=== PATIENT | male | born 1945 | race Caucasian/White ===

== ENCOUNTER 2016-07-25 19:01 | Inpatient (IN) | payer MEDICARE ==
[~2016-07-25] VITALS: Ht 182.9 cm; Wt 52.8 kg
[2016-07-25] MEDS ORDERED: IV NORMAL SALINE 1000ML BAG 1,000 ML IV ONE (20:00)
[2016-07-25 20:05] LABS: BASO # 0.1 x10^3/uL (0.0-0.2); BASO % 0 % (0-3); EOS % 0 % (0-3); HEMATOCRIT 51.8 % (39.0-53.0); HEMOGLOBIN 16.8 g/dL (13.0-17.5); LYMPH # 1.6 x10^3/uL (1.0-4.8); LYMPH % 5 % (24-48); MEAN CORPUSCULAR HEMOGLOBIN 30 pg (25-35); MEAN CORPUSCULAR HGB CONC 33 g/dL (31-37); MEAN CORPUSCULAR VOLUME 93 fL (79-100); MONO % 7 % (0-9); NEUT % 87 % (31-73); PLATELET COUNT 240 x10^3/uL (140-400); RED BLOOD COUNT 5.55 x10^6/uL (4.30-5.70); RED CELL DISTRIBUTION WIDTH 13.4 % (11.5-14.5); WHITE BLOOD COUNT 30.3 x10^3/uL (4.0-11.0)
[2016-07-25 20:14] LABS: INR 1.3 (0.8-1.1); PROTHROMBIN TIME PATIENT 15.4 SEC (11.7-14.0)
[2016-07-25 20:22] LABS: BILIRUBIN,URINE NEGATIVE (NEG); GLUCOSE,URINE NEGATIVE (NEG); NITRITE,URINE NEGATIVE (NEG); PROTEIN,URINE 100 mg/dL (NEG-TRACE); UROBILINOGEN,URINE 0.2 mg/dL (0.2 mg/dL)
[2016-07-25 20:23] LABS: ALBUMIN 3.8 g/dL (3.4-5.0); CALCIUM 9.7 mg/dL (8.5-10.1); CREATININE 1.8 mg/dL (0.7-1.3); GFR 37.4; POTASSIUM 3.5 mmol/L (3.5-5.1); TOTAL BILIRUBIN 0.4 mg/dL (0.2-1.0); TOTAL PROTEIN 7.6 g/dL (6.4-8.2)
[2016-07-25 20:27] LABS: BARBITURATES NEG (NEG); BENZODIAZEPINES POS (NEG); CANNABINOIDS NEG (NEG); COCAINE NEG (NEG); METHADONE NEG (NEG); OPIATES NEG (NEG); PHENCYCLIDINE NEG (NEG)
[2016-07-25 20:28] LABS: ETHANOL, URINE NEG (NEG)
[2016-07-25 20:30] LABS: BACTERIA,URINE 0 /HPF (0-FEW); SQUAMOUS EPITHELIAL CELL,UR OCC /LPF; WBC,URINE 0 /HPF (0-4)
[2016-07-25 20:35] LABS: PLT ESTIMATE ADEQUATE (ADEQUATE)
--- NOTE | 2016-07-25 20:39 | RAD ---
PROCEDURE CT head without intravenous contrast. HISTORY Seizures. TECHNIQUE Axial images are obtained of the head from the skull base through the vertex without IV contrast Exposure: One or more of the following individualized dose reduction techniques were utilized for this examination: 1. Automated exposure control. 2. Adjustment of the mA and/or kV according to patient size. 3. Use of iterative reconstruction technique. COMPARISON CT head March 03, 2010. FINDINGS There is evidence of of parenchymal volume loss involving bilateral anterior frontal lobes, which has developed in the interval. There is also evidence of mild-moderate cerebellar volume loss, although this is similar to previous study. No obvious intracranial mass, mass-effect, midline shift, hemorrhage or obvious acute infarction is identified.Basilar cisterns are patent. Bone windows demonstrate no acute calvarial abnormality.There is opacification the right frontal sinus as well as multiple right ethmoid air cells.. IMPRESSION 1. No acute intracranial process is identified. Please note that CT can be relatively insensitive to acute ischemic infarction for up to 24 hours after symptom onset. 2. There is evidence of bilateral anterior frontal volume loss, which is new from previous study. This is nonspecific, but could relate to degenerative disorder or, less likely, posttraumatic injury or old infarction. Recommend clinical correlation. 3. Cerebellar volume loss. 4. Paranasal sinus disease. Electronically signed by: Dru Rosenberg MD (Jul 25, 2016 20:37:32)
[2016-07-25] MEDS ORDERED: ACETAMINOPHEN 325 MG TABLET. PO PRN ×2 (21:00→23:00)
[2016-07-25] MEDS ORDERED: ONDANSETRON PF 4 MG/2 ML VIAL. IV PRN ×2 (21:00→23:00)
[2016-07-25] MEDS ORDERED: LORAZEPAM 2 MG/ML VIAL ONE (21:45)
[2016-07-25 21:55] VITALS: BP 138/80
[2016-07-25] MEDS ORDERED: LORAZEPAM 2 MG/ML VIAL IV ONE (22:00)
[2016-07-25] MEDS ORDERED: FOSPHENYTOIN 1,000 MG in IV NORMAL SALINE 50ML 50 ML IV ONE (22:00)
--- NOTE | 2016-07-25 22:21 | ACF ---
Admission Forms Criteria SEIZURE Clinical Indications for Admission to Inpatient Care (Place 'X' for any and all applicable criteria): Admission is indicated for seizure and ANY ONE of the following(1)(2)(3)(4)(5): [X]I. Inpatient admission required rather than observation care (Also use Seizure: Observation Care Criteria as appropriate) because of ANY ONE of the following: [ ]a) Altered mental status that is severe or persistent [ ]b) New focal neurologic deficit that is severe or persistent [ ]c) Metabolic disorder (eg, hypoglycemia, hyponatremia) that is severe or persistent [X]d) Recurrent seizure [ ]e) Outpatient antiseizure regimen cannot be established (eg , patient cannot tolerate medication, initiation requires inpatient care) [ ]f) Need for ongoing intravenous infusion of antiseizure medication [ ]g) Cardiac arrhythmias of immediate concern [ ]h) Cerebral bleeding, hydrocephalus, or vasospasm monitoring (14) [ ]i) Increased intracranial pressure or cerebral edema monitoring (15) [ ]j) Other treatment or monitoring requiring inpatient admission [ ]II. Status epilepticus [A] or repetitive seizures not controlled with emergent treatment (6)(8) [ ]III. Brain disorder (eg, tumor, edema, and hydrocephalus) that requiring monitoring or intervention available only at inpatient level of care. [ ]IV. Brain insult (eg, severe trauma, stroke, drug toxicity, or withdrawal) that requires monitoring or intervention available only at inpatient level of care (10)(11) Extended stay beyond goal length of stay may be needed for (22) [ ]a) Complications of status epilepticus [ ]b) Refractory status epilepticus [ ]c) Etiology-specific therapy for conditions such as CRITICAL POWER INSTALL TECHNICIAN infection, head injury,eclampsia, severe metabolic abnormalities, and brain tumor [ ]d) Residual neurologic damage, [ ]e) Initiation of significant change to anticonvulsant treatment [ ]f) Older patients (65 years or older) [ ]g) Patient requiring intubation (eg, to protect airway) The original [employer] content created by [employer] has been revised. The portions of the content which have been revised are identified through the use of italic text or in bold, and [facility] [employer] has neither reviewed nor approved the modified material. All other unmodified content is copyright [facility] [employer]. Please see references footnoted in the original [facility] edition 2016 Admission Criteria Met?: Yes BALDO ALFARO Jul 25, 2016 22:21
--- NOTE | 2016-07-25 22:34 | PHYS DOC ---
Past Medical History Past Medical History: Seizure, Schizophrenia, Unknown Past Surgical History: Other Additional Past Surgical Histo: unknown Alcohol Use: None Drug Use: None Adult General Chief Complaint Chief Complaint: SEIZURE HPI HPI 71-year-old male with a history of seizure disorder who apparently takes Dilantin for his seizures presents after he had a seizure at home. EMS was called and in route the patient had another seizure and was given 5 mg of Versed. On arrival here the patient was highly sedated and unable provide any history. In reviewing his previous visits he is presented in a very similar fashion in the past. [] Review of Systems Review of Systems Review of systems are unobtainable secondary to altered mental status secondary to Versed sedation. Current Medications Current Medications Current Medications Medications (Trade) Dose Ordered Sig/Linh Start Time Stop Time Status Last Admin Dose Admin Sodium Chloride (Iv Sodium Chloride 0.9% 1000ml Bag) 1,000 ml @ 1,000 mls/hr 1X ONCE 07/25/16 20:00 07/25/16 20:59 DC 07/25/16 20:00 1,000 MLS/HR Allergies Allergies Allergies Coded Allergies Type Severity Reaction Last Updated Verified No Known Drug Allergies 07/16/15 No Physical Exam Physical Exam Constitutional: Well developed, well nourished, no acute distress, patient is sedated. [] HENT: Normocephalic, atraumatic, bilateral external ears normal, oropharynx moist, no oral exudates, nose normal. [] Eyes: PERRLA, EOMI, conjunctiva normal, no discharge. [] Neck: Normal range of motion, no tenderness, supple, no stridor. [] Cardiovascular:Heart rate regular rhythm, no murmur [] Lungs & Thorax: Bilateral breath sounds clear to auscultation [] Abdomen: Bowel sounds normal, soft, no tenderness, no masses, no pulsatile masses. [] Skin: Warm, dry, no erythema, no rash. [] Back: No tenderness, no CVA tenderness. [] Extremities: No tenderness, no cyanosis, no clubbing, ROM intact, no edema. [] Neurologic: Patient is postictal but does move all 4 extremities noted. [] Psychologic: Unable to assess patient's sedated Current Patient Data Vital Signs Vital Signs Date Time Temp Pulse Resp B/P Pulse Ox O2 Delivery O2 Flow Rate FiO2 07/25/16 20:52 106 20 127/63 97 Nasal Cannula 3 07/25/16 19:01 98.9 98.9 Lab Values Laboratory Tests Test 07/25/16 19:05 07/25/16 20:10 White Blood Count 30.3x10^3/uL (4.0-11.0) H Red Blood Count 5.55x10^6/uL (4.30-5.70) Hemoglobin 16.8g/dL (13.0-17.5) Hematocrit 51.8% (39.0-53.0) Mean Corpuscular Volume 93fL (79-100) Mean Corpuscular Hemoglobin 30pg (25-35) Mean Corpuscular Hemoglobin Concent 33g/dL (31-37) Red Cell Distribution Width 13.4% (11.5-14.5) Platelet Count 240x10^3/uL (140-400) Neutrophils (%) (Auto) 87% (31-73) H Lymphocytes (%) (Auto) 5% (24-48) L Monocytes (%) (Auto) 7% (0-9) Eosinophils (%) (Auto) 0% (0-3) Basophils (%) (Auto) 0% (0-3) Neutrophils # (Auto) 26.3x10^3uL (1.8-7.7) H Lymphocytes # (Auto) 1.6x10^3/uL (1.0-4.8) Monocytes # (Auto) 2.2x10^3/uL (0.0-1.1) H Eosinophils # (Auto) 0.0x10^3/uL (0.0-0.7) Basophils # (Auto) 0.1x10^3/uL (0.0-0.2) Segmented Neutrophils % 80% (35-66) H Band Neutrophils % 9% (0-9) Lymphocytes % 4% (24-48) L Monocytes % 7% (0-10) Platelet Estimate Adequate (ADEQUATE) Prothrombin Time 15.4SEC (11.7-14.0) H Prothrombin Time INR 1.3 (0.8-1.1) H Sodium Level 142mmol/L (136-145) Potassium Level 3.5mmol/L (3.5-5.1) Chloride Level 100mmol/L (98-107) Carbon Dioxide Level 10mmol/L (21-32) *L Anion Gap 32 (6-14) H Blood Urea Nitrogen 13mg/dL (8-26) Creatinine 1.8mg/dL (0.7-1.3) H Estimated GFR (Cockcroft-Gault) 37.4 BUN/Creatinine Ratio 7 (6-20) Glucose Level 176mg/dL (70-99) H Calcium Level 9.7mg/dL (8.5-10.1) Total Bilirubin 0.4mg/dL (0.2-1.0) Aspartate Amino Transferase (AST) 23U/L (15-37) Alanine Aminotransferase (ALT) 23U/L (16-63) Alkaline Phosphatase 131U/L (46-116) H Creatine Kinase 137U/L (39-308) Total Protein 7.6g/dL (6.4-8.2) Albumin 3.8g/dL (3.4-5.0) Albumin/Globulin Ratio 1.0 (1.0-1.7) Phenytoin (Dilantin) Level 7.9mcg/mL (10.0-20.0) L Phenytoin Last Dose Date 07/25/2016 Phenytoin Last Dose Time 0700 Ethyl Alcohol Level < 10mg/dL (0-10) Urine Collection Type U cath Urine Color Yellow Urine Clarity Clear Urine pH 5.0 Urine Specific [place] 1.015 Urine Protein 100mg/dL (NEG-TRACE) Urine Glucose (UA) Negativemg/dL (NEG) Urine Ketones (Stick) Negativemg/dL (NEG) Urine Blood Small (NEG) Urine Nitrite Negative (NEG) Urine Bilirubin Negative (NEG) Urine Urobilinogen Dipstick 0.2mg/dL (0.2 mg/dL) Urine Leukocyte Esterase Negative (NEG) Urine RBC 1-2/HPF (0-2) Urine WBC 0/HPF (0-4) Urine Squamous Epithelial Cells Occ/LPF Urine Transitional Epithelial Cells Occ/LPF Urine Bacteria 0/HPF (0-FEW) Urine Hyaline Casts Few/HPF Urine Mucus Slight/LPF Urine Opiates Screen Neg (NEG) Urine Methadone Screen Neg (NEG) Urine Barbiturates Neg (NEG) Urine Phencyclidine Screen Neg (NEG) Urine Amphetamine/Methamphetamine Neg (NEG) Urine Benzodiazepines Screen Pos (NEG) Urine Cocaine Screen Neg (NEG) Urine Cannabinoids Screen Neg (NEG) Urine Ethyl Alcohol Neg (NEG) Laboratory Tests 07/25/16 19:05 Laboratory Tests 07/25/16 19:05 EKG EKG [] Interpretation Time: EKG: Sinus tachycardia rate of [address]-T changes Radiology/Procedures Radiology/Procedures [] Impressions: PROCEDURE: HEAD WO CONTRAST PROCEDURE CT head without intravenous contrast. HISTORY Seizures. TECHNIQUE Axial images are obtained of the head from the skull base through the vertex without IV contrast Exposure: One or more of the following individualized dose reduction techniques were utilized for this examination: 1. Automated exposure control. 2. Adjustment of the mA and/or kV according to patient size. 3. Use of iterative reconstruction technique. COMPARISON CT head March 03, 2010. FINDINGS There is evidence of of parenchymal volume loss involving bilateral anterior frontal lobes, which has developed in the interval. There is also evidence of mild-moderate cerebellar volume loss, although this is similar to previous study. No obvious intracranial mass, mass-effect, midline shift, hemorrhage or obvious acute infarction is identified.Basilar cisterns are patent. Bone windows demonstrate no acute calvarial abnormality.There is opacification the right frontal sinus as well as multiple right ethmoid air cells.. IMPRESSION 1. No acute intracranial process is identified. Please note that CT can be relatively insensitive to acute ischemic infarction for up to 24 hours after symptom onset. 2. There is evidence of bilateral anterior frontal volume loss, which is new from previous study. This is nonspecific, but could relate to degenerative disorder or, less likely, posttraumatic injury or old infarction. Recommend clinical correlation. 3. Cerebellar volume loss. 4. Paranasal sinus disease. Course & Med Decision Making Course & Med Decision Making Pertinent Labs and Imaging studies reviewed. (See chart for details) [ED course: Evaluation reveals a postictal 71-year-old male. During the patient' s stay he did arouse and tried to get out of bed. Patient actually slid to the floor but did not hit his head. Patient also had another seizure that appeared to be tonic-clonic in nature and lasted approximately 1 minute. Patient was given 2 mg of Ativan which did control his seizure. He also was loaded with 15 mg/kg of fosphenytoin. I spoke with Dr. Major Patel who agreed to accept patient for admission. Patient was sent to the floor sedated and seizure free. Vitals remained stable throughout her stay. CRITICAL CARE time was 30 minutes - time exclusive of any procedures performed. Care included medical management, x-ray/lab interpretation, discussions with the patient and their family as well as appropriate medical consultants.] Dragon Disclaimer Dragon Disclaimer This electronic medical record was generated, in whole or in part, using a voice recognition dictation system. Departure Departure Impression: Primary Impression: Seizure Disposition: 09 ADMITTED INPATIENT Admitting Physician: Mike Land Condition: IMPROVED Referrals: CARMEN VIVAS MD (PCP) JESUS PRO DO Jul 25, 2016 22:34
[2016-07-25] MEDS ORDERED: ALBUTEROL SULFATE 2.5 MG/3 ML NEBU. NEB PRN (23:00)
[2016-07-25] MEDS ORDERED: hydrALAZINE 20 MG/ML VIAL. IVP PRN (23:00)
[2016-07-25] MEDS ORDERED: HYDROCODONE/APAP 5/325MG TABLET. PO PRN (23:00)
[2016-07-25] MEDS: IV NORMAL SALINE 1000ML BAG 1,000 ML IV SCH (23:05)
[2016-07-25] MEDS ORDERED: LORAZEPAM 2 MG/ML VIAL IV PRN (23:15)
--- NOTE | 2016-07-26 01:18 | HP ---
ADMIT DATE: 07/25/2016 CHIEF COMPLAINT: A 71-year-old male patient with prior history of seizures and schizophrenia brought to the ER by EMS for reported seizure-like activity. As per the report, the patient takes Dilantin for seizures; however, he noted to have one episode of seizure this morning and called the EMS. At the time of arrival of EMS, the patient was in postictal state. En route to ER, the patient had another episode of seizure-like activity and they gave him 5 mg of Versed. As per the ER report, at the time of arrival, the patient is drowsy and postictal. He was not able provide any good history. At the time of my examination in the ER, the patient is still drowsy; however, he is little bit alert and able to answer his questions. He is aware of his surroundings. He knows that it is a hospital. He denies any noncompliance; however, his Dilantin levels are less than therapeutic levels. He denies any fever, chills, or any trauma to head or recent changes in his lifestyle. PAST MEDICAL HISTORY: Seizures, schizophrenia. PAST SURGICAL HISTORY: Unknown. PERSONAL HISTORY: Denies any substance abuse or alcohol or drugs. FAMILY HISTORY: Unknown. ALLERGIES: NKDA. REVIEW OF SYSTEMS: Very limited due to his postictal state. Denies any fever, chills, nausea, vomiting, or headache. Negative other than HPI. PHYSICAL EXAM: VITALS: At the time of arrival, temperature 98.9, pulse 106, respirations 20, blood pressure 127/63, pulse ox 97. GENERAL: The patient appears to be dehydrated and mildly sedated. HEENT: Head normocephalic, atraumatic. Eyes, PERRLA, EOMI. NECK: No JVD, no thyromegaly. LUNGS: Anterior chest clear. Normal air entry. HEART: S1, S2 present; regular rate and rhythm. ABDOMEN: Soft, nontender. No organomegaly. EXTREMITIES: No cyanosis or edema. NEUROLOGIC: Postictal, confused. Able to follow commands. Slow to respond. PSYCHIATRIC: No anxiety. SKIN: Warm and dry. LABORATORY FINDINGS: WBC 30.3, hemoglobin 16.8, MCV is 93, MCH is 33, platelets are 240. Chemistry: Sodium is 142, potassium is 3.5, chloride is , carbon dioxide 10, anion gap is 32, BUN is 13, creatinine is 1.8, GFR 37. Glucose is 174. Coagulase, INR is 1.5, PT is 15.4. Toxicology: Phenytoin is 7.9, which is low. Positive for benzodiazepines. Urine: pH is 5.1, specific gravity 1.015, protein is 100, nitrite negative, leukocyte esterase negative. IMAGING STUDIES: CT of head negative. Chest x-ray pending. ASSESSMENT AND PLAN 1. Epilepsy, recurrent. 2. Metabolic acidosis. 3. Dehydration. 4. Leukocytosis. PLAN: 1. Received 5 mg of Versed in the EMS and he was loaded with fosphenytoin in the ER. I will continue p.r.n. Ativan along with that and we will continue the home medications, which needs to be verified. 2. Leukocytosis most likely due to his seizure-like activity and we will continue mild hydration and recheck CBC and BMP in a.m. 3. Gap metabolic acidosis likely due to seizure-like activity and dehydration and increase anaerobic metabolism. Recheck BMP in September again. 4. Seizure precautions. 5. Neurology consultation. 6. Follow chest x-ray. 7. Monitor creatinine, unknown baseline. 8. Nursing staff notified to verify home medications. WOODY MINOR MD DR: SHANT/matilda JOB#: [id number] / [id number] MARISSA
[2016-07-26] MEDS ORDERED: ACET325T9 PO (02:38)
[2016-07-26] MEDS ORDERED: LEVE100020 PO (02:38)
[2016-07-26] MEDS ORDERED: MEMA10TA PO (02:38)
[2016-07-26] MEDS ORDERED: PHEN100C PO ×3 (02:38)
[2016-07-26 03:00] VITALS: BP 98/58
[2016-07-26 04:31] LABS: BASO % 0 % (0-3); EOS % 0 % (0-3); HEMATOCRIT 43.7 % (39.0-53.0); HEMOGLOBIN 14.8 g/dL (13.0-17.5); LYMPH # 1.2 x10^3/uL (1.0-4.8); LYMPH % 5 % (24-48); MEAN CORPUSCULAR HEMOGLOBIN 30 pg (25-35); MEAN CORPUSCULAR HGB CONC 34 g/dL (31-37); MEAN CORPUSCULAR VOLUME 89 fL (79-100); MONO % 7 % (0-9); NEUT % 88 % (31-73); PLATELET COUNT 159 x10^3/uL (140-400); RED CELL DISTRIBUTION WIDTH 13.1 % (11.5-14.5); WHITE BLOOD COUNT 24.4 x10^3/uL (4.0-11.0)
[2016-07-26] MEDS: IV NORMAL SALINE 1000ML BAG 1,000 ML IV SCH ×3 (04:35→16:16)
[2016-07-26 04:48] LABS: ALBUMIN 2.8 g/dL (3.4-5.0); ALBUMIN/GLOBULIN RATIO 0.8 (1.0-1.7); CALCIUM 8.5 mg/dL (8.5-10.1); CREATININE 1.4 mg/dL (0.7-1.3); POTASSIUM 4.4 mmol/L (3.5-5.1); TOTAL BILIRUBIN 0.4 mg/dL (0.2-1.0); TOTAL PROTEIN 6.3 g/dL (6.4-8.2)
--- NOTE | 2016-07-26 06:48 | EKG ---
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
[2016-07-26 07:00] VITALS: BP 105/61
--- NOTE | 2016-07-26 07:41 | RAD ---
Portable chest, 07/25/2016: History: Seizure, altered mental status The heart size and pulmonary vascularity are normal. There is calcific plaquing and tortuosity of the thoracic aorta. No pulmonary infiltrates are seen. There is no evidence of pleural fluid. IMPRESSION: No acute cardiopulmonary abnormality is detected.
[2016-07-26] MEDS ORDERED: ACETAMINOPHEN 325 MG TABLET. PO PRN (09:00)
[2016-07-26] MEDS ORDERED: MEMANTINE 5 MG TABLET. PO SCH (09:30)
[2016-07-26] MEDS: MEMANTINE 5 MG TABLET. PO SCH (09:40)
[2016-07-26] MEDS: PHENYTOIN SODIUM EXTENDED 100 MG CAPSULE PO SCH ×2 (09:40→20:51)
[2016-07-26] MEDS: LEVETIRACETAM 500 MG TABLET PO SCH ×2 (09:41→20:51)
--- NOTE | 2016-07-26 10:50 | PDOC ---
PROGRESS NOTES Chief Complaint Chief Complaint 1. Epilepsy, breakthrough seizures 2. Metabolic acidosis resolved. 3. Dehydration. 4. Leukocytosis. 5. LUIS E improved. Plan keppra iv hydration resume Dilantin per neurology monitor renal function. History of Present Illness History of Present Illness no seizure like activity . Vitals Vitals Vital Signs Date Time Temp Pulse Resp B/P Pulse Ox O2 Delivery O2 Flow Rate FiO2 07/26/16 07:00 98.9 93 18 105/61 97 Nasal Cannula 2.0 98.9 Physical Exam General: Alert Heart: Normal S1, Normal S2 Lungs: Clear, Wheezing Extremities: No clubbing, No cyanosis Labs LABS Laboratory Tests Test 07/25/16 19:05 07/25/16 20:10 07/25/16 21:36 07/26/16 04:14 White Blood Count 30.3x10^3/uL (4.0-11.0) 24.4x10^3/uL (4.0-11.0) Red Blood Count 5.55x10^6/uL (4.30-5.70) 4.90x10^6/uL (4.30-5.70) Hemoglobin 16.8g/dL (13.0-17.5) 14.8g/dL (13.0-17.5) Hematocrit 51.8% (39.0-53.0) 43.7% (39.0-53.0) Mean Corpuscular Volume 93fL (79-100) 89fL (79-100) Mean Corpuscular Hemoglobin 30pg (25-35) 30pg (25-35) Mean Corpuscular Hemoglobin Concent 33g/dL (31-37) 34g/dL (31-37) Red Cell Distribution Width 13.4% (11.5-14.5) 13.1% (11.5-14.5) Platelet Count 240x10^3/uL (140-400) 159x10^3/uL (140-400) Neutrophils (%) (Auto) 87% (31-73) 88% (31-73) Lymphocytes (%) (Auto) 5% (24-48) 5% (24-48) Monocytes (%) (Auto) 7% (0-9) 7% (0-9) Eosinophils (%) (Auto) 0% (0-3) 0% (0-3) Basophils (%) (Auto) 0% (0-3) 0% (0-3) Neutrophils # (Auto) 26.3x10^3uL (1.8-7.7) 21.5x10^3uL (1.8-7.7) Lymphocytes # (Auto) 1.6x10^3/uL (1.0-4.8) 1.2x10^3/uL (1.0-4.8) Monocytes # (Auto) 2.2x10^3/uL (0.0-1.1) 1.7x10^3/uL (0.0-1.1) Eosinophils # (Auto) 0.0x10^3/uL (0.0-0.7) 0.0x10^3/uL (0.0-0.7) Basophils # (Auto) 0.1x10^3/uL (0.0-0.2) 0.0x10^3/uL (0.0-0.2) Segmented Neutrophils % 80% (35-66) Band Neutrophils % 9% (0-9) Lymphocytes % 4% (24-48) Monocytes % 7% (0-10) Platelet Estimate Adequate (ADEQUATE) Prothrombin Time 15.4SEC (11.7-14.0) Prothromb Time International Ratio 1.3 (0.8-1.1) Sodium Level 142mmol/L (136-145) 139mmol/L (136-145) Potassium Level 3.5mmol/L (3.5-5.1) 4.4mmol/L (3.5-5.1) Chloride Level 100mmol/L (98-107) 105mmol/L (98-107) Carbon Dioxide Level 10mmol/L (21-32) 23mmol/L (21-32) Anion Gap 32 (6-14) 11 (6-14) Blood Urea Nitrogen 13mg/dL (8-26) 14mg/dL (8-26) Creatinine 1.8mg/dL (0.7-1.3) 1.4mg/dL (0.7-1.3) Estimated GFR (Cockcroft-Gault) 37.4 50.0 BUN/Creatinine Ratio 7 (6-20) 10 (6-20) Glucose Level 176mg/dL (70-99) 141mg/dL (70-99) Calcium Level 9.7mg/dL (8.5-10.1) 8.5mg/dL (8.5-10.1) Total Bilirubin 0.4mg/dL (0.2-1.0) 0.4mg/dL (0.2-1.0) Aspartate Amino Transf (AST/SGOT) 23U/L (15-37) 18U/L (15-37) Alanine Aminotransferase (ALT/SGPT) 23U/L (16-63) 18U/L (16-63) Alkaline Phosphatase 131U/L (46-116) 91U/L (46-116) Creatine Kinase 137U/L (39-308) Total Protein 7.6g/dL (6.4-8.2) 6.3g/dL (6.4-8.2) Albumin 3.8g/dL (3.4-5.0) 2.8g/dL (3.4-5.0) Albumin/Globulin Ratio 1.0 (1.0-1.7) 0.8 (1.0-1.7) Phenytoin (Dilantin) Level 7.9mcg/mL (10.0-20.0) Phenytoin Last Dose Date 07/25/2016 Phenytoin Last Dose Time 0700 Ethyl Alcohol Level < 10mg/dL (0-10) Urine Collection Type U cath Urine Color Yellow Urine Clarity Clear Urine pH 5.0 Urine Specific [place] 1.015 Urine Protein 100mg/dL (NEG-TRACE) Urine Glucose (UA) Negativemg/dL (NEG) Urine Ketones (Stick) Negativemg/dL (NEG) Urine Blood Small (NEG) Urine Nitrite Negative (NEG) Urine Bilirubin Negative (NEG) Urine Urobilinogen Dipstick 0.2mg/dL (0.2 mg/dL) Urine Leukocyte Esterase Negative (NEG) Urine RBC 1-2/HPF (0-2) Urine WBC 0/HPF (0-4) Urine Squamous Epithelial Cells Occ/LPF Urine Transitional Epithelial Cells Occ/LPF Urine Bacteria 0/HPF (0-FEW) Urine Hyaline Casts Few/HPF Urine Mucus Slight/LPF Urine Opiates Screen Neg (NEG) Urine Methadone Screen Neg (NEG) Urine Barbiturates Neg (NEG) Urine Phencyclidine Screen Neg (NEG) Urine Amphetamine/Methamphetamine Neg (NEG) Urine Benzodiazepines Screen Pos (NEG) Urine Cocaine Screen Neg (NEG) Urine Cannabinoids Screen Neg (NEG) Urine Ethyl Alcohol Neg (NEG) Lactic Acid Level 1.9mmol/L (0.4-2.0) Assessment and Plan Assessmemt and Plan Problems Medical Problems: (1) Seizure Status: Acute (2) Seizures Status: Acute Problems: Comment Review of Relevant I have reviewed the following items jossue (where applicable) has been applied. Labs Laboratory Tests Test 07/25/16 19:05 07/25/16 20:10 07/25/16 21:36 07/26/16 04:14 White Blood Count 30.3x10^3/uL (4.0-11.0) 24.4x10^3/uL (4.0-11.0) Red Blood Count 5.55x10^6/uL (4.30-5.70) 4.90x10^6/uL (4.30-5.70) Hemoglobin 16.8g/dL (13.0-17.5) 14.8g/dL (13.0-17.5) Hematocrit 51.8% (39.0-53.0) 43.7% (39.0-53.0) Mean Corpuscular Volume 93fL (79-100) 89fL (79-100) Mean Corpuscular Hemoglobin 30pg (25-35) 30pg (25-35) Mean Corpuscular Hemoglobin Concent 33g/dL (31-37) 34g/dL (31-37) Red Cell Distribution Width 13.4% (11.5-14.5) 13.1% (11.5-14.5) Platelet Count 240x10^3/uL (140-400) 159x10^3/uL (140-400) Neutrophils (%) (Auto) 87% (31-73) 88% (31-73) Lymphocytes (%) (Auto) 5% (24-48) 5% (24-48) Monocytes (%) (Auto) 7% (0-9) 7% (0-9) Eosinophils (%) (Auto) 0% (0-3) 0% (0-3) Basophils (%) (Auto) 0% (0-3) 0% (0-3) Neutrophils # (Auto) 26.3x10^3uL (1.8-7.7) 21.5x10^3uL (1.8-7.7) Lymphocytes # (Auto) 1.6x10^3/uL (1.0-4.8) 1.2x10^3/uL (1.0-4.8) Monocytes # (Auto) 2.2x10^3/uL (0.0-1.1) 1.7x10^3/uL (0.0-1.1) Eosinophils # (Auto) 0.0x10^3/uL (0.0-0.7) 0.0x10^3/uL (0.0-0.7) Basophils # (Auto) 0.1x10^3/uL (0.0-0.2) 0.0x10^3/uL (0.0-0.2) Segmented Neutrophils % 80% (35-66) Band Neutrophils % 9% (0-9) Lymphocytes % 4% (24-48) Monocytes % 7% (0-10) Platelet Estimate Adequate (ADEQUATE) Prothrombin Time 15.4SEC (11.7-14.0) Prothromb Time International Ratio 1.3 (0.8-1.1) Sodium Level 142mmol/L (136-145) 139mmol/L (136-145) Potassium Level 3.5mmol/L (3.5-5.1) 4.4mmol/L (3.5-5.1) Chloride Level 100mmol/L (98-107) 105mmol/L (98-107) Carbon Dioxide Level 10mmol/L (21-32) 23mmol/L (21-32) Anion Gap 32 (6-14) 11 (6-14) Blood Urea Nitrogen 13mg/dL (8-26) 14mg/dL (8-26) Creatinine 1.8mg/dL (0.7-1.3) 1.4mg/dL (0.7-1.3) Estimated GFR (Cockcroft-Gault) 37.4 50.0 BUN/Creatinine Ratio 7 (6-20) 10 (6-20) Glucose Level 176mg/dL (70-99) 141mg/dL (70-99) Calcium Level 9.7mg/dL (8.5-10.1) 8.5mg/dL (8.5-10.1) Total Bilirubin 0.4mg/dL (0.2-1.0) 0.4mg/dL (0.2-1.0) Aspartate Amino Transf (AST/SGOT) 23U/L (15-37) 18U/L (15-37) Alanine Aminotransferase (ALT/SGPT) 23U/L (16-63) 18U/L (16-63) Alkaline Phosphatase 131U/L (46-116) 91U/L (46-116) Creatine Kinase 137U/L (39-308) Total Protein 7.6g/dL (6.4-8.2) 6.3g/dL (6.4-8.2) Albumin 3.8g/dL (3.4-5.0) 2.8g/dL (3.4-5.0) Albumin/Globulin Ratio 1.0 (1.0-1.7) 0.8 (1.0-1.7) Phenytoin (Dilantin) Level 7.9mcg/mL (10.0-20.0) Phenytoin Last Dose Date 07/25/2016 Phenytoin Last Dose Time 0700 Ethyl Alcohol Level < 10mg/dL (0-10) Urine Collection Type U cath Urine Color Yellow Urine Clarity Clear Urine pH 5.0 Urine Specific [place] 1.015 Urine Protein 100mg/dL (NEG-TRACE) Urine Glucose (UA) Negativemg/dL (NEG) Urine Ketones (Stick) Negativemg/dL (NEG) Urine Blood Small (NEG) Urine Nitrite Negative (NEG) Urine Bilirubin Negative (NEG) Urine Urobilinogen Dipstick 0.2mg/dL (0.2 mg/dL) Urine Leukocyte Esterase Negative (NEG) Urine RBC 1-2/HPF (0-2) Urine WBC 0/HPF (0-4) Urine Squamous Epithelial Cells Occ/LPF Urine Transitional Epithelial Cells Occ/LPF Urine Bacteria 0/HPF (0-FEW) Urine Hyaline Casts Few/HPF Urine Mucus Slight/LPF Urine Opiates Screen Neg (NEG) Urine Methadone Screen Neg (NEG) Urine Barbiturates Neg (NEG) Urine Phencyclidine Screen Neg (NEG) Urine Amphetamine/Methamphetamine Neg (NEG) Urine Benzodiazepines Screen Pos (NEG) Urine Cocaine Screen Neg (NEG) Urine Cannabinoids Screen Neg (NEG) Urine Ethyl Alcohol Neg (NEG) Lactic Acid Level 1.9mmol/L (0.4-2.0) Laboratory Tests Test 07/25/16 19:05 07/25/16 20:10 07/25/16 21:36 07/26/16 04:14 White Blood Count 30.3x10^3/uL (4.0-11.0) 24.4x10^3/uL (4.0-11.0) Red Blood Count 5.55x10^6/uL (4.30-5.70) 4.90x10^6/uL (4.30-5.70) Hemoglobin 16.8g/dL (13.0-17.5) 14.8g/dL (13.0-17.5) Hematocrit 51.8% (39.0-53.0) 43.7% (39.0-53.0) Mean Corpuscular Volume 93fL (79-100) 89fL (79-100) Mean Corpuscular Hemoglobin 30pg (25-35) 30pg (25-35) Mean Corpuscular Hemoglobin Concent 33g/dL (31-37) 34g/dL (31-37) Red Cell Distribution Width 13.4% (11.5-14.5) 13.1% (11.5-14.5) Platelet Count 240x10^3/uL (140-400) 159x10^3/uL (140-400) Neutrophils (%) (Auto) 87% (31-73) 88% (31-73) Lymphocytes (%) (Auto) 5% (24-48) 5% (24-48) Monocytes (%) (Auto) 7% (0-9) 7% (0-9) Eosinophils (%) (Auto) 0% (0-3) 0% (0-3) Basophils (%) (Auto) 0% (0-3) 0% (0-3) Neutrophils # (Auto) 26.3x10^3uL (1.8-7.7) 21.5x10^3uL (1.8-7.7) Lymphocytes # (Auto) 1.6x10^3/uL (1.0-4.8) 1.2x10^3/uL (1.0-4.8) Monocytes # (Auto) 2.2x10^3/uL (0.0-1.1) 1.7x10^3/uL (0.0-1.1) Eosinophils # (Auto) 0.0x10^3/uL (0.0-0.7) 0.0x10^3/uL (0.0-0.7) Basophils # (Auto) 0.1x10^3/uL (0.0-0.2) 0.0x10^3/uL (0.0-0.2) Segmented Neutrophils % 80% (35-66) Band Neutrophils % 9% (0-9) Lymphocytes % 4% (24-48) Monocytes % 7% (0-10) Platelet Estimate Adequate (ADEQUATE) Prothrombin Time 15.4SEC (11.7-14.0) Prothromb Time International Ratio 1.3 (0.8-1.1) Sodium Level 142mmol/L (136-145) 139mmol/L (136-145) Potassium Level 3.5mmol/L (3.5-5.1) 4.4mmol/L (3.5-5.1) Chloride Level 100mmol/L (98-107) 105mmol/L (98-107) Carbon Dioxide Level 10mmol/L (21-32) 23mmol/L (21-32) Anion Gap 32 (6-14) 11 (6-14) Blood Urea Nitrogen 13mg/dL (8-26) 14mg/dL (8-26) Creatinine 1.8mg/dL (0.7-1.3) 1.4mg/dL (0.7-1.3) Estimated GFR (Cockcroft-Gault) 37.4 50.0 BUN/Creatinine Ratio 7 (6-20) 10 (6-20) Glucose Level 176mg/dL (70-99) 141mg/dL (70-99) Calcium Level 9.7mg/dL (8.5-10.1) 8.5mg/dL (8.5-10.1) Total Bilirubin 0.4mg/dL (0.2-1.0) 0.4mg/dL (0.2-1.0) Aspartate Amino Transf (AST/SGOT) 23U/L (15-37) 18U/L (15-37) Alanine Aminotransferase (ALT/SGPT) 23U/L (16-63) 18U/L (16-63) Alkaline Phosphatase 131U/L (46-116) 91U/L (46-116) Creatine Kinase 137U/L (39-308) Total Protein 7.6g/dL (6.4-8.2) 6.3g/dL (6.4-8.2) Albumin 3.8g/dL (3.4-5.0) 2.8g/dL (3.4-5.0) Albumin/Globulin Ratio 1.0 (1.0-1.7) 0.8 (1.0-1.7) Phenytoin (Dilantin) Level 7.9mcg/mL (10.0-20.0) Phenytoin Last Dose Date 07/25/2016 Phenytoin Last Dose Time 0700 Ethyl Alcohol Level < 10mg/dL (0-10) Urine Collection Type U cath Urine Color Yellow Urine Clarity Clear Urine pH 5.0 Urine Specific [place] 1.015 Urine Protein 100mg/dL (NEG-TRACE) Urine Glucose (UA) Negativemg/dL (NEG) Urine Ketones (Stick) Negativemg/dL (NEG) Urine Blood Small (NEG) Urine Nitrite Negative (NEG) Urine Bilirubin Negative (NEG) Urine Urobilinogen Dipstick 0.2mg/dL (0.2 mg/dL) Urine Leukocyte Esterase Negative (NEG) Urine RBC 1-2/HPF (0-2) Urine WBC 0/HPF (0-4) Urine Squamous Epithelial Cells Occ/LPF Urine Transitional Epithelial Cells Occ/LPF Urine Bacteria 0/HPF (0-FEW) Urine Hyaline Casts Few/HPF Urine Mucus Slight/LPF Urine Opiates Screen Neg (NEG) Urine Methadone Screen Neg (NEG) Urine Barbiturates Neg (NEG) Urine Phencyclidine Screen Neg (NEG) Urine Amphetamine/Methamphetamine Neg (NEG) Urine Benzodiazepines Screen Pos (NEG) Urine Cocaine Screen Neg (NEG) Urine Cannabinoids Screen Neg (NEG) Urine Ethyl Alcohol Neg (NEG) Lactic Acid Level 1.9mmol/L (0.4-2.0) Medications Current Medications Sodium Chloride (Iv Sodium Chloride 0.9% 1000ml Bag) 1,000 ml @ 1,000 mls/hr 1X ONCE IV Last administered on 07/25/16 20:00; Start 07/25/16 at 20:00; Stop 07/25/16 at 20:59; Status DC Ondansetron HCl 4 mg 4 mg PRN Q8HRS PRN IV NAUSEA/VOMITING; Start 07/25/16 at 21:00; Stop 07/25/16 at 22:58; Status DC Sodium Chloride (Iv Sodium Chloride 0.9% 1000ml Bag) 1,000 ml @ 150 mls/hr Q6H40M IV Last administered on 07/26/16 04:35; Start 07/25/16 at 21:00; Stop 07/26/16 at 20:59 Acetaminophen (Tylenol) 650 mg PRN Q4HRS PRN PO FEVER; Start 07/25/16 at 21:00 ; Stop 07/25/16 at 22:58; Status DC Lorazepam 2 mg 2 mg STK-MED ONCE .ROUTE ; Start 07/25/16 at 21:45; Stop at 21:46; Status DC Fosphenytoin Sodium/Sodium Chloride (Cerebyx/Iv Sodium Chloride 0.9% 50ml) 70 ml @ 280 mls/hr 1X ONCE IV Last administered on 07/25/16 23:05; Start at 22:00; Stop 07/25/16 at 22:14; Status DC Lorazepam (Ativan) 2 mg 1X ONCE IV Last administered on 07/25/16 21:47; Start 07/25/16 at 22:00; Stop 07/25/16 at 22:01; Status DC Acetaminophen (Tylenol) 325 mg PRN Q6HRS PRN PO MILD PAIN / TEMP; Start at 23:00; Stop 07/26/16 at 09:15; Status DC Acetaminophen/ Hydrocodone Bitart (Lortab 5/325) 1 tab PRN Q6HRS PRN PO MODERATE TO SEVERE PAIN; Start 07/25/16 at 23:00 Hydralazine HCl (Apresoline) 10 mg PRN Q4HRS PRN IVP ELEVATED BP, SEE COMMENTS ; Start 07/25/16 at 23:00 Ondansetron HCl (Zofran) 4 mg PRN Q8HRS PRN IV NAUSEA/VOMITING; Start 07/25/16 at 23:00 Albuterol Sulfate 2.5 mg 2.5 mg PRN Q4HRS PRN NEB SHORTNESS OF BREATH; Start at 23:00 Sodium Chloride (Iv Sodium Chloride 0.9% 1000ml Bag) 1,000 ml @ 75 mls/hr DAILY IV Last administered on 07/26/16 09:08; Start 07/26/16 at 09:00 Lorazepam (Ativan) 2 mg PRN Q4HRS PRN IV TREMORS Last administered on 04:35; Start 07/25/16 at 23:15 Acetaminophen (Tylenol) 650 mg PRN Q6HRS PRN PO PAIN; Start 07/26/16 at 09:00 Memantine (Namenda) 5 mg BID PO ; Start 07/26/16 at 09:30; Status Cancel Phenytoin Sodium (Dilantin) 400 mg BID PO Last administered on 07/26/16 09:40 ; Start 07/26/16 at 09:30 Levetiracetam (Keppra) 1,000 mg BID PO Last administered on 07/26/16 09:41; Start 07/26/16 at 09:30 Memantine (Namenda) 5 mg DAILY PO Last administered on 07/26/16 09:40; Start 07/26/16 at 09:30 Active Scripts Active Reported Tylenol (Acetaminophen) 325 Mg Tablet 650 Mg PO PRN Q6HRS PRN Namenda (Memantine Hcl) 10 Mg Tablet 7 Mg PO DAILY Dilantin (Phenytoin Sodium Extended) 100 Mg Capsule 100 Mg PO NOON Dilantin (Phenytoin Sodium Extended) 100 Mg Capsule 200 Mg PO HS Dilantin (Phenytoin Sodium Extended) 100 Mg Capsule 400 Mg PO DAILY08 Keppra (Levetiracetam) 1,000 Mg Tablet 1 Tab PO BID Vitals/I & O Vital Sign - Last 24 Hours 07/25/16 07/25/16 07/25/16 07/25/16 19:01 19:30 19:48 20:03 Temp 98.9 98.9 Pulse 114 114 108 106 Resp 24 22 20 18 B/P 135/66 125/67 116/63 130/71 Pulse Ox 98 97 98 98 O2 Delivery NonRebreather Mask NonRebreather Mask Nasal Cannula Nasal Cannula O2 Flow Rate 10 10 3 3 07/25/16 07/25/16 07/25/16 07/25/16 20:18 20:37 20:52 21:07 Pulse 20 108 106 114 Resp 20 22 20 22 B/P 130/70 131/65 127/63 154/77 Pulse Ox 94 96 97 97 O2 Delivery Room Air Nasal Cannula Nasal Cannula Nasal Cannula O2 Flow Rate 3 3 3 07/25/16 07/25/16 07/25/16 07/25/16 21:22 21:50 21:55 22:00 Temp 99.6 99.6 Pulse 102 116 110 Resp 20 30 20 B/P 136/71 138/80 Pulse Ox 94 95 93 O2 Delivery Nasal Cannula NonRebreather Mask Nasal Cannula Nasal Cannula O2 Flow Rate 3 10 2.0 2.0 07/26/16 07/26/16 03:00 07:00 Temp 99.8 98.9 99.8 98.9 Pulse 85 93 Resp 18 18 B/P 98/58 105/61 Pulse Ox 98 97 O2 Delivery Nasal Cannula Nasal Cannula O2 Flow Rate 2.0 2.0 Intake and Output 07/25/16 07/25/16 07/26/16 15:00 23:00 07:00 Intake Total 1000 ml 0 ml Balance 1000 ml 0 ml WOODY MINOR MD Jul 26, 2016 10:50
[2016-07-26 10:57] VITALS: BP 107/64
--- NOTE | 2016-07-26 12:29 | PDOC2 ---
NEUROLOGY CONSULT Date of Admission Date of Admission DATE: 07/26/16 TIME: 12:22 Reason for Consult Reason for Consult: Epilepsy Referring Physician Referring Physician: Dr. Land Source Source: Chart review, Patient History of Present Illness History of Present Illness The patient is a 71-year-old right-handed male whom I have followed for over 20 years in my clinic for epilepsy and history of paranoid schizophrenia. I last saw him 10 months ago. His general courses to have a flurry of breakthrough seizures requiring admission to the local hospital. As he likes to ride public transportation around the [facility] area, he has been admitted to several different hospitals, most recently [facility]. In the last several months at some point he was admitted to a [place] [facility] facility. In the last few days he has refused his anticonvulsants. He cannot tell me why. He did have at least one seizure last night. He is feeling better now. I note that he is on an atypical 3 times a day Dilantin dosing schedule which could interfere with compliance. He is also on levetiracetam which I have tried to add several times over the last several years and the patient has refused that in the past. EEG studies have typically shown a left temporal lobe focus. Past Medical History CENTRAL NERVOUS SYSTEM: Dementia, Seizure Psych: Schizophrenia Past Surgical History Past Surgical History: No pertinent history Family History Family History: No pertinent hx Social History Social History penitentiary resident, nonsmoker, nondrinker Current Medications Current Medications Current Medications Sodium Chloride (Iv Sodium Chloride 0.9% 1000ml Bag) 1,000 ml @ 1,000 mls/hr 1X ONCE IV Last administered on 07/25/16 20:00; Start 07/25/16 at 20:00; Stop 07/25/16 at 20:59; Status DC Ondansetron HCl 4 mg 4 mg PRN Q8HRS PRN IV NAUSEA/VOMITING; Start 07/25/16 at 21:00; Stop 07/25/16 at 22:58; Status DC Sodium Chloride (Iv Sodium Chloride 0.9% 1000ml Bag) 1,000 ml @ 150 mls/hr Q6H40M IV Last administered on 07/26/16 04:35; Start 07/25/16 at 21:00; Stop 07/26/16 at 12:09; Status DC Acetaminophen (Tylenol) 650 mg PRN Q4HRS PRN PO FEVER; Start 07/25/16 at 21:00 ; Stop 07/25/16 at 22:58; Status DC Lorazepam 2 mg 2 mg STK-MED ONCE .ROUTE ; Start 07/25/16 at 21:45; Stop at 21:46; Status DC Fosphenytoin Sodium/Sodium Chloride (Cerebyx/Iv Sodium Chloride 0.9% 50ml) 70 ml @ 280 mls/hr 1X ONCE IV Last administered on 07/25/16 23:05; Start at 22:00; Stop 07/25/16 at 22:14; Status DC Lorazepam (Ativan) 2 mg 1X ONCE IV Last administered on 07/25/16 21:47; Start 07/25/16 at 22:00; Stop 07/25/16 at 22:01; Status DC Acetaminophen (Tylenol) 325 mg PRN Q6HRS PRN PO MILD PAIN / TEMP; Start at 23:00; Stop 07/26/16 at 09:15; Status DC Acetaminophen/ Hydrocodone Bitart (Lortab 5/325) 1 tab PRN Q6HRS PRN PO MODERATE TO SEVERE PAIN; Start 07/25/16 at 23:00 Hydralazine HCl (Apresoline) 10 mg PRN Q4HRS PRN IVP ELEVATED BP, SEE COMMENTS ; Start 07/25/16 at 23:00 Ondansetron HCl (Zofran) 4 mg PRN Q8HRS PRN IV NAUSEA/VOMITING; Start 07/25/16 at 23:00 Albuterol Sulfate 2.5 mg 2.5 mg PRN Q4HRS PRN NEB SHORTNESS OF BREATH; Start at 23:00 Sodium Chloride (Iv Sodium Chloride 0.9% 1000ml Bag) 1,000 ml @ 75 mls/hr DAILY IV Last administered on 07/26/16 09:08; Start 07/26/16 at 09:00 Lorazepam (Ativan) 2 mg PRN Q4HRS PRN IV TREMORS Last administered on 04:35; Start 07/25/16 at 23:15 Acetaminophen (Tylenol) 650 mg PRN Q6HRS PRN PO PAIN; Start 07/26/16 at 09:00 Memantine (Namenda) 5 mg BID PO ; Start 07/26/16 at 09:30; Status Cancel Phenytoin Sodium (Dilantin) 400 mg BID PO Last administered on 07/26/16 09:40 ; Start 07/26/16 at 09:30 Levetiracetam (Keppra) 1,000 mg BID PO Last administered on 07/26/16 09:41; Start 07/26/16 at 09:30 Memantine (Namenda) 5 mg DAILY PO Last administered on 07/26/16 09:40; Start 07/26/16 at 09:30 Active Scripts Active Reported Tylenol (Acetaminophen) 325 Mg Tablet 650 Mg PO PRN Q6HRS PRN Namenda (Memantine Hcl) 10 Mg Tablet 7 Mg PO DAILY Dilantin (Phenytoin Sodium Extended) 100 Mg Capsule 100 Mg PO NOON Dilantin (Phenytoin Sodium Extended) 100 Mg Capsule 200 Mg PO HS Dilantin (Phenytoin Sodium Extended) 100 Mg Capsule 400 Mg PO DAILY08 Keppra (Levetiracetam) 1,000 Mg Tablet 1 Tab PO BID Allergies Allergies: Coded Allergies: phenobarbital (Verified Allergy, Intermediate, 07/26/16) ROS Review of System Patient denies fevers, chills, weight loss, dyspnea, angina, abdominal pain, change in bowels, or dysuria. 14 point review of systems is negative. Physical Exam Physical Examination PHYSICAL EXAMINATION: Vital signs: see above. General appearance is normal and in no acute distress. HEENT: Normocephalic and nontraumatic. Eyes, nose, ears, and throat are unremarkable. Neck is supple. No lymphadenopathy. No bruits are heard over the carotid artery. No crepitus. NEUROLOGICAL EXAMINATION: Mental Status Examination: Drowsy, wakes up. Oriented to place and person, not time. Answers questions and follows commends. Pupils are equal round and reactive to light and accommodation. Extraocular movements are intact. Visual field exam shows no defect on the direct confrontation. No motor or sensory deficits on the facial exam. Uvula in the midline and the soft palate elevated symmetrically. No deviation of the tongue to any direction. Gross hearing is normal. Shoulder shrug normal. Muscle tone is normal. Muscle strength is 5. Deep tendon reflexes are 2+ all around. Plantar reflex is with flexion response bilaterally. [id number] test performance is accurate. Alternative movements are accurate. Gait not tested. Sensory exam shows no deficits. No cerebellar signs are elicited. Vitals VITALS Vital Signs Date Time Temp Pulse Resp B/P Pulse Ox O2 Delivery O2 Flow Rate FiO2 07/26/16 10:57 98.7 89 18 107/64 97 Nasal Cannula 2.0 98.7 Labs Labs Laboratory Tests Test 07/25/16 19:05 07/25/16 20:10 07/25/16 21:36 07/26/16 04:14 White Blood Count 30.3x10^3/uL (4.0-11.0) 24.4x10^3/uL (4.0-11.0) Red Blood Count 5.55x10^6/uL (4.30-5.70) 4.90x10^6/uL (4.30-5.70) Hemoglobin 16.8g/dL (13.0-17.5) 14.8g/dL (13.0-17.5) Hematocrit 51.8% (39.0-53.0) 43.7% (39.0-53.0) Mean Corpuscular Volume 93fL (79-100) 89fL (79-100) Mean Corpuscular Hemoglobin 30pg (25-35) 30pg (25-35) Mean Corpuscular Hemoglobin Concent 33g/dL (31-37) 34g/dL (31-37) Red Cell Distribution Width 13.4% (11.5-14.5) 13.1% (11.5-14.5) Platelet Count 240x10^3/uL (140-400) 159x10^3/uL (140-400) Neutrophils (%) (Auto) 87% (31-73) 88% (31-73) Lymphocytes (%) (Auto) 5% (24-48) 5% (24-48) Monocytes (%) (Auto) 7% (0-9) 7% (0-9) Eosinophils (%) (Auto) 0% (0-3) 0% (0-3) Basophils (%) (Auto) 0% (0-3) 0% (0-3) Neutrophils # (Auto) 26.3x10^3uL (1.8-7.7) 21.5x10^3uL (1.8-7.7) Lymphocytes # (Auto) 1.6x10^3/uL (1.0-4.8) 1.2x10^3/uL (1.0-4.8) Monocytes # (Auto) 2.2x10^3/uL (0.0-1.1) 1.7x10^3/uL (0.0-1.1) Eosinophils # (Auto) 0.0x10^3/uL (0.0-0.7) 0.0x10^3/uL (0.0-0.7) Basophils # (Auto) 0.1x10^3/uL (0.0-0.2) 0.0x10^3/uL (0.0-0.2) Segmented Neutrophils % 80% (35-66) Band Neutrophils % 9% (0-9) Lymphocytes % 4% (24-48) Monocytes % 7% (0-10) Platelet Estimate Adequate (ADEQUATE) Prothrombin Time 15.4SEC (11.7-14.0) Prothromb Time International Ratio 1.3 (0.8-1.1) Sodium Level 142mmol/L (136-145) 139mmol/L (136-145) Potassium Level 3.5mmol/L (3.5-5.1) 4.4mmol/L (3.5-5.1) Chloride Level 100mmol/L (98-107) 105mmol/L (98-107) Carbon Dioxide Level 10mmol/L (21-32) 23mmol/L (21-32) Anion Gap 32 (6-14) 11 (6-14) Blood Urea Nitrogen 13mg/dL (8-26) 14mg/dL (8-26) Creatinine 1.8mg/dL (0.7-1.3) 1.4mg/dL (0.7-1.3) Estimated GFR (Cockcroft-Gault) 37.4 50.0 BUN/Creatinine Ratio 7 (6-20) 10 (6-20) Glucose Level 176mg/dL (70-99) 141mg/dL (70-99) Calcium Level 9.7mg/dL (8.5-10.1) 8.5mg/dL (8.5-10.1) Total Bilirubin 0.4mg/dL (0.2-1.0) 0.4mg/dL (0.2-1.0) Aspartate Amino Transf (AST/SGOT) 23U/L (15-37) 18U/L (15-37) Alanine Aminotransferase (ALT/SGPT) 23U/L (16-63) 18U/L (16-63) Alkaline Phosphatase 131U/L (46-116) 91U/L (46-116) Creatine Kinase 137U/L (39-308) Total Protein 7.6g/dL (6.4-8.2) 6.3g/dL (6.4-8.2) Albumin 3.8g/dL (3.4-5.0) 2.8g/dL (3.4-5.0) Albumin/Globulin Ratio 1.0 (1.0-1.7) 0.8 (1.0-1.7) Phenytoin (Dilantin) Level 7.9mcg/mL (10.0-20.0) Phenytoin Last Dose Date 07/25/2016 Phenytoin Last Dose Time 0700 Ethyl Alcohol Level < 10mg/dL (0-10) Urine Collection Type U cath Urine Color Yellow Urine Clarity Clear Urine pH 5.0 Urine Specific [place] 1.015 Urine Protein 100mg/dL (NEG-TRACE) Urine Glucose (UA) Negativemg/dL (NEG) Urine Ketones (Stick) Negativemg/dL (NEG) Urine Blood Small (NEG) Urine Nitrite Negative (NEG) Urine Bilirubin Negative (NEG) Urine Urobilinogen Dipstick 0.2mg/dL (0.2 mg/dL) Urine Leukocyte Esterase Negative (NEG) Urine RBC 1-2/HPF (0-2) Urine WBC 0/HPF (0-4) Urine Squamous Epithelial Cells Occ/LPF Urine Transitional Epithelial Cells Occ/LPF Urine Bacteria 0/HPF (0-FEW) Urine Hyaline Casts Few/HPF Urine Mucus Slight/LPF Urine Opiates Screen Neg (NEG) Urine Methadone Screen Neg (NEG) Urine Barbiturates Neg (NEG) Urine Phencyclidine Screen Neg (NEG) Urine Amphetamine/Methamphetamine Neg (NEG) Urine Benzodiazepines Screen Pos (NEG) Urine Cocaine Screen Neg (NEG) Urine Cannabinoids Screen Neg (NEG) Urine Ethyl Alcohol Neg (NEG) Lactic Acid Level 1.9mmol/L (0.4-2.0) Laboratory Tests Test 07/25/16 19:05 07/25/16 20:10 07/25/16 21:36 07/26/16 04:14 White Blood Count 30.3x10^3/uL (4.0-11.0) 24.4x10^3/uL (4.0-11.0) Red Blood Count 5.55x10^6/uL (4.30-5.70) 4.90x10^6/uL (4.30-5.70) Hemoglobin 16.8g/dL (13.0-17.5) 14.8g/dL (13.0-17.5) Hematocrit 51.8% (39.0-53.0) 43.7% (39.0-53.0) Mean Corpuscular Volume 93fL (79-100) 89fL (79-100) Mean Corpuscular Hemoglobin 30pg (25-35) 30pg (25-35) Mean Corpuscular Hemoglobin Concent 33g/dL (31-37) 34g/dL (31-37) Red Cell Distribution Width 13.4% (11.5-14.5) 13.1% (11.5-14.5) Platelet Count 240x10^3/uL (140-400) 159x10^3/uL (140-400) Neutrophils (%) (Auto) 87% (31-73) 88% (31-73) Lymphocytes (%) (Auto) 5% (24-48) 5% (24-48) Monocytes (%) (Auto) 7% (0-9) 7% (0-9) Eosinophils (%) (Auto) 0% (0-3) 0% (0-3) Basophils (%) (Auto) 0% (0-3) 0% (0-3) Neutrophils # (Auto) 26.3x10^3uL (1.8-7.7) 21.5x10^3uL (1.8-7.7) Lymphocytes # (Auto) 1.6x10^3/uL (1.0-4.8) 1.2x10^3/uL (1.0-4.8) Monocytes # (Auto) 2.2x10^3/uL (0.0-1.1) 1.7x10^3/uL (0.0-1.1) Eosinophils # (Auto) 0.0x10^3/uL (0.0-0.7) 0.0x10^3/uL (0.0-0.7) Basophils # (Auto) 0.1x10^3/uL (0.0-0.2) 0.0x10^3/uL (0.0-0.2) Segmented Neutrophils % 80% (35-66) Band Neutrophils % 9% (0-9) Lymphocytes % 4% (24-48) Monocytes % 7% (0-10) Platelet Estimate Adequate (ADEQUATE) Prothrombin Time 15.4SEC (11.7-14.0) Prothromb Time International Ratio 1.3 (0.8-1.1) Sodium Level 142mmol/L (136-145) 139mmol/L (136-145) Potassium Level 3.5mmol/L (3.5-5.1) 4.4mmol/L (3.5-5.1) Chloride Level 100mmol/L (98-107) 105mmol/L (98-107) Carbon Dioxide Level 10mmol/L (21-32) 23mmol/L (21-32) Anion Gap 32 (6-14) 11 (6-14) Blood Urea Nitrogen 13mg/dL (8-26) 14mg/dL (8-26) Creatinine 1.8mg/dL (0.7-1.3) 1.4mg/dL (0.7-1.3) Estimated GFR (Cockcroft-Gault) 37.4 50.0 BUN/Creatinine Ratio 7 (6-20) 10 (6-20) Glucose Level 176mg/dL (70-99) 141mg/dL (70-99) Calcium Level 9.7mg/dL (8.5-10.1) 8.5mg/dL (8.5-10.1) Total Bilirubin 0.4mg/dL (0.2-1.0) 0.4mg/dL (0.2-1.0) Aspartate Amino Transf (AST/SGOT) 23U/L (15-37) 18U/L (15-37) Alanine Aminotransferase (ALT/SGPT) 23U/L (16-63) 18U/L (16-63) Alkaline Phosphatase 131U/L (46-116) 91U/L (46-116) Creatine Kinase 137U/L (39-308) Total Protein 7.6g/dL (6.4-8.2) 6.3g/dL (6.4-8.2) Albumin 3.8g/dL (3.4-5.0) 2.8g/dL (3.4-5.0) Albumin/Globulin Ratio 1.0 (1.0-1.7) 0.8 (1.0-1.7) Phenytoin (Dilantin) Level 7.9mcg/mL (10.0-20.0) Phenytoin Last Dose Date 07/25/2016 Phenytoin Last Dose Time 0700 Ethyl Alcohol Level < 10mg/dL (0-10) Urine Collection Type U cath Urine Color Yellow Urine Clarity Clear Urine pH 5.0 Urine Specific [place] 1.015 Urine Protein 100mg/dL (NEG-TRACE) Urine Glucose (UA) Negativemg/dL (NEG) Urine Ketones (Stick) Negativemg/dL (NEG) Urine Blood Small (NEG) Urine Nitrite Negative (NEG) Urine Bilirubin Negative (NEG) Urine Urobilinogen Dipstick 0.2mg/dL (0.2 mg/dL) Urine Leukocyte Esterase Negative (NEG) Urine RBC 1-2/HPF (0-2) Urine WBC 0/HPF (0-4) Urine Squamous Epithelial Cells Occ/LPF Urine Transitional Epithelial Cells Occ/LPF Urine Bacteria 0/HPF (0-FEW) Urine Hyaline Casts Few/HPF Urine Mucus Slight/LPF Urine Opiates Screen Neg (NEG) Urine Methadone Screen Neg (NEG) Urine Barbiturates Neg (NEG) Urine Phencyclidine Screen Neg (NEG) Urine Amphetamine/Methamphetamine Neg (NEG) Urine Benzodiazepines Screen Pos (NEG) Urine Cocaine Screen Neg (NEG) Urine Cannabinoids Screen Neg (NEG) Urine Ethyl Alcohol Neg (NEG) Lactic Acid Level 1.9mmol/L (0.4-2.0) Images Images There is evidence of of parenchymal volume loss involving bilateral anterior frontal lobes, which has developed in the interval. There is also evidence of mild-moderate cerebellar volume loss, although this is similar to previous study. No obvious intracranial mass, mass-effect, midline shift, hemorrhage or obvious acute infarction is identified.Basilar cisterns are patent. Bone windows demonstrate no acute calvarial abnormality.There is opacification the right frontal sinus as well as multiple right ethmoid air cells.. IMPRESSION 1. No acute intracranial process is identified. Please note that CT can be relatively insensitive to acute ischemic infarction for up to 24 hours after symptom onset. 2. There is evidence of bilateral anterior frontal volume loss, which is new from previous study. This is nonspecific, but could relate to degenerative disorder or, less likely, posttraumatic injury or old infarction. Recommend clinical correlation. 3. Cerebellar volume loss. 4. Paranasal sinus disease. Assessment/Plan Assessment/Plan Impression: Epilepsy, breakthrough seizures, subtherapeutic Dilantin level Schizophrenia Recommendations: I simplified the Dilantin regimen and slightly increased the dose, but he has had problems with Dilantin toxicity in the past and we will need to check a level within the first week of discharge Continue levetiracetam Aim for discharge tomorrow. Thank you for letting me help with the patient's care. MARISABEL MADERA MD Jul 26, 2016 12:29
[2016-07-26 15:00] VITALS: BP 103/61
[2016-07-26 19:26] VITALS: BP 113/68
[2016-07-26 22:51] VITALS: BP 110/63
[2016-07-27 02:18] VITALS: BP 112/61
[2016-07-27] MEDS ORDERED: IV NORMAL SALINE 1000ML BAG 1,000 ML IV SCH (05:13)
[2016-07-27 07:00] VITALS: BP 114/64
[2016-07-27 07:21] LABS: CALCIUM 8.5 mg/dL (8.5-10.1); CREATININE 1.5 mg/dL (0.7-1.3); GFR 46.1; POTASSIUM 4.1 mmol/L (3.5-5.1)
[2016-07-27] MEDS: PHENYTOIN SODIUM EXTENDED 100 MG CAPSULE PO SCH (09:28)
[2016-07-27] MEDS: LEVETIRACETAM 500 MG TABLET PO SCH (09:28)
[2016-07-27] MEDS: MEMANTINE 5 MG TABLET. PO SCH (09:29)
--- NOTE | 2016-07-27 09:56 | PDOC ---
PROGRESS NOTES Chief Complaint Chief Complaint 1. Epilepsy, breakthrough seizures 2. Metabolic acidosis resolved. 3. Dehydration. 4. Leukocytosis. 5. LUIS E improved. Plan keppra iv hydration resume Dilantin per neurology monitor renal function. monitor wbc, likely due to seizures, History of Present Illness History of Present Illness no seizure like activity . Vitals Vitals Vital Signs Date Time Temp Pulse Resp B/P Pulse Ox O2 Delivery O2 Flow Rate FiO2 07/27/16 07:00 98.0 88 18 114/64 95 Room Air 98.0 07/26/16 22:51 2.0 Physical Exam General: Alert, Oriented X3 Heart: Normal S1, Normal S2 Lungs: Clear, Wheezing Extremities: No clubbing, No cyanosis Labs LABS Laboratory Tests Test 07/27/16 06:25 Sodium Level 143mmol/L (136-145) Potassium Level 4.1mmol/L (3.5-5.1) Chloride Level 108mmol/L (98-107) Carbon Dioxide Level 22mmol/L (21-32) Anion Gap 13 (6-14) Blood Urea Nitrogen 13mg/dL (8-26) Creatinine 1.5mg/dL (0.7-1.3) Estimated GFR (Cockcroft-Gault) 46.1 Glucose Level 85mg/dL (70-99) Calcium Level 8.5mg/dL (8.5-10.1) Assessment and Plan Assessmemt and Plan Problems Medical Problems: (1) Seizure Status: Acute (2) Seizures Status: Acute Problems: Comment Review of Relevant I have reviewed the following items jossue (where applicable) has been applied. Labs Laboratory Tests Test 07/25/16 19:05 07/25/16 20:10 07/25/16 21:36 07/26/16 01:00 White Blood Count 30.3x10^3/uL (4.0-11.0) Red Blood Count 5.55x10^6/uL (4.30-5.70) Hemoglobin 16.8g/dL (13.0-17.5) Hematocrit 51.8% (39.0-53.0) Mean Corpuscular Volume 93fL (79-100) Mean Corpuscular Hemoglobin 30pg (25-35) Mean Corpuscular Hemoglobin Concent 33g/dL (31-37) Red Cell Distribution Width 13.4% (11.5-14.5) Platelet Count 240x10^3/uL (140-400) Neutrophils (%) (Auto) 87% (31-73) Lymphocytes (%) (Auto) 5% (24-48) Monocytes (%) (Auto) 7% (0-9) Eosinophils (%) (Auto) 0% (0-3) Basophils (%) (Auto) 0% (0-3) Neutrophils # (Auto) 26.3x10^3uL (1.8-7.7) Lymphocytes # (Auto) 1.6x10^3/uL (1.0-4.8) Monocytes # (Auto) 2.2x10^3/uL (0.0-1.1) Eosinophils # (Auto) 0.0x10^3/uL (0.0-0.7) Basophils # (Auto) 0.1x10^3/uL (0.0-0.2) Segmented Neutrophils % 80% (35-66) Band Neutrophils % 9% (0-9) Lymphocytes % 4% (24-48) Monocytes % 7% (0-10) Platelet Estimate Adequate (ADEQUATE) Prothrombin Time 15.4SEC (11.7-14.0) Prothromb Time International Ratio 1.3 (0.8-1.1) Sodium Level 142mmol/L (136-145) Potassium Level 3.5mmol/L (3.5-5.1) Chloride Level 100mmol/L (98-107) Carbon Dioxide Level 10mmol/L (21-32) Anion Gap 32 (6-14) Blood Urea Nitrogen 13mg/dL (8-26) Creatinine 1.8mg/dL (0.7-1.3) Estimated GFR (Cockcroft-Gault) 37.4 BUN/Creatinine Ratio 7 (6-20) Glucose Level 176mg/dL (70-99) Calcium Level 9.7mg/dL (8.5-10.1) Total Bilirubin 0.4mg/dL (0.2-1.0) Aspartate Amino Transf (AST/SGOT) 23U/L (15-37) Alanine Aminotransferase (ALT/SGPT) 23U/L (16-63) Alkaline Phosphatase 131U/L (46-116) Creatine Kinase 137U/L (39-308) Total Protein 7.6g/dL (6.4-8.2) Albumin 3.8g/dL (3.4-5.0) Albumin/Globulin Ratio 1.0 (1.0-1.7) Phenytoin (Dilantin) Level 7.9mcg/mL (10.0-20.0) Phenytoin Last Dose Date 07/25/2016 Phenytoin Last Dose Time 0700 Ethyl Alcohol Level < 10mg/dL (0-10) Urine Collection Type U cath Urine Color Yellow Urine Clarity Clear Urine pH 5.0 Urine Specific [place] 1.015 Urine Protein 100mg/dL (NEG-TRACE) Urine Glucose (UA) Negativemg/dL (NEG) Urine Ketones (Stick) Negativemg/dL (NEG) Urine Blood Small (NEG) Urine Nitrite Negative (NEG) Urine Bilirubin Negative (NEG) Urine Urobilinogen Dipstick 0.2mg/dL (0.2 mg/dL) Urine Leukocyte Esterase Negative (NEG) Urine RBC 1-2/HPF (0-2) Urine WBC 0/HPF (0-4) Urine Squamous Epithelial Cells Occ/LPF Urine Transitional Epithelial Cells Occ/LPF Urine Bacteria 0/HPF (0-FEW) Urine Hyaline Casts Few/HPF Urine Mucus Slight/LPF Urine Opiates Screen Neg (NEG) Urine Methadone Screen Neg (NEG) Urine Barbiturates Neg (NEG) Urine Phencyclidine Screen Neg (NEG) Urine Amphetamine/Methamphetamine Neg (NEG) Urine Benzodiazepines Screen Pos (NEG) Urine Cocaine Screen Neg (NEG) Urine Cannabinoids Screen Neg (NEG) Urine Ethyl Alcohol Neg (NEG) Lactic Acid Level 1.9mmol/L (0.4-2.0) Nasal Screen MRSA (PCR) Negative (Negative) Test 07/26/16 04:14 07/27/16 06:25 White Blood Count 24.4x10^3/uL (4.0-11.0) Red Blood Count 4.90x10^6/uL (4.30-5.70) Hemoglobin 14.8g/dL (13.0-17.5) Hematocrit 43.7% (39.0-53.0) Mean Corpuscular Volume 89fL (79-100) Mean Corpuscular Hemoglobin 30pg (25-35) Mean Corpuscular Hemoglobin Concent 34g/dL (31-37) Red Cell Distribution Width 13.1% (11.5-14.5) Platelet Count 159x10^3/uL (140-400) Neutrophils (%) (Auto) 88% (31-73) Lymphocytes (%) (Auto) 5% (24-48) Monocytes (%) (Auto) 7% (0-9) Eosinophils (%) (Auto) 0% (0-3) Basophils (%) (Auto) 0% (0-3) Neutrophils # (Auto) 21.5x10^3uL (1.8-7.7) Lymphocytes # (Auto) 1.2x10^3/uL (1.0-4.8) Monocytes # (Auto) 1.7x10^3/uL (0.0-1.1) Eosinophils # (Auto) 0.0x10^3/uL (0.0-0.7) Basophils # (Auto) 0.0x10^3/uL (0.0-0.2) Sodium Level 139mmol/L (136-145) 143mmol/L (136-145) Potassium Level 4.4mmol/L (3.5-5.1) 4.1mmol/L (3.5-5.1) Chloride Level 105mmol/L (98-107) 108mmol/L (98-107) Carbon Dioxide Level 23mmol/L (21-32) 22mmol/L (21-32) Anion Gap 11 (6-14) 13 (6-14) Blood Urea Nitrogen 14mg/dL (8-26) 13mg/dL (8-26) Creatinine 1.4mg/dL (0.7-1.3) 1.5mg/dL (0.7-1.3) Estimated GFR (Cockcroft-Gault) 50.0 46.1 BUN/Creatinine Ratio 10 (6-20) Glucose Level 141mg/dL (70-99) 85mg/dL (70-99) Calcium Level 8.5mg/dL (8.5-10.1) 8.5mg/dL (8.5-10.1) Total Bilirubin 0.4mg/dL (0.2-1.0) Aspartate Amino Transf (AST/SGOT) 18U/L (15-37) Alanine Aminotransferase (ALT/SGPT) 18U/L (16-63) Alkaline Phosphatase 91U/L (46-116) Total Protein 6.3g/dL (6.4-8.2) Albumin 2.8g/dL (3.4-5.0) Albumin/Globulin Ratio 0.8 (1.0-1.7) Laboratory Tests Test 07/27/16 06:25 Sodium Level 143mmol/L (136-145) Potassium Level 4.1mmol/L (3.5-5.1) Chloride Level 108mmol/L (98-107) Carbon Dioxide Level 22mmol/L (21-32) Anion Gap 13 (6-14) Blood Urea Nitrogen 13mg/dL (8-26) Creatinine 1.5mg/dL (0.7-1.3) Estimated GFR (Cockcroft-Gault) 46.1 Glucose Level 85mg/dL (70-99) Calcium Level 8.5mg/dL (8.5-10.1) Microbiology 07/25/16 Blood Culture - Preliminary, Resulted NO GROWTH AFTER 1 DAY Medications Current Medications Sodium Chloride (Iv Sodium Chloride 0.9% 1000ml Bag) 1,000 ml @ 1,000 mls/hr 1X ONCE IV Last administered on 07/25/16 20:00; Start 07/25/16 at 20:00; Stop 07/25/16 at 20:59; Status DC Ondansetron HCl 4 mg 4 mg PRN Q8HRS PRN IV NAUSEA/VOMITING; Start 07/25/16 at 21:00; Stop 07/25/16 at 22:58; Status DC Sodium Chloride (Iv Sodium Chloride 0.9% 1000ml Bag) 1,000 ml @ 150 mls/hr Q6H40M IV Last administered on 07/26/16 04:35; Start 07/25/16 at 21:00; Stop 07/26/16 at 12:09; Status DC Acetaminophen (Tylenol) 650 mg PRN Q4HRS PRN PO FEVER; Start 07/25/16 at 21:00 ; Stop 07/25/16 at 22:58; Status DC Lorazepam 2 mg 2 mg STK-MED ONCE .ROUTE ; Start 07/25/16 at 21:45; Stop at 21:46; Status DC Fosphenytoin Sodium/Sodium Chloride (Cerebyx/Iv Sodium Chloride 0.9% 50ml) 70 ml @ 280 mls/hr 1X ONCE IV Last administered on 07/25/16 23:05; Start at 22:00; Stop 07/25/16 at 22:14; Status DC Lorazepam (Ativan) 2 mg 1X ONCE IV Last administered on 07/25/16 21:47; Start 07/25/16 at 22:00; Stop 07/25/16 at 22:01; Status DC Acetaminophen (Tylenol) 325 mg PRN Q6HRS PRN PO MILD PAIN / TEMP; Start at 23:00; Stop 07/26/16 at 09:15; Status DC Acetaminophen/ Hydrocodone Bitart (Lortab 5/325) 1 tab PRN Q6HRS PRN PO MODERATE TO SEVERE PAIN; Start 07/25/16 at 23:00 Hydralazine HCl (Apresoline) 10 mg PRN Q4HRS PRN IVP ELEVATED BP, SEE COMMENTS ; Start 07/25/16 at 23:00 Ondansetron HCl (Zofran) 4 mg PRN Q8HRS PRN IV NAUSEA/VOMITING; Start 07/25/16 at 23:00 Albuterol Sulfate 2.5 mg 2.5 mg PRN Q4HRS PRN NEB SHORTNESS OF BREATH; Start at 23:00 Sodium Chloride (Iv Sodium Chloride 0.9% 1000ml Bag) 1,000 ml @ 75 mls/hr DAILY IV Last administered on 07/26/16 16:16; Start 07/26/16 at 09:00; Stop at 05:13; Status DC Lorazepam (Ativan) 2 mg PRN Q4HRS PRN IV TREMORS Last administered on 04:35; Start 07/25/16 at 23:15 Acetaminophen (Tylenol) 650 mg PRN Q6HRS PRN PO PAIN; Start 07/26/16 at 09:00 Memantine (Namenda) 5 mg BID PO ; Start 07/26/16 at 09:30; Status Cancel Phenytoin Sodium (Dilantin) 400 mg BID PO Last administered on 07/27/16 09:28 ; Start 07/26/16 at 09:30 Levetiracetam (Keppra) 1,000 mg BID PO Last administered on 07/27/16 09:28; Start 07/26/16 at 09:30 Memantine 5 mg 5 mg DAILY PO Last administered on 07/27/16 09:29; Start at 09:30 Sodium Chloride (Iv Sodium Chloride 0.9% 1000ml Bag) 1,000 ml @ 75 mls/hr [id number] IV Last administered on 07/27/16 05:13; Start 07/27/16 at 05:13 Active Scripts Active Reported Tylenol (Acetaminophen) 325 Mg Tablet 650 Mg PO PRN Q6HRS PRN Namenda (Memantine Hcl) 10 Mg Tablet 7 Mg PO DAILY Dilantin (Phenytoin Sodium Extended) 100 Mg Capsule 100 Mg PO NOON Dilantin (Phenytoin Sodium Extended) 100 Mg Capsule 200 Mg PO HS Dilantin (Phenytoin Sodium Extended) 100 Mg Capsule 400 Mg PO DAILY08 Keppra (Levetiracetam) 1,000 Mg Tablet 1 Tab PO BID Vitals/I & O Vital Sign - Last 24 Hours 07/26/16 07/26/16 07/26/16 07/26/16 10:57 15:00 19:26 20:00 Temp 98.7 98.7 98.4 98.7 98.7 98.4 Pulse 89 89 91 Resp B/P 107/64 103/61 113/68 Pulse Ox 97 96 97 O2 Delivery Nasal Cannula Nasal Cannula Nasal Cannula Nasal Cannula O2 Flow Rate 2.0 2.0 2.0 2.0 07/26/16 07/27/16 07/27/16 22:51 02:18 07:00 Temp 98.4 98.4 98.0 98.4 98.4 98.0 Pulse 88 86 88 Resp B/P 110/63 112/61 114/64 Pulse Ox 95 95 95 O2 Delivery Nasal Cannula Room Air Room Air O2 Flow Rate 2.0 Intake and Output 07/26/16 07/26/16 07/27/16 15:00 23:00 07:00 Intake Total 800 ml 1100 ml Output Total 450 ml 650 ml Balance 350 ml 450 ml WOODY MINOR MD Jul 27, 2016 09:56
--- NOTE | 2016-07-27 10:17 | PDOC ---
PROGRESS NOTES Assessment Problems Medical Problems: (1) Seizure Status: Acute (2) Seizures Status: Acute Epilepsy Schizophrenia Prior problems with Dilantin toxicity when we tried to adjust dose Persistent leukocytosis Plan Okay for discharge Check Roberto gurinderlovely next week Follow up with me in 6-8 weeks. Subjective No complaints, wants to go home Objective Vital Signs Date Time Temp Pulse Resp B/P Pulse Ox O2 Delivery O2 Flow Rate FiO2 07/27/16 07:00 98.0 88 18 114/64 95 Room Air 98.0 07/26/16 22:51 2.0 Intake and Output 07/27/16 07:00 Intake Total 1900 ml Output Total 1100 ml Balance 800 ml Intake Oral 1900 ml Output Urine Total 1100 ml # Voids 5 PHYSICAL EXAM Alert. Oriented to time, place and person. PERRL. EOMI. CN: no focal findings. Muscle tone: normal. Muscle strength: 5/5 DTR: 1+ Plantar reflex: flexor Gait: not examined in bed. Sensory exam: no abnormal findings. No cerebellar signs elicited. Review of Relevant I have reviewed the following items jossue (where applicable) has been applied. Labs Laboratory Tests Test 07/25/16 19:05 07/25/16 20:10 07/25/16 21:36 07/26/16 01:00 White Blood Count 30.3x10^3/uL (4.0-11.0) Red Blood Count 5.55x10^6/uL (4.30-5.70) Hemoglobin 16.8g/dL (13.0-17.5) Hematocrit 51.8% (39.0-53.0) Mean Corpuscular Volume 93fL (79-100) Mean Corpuscular Hemoglobin 30pg (25-35) Mean Corpuscular Hemoglobin Concent 33g/dL (31-37) Red Cell Distribution Width 13.4% (11.5-14.5) Platelet Count 240x10^3/uL (140-400) Neutrophils (%) (Auto) 87% (31-73) Lymphocytes (%) (Auto) 5% (24-48) Monocytes (%) (Auto) 7% (0-9) Eosinophils (%) (Auto) 0% (0-3) Basophils (%) (Auto) 0% (0-3) Neutrophils # (Auto) 26.3x10^3uL (1.8-7.7) Lymphocytes # (Auto) 1.6x10^3/uL (1.0-4.8) Monocytes # (Auto) 2.2x10^3/uL (0.0-1.1) Eosinophils # (Auto) 0.0x10^3/uL (0.0-0.7) Basophils # (Auto) 0.1x10^3/uL (0.0-0.2) Segmented Neutrophils % 80% (35-66) Band Neutrophils % 9% (0-9) Lymphocytes % 4% (24-48) Monocytes % 7% (0-10) Platelet Estimate Adequate (ADEQUATE) Prothrombin Time 15.4SEC (11.7-14.0) Prothromb Time International Ratio 1.3 (0.8-1.1) Sodium Level 142mmol/L (136-145) Potassium Level 3.5mmol/L (3.5-5.1) Chloride Level 100mmol/L (98-107) Carbon Dioxide Level 10mmol/L (21-32) Anion Gap 32 (6-14) Blood Urea Nitrogen 13mg/dL (8-26) Creatinine 1.8mg/dL (0.7-1.3) Estimated GFR (Cockcroft-Gault) 37.4 BUN/Creatinine Ratio 7 (6-20) Glucose Level 176mg/dL (70-99) Calcium Level 9.7mg/dL (8.5-10.1) Total Bilirubin 0.4mg/dL (0.2-1.0) Aspartate Amino Transf (AST/SGOT) 23U/L (15-37) Alanine Aminotransferase (ALT/SGPT) 23U/L (16-63) Alkaline Phosphatase 131U/L (46-116) Creatine Kinase 137U/L (39-308) Total Protein 7.6g/dL (6.4-8.2) Albumin 3.8g/dL (3.4-5.0) Albumin/Globulin Ratio 1.0 (1.0-1.7) Phenytoin (Dilantin) Level 7.9mcg/mL (10.0-20.0) Phenytoin Last Dose Date 07/25/2016 Phenytoin Last Dose Time 0700 Ethyl Alcohol Level < 10mg/dL (0-10) Urine Collection Type U cath Urine Color Yellow Urine Clarity Clear Urine pH 5.0 Urine Specific Joseph 1.015 Urine Protein 100mg/dL (NEG-TRACE) Urine Glucose (UA) Negativemg/dL (NEG) Urine Ketones (Stick) Negativemg/dL (NEG) Urine Blood Small (NEG) Urine Nitrite Negative (NEG) Urine Bilirubin Negative (NEG) Urine Urobilinogen Dipstick 0.2mg/dL (0.2 mg/dL) Urine Leukocyte Esterase Negative (NEG) Urine RBC 1-2/HPF (0-2) Urine WBC 0/HPF (0-4) Urine Squamous Epithelial Cells Occ/LPF Urine Transitional Epithelial Cells Occ/LPF Urine Bacteria 0/HPF (0-FEW) Urine Hyaline Casts Few/HPF Urine Mucus Slight/LPF Urine Opiates Screen Neg (NEG) Urine Methadone Screen Neg (NEG) Urine Barbiturates Neg (NEG) Urine Phencyclidine Screen Neg (NEG) Urine Amphetamine/Methamphetamine Neg (NEG) Urine Benzodiazepines Screen Pos (NEG) Urine Cocaine Screen Neg (NEG) Urine Cannabinoids Screen Neg (NEG) Urine Ethyl Alcohol Neg (NEG) Lactic Acid Level 1.9mmol/L (0.4-2.0) Nasal Screen MRSA (PCR) Negative (Negative) Test 07/26/16 04:14 07/27/16 06:25 White Blood Count 24.4x10^3/uL (4.0-11.0) Red Blood Count 4.90x10^6/uL (4.30-5.70) Hemoglobin 14.8g/dL (13.0-17.5) Hematocrit 43.7% (39.0-53.0) Mean Corpuscular Volume 89fL (79-100) Mean Corpuscular Hemoglobin 30pg (25-35) Mean Corpuscular Hemoglobin Concent 34g/dL (31-37) Red Cell Distribution Width 13.1% (11.5-14.5) Platelet Count 159x10^3/uL (140-400) Neutrophils (%) (Auto) 88% (31-73) Lymphocytes (%) (Auto) 5% (24-48) Monocytes (%) (Auto) 7% (0-9) Eosinophils (%) (Auto) 0% (0-3) Basophils (%) (Auto) 0% (0-3) Neutrophils # (Auto) 21.5x10^3uL (1.8-7.7) Lymphocytes # (Auto) 1.2x10^3/uL (1.0-4.8) Monocytes # (Auto) 1.7x10^3/uL (0.0-1.1) Eosinophils # (Auto) 0.0x10^3/uL (0.0-0.7) Basophils # (Auto) 0.0x10^3/uL (0.0-0.2) Sodium Level 139mmol/L (136-145) 143mmol/L (136-145) Potassium Level 4.4mmol/L (3.5-5.1) 4.1mmol/L (3.5-5.1) Chloride Level 105mmol/L (98-107) 108mmol/L (98-107) Carbon Dioxide Level 23mmol/L (21-32) 22mmol/L (21-32) Anion Gap 11 (6-14) 13 (6-14) Blood Urea Nitrogen 14mg/dL (8-26) 13mg/dL (8-26) Creatinine 1.4mg/dL (0.7-1.3) 1.5mg/dL (0.7-1.3) Estimated GFR (Cockcroft-Gault) 50.0 46.1 BUN/Creatinine Ratio 10 (6-20) Glucose Level 141mg/dL (70-99) 85mg/dL (70-99) Calcium Level 8.5mg/dL (8.5-10.1) 8.5mg/dL (8.5-10.1) Total Bilirubin 0.4mg/dL (0.2-1.0) Aspartate Amino Transf (AST/SGOT) 18U/L (15-37) Alanine Aminotransferase (ALT/SGPT) 18U/L (16-63) Alkaline Phosphatase 91U/L (46-116) Total Protein 6.3g/dL (6.4-8.2) Albumin 2.8g/dL (3.4-5.0) Albumin/Globulin Ratio 0.8 (1.0-1.7) Laboratory Tests Test 07/27/16 06:25 Sodium Level 143mmol/L (136-145) Potassium Level 4.1mmol/L (3.5-5.1) Chloride Level 108mmol/L (98-107) Carbon Dioxide Level 22mmol/L (21-32) Anion Gap 13 (6-14) Blood Urea Nitrogen 13mg/dL (8-26) Creatinine 1.5mg/dL (0.7-1.3) Estimated GFR (Cockcroft-Gault) 46.1 Glucose Level 85mg/dL (70-99) Calcium Level 8.5mg/dL (8.5-10.1) Microbiology 07/25/16 Blood Culture - Preliminary, Resulted NO GROWTH AFTER 1 DAY Medications Current Medications Sodium Chloride (Iv Sodium Chloride 0.9% 1000ml Bag) 1,000 ml @ 1,000 mls/hr 1X ONCE IV Last administered on 07/25/16 20:00; Start 07/25/16 at 20:00; Stop 07/25/16 at 20:59; Status DC Ondansetron HCl 4 mg 4 mg PRN Q8HRS PRN IV NAUSEA/VOMITING; Start 07/25/16 at 21:00; Stop 07/25/16 at 22:58; Status DC Sodium Chloride (Iv Sodium Chloride 0.9% 1000ml Bag) 1,000 ml @ 150 mls/hr Q6H40M IV Last administered on 07/26/16 04:35; Start 07/25/16 at 21:00; Stop 07/26/16 at 12:09; Status DC Acetaminophen (Tylenol) 650 mg PRN Q4HRS PRN PO FEVER; Start 07/25/16 at 21:00 ; Stop 07/25/16 at 22:58; Status DC Lorazepam 2 mg 2 mg STK-MED ONCE .ROUTE ; Start 07/25/16 at 21:45; Stop at 21:46; Status DC Fosphenytoin Sodium/Sodium Chloride (Cerebyx/Iv Sodium Chloride 0.9% 50ml) 70 ml @ 280 mls/hr 1X ONCE IV Last administered on 07/25/16 23:05; Start at 22:00; Stop 07/25/16 at 22:14; Status DC Lorazepam (Ativan) 2 mg 1X ONCE IV Last administered on 07/25/16 21:47; Start 07/25/16 at 22:00; Stop 07/25/16 at 22:01; Status DC Acetaminophen (Tylenol) 325 mg PRN Q6HRS PRN PO MILD PAIN / TEMP; Start at 23:00; Stop 07/26/16 at 09:15; Status DC Acetaminophen/ Hydrocodone Bitart (Lortab 5/325) 1 tab PRN Q6HRS PRN PO MODERATE TO SEVERE PAIN; Start 07/25/16 at 23:00 Hydralazine HCl (Apresoline) 10 mg PRN Q4HRS PRN IVP ELEVATED BP, SEE COMMENTS ; Start 07/25/16 at 23:00 Ondansetron HCl (Zofran) 4 mg PRN Q8HRS PRN IV NAUSEA/VOMITING; Start 07/25/16 at 23:00 Albuterol Sulfate 2.5 mg 2.5 mg PRN Q4HRS PRN NEB SHORTNESS OF BREATH; Start at 23:00 Sodium Chloride (Iv Sodium Chloride 0.9% 1000ml Bag) 1,000 ml @ 75 mls/hr DAILY IV Last administered on 07/26/16 16:16; Start 07/26/16 at 09:00; Stop at 05:13; Status DC Lorazepam (Ativan) 2 mg PRN Q4HRS PRN IV TREMORS Last administered on 04:35; Start 07/25/16 at 23:15 Acetaminophen (Tylenol) 650 mg PRN Q6HRS PRN PO PAIN; Start 07/26/16 at 09:00 Memantine (Namenda) 5 mg BID PO ; Start 07/26/16 at 09:30; Status Cancel Phenytoin Sodium (Dilantin) 400 mg BID PO Last administered on 07/27/16 09:28 ; Start 07/26/16 at 09:30 Levetiracetam (Keppra) 1,000 mg BID PO Last administered on 07/27/16 09:28; Start 07/26/16 at 09:30 Memantine 5 mg 5 mg DAILY PO Last administered on 07/27/16 09:29; Start at 09:30 Sodium Chloride (Iv Sodium Chloride 0.9% 1000ml Bag) 1,000 ml @ 75 mls/hr [id number] IV Last administered on 3/17/17at 05:13; Start 07/27/16 at 05:13 Active Scripts Active Reported Tylenol (Acetaminophen) 325 Mg Tablet 650 Mg PO PRN Q6HRS PRN Namenda (Memantine Hcl) 10 Mg Tablet 7 Mg PO DAILY Dilantin (Phenytoin Sodium Extended) 100 Mg Capsule 100 Mg PO NOON Dilantin (Phenytoin Sodium Extended) 100 Mg Capsule 200 Mg PO HS Dilantin (Phenytoin Sodium Extended) 100 Mg Capsule 400 Mg PO DAILY08 Keppra (Levetiracetam) 1,000 Mg Tablet 1 Tab PO BID Vitals/I & O Vital Sign - Last 24 Hours 07/26/16 07/26/16 07/26/16 07/26/16 10:57 15:00 19:26 20:00 Temp 98.7 98.7 98.4 98.7 98.7 98.4 Pulse 89 89 91 Resp 18 B/P 107/64 103/61 113/68 Pulse Ox 97 96 97 O2 Delivery Nasal Cannula Nasal Cannula Nasal Cannula Nasal Cannula O2 Flow Rate 2.0 2.0 2.0 2.0 07/26/16 07/27/16 07/27/16 22:51 02:18 07:00 Temp 98.4 98.4 98.0 98.4 98.4 98.0 Pulse 88 86 88 Resp 18 B/P 110/63 112/61 114/64 Pulse Ox 95 95 95 O2 Delivery Nasal Cannula Room Air Room Air O2 Flow Rate 2.0 Intake and Output 07/26/16 07/26/16 07/27/16 15:00 23:00 07:00 Intake Total 800 ml 1100 ml Output Total 450 ml 650 ml Balance 350 ml 450 ml MARISABEL MADERA MD Jul 27, 2016 10:16
[2016-07-27 10:55] LABS: BASO % 0 % (0-3); EOS % 2 % (0-3); HEMATOCRIT 41.4 % (39.0-53.0); HEMOGLOBIN 14.2 g/dL (13.0-17.5); LYMPH % 10 % (24-48); MEAN CORPUSCULAR HEMOGLOBIN 31 pg (25-35); MEAN CORPUSCULAR HGB CONC 34 g/dL (31-37); MEAN CORPUSCULAR VOLUME 89 fL (79-100); MONO % 9 % (0-9); NEUT % 80 % (31-73); PLATELET COUNT 150 x10^3/uL (140-400); RED BLOOD COUNT 4.63 x10^6/uL (4.30-5.70); RED CELL DISTRIBUTION WIDTH 13.7 % (11.5-14.5); WHITE BLOOD COUNT 10.7 x10^3/uL (4.0-11.0)
[2016-07-27 11:00] VITALS: BP 108/63
[2016-07-27 15:00] VITALS: BP 106/68
--- NOTE | 2016-07-28 00:18 | DS ---
DATE OF DISCHARGE: 07/27/2016 DISCHARGE DIAGNOSES: 1. Epilepsy, breakthrough seizures. 2. Metabolic acidosis due to ketones, resolved. 3. Dehydration, resolved. 4. Leukocytosis due to seizures. 5. dehydration, resolved. BRIEF HOSPITAL COURSE: A 71-year-old male patient admitted to the hospital for seizure-like activity. His Dilantin levels are subtherapeutic. The patient received a Keppra and Dilantin has been resumed. Also he was evaluated by Neurology, Dr. Munoz, recommended him to see him in the clinic in 2 months. The patient has been seizure free for last 2 days, currently is on Keppra and Dilantin. DISCHARGE EXAMINATION: Please see my progress note. DISCHARGE CONDITION: Stable. PROGNOSIS: Good. FOLLOWUP: With Dr. Munoz in 6-8 weeks. DISCHARGE MEDICATIONS: Reviewed and reconciled. Please see MRAD. DIET: Regular diet. DISPOSITION: Long-term retirement. Total time spent for discharge is 32 minutes for patient education, counseling, and coordination of care. WOODY MINOR MD DR: SHANT/matilda JOB#: [id number] / [id number] MARISSA
== END 2016-07-27 19:43 | DRG 100 ==
LOC: ER 19:01 → 6 SOUTH 20:55
PROVIDERS: ADMIT Internal Medicine; ATTEND Internal Medicine
DX: G40.909 Epilepsy, unspecified, not intractable, without status epilepticus (principal); N17.0 Acute kidney failure with tubular necrosis; E87.2 Acidosis; F20.9 Schizophrenia, unspecified; D72.829 Elevated white blood cell count, unspecified; Z79.899 Other long term (current) drug therapy
CPT/HCPCS: 36415; 70450; 71010; 80048; 80053; 80185; 81001; 82550; 83605; 85007; 85027; 85610; 87040; 87641; 93005; 96360; 96374; G0480; G0481; J2060; J7030; Q2009; 99291-25

== ENCOUNTER 2016-08-04 21:37 | Inpatient (IN) | payer MEDICARE ==
[~2016-08-04] VITALS: Ht 167.6 cm; Wt 68.0 kg
[~2016-08-04 21:37] MED LIST: ACET325T9 PO; LEVE100020 PO; MEMA10TA PO; PHEN100C PO
[2016-08-04 21:59] LABS: BASO % 0 % (0-3); EOS % 1 % (0-3); HEMOGLOBIN 16.4 g/dL (13.0-17.5); LYMPH # 1.1 x10^3/uL (1.0-4.8); LYMPH % 8 % (24-48); MEAN CORPUSCULAR HEMOGLOBIN 31 pg (25-35); MEAN CORPUSCULAR HGB CONC 34 g/dL (31-37); MEAN CORPUSCULAR VOLUME 89 fL (79-100); MONO % 4 % (0-9); NEUT % 86 % (31-73); PLATELET COUNT 198 x10^3/uL (140-400); RED BLOOD COUNT 5.38 x10^6/uL (4.30-5.70); RED CELL DISTRIBUTION WIDTH 12.8 % (11.5-14.5); WHITE BLOOD COUNT 13.3 x10^3/uL (4.0-11.0)
[2016-08-04 22:10] LABS: CALCIUM 9.3 mg/dL (8.5-10.1); CREATININE 1.2 mg/dL (0.7-1.3); GFR 59.7; POTASSIUM 3.7 mmol/L (3.5-5.1)
[2016-08-04] MEDS ORDERED: IV NORMAL SALINE 1000ML BAG 1,000 ML IV ONE (22:15)
--- NOTE | 2016-08-04 22:38 | PHYS DOC ---
Past Medical History Past Medical History: Anxiety, Seizure, Schizophrenia Additional Past Surgical Histo: unknown Alcohol Use: None Drug Use: None Adult General Chief Complaint Chief Complaint: MECHANICAL FALL HPI HPI Patient is a 71 year old male who presents by EMS from [facility] nursing facility for 2 unwitnessed falls today. Patient states he fell first around noon, and fell second time this evening. He states he chronically has an unsteady gait, but it is worse recently. He was trying to get out of bed, but was too weak and unsteady. He notes some pain to his left eyebrow, but denies other injury. Nursing facility reports by phone that he has not been eating well over the past 2-3 days, but has been drinking Ensure and taking his medications. Nursing report further discussed history of taking nighttime meds tonight at 2100 including Dilantin. He denies headache, dizziness, vision changes, numbness, tingling, focal weakness, neck pain, back pain, chest pain, dyspnea, abdominal pain, nausea or vomiting, diarrhea, dysuria. Review of Systems Review of Systems Constitutional: Denies fever or chills [] Eyes: Denies change in visual acuity, redness, or eye pain [] HENT: Denies nasal congestion or sore throat [] Respiratory: Denies cough or shortness of breath [] Cardiovascular: No additional information not addressed in HPI [] GI: Denies abdominal pain, nausea, vomiting, bloody stools or diarrhea [] : Denies dysuria or hematuria [] Musculoskeletal: Denies back pain or joint pain [] Integument: Denies rash or skin lesions [] Neurologic: Denies headache, focal weakness or sensory changes [] Endocrine: Denies polyuria or polydipsia [] Current Medications Current Medications Current Medications Medications (Trade) Dose Ordered Sig/Linh Start Time Stop Time Status Last Admin Dose Admin Lidocaine/ Epinephrine (Xylocaine 1%-Epi 1:100,000) 20 ml 1X ONCE 08/04/16 22:45 08/04/16 22:46 DC 08/04/16 22:45 20 ML Sodium Chloride (Iv Sodium Chloride 0.9% 1000ml Bag) 1,000 ml @ 1,000 mls/hr 1X ONCE 08/04/16 22:15 08/04/16 23:14 DC 08/04/16 22:28 1,000 MLS/HR Allergies Allergies Allergies Coded Allergies Type Severity Reaction Last Updated Verified phenobarbital Allergy Intermediate 07/26/16 Yes Physical Exam Physical Exam Constitutional: Well developed, well nourished, no acute distress, non-toxic appearance. [] HENT: Normocephalic, bilateral TMs normal, oropharynx moist, no oral exudates, nose normal. No moran sign, hemotympanum, or raccoon eyes. Has 2.5 cm gaping linear laceration inferior to eyebrow with no active bleeding. [] Eyes: PERRLA, EOMI, conjunctiva normal, no discharge. No subconjunctival hematoma or obvious hyphema. No pain with EOM [] Neck: Normal range of motion, no tenderness, supple, no stridor. [] Cardiovascular:Heart rate regular rhythm [] Lungs & Thorax: Bilateral breath sounds clear to auscultation [] Abdomen: Bowel sounds normal, soft, no tenderness. [] Skin: Warm, dry, no erythema, no rash. [] Back: No tenderness, no CVA tenderness. [] Extremities: No tenderness, ROM intact, no edema. [] Neurologic: Alert and oriented X 3, normal motor function, normal sensory function, no focal deficits noted. [] Psychologic: Affect normal, judgement normal, mood normal. [] Current Patient Data Vital Signs Vital Signs Date Time Temp Pulse Resp B/P Pulse Ox O2 Delivery O2 Flow Rate FiO2 08/04/16 23:00 67 33 136/70 94 Room Air 08/04/16 21:40 98.3 98.3 Lab Values Laboratory Tests Test 08/04/16 21:50 08/04/16 21:51 White Blood Count 13.3x10^3/uL (4.0-11.0) H Red Blood Count 5.38x10^6/uL (4.30-5.70) Hemoglobin 16.4g/dL (13.0-17.5) Hematocrit 48.0% (39.0-53.0) Mean Corpuscular Volume 89fL (79-100) Mean Corpuscular Hemoglobin 31pg (25-35) Mean Corpuscular Hemoglobin Concent 34g/dL (31-37) Red Cell Distribution Width 12.8% (11.5-14.5) Platelet Count 198x10^3/uL (140-400) Neutrophils (%) (Auto) 86% (31-73) H Lymphocytes (%) (Auto) 8% (24-48) L Monocytes (%) (Auto) 4% (0-9) Eosinophils (%) (Auto) 1% (0-3) Basophils (%) (Auto) 0% (0-3) Neutrophils # (Auto) 11.5x10^3uL (1.8-7.7) H Lymphocytes # (Auto) 1.1x10^3/uL (1.0-4.8) Monocytes # (Auto) 0.6x10^3/uL (0.0-1.1) Eosinophils # (Auto) 0.2x10^3/uL (0.0-0.7) Basophils # (Auto) 0.0x10^3/uL (0.0-0.2) Segmented Neutrophils % 81% (35-66) H Band Neutrophils % 1% (0-9) Lymphocytes % 13% (24-48) L Monocytes % 2% (0-10) Eosinophils % 3% (0-5) Platelet Estimate Adequate (ADEQUATE) Sodium Level 143mmol/L (136-145) Potassium Level 3.7mmol/L (3.5-5.1) Chloride Level 104mmol/L (98-107) Carbon Dioxide Level 27mmol/L (21-32) Anion Gap 12 (6-14) Blood Urea Nitrogen 20mg/dL (8-26) Creatinine 1.2mg/dL (0.7-1.3) Estimated GFR (Cockcroft-Gault) 59.7 Glucose Level 118mg/dL (70-99) H Calcium Level 9.3mg/dL (8.5-10.1) Total Bilirubin 0.3mg/dL (0.2-1.0) Direct Bilirubin 0.1mg/dL (0.0-0.2) Aspartate Amino Transferase (AST) 24U/L (15-37) Alanine Aminotransferase (ALT) 19U/L (16-63) Alkaline Phosphatase 102U/L (46-116) Total Protein 7.2g/dL (6.4-8.2) Albumin 3.5g/dL (3.4-5.0) Phenytoin (Dilantin) Level 43.2mcg/mL (10.0-20.0) *H Phenytoin Last Dose Date Phenytoin Last Dose Time Laboratory Tests 08/04/16 21:50 Laboratory Tests 08/04/16 21:50 Radiology/Procedures Radiology/Procedures CT head and C-spine without contrast IMPRESSION 1. NO ACUTE INTRACRANIAL ABNORMALITY IS SEEN. THERE IS CEREBRAL AND CEREBELLAR ATROPHY. SOME LUCENCY IS SEEN IN THE FRONTAL LOBES WHICH MAY REPRESENT THE SEQUELA OF PREVIOUS TRAUMA OR INFARCTION. THIS IS UNCHANGED SINCE EXAM FROM EARLIER THIS MONTH. 2. NO CERVICAL SPINE FRACTURE OR SUBLUXATION IS SEEN. THERE ARE DEGENERATIVE CHANGES. Electronically signed by: Criselda Ortega (Aug 04, 2016 22:50:08) Course & Med Decision Making Course & Med Decision Making Pertinent Labs and Imaging studies reviewed. (See chart for details) Imaging nonacute as above. Laboratory evaluation significant for elevated Dilantin level; suspect dilantin toxicity is contributing to recent weakness. Laceration repaired without complication. Discussed case with Dr. Parker, curriculum and instruction director for Dr. Vivas, who will admit. Dragon Disclaimer Dragon Disclaimer This electronic medical record was generated, in whole or in part, using a voice recognition dictation system. Laceration Repair Lac Repair Indication: left eyebrow laceration Procedure: The patient was placed in the appropriate position and anesthesia around the laceration was lidocaine with epinephrine 4ml. The area was then cleaned with pressured normal saline. The laceration was closed with 5-0 vicryl , #5 simple interrupted. Total repaired wound length: 2.5cm. The patient tolerated the procedure well. Complications: none. Departure Departure Impression: Primary Impression: Dilantin toxicity Additional Impressions: Closed head injury Laceration of left eyebrow Disposition: 09 ADMITTED INPATIENT Condition: STABLE Referrals: CARMEN VIVAS MD (PCP) Problem Qualifiers Primary Impression: Dilantin toxicity Encounter type: initial encounter Injury intent: accidental or unintentional Qualified Code: T42.0X1A - Poisoning by hydantoin derivatives, accidental (unintentional), initial encounter Additional Impressions: Closed head injury Encounter type: initial encounter Qualified Code: S09.90XA - Unspecified injury of head, initial encounter Laceration of left eyebrow Encounter type: initial encounter Qualified Code: S01.112A - Laceration without foreign body of left eyelid and periocular area, initial encounter Maine LONGORIA MD Aug 04, 2016 22:38
[2016-08-04] MEDS ORDERED: LIDOCAINE 1%/EPI 1:100,000 20 ML VIAL. INJ ONE (22:45)
--- NOTE | 2016-08-04 22:52 | RAD ---
PROCEDURE CT HEAD WITHOUT CONTRAST AND CT OF THE CERVICAL SPINE WITHOUT CONTRAST HISTORY PATIENT FELL TWICE TONIGHT INJURING HEAD WITH LACERATION LEFT EYEBROW. TECHNIQUE One or more of the following individualized dose reduction techniques were utilized for this examination: 1. Automated exposure control; 2. Adjustment of the mA and/or kV according to patient size; 3. Use of iterative reconstruction technique. COMPARISON CT HEAD FROM 07/25/2016 AND 03/03/[address] HEAD: THERE IS NO EVIDENCE OF INTRACRANIAL HEMORRHAGE. AGAIN SEEN IS SEVERE CEREBELLAR ATROPHY. THERE IS CEREBRAL ATROPHY WITH SOME LUCENCY IN THE INFERIOR ASPECTS OF BOTH FRONTAL LOBES WHICH MAY REPRESENT THE SEQUELA OF PREVIOUS TRAUMA OR INFARCTION. THIS IS SIMILAR TO THE EXAM FROM EARLIER THIS MONTH. THERE IS NO SHIFT OF THE MIDLINE STRUCTURES. THE BASAL CISTERNS ARE WELL MAINTAINED. BONE WINDOWS SHOW NO SKULL FRACTURE. THERE IS CHRONIC OPACIFICATION OF THE RIGHT FRONTAL SINUS. THERE IS SOFT TISSUE INJURY IN THE REGION OF THE LEFT EYEBROW. THE ORBITAL CONTENTS ARE UNREMARKABLE. CT CERVICAL SPINE: NO FRACTURE OR SUBLUXATION IS SEEN. THERE ARE DEGENERATIVE CHANGES WITH DISC SPACE NARROWING AT MULTIPLE LEVELS AND MILD POSTERIOR OSTEOPHYTE FORMATION. THERE IS NO NARROWING OF THE SPINAL CANAL. SPURS ARISING FROM THE UNCOVERTEBRAL JOINTS ARE CAUSING NARROWING OF THE C4-5 NEURAL FORAMEN, WORSE ON THE RIGHT AND NARROWING OF THE C 5-6 NEURAL FORAMEN, GREATER ON THE RIGHT. THE PARASPINOUS SOFT TISSUES ARE UNREMARKABLE. IMPRESSION 1. NO ACUTE INTRACRANIAL ABNORMALITY IS SEEN. THERE IS CEREBRAL AND CEREBELLAR ATROPHY. SOME LUCENCY IS SEEN IN THE FRONTAL LOBES WHICH MAY REPRESENT THE SEQUELA OF PREVIOUS TRAUMA OR INFARCTION. THIS IS UNCHANGED SINCE EXAM FROM EARLIER THIS MONTH. 2. NO CERVICAL SPINE FRACTURE OR SUBLUXATION IS SEEN. THERE ARE DEGENERATIVE CHANGES. Electronically signed by: Criselda Ortega (Aug 04, 2016 22:50:08)
[2016-08-04 23:31] LABS: ALBUMIN 3.5 g/dL (3.4-5.0); DIRECT BILIRUBIN 0.1 mg/dL (0.0-0.2); TOTAL BILIRUBIN 0.3 mg/dL (0.2-1.0); TOTAL PROTEIN 7.2 g/dL (6.4-8.2)
[2016-08-04] MEDS ORDERED: FENTANYL PF 100 MCG/2 ML VIAL. IV PRN (23:45)
[2016-08-04] MEDS ORDERED: ONDANSETRON PF 4 MG/2 ML VIAL. IV PRN (23:45)
[2016-08-04] MEDS ORDERED: ACETAMINOPHEN 325 MG TABLET. PO PRN (23:45)
[2016-08-04 23:55] LABS: % EOS 3 % (0-5); PLT ESTIMATE ADEQUATE (ADEQUATE)
[2016-08-05] VITALS (7 sets, daily range): BP systolic 120–131; BP diastolic 61–73
--- NOTE | 2016-08-05 00:17 | ACF ---
Admit Criteria Forms Admit Criteria Forms Admit Criteria Forms SUBSTANCE ABUSE Clinical Indications for Admission to Inpatient Care (Place 'X' for any and all applicable criteria): Admission is indicated due to ANY ONE of the following(1)(2)(3)(4)(5): [ ]I. Delirium due to alcohol or sedative A withdrawal B ( Also use Delirium Criteria as appropriate)1,6,7 [ ]II. Alcohol or sedative withdrawal with high-risk indicator as manifested by ALL of the following1,3,6,7 [ ]a) Signs of withdrawal as indicated by ANY ONE of the following: [ ]i) Heart rate greater than 100 beats per minute [ ]ii) Nausea or vomiting [ ]iii) Other physical signs of alcohol or sedative withdrawal [ ]iv) Tremor [ ](v) Increased perspiration [ ]b) Elevated risk due to a historical or comorbid factor as indicated by ANY ONE of the following: [ ]i) History of delirium due to alcohol or sedative withdrawal [ ]ii) History of repetitive seizures due to alcohol or sedative withdrawal C [ ]iii) Intrinsic seizure disorder (epilepsy) [ ]iv) [ ]v) Comorbid medical condition that can be dangerously destabilized by alcohol or sedative withdrawal (eg, severe cardiac disease) [ ]III. Severe alcohol or sedative withdrawal that is unmanageable at lower level of care, as manifested by ALL of the following1,3,6,7 [ ]a) Marked signs of withdrawal as indicated by ANY ONE of the following: [ ]i) Heart rate greater than 120 beats per minute [ ]ii) Vomiting [ ]iii) Grossly visible tremor [ ]iv) Profuse perspiration [ ]v) Temperature greater than 38.3 degrees C (101 degrees F) [ ]vi) Other marked physical signs of alcohol or sedative withdrawal [ ]b) Signs of withdrawal which require inpatient treatment as indicated by ANY ONE of the following: [ ]i) Inadequate response to pharmacotherapy in emergency department or other appropriate lower level of care [ ]ii) Lower level of care not feasible or appropriate (eg, unavailable or inappropriate to patient condition or treatment history) [ ]IV. Severely complicated opioid withdrawal that requires iysxfo-lcr-ctkre care as manifested by ALL of the following 1,4,7,11 [ ]a) Vomiting or diarrhea due to opioid withdrawal [ ]b) Marked dehydration or electrolyte abnormality that cannot be corrected (to near normal) in an emergency department or other ambulatory setting (eg, serum K<2.5 mEq/L , serum Na <130 mEq/L [X]V. Acute toxicity or instability from substance use requiring inpatient care (eg, altered mental status, respiratory depression) that has had inadequate response to, or is judged inappropriate for, treatment at lower level of care (eg, emergency department, observation care) [ ]. Other inpatient medical or psychiatric care is needed due to risk or comorbidity as indicated by ALL of the following(18): [ ]a) Treatment is needed because of patient risk due to ANY ONE of the following: [ ]i) Medical condition (eg, severe cardiac disease) that requires 24-hour monitoring and treatment due to danger of destabilization by alcohol or sedative withdrawal is present [ ]ii) Imminent danger to self is present due to ANY ONE of the following(19)(20)(21): [ ]1) Imminent risk for recurrence of Suicide attempt or act of serious Harm to self is present as indicated by ALL of the following: [ ]A. There has been very recent Suicide attempt or deliberate act of serious Harm to self. [ ]B. There has not been Sufficient relief of the factors that precipitated the attempt or act. [ ]2) Current plan for suicide or serious Harm to self is present. [ ]3) Command auditory hallucinations for suicide or serious Harm to self are present. [ ]4) Patient has persistent Thoughts of suicide or serious Harm to self that cannot be adequately monitored at lower level of care due to ANY ONE of the following[E]: [ ]A. Insufficient behavioral care is available to meet patient needs (such as required provider or lower level facility is not available). [ ]B. Patient characteristics such as high impulsivity or unreliability are present. [ ]C. Environment does not support recovery. [ ]D. Ready access to lethal means [ ]iii) Imminent danger to others is present due to ANY ONE of the following(19)(23)(24): [ ]1) Imminent risk for recurrence of attempt to seriously Harm another is present as indicated by ALL of the following: [ ]A. There has been very recent attempt to seriously Harm another. [ ]B. There has not been Sufficient relief of factors that precipitated the attempt or act. [ ]2) Current plan for homicide or serious Harm to another is present. [ ]3) Command auditory hallucinations or paranoid delusions contributing to risk for homicide or serious Harm to another are present. [ ]4) Patient has persistent thoughts of homicide or serious Harm to another that cannot be adequately monitored at lower level of care because of ANY ONE of the following[E]: [ ]A. Insufficient behavioral care is available to meet patient needs (such as required provider or lower level facility is not available). [ ]B. High impulsivity or unreliability is present. [ ]C. Environment does not support recovery. [ ]D. Ready access to lethal means [ ]iv) Severe dysfunction in daily living related to substance use disorder as indicated by ANY ONE of the following(33): [ ]a) Extreme deterioration in social interactions (eg , threatening behaviors with little or no provocation) [ ]b) Complete withdrawal from all social interactions [ ]c) Complete neglect of self-care with associated impairment in physical status [ ]d) Extreme disruption in vegetative function (eg, life-sustaining functions such as eating) [ ]e) Complete inability to maintain any appropriate aspect of personal responsibility in any adult roles (eg, occupational, parental ) [ ]v) Other emotional, behavioral, or cognitive symptoms of sufficient severity to preclude ability to engage in recovery without 24-hour monitoring and treatment are present. [ ]vi) Patient requires monitoring due to substance use in combination with medical, psychiatric, or environmental factors that prevent adequate management at lower level of care as indicated by ALL of the following: [ ]1) Significant substance use effects, medical conditions, or psychiatric comorbidities are present as indicated by ANY ONE of the following [ ]A. Substance toxicity or withdrawal requires medical monitoring. [ ]B. Medical comorbidity requires medical monitoring for destabilization due to alcohol or sedative withdrawal. [ ]C. Emotional, behavioral, or cognitive symptoms of sufficient severity to limit or preclude ability to engage in treatment are present. [ ]2) Conditions, barriers, or environmental factors preventing treatment at lower level of care are present as indicated by ANY ONE of the following: [ ]A. Psychiatric comorbidity or opposition to treatment requires 24-hour setting to ensure adherence with medical treatment or adequate motivating interventions. [ ]B. Severe behavioral problems (eg, escalating relapse behaviors, acute psychiatric or substance use crisis, inability to recognize signs and symptoms of relapse ) require 24-hour setting for relapse prevention.[F] [ ]C. Living environment outside of 24-hour setting prevents recovery (eg, abuse, victimization, patient inability to cope). [ ]b Treatment situation and needs are appropriate for inpatient level ( instead of using lower level of care) as indicated by ANY ONE of the following( 25)(26)(27): [ ]i) Patient is unwilling to participate voluntarily and requires treatment (eg, legal commitment) in involuntary unit.(23) [ ]ii) Voluntary treatment at lower level is not feasible (eg, lower level care unavailable or inappropriate for patient condition). [ ]iii) Physical restraint, seclusion, or other involuntary control is needed (eg, actively violent patient for whom treatment in an involuntary unit is deemed necessary in accord with applicable medical and legal criteria).(23) [ ]iv) Uscwhx-sop-macdx medical or nursing care to address symptoms and initiate interventions is required; specific need is identified. Extended stay beyond goal length of stay may be needed for: [ ]a) Onset of delirium [ ]b) Recurrent seizures [ ]c) Persistent severe alcohol or sedative withdrawal [ ]d) Persistent dangerous behavior The original [employer] content created by [employer] has been revised. The portions of the content which have been revised are identified through the use of italic text or in bold, and [facility] has neither reviewed nor approved the modified material. All other unmodified content is copyright [employer]. Please see references footnoted in the original [employer] edition 2015 ANDREA BONDS Aug 05, 2016 00:17
[2016-08-05] MEDS ORDERED: MEMA10TA PO (01:49)
[2016-08-05] MEDS ORDERED: PHEN100C PO (01:49)
[2016-08-05] MEDS ORDERED: ALBU2.5V5 NEB (01:49)
[2016-08-05] MEDS ORDERED: ACETAMINOPHEN 325 MG TABLET. PO PRN (08:30)
[2016-08-05] MEDS ORDERED: ALBUTEROL SULFATE 2.5 MG/3 ML NEBU. NEB PRN (08:30)
[2016-08-05] MEDS: MEMANTINE 5 MG TABLET. PO SCH (09:00)
[2016-08-05] MEDS: LEVETIRACETAM 500 MG TABLET PO SCH ×2 (09:00→21:00)
--- NOTE | 2016-08-05 10:09 | PDOC ---
Provider Note Provider Note Patient seen. History and Physical dictated. See dictation#[id number] DIMITRI WEIR MD Aug 05, 2016 10:09
--- NOTE | 2016-08-05 10:21 | EKG ---
[facility] [address] [place] [address] Test Date: 2016-08-05 Test Time: 09:12:25 Pat Name: MARISABEL LARA Department: Room: [facility] Gender: M Heeler Machine: : 1945 Requested By: DIMITRI WEIR Order Number: [id number] Reading MD: Tera Valdez Measurements Intervals Armstrong Rate: 70 P: 28 ND: 178 QRS: 26 QRSD: 90 T: 40 QT: 470 QTc: 511 Interpretive Statements SINUS RHYTHM PROLONGED QT POSSIBLY ABNORMAL ECG Electronically Signed On 08-13-2016 16:57:02 CDT by Tera Valdez
--- NOTE | 2016-08-05 10:44 | HP ---
ADMIT DATE: 08/04/2016 ADMITTING PHYSICIAN: Dr. Spencer. REASON FOR ADMISSION: Dilantin toxicity and falls. HISTORY OF PRESENT ILLNESS: This 71 years old male who is a resident of [facility] fell twice yesterday. The patient fell around noon and then again in the evening. The patient has been more unstable lately and unsteady. The patient was noted to have a laceration of the left eyebrow and had stitches taken in the Emergency Room. However, his Dilantin level was high at 43.2, and because of the frequent falls and Dilantin toxicity, the patient was admitted for further evaluation and management. SYSTEMS REVIEW: In the Emergency Room, the patient's WBC count was 13.3, but the patient denies any symptoms of infection. He denies any cold, cough, congestion or dysuria. The patient is not a good historian and sometimes he gets side tracked and talks about other things. The patient initially stated that he had a seizure yesterday and then he again said that he had one a week ago, so I am not sure if he had a seizure or not. Yesterday he was on Dilantin and Keppra for his seizures. He denies any back pain. He denies any significant loss of consciousness or change in mental status, but again he is not a good historian and unable to assess whether he had a seizure yesterday or not. Other systems reviewed and are negative. The patient denies any abdominal pain, nausea, vomiting, diarrhea, constipation or leg pain. Denies any cold, cough or congestion. Other systems reviewed and are negative. PAST MEDICAL HISTORY: The patient has a history of seizure disorder, anxiety and schizophrenia. He is a resident of shelter. As noted earlier, he has a history of falls. SOCIAL HISTORY: The patient is a resident of [facility]. He denies any history of smoking, alcoholism or drug abuse. ALLERGIES: THE PATIENT IS ALLERGIC TO PHENOBARBITAL. FAMILY HISTORY: Reviewed and noncontributory. PAST SURGICAL HISTORY: None available. MEDICATIONS: Reviewed. The patient is on Dilantin 400 mg every other day alternating with Dilantin 300 mg every other day. He is also on Keppra. OBJECTIVE: VITAL SIGNS: Temperature 97.9, pulse 70 per minute, respirations 18 per minute, blood pressure 120/69 mmHg. GENERAL: The patient is alert, oriented, but as noted earlier is a poor historian. He gets side tracked easily and also does not give accurate information at times. He is alert and he knows he is in the hospital. He is not in any acute distress. HEENT: Unremarkable. Eyes: Pupils reacting to light. Conjunctivae pale. Sclerae are muddy. NECK: JVP normal. No thyromegaly. Trachea midline. LUNGS: Decreased breath sounds at bases. CARDIOVASCULAR: S1, S2 regular. ABDOMEN: Soft, nontender. EXTREMITIES: No edema. CENTRAL NERVOUS SYSTEM: Gait not tested. The patient is able to move all extremities, has generalized weakness. SKIN: Shows a laceration and some swelling on the left eyebrow with stitches in place. No active bleeding noted. BACK: Lumbar spine nontender. LABORATORY FINDINGS: As noted earlier, Dilantin level is 43.2, WBC count 13.3, hemoglobin 16.4. Sodium 143, potassium 3.7, BUN 20, creatinine 1.2. Liver enzymes are normal. CT scan of head and cervical spine does not show any acute changes. He does have some degenerative changes on the cervical spine along with some narrowing of the spinal canal. IMPRESSION: 1. Acute Dilantin toxicity. 2. Seizure disorder. 3. Recurrent falls. 4. Schizophrenia. PLAN: Consult Dr. Munoz for neurology evaluation and management because I am not sure if he had a seizure yesterday or not or whether his seizures are under control or not. We will consult Dr. Loja for rehab evaluation and management. Recheck labs in a.m. Hold Dilantin for now, continue Keppra. For details, please review the orders. DIMITRI WEIR MD DR: OMI/matilda JOB#: [id number] / [id number]
--- NOTE | 2016-08-05 10:45 | RAD ---
Indication leukocytosis. Suspect infection. Protocol study. A single view of the chest was obtained and is compared to a study 11 days earlier. The heart and pulmonary vessels appear unremarkable. A focal infiltrate is not seen. There has not been a significant change compared to the previous exam. IMPRESSION: No acute or focal process. No significant change
--- NOTE | 2016-08-05 17:04 | PDOC2 ---
CONSULT Date of Consult Date of Consult DATE: 08/05/16 TIME: 17:01 Reason for Consult Reason for Consult: Dilantin toxicity. History of Present Illness Reason for Visit: This patient is 71-year-old man who is a resident at [facility]. Patient had 2 falls yesterday patient has problems with gait, balance, dizziness. Patient has a laceration of left eyebrow and had stitches done in the emergency room. His Dilantin level was 43.2. Patient denies any complaint of weakness, his dizziness symptoms are improving complaint of fever headache nausea vomiting chest pain shortness of breath. He had a CT scan done on the brain which did not show any acute intracranial process there was cerebellar and cerebral atrophy noted. There was no cervical spine fracture noted minimal degenerative changes. Dilantin toxicity History of seizes History of schizophrenia Past Medical History CENTRAL NERVOUS SYSTEM: Dementia, Seizure Psych: Schizophrenia Past Surgical History Past Surgical History: No pertinent history Current Problem List Problem List Problems Medical Problems: (1) Closed head injury Status: Acute (2) Dilantin toxicity Status: Acute (3) Laceration of left eyebrow Status: Acute (4) Subtherapeutic serum dilantin level Status: Acute Current Medications Current Medications Current Medications Sodium Chloride (Iv Sodium Chloride 0.9% 1000ml Bag) 1,000 ml @ 1,000 mls/hr 1X ONCE IV Last administered on 08/04/16 22:28; Start 08/04/16 at 22:15; Stop 08/04/16 at 23:14; Status DC Lidocaine/ Epinephrine (Xylocaine 1%-Epi 1:100,000) 20 ml 1X ONCE INJ Last administered on 08/04/16 22:45; Start 08/04/16 at 22:45; Stop 08/04/16 at 22:46 ; Status DC Ondansetron HCl (Zofran) 4 mg PRN Q8HRS PRN IV NAUSEA/VOMITING; Start 08/04/16 at 23:45; Stop 08/05/16 at 23:44 Fentanyl Citrate (Fentanyl 2ml Vial) 50 mcg PRN Q2HR PRN IV PAIN; Start at 23:45; Stop 08/05/16 at 23:44 Acetaminophen (Tylenol) 650 mg PRN Q4HRS PRN PO FEVER; Start 08/04/16 at 23:45 ; Stop 08/05/16 at 23:44 Acetaminophen (Tylenol) 650 mg PRN Q6HRS PRN PO PAIN; Start 08/05/16 at 08:30 Albuterol Sulfate (Ventolin Neb Soln) 2.5 mg PRN Q4HRS PRN NEB SOA; Start 08/05 at 08:30 Memantine (Namenda) 5 mg DAILY PO Last administered on 08/05/16 09:00; Start 08/05/16 at 09:00 Levetiracetam (Keppra) 1,000 mg BID PO Last administered on 08/05/16 09:00; Start 08/05/16 at 09:00 Active Scripts Active Reported Albuterol Sulfate Neb Soln (Albuterol Sulfate) 2.5 Mg/3 Ml Vial.neb 1 Vial NEB PRN Q4HRS Dilantin (Phenytoin Sodium Extended) 100 Mg Capsule 3 Cap PO BID Namenda (Memantine Hcl) 10 Mg Tablet 5 Mg PO DAILY Tylenol (Acetaminophen) 325 Mg Tablet 650 Mg PO PRN Q6HRS PRN Keppra (Levetiracetam) 1,000 Mg Tablet 1 Tab PO BID Allergies Allergies: Coded Allergies: phenobarbital (Verified Allergy, Intermediate, 07/26/16) Physical Exam Physical Exam REVIEW OF SYSTEMS: not [id number] review of systems. PHYSICAL EXAMINATION: General appearance is in acute distress. HEENT: Normocephalic and nontraumatic. L eye brow sutures + Eyes, nose, ears, and throat are unremarkable. Neck is supple. No lymphadenopathy. No crepitus. Cardiovascular: S1, S2, regular rate and rhythm. Pulmonary: Clear to auscultation bilaterally. Abdomen: Bowel sounds are positive. Abdomen is soft, nontender, and nondistended. NEUROLOGICAL EXAMINATION: Alert able to tell name, knows in hospital, follows commands. PERRL. EOMI. CN: no focal findings. Muscle tone: within normal. Muscle strength: able to move all exts DTR: 1-2 Plantar reflex: Flexor response bilaterally Gait: not examined in bed. Sensory exam: no abnormal findings. No obvious cerebellar signs elicited. Vitals VITALS Vital Signs Date Time Temp Pulse Resp B/P Pulse Ox O2 Delivery O2 Flow Rate FiO2 08/05/16 15:00 97.9 71 18 130/69 94 Room Air 97.9 Labs Labs Laboratory Tests Test 08/04/16 21:50 08/04/16 21:51 08/05/16 10:04 White Blood Count 13.3x10^3/uL (4.0-11.0) Red Blood Count 5.38x10^6/uL (4.30-5.70) Hemoglobin 16.4g/dL (13.0-17.5) Hematocrit 48.0% (39.0-53.0) Mean Corpuscular Volume 89fL (79-100) Mean Corpuscular Hemoglobin 31pg (25-35) Mean Corpuscular Hemoglobin Concent 34g/dL (31-37) Red Cell Distribution Width 12.8% (11.5-14.5) Platelet Count 198x10^3/uL (140-400) Neutrophils (%) (Auto) 86% (31-73) Lymphocytes (%) (Auto) 8% (24-48) Monocytes (%) (Auto) 4% (0-9) Eosinophils (%) (Auto) 1% (0-3) Basophils (%) (Auto) 0% (0-3) Neutrophils # (Auto) 11.5x10^3uL (1.8-7.7) Lymphocytes # (Auto) 1.1x10^3/uL (1.0-4.8) Monocytes # (Auto) 0.6x10^3/uL (0.0-1.1) Eosinophils # (Auto) 0.2x10^3/uL (0.0-0.7) Basophils # (Auto) 0.0x10^3/uL (0.0-0.2) Segmented Neutrophils % 81% (35-66) Band Neutrophils % 1% (0-9) Lymphocytes % 13% (24-48) Monocytes % 2% (0-10) Eosinophils % 3% (0-5) Platelet Estimate Adequate (ADEQUATE) Sodium Level 143mmol/L (136-145) Potassium Level 3.7mmol/L (3.5-5.1) Chloride Level 104mmol/L (98-107) Carbon Dioxide Level 27mmol/L (21-32) Anion Gap 12 (6-14) Blood Urea Nitrogen 20mg/dL (8-26) Creatinine 1.2mg/dL (0.7-1.3) Estimated GFR (Cockcroft-Gault) 59.7 Glucose Level 118mg/dL (70-99) Calcium Level 9.3mg/dL (8.5-10.1) Total Bilirubin 0.3mg/dL (0.2-1.0) Direct Bilirubin 0.1mg/dL (0.0-0.2) Aspartate Amino Transf (AST/SGOT) 24U/L (15-37) Alanine Aminotransferase (ALT/SGPT) 19U/L (16-63) Alkaline Phosphatase 102U/L (46-116) Total Protein 7.2g/dL (6.4-8.2) Albumin 3.5g/dL (3.4-5.0) Phenytoin (Dilantin) Level 43.2mcg/mL (10.0-20.0) Phenytoin Last Dose Date Phenytoin Last Dose Time Glucose (Fingerstick) 201mg/dL (70-99) Laboratory Tests Test 08/04/16 21:50 08/04/16 21:51 08/05/16 10:04 White Blood Count 13.3x10^3/uL (4.0-11.0) Red Blood Count 5.38x10^6/uL (4.30-5.70) Hemoglobin 16.4g/dL (13.0-17.5) Hematocrit 48.0% (39.0-53.0) Mean Corpuscular Volume 89fL (79-100) Mean Corpuscular Hemoglobin 31pg (25-35) Mean Corpuscular Hemoglobin Concent 34g/dL (31-37) Red Cell Distribution Width 12.8% (11.5-14.5) Platelet Count 198x10^3/uL (140-400) Neutrophils (%) (Auto) 86% (31-73) Lymphocytes (%) (Auto) 8% (24-48) Monocytes (%) (Auto) 4% (0-9) Eosinophils (%) (Auto) 1% (0-3) Basophils (%) (Auto) 0% (0-3) Neutrophils # (Auto) 11.5x10^3uL (1.8-7.7) Lymphocytes # (Auto) 1.1x10^3/uL (1.0-4.8) Monocytes # (Auto) 0.6x10^3/uL (0.0-1.1) Eosinophils # (Auto) 0.2x10^3/uL (0.0-0.7) Basophils # (Auto) 0.0x10^3/uL (0.0-0.2) Segmented Neutrophils % 81% (35-66) Band Neutrophils % 1% (0-9) Lymphocytes % 13% (24-48) Monocytes % 2% (0-10) Eosinophils % 3% (0-5) Platelet Estimate Adequate (ADEQUATE) Sodium Level 143mmol/L (136-145) Potassium Level 3.7mmol/L (3.5-5.1) Chloride Level 104mmol/L (98-107) Carbon Dioxide Level 27mmol/L (21-32) Anion Gap 12 (6-14) Blood Urea Nitrogen 20mg/dL (8-26) Creatinine 1.2mg/dL (0.7-1.3) Estimated GFR (Cockcroft-Gault) 59.7 Glucose Level 118mg/dL (70-99) Calcium Level 9.3mg/dL (8.5-10.1) Total Bilirubin 0.3mg/dL (0.2-1.0) Direct Bilirubin 0.1mg/dL (0.0-0.2) Aspartate Amino Transf (AST/SGOT) 24U/L (15-37) Alanine Aminotransferase (ALT/SGPT) 19U/L (16-63) Alkaline Phosphatase 102U/L (46-116) Total Protein 7.2g/dL (6.4-8.2) Albumin 3.5g/dL (3.4-5.0) Phenytoin (Dilantin) Level 43.2mcg/mL (10.0-20.0) Phenytoin Last Dose Date Phenytoin Last Dose Time Glucose (Fingerstick) 201mg/dL (70-99) Assessment/Plan Assessment/Plan This patient is 71-year-old man who is a resident at [facility]. Patient had 2 falls yesterday patient has problems with gait, balance, dizziness. Patient has a laceration of left eyebrow and had stitches done in the emergency room. His Dilantin level was 43.2. Patient denies any complaint of weakness, his dizziness symptoms are improving complaint of fever headache nausea vomiting chest pain shortness of breath. He had a CT scan done on the brain which did not show any acute intracranial process there was cerebellar and cerebral atrophy noted. There was no cervical spine fracture noted minimal degenerative changes. Dilantin toxicity History of seizes History of schizophrenia No new clinical seizure activity noted His Dilantin is hold for now Patient was started on Keppra We will check MRI brain to rule out any acute intracranial process We'll recheck Dilantin level in morning PT OT evaluation Continue medical management DARLING CARDENAS MD Aug 05, 2016 17:04
[2016-08-06 03:00] VITALS: BP 109/60
[2016-08-06 05:06] LABS: BASO % 0 % (0-3); EOS % 3 % (0-3); HEMOGLOBIN 14.2 g/dL (13.0-17.5); LYMPH # 1.4 x10^3/uL (1.0-4.8); LYMPH % 18 % (24-48); MEAN CORPUSCULAR HEMOGLOBIN 30 pg (25-35); MEAN CORPUSCULAR HGB CONC 34 g/dL (31-37); MEAN CORPUSCULAR VOLUME 89 fL (79-100); MONO % 7 % (0-9); NEUT % 71 % (31-73); PLATELET COUNT 175 x10^3/uL (140-400); RED BLOOD COUNT 4.72 x10^6/uL (4.30-5.70); RED CELL DISTRIBUTION WIDTH 12.6 % (11.5-14.5); WHITE BLOOD COUNT 7.7 x10^3/uL (4.0-11.0)
[2016-08-06 05:21] LABS: ALBUMIN 2.9 g/dL (3.4-5.0); ALBUMIN/GLOBULIN RATIO 0.8 (1.0-1.7); ALK PHOS 96 U/L (46-116); ALT (SGPT) 18 U/L (16-63); ANION GAP 10 (6-14); AST (SGOT) 22 U/L (15-37); BLOOD UREA NITROGEN 18 mg/dL (8-26); BUN/CREATININE RATIO 18 (6-20); CALCIUM 8.5 mg/dL (8.5-10.1); CARBON DIOXIDE 26 mmol/L (21-32); CHLORIDE 105 mmol/L (98-107); GFR 73.7; GLUCOSE 80 mg/dL (70-99); MAGNESIUM 1.5 mg/dL (1.8-2.4); POTASSIUM 3.5 mmol/L (3.5-5.1); SODIUM 141 mmol/L (136-145); TOTAL BILIRUBIN 0.2 mg/dL (0.2-1.0); TOTAL PROTEIN 6.6 g/dL (6.4-8.2)
[2016-08-06 07:00] VITALS: BP 127/74
[2016-08-06] MEDS: MEMANTINE 5 MG TABLET. PO SCH (09:07)
[2016-08-06] MEDS: LEVETIRACETAM 500 MG TABLET PO SCH ×2 (09:07→20:39)
--- NOTE | 2016-08-06 09:58 | PDOC ---
PROGRESS NOTES Subjective Subjective denies pain Objective Objective Vital Signs Date Time Temp Pulse Resp B/P Pulse Ox O2 Delivery O2 Flow Rate FiO2 08/06/16 07:00 97.7 73 18 127/74 94 Room Air 97.7 Intake and Output 08/06/16 07:00 Intake Total 1200 ml Output Total 1025 ml Balance 175 ml Intake Oral 1200 ml Output Urine Total 925 ml Stool Total 100 ml Physical Exam Abdomen: Normal bowel sounds, Soft Heart: Regular rate, Normal S1 Extremities: No clubbing General: No acute distress HEENT: Atraumatic Lungs: Clear to auscultation MUSCULOSKELETAL: No deformity Neck: No thyromegaly Neuro: Normal speech Psych/Mental Status: Mood NL COMMENT sutures left eye brow for laceration from fall Diagnosis Problem List Problems Medical Problems: (1) Closed head injury Status: Acute (2) Dilantin toxicity Status: Acute (3) Laceration of left eyebrow Status: Acute (4) Subtherapeutic serum dilantin level Status: Acute IMPRESSION: 1. Acute Dilantin toxicity. 2. Seizure disorder. 3. Recurrent falls. 4. Schizophrenia. PLAN: dilantin 39 today. holding dilantin. pt/ot rehab consult nani for seizures. check dilantin level daily. Consult Dr. Munoz for neurology evaluation and management because I am not sure if he had a seizure yesterday or not or whether his seizures are under control or not. We will consult Dr. Loja for rehab evaluation and management. Recheck labs in a.m. Hold Dilantin for now, continue Kera. For details, please review the orders. Assessment Assessment Problems Medical Problems: (1) Closed head injury Status: Acute (2) Dilantin toxicity Status: Acute (3) Laceration of left eyebrow Status: Acute (4) Subtherapeutic serum dilantin level Status: Acute Problems: Plan Plan of Care Problems Medical Problems: (1) Closed head injury Status: Acute (2) Dilantin toxicity Status: Acute (3) Laceration of left eyebrow Status: Acute (4) Subtherapeutic serum dilantin level Status: Acute Comment Review of Relevant I have reviewed the following items jossue (where applicable) has been applied. Labs Laboratory Tests Test 08/05/16 10:04 08/06/16 03:50 Glucose (Fingerstick) 201mg/dL (70-99) White Blood Count 7.7x10^3/uL (4.0-11.0) Red Blood Count 4.72x10^6/uL (4.30-5.70) Hemoglobin 14.2g/dL (13.0-17.5) Hematocrit 42.0% (39.0-53.0) Mean Corpuscular Volume 89fL (79-100) Mean Corpuscular Hemoglobin 30pg (25-35) Mean Corpuscular Hemoglobin Concent 34g/dL (31-37) Red Cell Distribution Width 12.6% (11.5-14.5) Platelet Count 175x10^3/uL (140-400) Neutrophils (%) (Auto) 71% (31-73) Lymphocytes (%) (Auto) 18% (24-48) Monocytes (%) (Auto) 7% (0-9) Eosinophils (%) (Auto) 3% (0-3) Basophils (%) (Auto) 0% (0-3) Neutrophils # (Auto) 5.5x10^3uL (1.8-7.7) Lymphocytes # (Auto) 1.4x10^3/uL (1.0-4.8) Monocytes # (Auto) 0.5x10^3/uL (0.0-1.1) Eosinophils # (Auto) 0.3x10^3/uL (0.0-0.7) Basophils # (Auto) 0.0x10^3/uL (0.0-0.2) Sodium Level 141mmol/L (136-145) Potassium Level 3.5mmol/L (3.5-5.1) Chloride Level 105mmol/L (98-107) Carbon Dioxide Level 26mmol/L (21-32) Anion Gap 10 (6-14) Blood Urea Nitrogen 18mg/dL (8-26) Creatinine 1.0mg/dL (0.7-1.3) Estimated GFR (Cockcroft-Gault) 73.7 BUN/Creatinine Ratio 18 (6-20) Glucose Level 80mg/dL (70-99) Calcium Level 8.5mg/dL (8.5-10.1) Magnesium Level 1.5mg/dL (1.8-2.4) Total Bilirubin 0.2mg/dL (0.2-1.0) Aspartate Amino Transf (AST/SGOT) 22U/L (15-37) Alanine Aminotransferase (ALT/SGPT) 18U/L (16-63) Alkaline Phosphatase 96U/L (46-116) Total Protein 6.6g/dL (6.4-8.2) Albumin 2.9g/dL (3.4-5.0) Albumin/Globulin Ratio 0.8 (1.0-1.7) Phenytoin (Dilantin) Level 39.4mcg/mL (10.0-20.0) Phenytoin Last Dose Date 08/04/16 Phenytoin Last Dose Time 1000 Vitals/I & O Vital Sign - Last 24 Hours 08/05/16 08/05/16 08/05/16 08/05/16 10:23 10:30 15:00 19:15 Temp 97.9 97.9 97.9 97.9 Pulse 71 71 Resp 18 18 B/P 131/70 130/69 Pulse Ox 95 93 94 O2 Delivery Room Air Room Air Room Air Room Air 08/05/16 08/05/16 08/06/16 08/06/16 19:15 23:05 03:00 07:00 Temp 97.9 100.4 97.9 97.7 97.9 100.4 97.9 97.7 Pulse 83 77 75 73 Resp 16 18 18 18 B/P 131/73 124/67 109/60 127/74 Pulse Ox 94 93 93 94 O2 Delivery Room Air Room Air Room Air Room Air Intake and Output 08/05/16 08/05/16 08/06/16 15:00 23:00 07:00 Intake Total 480 ml 720 ml Output Total 300 ml 100 ml 625 ml Balance 180 ml 620 ml -625 ml CARMEN VIVAS MD Aug 06, 2016 09:58
[2016-08-06 11:00] VITALS: BP 131/76
[2016-08-06 14:45] VITALS: BP 130/94
--- NOTE | 2016-08-06 15:00 | PDOC ---
PROGRESS NOTES Assessment Assessment IMPRESSION: Seizure. Dilantin toxicity. Ataxia. Falls. Laceration of left eye brow area. Schizophrenia. RECOMMENDATIONS/PLAN: Dilantin discontinued. Continue Keppra, increase from 1000 mg daily to 2000 mg daily. Depakote if has more seizures. EEG HCT performed, and SAH, SDH and ICH ruled out. SUBJECTIVE: He stated he has been having seizures grand mal and petit mal about 20 a day for 2 weeks, and about 100 seizures a month before that. OBJECTIVE: No acute focalized motor or sensory deficits. PAST MEDICAL AND SURGICAL HISTORY: Please see H&P ALLERGY: Reviewed. MEDICATIONS: Refer to [facility] REVIEW OF SYSTEMS: Constitutional: No malnutrition, weight loss, cachexia. Head: No traumatic brain or head injury. Skin: No edema, or rash. Ear: No infection, tinnitus. Eyes: No vision loss, or diplopia. Nose: No bleeding or purulent discharges. Hearing: No hearing decrease. Neck: No injury. Cardiac: No PA, arrhythmia Pulmonary: No CPOD. GI: No GI Ulcer, GI bleeding Urinary/genital: UTI. Endocrine: No cousin face, craniofacial dysmorphism, polydactyly. Skeletomuscular: Falls. Neurological: see HP. Psychiatric: Denies drug use/abuse. Otherwise, not [id number] review of systems. PHYSICAL EXAMINATION: General appearance in no acute distress. HEENT: Normocephalic and nontraumatic. Eyes, nose, ears, and throat are unremarkable.. Neck is supple. No lymphadenopathy. No bruits are heard over the carotid artery. No Crepitus. Cardiovascular: S1, S2, regular rate and rhythm. Pulmonary: Clear to auscultation bilaterally. Abdomen: Bowel sounds are positive. Abdomen is soft, nontender, and nondistended. Extremities: No rash, lesions, or edema. No restriction of range of motion NEUROLOGICAL EXAMINATION: Awake. Oriented to time, place and person. PERRL. EOMI. CN: no acute focal findings. Muscle tone: within normal. Muscle strength: 5 DTR: 2+ Plantar reflex: Flexor response bilaterally Gait: not examined in bed. Sensory exam: no abnormal findings. No obvious cerebellar signs elicited. F-T-N test fine, and no tremors noted. Objective Objective Vital Signs Date Time Temp Pulse Resp B/P Pulse Ox O2 Delivery O2 Flow Rate FiO2 08/06/16 14:45 97.9 72 18 130/94 93 Room Air 97.9 Intake and Output 08/06/16 07:00 Intake Total 1200 ml Output Total 1025 ml Balance 175 ml Intake Oral 1200 ml Output Urine Total 925 ml Stool Total 100 ml Vitals Signs Vitals VS - Last 72 Hours, by Label Date Time Temp Pulse Resp B/P Pulse Ox O2 Delivery O2 Flow Rate FiO2 08/06/16 14:45 97.9 72 18 130/94 93 Room Air 97.9 08/06/16 11:00 97.9 75 18 131/76 93 Room Air 97.9 08/06/16 08:30 Room Air 08/06/16 07:00 97.7 73 18 127/74 94 Room Air 97.7 08/06/16 03:00 97.9 75 18 109/60 93 Room Air 97.9 08/05/16 23:05 100.4 77 18 124/67 93 Room Air 100.4 08/05/16 19:15 97.9 83 16 131/73 94 Room Air 97.9 08/05/16 19:15 Room Air 08/05/16 15:00 97.9 71 18 130/69 94 Room Air 97.9 08/05/16 10:30 97.9 71 18 131/70 93 Room Air 97.9 08/05/16 10:23 95 Room Air 08/05/16 08:00 Room Air 08/05/16 07:00 97.9 70 18 120/69 97 Room Air 97.9 Laboratory Laboratory Laboratory Tests Test 08/06/16 03:50 White Blood Count 7.7x10^3/uL (4.0-11.0) Red Blood Count 4.72x10^6/uL (4.30-5.70) Hemoglobin 14.2g/dL (13.0-17.5) Hematocrit 42.0% (39.0-53.0) Mean Corpuscular Volume 89fL (79-100) Mean Corpuscular Hemoglobin 30pg (25-35) Mean Corpuscular Hemoglobin Concent 34g/dL (31-37) Red Cell Distribution Width 12.6% (11.5-14.5) Platelet Count 175x10^3/uL (140-400) Neutrophils (%) (Auto) 71% (31-73) Lymphocytes (%) (Auto) 18% (24-48) Monocytes (%) (Auto) 7% (0-9) Eosinophils (%) (Auto) 3% (0-3) Basophils (%) (Auto) 0% (0-3) Neutrophils # (Auto) 5.5x10^3uL (1.8-7.7) Lymphocytes # (Auto) 1.4x10^3/uL (1.0-4.8) Monocytes # (Auto) 0.5x10^3/uL (0.0-1.1) Eosinophils # (Auto) 0.3x10^3/uL (0.0-0.7) Basophils # (Auto) 0.0x10^3/uL (0.0-0.2) Sodium Level 141mmol/L (136-145) Potassium Level 3.5mmol/L (3.5-5.1) Chloride Level 105mmol/L (98-107) Carbon Dioxide Level 26mmol/L (21-32) Anion Gap 10 (6-14) Blood Urea Nitrogen 18mg/dL (8-26) Creatinine 1.0mg/dL (0.7-1.3) Estimated GFR (Cockcroft-Gault) 73.7 BUN/Creatinine Ratio 18 (6-20) Glucose Level 80mg/dL (70-99) Calcium Level 8.5mg/dL (8.5-10.1) Magnesium Level 1.5mg/dL (1.8-2.4) Total Bilirubin 0.2mg/dL (0.2-1.0) Aspartate Amino Transf (AST/SGOT) 22U/L (15-37) Alanine Aminotransferase (ALT/SGPT) 18U/L (16-63) Alkaline Phosphatase 96U/L (46-116) Total Protein 6.6g/dL (6.4-8.2) Albumin 2.9g/dL (3.4-5.0) Albumin/Globulin Ratio 0.8 (1.0-1.7) Phenytoin (Dilantin) Level 39.4mcg/mL (10.0-20.0) Phenytoin Last Dose Date 08/04/16 Phenytoin Last Dose Time 1000 Comment Review of Relevant I have reviewed the following items jossue (where applicable) has been applied. OSMIN VALLE MD Aug 06, 2016 14:59
--- NOTE | 2016-08-06 16:02 | RAD ---
PROCEDURE MRI brain without contrast. HISTORY Frequent falls. Contusion about left eye. Mental status change. TECHNIQUE Sagittal T1, axial T1, axial T2, axial FLAIR, axial T2 gradient, coronal T2, and diffusion imaging with ADC map were performed. COMPARISON CT head from August 04, 2016. FINDINGS The ventricles and sulci are within normal limits for age. FLAIR hyperintensities in the supratentorial white matter are nonspecific but most suggestive of mild small vessel ischemic disease. Areas of encephalomalacia in both frontal lobes may be secondary to old traumatic brain injury. There is no acute intracranial hemorrhage or extra-axial fluid collection. There is no mass effect or midline shift. There is no restricted diffusion to suggest an acute infarct. Cervicomedullary junction is unremarkable. Pituitary and suprasellar region are unremarkable. Right frontal sinus is opacified. Right anterior and mid ethmoid air cells are opacified. There is minimal maxillary mucosal thickening. There is mild right sphenoid sinus mucosal thickening. There is partial opacification of the right mastoid air cells. There is a left frontal scalp hematoma. IMPRESSION 1. 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 2. Brain parenchymal volume loss and mild probable small-vessel ischemic disease. 3. No acute intracranial findings. Electronically signed by: Alberto Doherty MD (Aug 06, 2016 16:00:47)
[2016-08-06] MEDS ORDERED: MAGNESIUM SULFATE 2GM 50 ML IV ONE (16:30)
[2016-08-06 19:00] VITALS: BP 93/63
[2016-08-06 23:00] VITALS: BP 118/72
[2016-08-07 03:00] VITALS: BP 123/72
[2016-08-07 05:43] LABS: ALBUMIN/GLOBULIN RATIO 0.8 (1.0-1.7); CALCIUM 8.9 mg/dL (8.5-10.1); GFR 73.7; POTASSIUM 3.6 mmol/L (3.5-5.1); TOTAL BILIRUBIN 0.3 mg/dL (0.2-1.0); TOTAL PROTEIN 6.8 g/dL (6.4-8.2)
--- NOTE | 2016-08-07 06:33 | CONS ---
DATE OF CONSULTATION: 08/06/2016 ATTENDING PHYSICIAN: Dr. Nahum Parker. The patient was seen at the request of Dr. Parker for rehab evaluation. HISTORY OF PRESENT ILLNESS: This is a 71-year-old right-handed male, a [facility], [facility] a [facility] the [facility]. The patient with known seizure disorder. The patient received sutures to his left eyebrow. He denies any pain at the present time. The patient denies any trouble with his bowel or bladder control. He denies any numbness or weakness in the extremities. He states that he usually walks without any assistance. PHYSICAL EXAMINATION: Today revealed an elderly male patient with decreased acuity of hearing, also had mild cognitive deficits. He had 5/5 grade muscle strength in his upper and lower extremities and deep tendon reflexes are 2+ and symmetrical with absent ankle jerks. He had minimal tenderness to palpation over the upper trapezius muscle area. The patient is independent with bed mobility and transfers and up walking. He walks with a somewhat wide-based gait and he had some difficulty to try to walk on a straight line one foot in front of the other. He had skin abrasion over the dorsal aspect of the left knee and of course, he had sutures over the left eyebrow lacerated wound. He had pain free range of motion of the cervical, thoracic and lumbar spine and straight leg raising test is negative bilaterally. ASSESSMENT: An elderly male with recent fall, clinical evidence of peripheral neuropathy. The patient with known seizure disorder with some cognitive problem and also decreased acuity of hearing. RECOMMENDATIONS: To [facility] when medically stable. Dr. Nahum Parker, I appreciate asking me to participate in the care of this interesting patient. He may do well walking using a roller walker or a cane. I will be glad to follow him with you as needed for his rehabilitation. NICOLAS HALL MD DR: FEMI/matilda JOB#: [id number] / [id number]
[2016-08-07 07:00] VITALS: BP 110/71
[2016-08-07] MEDS: LEVETIRACETAM 500 MG TABLET PO SCH ×2 (08:37→22:16)
[2016-08-07] MEDS: MEMANTINE 5 MG TABLET. PO SCH (08:37)
--- NOTE | 2016-08-07 09:50 | PDOC ---
PROGRESS NOTES Subjective Subjective No new complaints. Objective Objective Vital Signs Date Time Temp Pulse Resp B/P Pulse Ox O2 Delivery O2 Flow Rate FiO2 08/07/16 09:01 Room Air 08/07/16 07:00 98.2 71 18 110/71 93 98.2 Intake and Output 08/07/16 07:00 Intake Total 1400 ml Output Total 1000 ml Balance 400 ml Intake Oral 1350 ml IV Total 50 ml Output Urine Total 1000 ml Physical Exam Physical Exam He is awake and supine in bed and comfortable and he did walk for 250' with roller walker with PT. Assessment Assessment Problems Medical Problems: (1) Closed head injury Status: Acute (2) Dilantin toxicity Status: Acute (3) Laceration of left eyebrow Status: Acute (4) Subtherapeutic serum dilantin level Status: Acute Plan Plan of Care To SD when medically stable. Comment Review of Relevant I have reviewed the following items jossue (where applicable) has been applied. Labs Laboratory Tests Test 08/05/16 10:04 08/06/16 03:50 08/07/16 04:30 Glucose (Fingerstick) 201mg/dL (70-99) White Blood Count 7.7x10^3/uL (4.0-11.0) Red Blood Count 4.72x10^6/uL (4.30-5.70) Hemoglobin 14.2g/dL (13.0-17.5) Hematocrit 42.0% (39.0-53.0) Mean Corpuscular Volume 89fL (79-100) Mean Corpuscular Hemoglobin 30pg (25-35) Mean Corpuscular Hemoglobin Concent 34g/dL (31-37) Red Cell Distribution Width 12.6% (11.5-14.5) Platelet Count 175x10^3/uL (140-400) Neutrophils (%) (Auto) 71% (31-73) Lymphocytes (%) (Auto) 18% (24-48) Monocytes (%) (Auto) 7% (0-9) Eosinophils (%) (Auto) 3% (0-3) Basophils (%) (Auto) 0% (0-3) Neutrophils # (Auto) 5.5x10^3uL (1.8-7.7) Lymphocytes # (Auto) 1.4x10^3/uL (1.0-4.8) Monocytes # (Auto) 0.5x10^3/uL (0.0-1.1) Eosinophils # (Auto) 0.3x10^3/uL (0.0-0.7) Basophils # (Auto) 0.0x10^3/uL (0.0-0.2) Sodium Level 141mmol/L (136-145) 139mmol/L (136-145) Potassium Level 3.5mmol/L (3.5-5.1) 3.6mmol/L (3.5-5.1) Chloride Level 105mmol/L (98-107) 104mmol/L (98-107) Carbon Dioxide Level 26mmol/L (21-32) 26mmol/L (21-32) Anion Gap 10 (6-14) 9 (6-14) Blood Urea Nitrogen 18mg/dL (8-26) 15mg/dL (8-26) Creatinine 1.0mg/dL (0.7-1.3) 1.0mg/dL (0.7-1.3) Estimated GFR (Cockcroft-Gault) 73.7 73.7 BUN/Creatinine Ratio 18 (6-20) 15 (6-20) Glucose Level 80mg/dL (70-99) 88mg/dL (70-99) Calcium Level 8.5mg/dL (8.5-10.1) 8.9mg/dL (8.5-10.1) Magnesium Level 1.5mg/dL (1.8-2.4) Total Bilirubin 0.2mg/dL (0.2-1.0) 0.3mg/dL (0.2-1.0) Aspartate Amino Transf (AST/SGOT) 22U/L (15-37) 22U/L (15-37) Alanine Aminotransferase (ALT/SGPT) 18U/L (16-63) 19U/L (16-63) Alkaline Phosphatase 96U/L (46-116) 94U/L (46-116) Total Protein 6.6g/dL (6.4-8.2) 6.8g/dL (6.4-8.2) Albumin 2.9g/dL (3.4-5.0) 3.0g/dL (3.4-5.0) Albumin/Globulin Ratio 0.8 (1.0-1.7) 0.8 (1.0-1.7) Phenytoin (Dilantin) Level 39.4mcg/mL (10.0-20.0) 33.2mcg/mL (10.0-20.0) Phenytoin Last Dose Date 08/04/16 08/04/16 Phenytoin Last Dose Time 1000 0800 Laboratory Tests Test 08/07/16 04:30 Sodium Level 139mmol/L (136-145) Potassium Level 3.6mmol/L (3.5-5.1) Chloride Level 104mmol/L (98-107) Carbon Dioxide Level 26mmol/L (21-32) Anion Gap 9 (6-14) Blood Urea Nitrogen 15mg/dL (8-26) Creatinine 1.0mg/dL (0.7-1.3) Estimated GFR (Cockcroft-Gault) 73.7 BUN/Creatinine Ratio 15 (6-20) Glucose Level 88mg/dL (70-99) Calcium Level 8.9mg/dL (8.5-10.1) Total Bilirubin 0.3mg/dL (0.2-1.0) Aspartate Amino Transf (AST/SGOT) 22U/L (15-37) Alanine Aminotransferase (ALT/SGPT) 19U/L (16-63) Alkaline Phosphatase 94U/L (46-116) Total Protein 6.8g/dL (6.4-8.2) Albumin 3.0g/dL (3.4-5.0) Albumin/Globulin Ratio 0.8 (1.0-1.7) Phenytoin (Dilantin) Level 33.2mcg/mL (10.0-20.0) Phenytoin Last Dose Date 08/04/16 Phenytoin Last Dose Time 0800 Medications Current Medications Sodium Chloride (Iv Sodium Chloride 0.9% 1000ml Bag) 1,000 ml @ 1,000 mls/hr 1X ONCE IV Last administered on 08/04/16 22:28; Start 08/04/16 at 22:15; Stop 08/04/16 at 23:14; Status DC Lidocaine/ Epinephrine (Xylocaine 1%-Epi 1:100,000) 20 ml 1X ONCE INJ Last administered on 08/04/16 22:45; Start 08/04/16 at 22:45; Stop 08/04/16 at 22:46 ; Status DC Ondansetron HCl (Zofran) 4 mg PRN Q8HRS PRN IV NAUSEA/VOMITING; Start 08/04/16 at 23:45; Stop 08/05/16 at 23:44; Status DC Fentanyl Citrate (Fentanyl 2ml Vial) 50 mcg PRN Q2HR PRN IV PAIN; Start at 23:45; Stop 08/05/16 at 23:44; Status DC Acetaminophen (Tylenol) 650 mg PRN Q4HRS PRN PO FEVER; Start 08/04/16 at 23:45 ; Stop 08/05/16 at 23:44; Status DC Acetaminophen (Tylenol) 650 mg PRN Q6HRS PRN PO PAIN; Start 08/05/16 at 08:30 Albuterol Sulfate (Ventolin Neb Soln) 2.5 mg PRN Q4HRS PRN NEB SOA; Start 08/05 at 08:30 Memantine (Namenda) 5 mg DAILY PO Last administered on 08/07/16 08:37; Start 08/05/16 at 09:00 Levetiracetam 1000 mg 1,000 mg BID PO Last administered on 08/07/16 08:37; Start 08/05/16 at 09:00 Magnesium Sulfate/ Dextrose (Magnesium Sulfate PREMIX 2GM) 50 ml @ 25 mls/hr 1X ONCE IV Last administered on 08/06/16 17:07; Start 08/06/16 at 16:30; Stop 08/06/16 at 18:29; Status DC Active Scripts Active Reported Albuterol Sulfate Neb Soln (Albuterol Sulfate) 2.5 Mg/3 Ml Vial.neb 1 Vial NEB PRN Q4HRS Dilantin (Phenytoin Sodium Extended) 100 Mg Capsule 3 Cap PO BID Namenda (Memantine Hcl) 10 Mg Tablet 5 Mg PO DAILY Tylenol (Acetaminophen) 325 Mg Tablet 650 Mg PO PRN Q6HRS PRN Keppra (Levetiracetam) 1,000 Mg Tablet 1 Tab PO BID Vitals/I & O Vital Sign - Last 24 Hours 08/06/16 08/06/16 08/06/16 08/06/16 11:00 14:45 19:00 19:00 Temp 97.9 97.9 97.9 97.9 97.9 97.9 Pulse 75 72 77 Resp B/P 131/76 130/94 93/63 Pulse Ox 93 93 96 O2 Delivery Room Air Room Air Room Air Room Air 08/06/16 08/07/16 08/07/16 08/07/16 23:00 03:00 07:00 09:01 Temp 98.1 97.3 98.2 98.1 97.3 98.2 Pulse 76 71 71 Resp B/P 118/72 123/72 110/71 Pulse Ox 93 98 93 O2 Delivery Room Air Room Air Room Air Room Air Intake and Output 08/06/16 08/06/16 08/07/16 15:00 23:00 07:00 Intake Total 360 ml 890 ml 150 ml Output Total 400 ml 600 ml Balance 360 ml 490 ml -450 ml NICOLAS HALL MD Aug 07, 2016 09:50
--- NOTE | 2016-08-07 10:24 | PDOC ---
PROGRESS NOTES Subjective Subjective no new problems today Objective Objective Vital Signs Date Time Temp Pulse Resp B/P Pulse Ox O2 Delivery O2 Flow Rate FiO2 08/07/16 09:01 Room Air 08/07/16 07:00 98.2 71 18 110/71 93 98.2 Intake and Output 08/07/16 07:00 Intake Total 1400 ml Output Total 1000 ml Balance 400 ml Intake Oral 1350 ml IV Total 50 ml Output Urine Total 1000 ml Physical Exam Abdomen: Normal bowel sounds, Soft Heart: Regular rate, Normal S1 Extremities: No clubbing General: No acute distress HEENT: Atraumatic Lungs: Clear to auscultation MUSCULOSKELETAL: No deformity Neck: No thyromegaly Neuro: Normal speech Psych/Mental Status: Mood NL COMMENT sutures left eye brow for laceration from fall Diagnosis Problem List Problems Medical Problems: (1) Closed head injury Status: Acute (2) Dilantin toxicity Status: Acute (3) Laceration of left eyebrow Status: Acute (4) Subtherapeutic serum dilantin level Status: Acute Assessment Assessment Problems Medical Problems: (1) Closed head injury Status: Acute (2) Dilantin toxicity Status: Acute (3) Laceration of left eyebrow Status: Acute (4) Subtherapeutic serum dilantin level Status: Acute IMPRESSION: 1. Acute Dilantin toxicity. 2. Seizure disorder. 3. Recurrent falls. 4. Schizophrenia. PLAN:MRI brain atrophy, no cva or masses dilantin 33 today.down holding dilantin. pt/ot rehab consult nani for seizures. check dilantin level daily. Consult Dr. Munoz for neurology evaluation and management because I am not sure if he had a seizure yesterday or not or whether his seizures are under control or not. We will consult Dr. Loja for rehab evaluation and management. Recheck labs in a.m. Hold Dilantin for now, continue [facility]. For details, please review the orders. Problems: Plan Plan of Care Problems Medical Problems: (1) Closed head injury Status: Acute (2) Dilantin toxicity Status: Acute (3) Laceration of left eyebrow Status: Acute (4) Subtherapeutic serum dilantin level Status: Acute Comment Review of Relevant I have reviewed the following items jossue (where applicable) has been applied. Labs Laboratory Tests Test 08/07/16 04:30 Sodium Level 139mmol/L (136-145) Potassium Level 3.6mmol/L (3.5-5.1) Chloride Level 104mmol/L (98-107) Carbon Dioxide Level 26mmol/L (21-32) Anion Gap 9 (6-14) Blood Urea Nitrogen 15mg/dL (8-26) Creatinine 1.0mg/dL (0.7-1.3) Estimated GFR (Cockcroft-Gault) 73.7 BUN/Creatinine Ratio 15 (6-20) Glucose Level 88mg/dL (70-99) Calcium Level 8.9mg/dL (8.5-10.1) Total Bilirubin 0.3mg/dL (0.2-1.0) Aspartate Amino Transf (AST/SGOT) 22U/L (15-37) Alanine Aminotransferase (ALT/SGPT) 19U/L (16-63) Alkaline Phosphatase 94U/L (46-116) Total Protein 6.8g/dL (6.4-8.2) Albumin 3.0g/dL (3.4-5.0) Albumin/Globulin Ratio 0.8 (1.0-1.7) Phenytoin (Dilantin) Level 33.2mcg/mL (10.0-20.0) Phenytoin Last Dose Date 08/04/16 Phenytoin Last Dose Time 0800 Medications Current Medications Magnesium Sulfate/ Dextrose (Magnesium Sulfate PREMIX 2GM) 50 ml @ 25 mls/hr 1X ONCE IV Last administered on 08/06/16t 17:07; Start 08/06/16 at 16:30; Stop 08/06/16 at 18:29; Status DC Vitals/I & O Vital Sign - Last 24 Hours 08/06/16 08/06/16 08/06/16 08/06/16 11:00 14:45 19:00 19:00 Temp 97.9 97.9 97.9 97.9 97.9 97.9 Pulse 75 72 77 Resp 18 18 18 B/P 131/76 130/94 93/63 Pulse Ox 93 93 96 O2 Delivery Room Air Room Air Room Air Room Air 08/06/16 08/07/16 08/07/16 08/07/16 23:00 03:00 07:00 08:30 Temp 98.1 97.3 98.2 98.1 97.3 98.2 Pulse 76 71 71 Resp 18 18 18 B/P 118/72 123/72 110/71 Pulse Ox 93 98 93 O2 Delivery Room Air Room Air Room Air Room Air 08/07/16 09:01 O2 Delivery Room Air Intake and Output 08/06/16 08/06/16 08/07/16 15:00 23:00 07:00 Intake Total 360 ml 890 ml 150 ml Output Total 400 ml 600 ml Balance 360 ml 490 ml -450 ml CARMNE VIVAS MD Aug 07, 2016 10:24
[2016-08-07 11:52] VITALS: BP 104/76
[2016-08-07 14:20] VITALS: BP 106/66
--- NOTE | 2016-08-07 17:14 | PDOC ---
PROGRESS NOTES Assessment Assessment Seizure. Dilantin toxicity. Metabolic encephalopathy. Toxic encephalopathy. Ataxia. Falls. Laceration of left eye brow area. Schizophrenia. RECOMMENDATIONS/PLAN: Dilantin discontinued. Continue Keppra, increased from 1000 mg daily to 2000 mg daily. Depakote if has more seizures. HCT performed, and SAH, SDH and ICH ruled out. EEG on 08/07: Diffuse encephalopathy. No epileptiform discharges or electrographic seizures seen. SUBJECTIVE: He stated he has been having seizures grand mal and petit mal about 20 a day for 2 weeks, and about 100 seizures a month before that. No seizures reported over night. OBJECTIVE: No acute focalized motor or sensory deficits. PAST MEDICAL AND SURGICAL HISTORY: Please see H&P ALLERGY: Reviewed. MEDICATIONS: Refer to [facility] REVIEW OF SYSTEMS: Constitutional: No malnutrition, weight loss, cachexia. Head: No traumatic brain or head injury. Skin: No edema, or rash. Ear: No infection, tinnitus. Eyes: No vision loss, or diplopia. Nose: No bleeding or purulent discharges. Hearing: No hearing decrease. Neck: No injury. Cardiac: No GA, arrhythmia Pulmonary: No CPOD. GI: No GI Ulcer, GI bleeding Urinary/genital: UTI. Endocrine: No cousin face, craniofacial dysmorphism, polydactyly. Skeletomuscular: Falls. Neurological: see HP. Psychiatric: Denies drug use/abuse. Otherwise, not [id number] review of systems. PHYSICAL EXAMINATION: General appearance in no acute distress. HEENT: Normocephalic and nontraumatic. Eyes, nose, ears, and throat are unremarkable.. Neck is supple. No lymphadenopathy. No bruits are heard over the carotid artery. No Crepitus. Cardiovascular: S1, S2, regular rate and rhythm. Pulmonary: Clear to auscultation bilaterally. Abdomen: Bowel sounds are positive. Abdomen is soft, nontender, and nondistended. Extremities: No rash, lesions, or edema. No restriction of range of motion NEUROLOGICAL EXAMINATION: Awake. Oriented partially to time, place and person. PERRL. EOMI. CN: no acute focal findings. Muscle tone: within normal. Muscle strength: 5- DTR: 2+ Plantar reflex: Flexor response bilaterally Gait: Able to walk with a walker but not very steady. Sensory exam: no abnormal findings. No obvious cerebellar signs elicited. F-T-N test fine, and no tremors noted. Objective Objective Vital Signs Date Time Temp Pulse Resp B/P Pulse Ox O2 Delivery O2 Flow Rate FiO2 08/07/16 14:20 98.2 74 19 106/66 95 Room Air 98.2 Intake and Output 08/07/16 07:00 Intake Total 1400 ml Output Total 1000 ml Balance 400 ml Intake Oral 1350 ml IV Total 50 ml Output Urine Total 1000 ml Vitals Signs Vitals VS - Last 72 Hours, by Label Date Time Temp Pulse Resp B/P Pulse Ox O2 Delivery O2 Flow Rate FiO2 08/07/16 14:20 98.2 74 19 106/66 95 Room Air 98.2 08/07/16 11:52 98.7 79 18 104/76 95 Room Air 98.7 08/07/16 09:01 Room Air 08/07/16 08:30 Room Air 08/07/16 07:00 98.2 71 18 110/71 93 Room Air 98.2 08/07/16 03:00 97.3 71 18 123/72 98 Room Air 97.3 08/06/16 23:00 98.1 76 18 118/72 93 Room Air 98.1 08/06/16 19:00 Room Air 08/06/16 19:00 97.9 77 18 93/63 96 Room Air 97.9 08/06/16 14:45 97.9 72 18 130/94 93 Room Air 97.9 08/06/16 11:00 97.9 75 18 131/76 93 Room Air 97.9 08/06/16 08:30 Room Air 08/06/16 07:00 97.7 73 18 127/74 94 Room Air 97.7 Laboratory Laboratory Laboratory Tests Test 08/07/16 04:30 Sodium Level 139mmol/L (136-145) Potassium Level 3.6mmol/L (3.5-5.1) Chloride Level 104mmol/L (98-107) Carbon Dioxide Level 26mmol/L (21-32) Anion Gap 9 (6-14) Blood Urea Nitrogen 15mg/dL (8-26) Creatinine 1.0mg/dL (0.7-1.3) Estimated GFR (Cockcroft-Gault) 73.7 BUN/Creatinine Ratio 15 (6-20) Glucose Level 88mg/dL (70-99) Calcium Level 8.9mg/dL (8.5-10.1) Total Bilirubin 0.3mg/dL (0.2-1.0) Aspartate Amino Transf (AST/SGOT) 22U/L (15-37) Alanine Aminotransferase (ALT/SGPT) 19U/L (16-63) Alkaline Phosphatase 94U/L (46-116) Total Protein 6.8g/dL (6.4-8.2) Albumin 3.0g/dL (3.4-5.0) Albumin/Globulin Ratio 0.8 (1.0-1.7) Phenytoin (Dilantin) Level 33.2mcg/mL (10.0-20.0) Phenytoin Last Dose Date 08/04/16 Phenytoin Last Dose Time 0800 Comment Review of Relevant I have reviewed the following items jossue (where applicable) has been applied. OSMIN VALLE MD Aug 07, 2016 17:14
[2016-08-07 19:00] VITALS: BP 102/72
--- NOTE | 2016-08-07 19:57 | EEG ---
DATE OF SERVICE: 08/07/2016 EEG NUMBER: [id number] OBJECTIVE: This is a 71-year-old male patient with history of seizure and Dilantin toxicity. EEG was requested to evaluate cerebral activity and seizure activity. METHODS: Sixteen electrodes were applied according to the International 10-20 electrode placement system. EKG monitoring, hyperventilation, intermittent photic stimulation, monopolar and bipolar montages are routinely utilized. The record was obtained on a digital system with video monitoring. MEDICATIONS: Keppra, Dilantin was continued. FINDINGS: 1. Background: The patient was recorded in the awake, drowsy and sleep states. The overall background amplitude is 10-20 microvolts. A posterior dominant rhythm of 6 Hz is observed occasionally. The overall background rhythm is with diffuse slowing in theta and delta frequencies. 2. Abnormalities: No specific epileptiform discharge or electrographic seizure is seen. Diffuse slowing in theta and delta frequencies is throughout the entire recording. 3. Activation: Hyperventilation was performed with good efforts and normal response. Intermittent photic stimulation was performed with insignificant photic driving. No specific epileptiform discharge or electrographic seizure induced by hyperventilation or intermittent photic stimulation. IMPRESSION: This EEG is an abnormal study for the awake, drowsy and sleep states. The posterior dominant rhythm is not well organized. Occasionally, 6 Hz activity is observed. The overall background rhythm is with diffuse slowing in theta and delta frequencies without differentiation between awake and sleep states. No focal, lateralizing, specific epileptiform discharge, or electrographic seizure is seen. This pattern of EEG may suggest diffuse encephalopathy. OSMIN VALLE MD DR: ANTONI/matilda JOB#: [id number] / [id number] MARISSA
[2016-08-07 23:00] VITALS: BP 91/51
[2016-08-08 03:00] VITALS: BP 107/62
[2016-08-08 07:00] VITALS: BP 110/69
[2016-08-08 07:24] LABS: ALBUMIN/GLOBULIN RATIO 0.9 (1.0-1.7); CALCIUM 8.9 mg/dL (8.5-10.1); CREATININE 0.9 mg/dL (0.7-1.3); GFR 83.2; POTASSIUM 3.9 mmol/L (3.5-5.1); TOTAL BILIRUBIN 0.2 mg/dL (0.2-1.0); TOTAL PROTEIN 6.4 g/dL (6.4-8.2)
[2016-08-08] MEDS: LEVETIRACETAM 500 MG TABLET PO SCH ×2 (09:18→20:28)
[2016-08-08] MEDS: MEMANTINE 5 MG TABLET. PO SCH (09:18)
--- NOTE | 2016-08-08 10:27 | PDOC ---
PROGRESS NOTES Subjective Subjective sleepy today Objective Objective Vital Signs Date Time Temp Pulse Resp B/P Pulse Ox O2 Delivery O2 Flow Rate FiO2 08/08/16 07:00 97.9 72 19 110/69 93 Room Air 97.9 Intake and Output 08/08/16 07:00 Intake Total 480 ml Output Total 150 ml Balance 330 ml Intake Oral 480 ml Output Urine Total 150 ml # Voids 4 # Bowel Movements 1 Physical Exam Abdomen: Normal bowel sounds, Soft Heart: Regular rate, Normal S1 Extremities: No clubbing General: No acute distress HEENT: Atraumatic Lungs: Clear to auscultation MUSCULOSKELETAL: No deformity Neck: No thyromegaly COMMENT sutures left eye brow for laceration from fall Diagnosis Problem List Problems Medical Problems: (1) Closed head injury Status: Acute (2) Dilantin toxicity Status: Acute (3) Laceration of left eyebrow Status: Acute (4) Subtherapeutic serum dilantin level Status: Acute Assessment Assessment Problems Medical Problems: (1) Closed head injury Status: Acute (2) Dilantin toxicity Status: Acute (3) Laceration of left eyebrow Status: Acute (4) Subtherapeutic serum dilantin level Status: Acute IMPRESSION: 1. Acute Dilantin toxicity. 2. Seizure disorder. 3. Recurrent falls. 4. Schizophrenia. PLAN:MRI brain showed atrophy, no cva or masses dilantin 30 today.down holding dilantin. pt[facility] check dilantin level daily. Problems: Plan Plan of Care Problems Medical Problems: (1) Closed head injury Status: Acute (2) Dilantin toxicity Status: Acute (3) Laceration of left eyebrow Status: Acute (4) Subtherapeutic serum dilantin level Status: Acute Comment Review of Relevant I have reviewed the following items jossue (where applicable) has been applied. Labs Laboratory Tests Test 08/08/16 06:55 Sodium Level 140mmol/L (136-145) Potassium Level 3.9mmol/L (3.5-5.1) Chloride Level 105mmol/L (98-107) Carbon Dioxide Level 27mmol/L (21-32) Anion Gap 8 (6-14) Blood Urea Nitrogen 17mg/dL (8-26) Creatinine 0.9mg/dL (0.7-1.3) Estimated GFR (Cockcroft-Gault) 83.2 BUN/Creatinine Ratio 19 (6-20) Glucose Level 100mg/dL (70-99) Calcium Level 8.9mg/dL (8.5-10.1) Total Bilirubin 0.2mg/dL (0.2-1.0) Aspartate Amino Transf (AST/SGOT) 23U/L (15-37) Alanine Aminotransferase (ALT/SGPT) 23U/L (16-63) Alkaline Phosphatase 93U/L (46-116) Total Protein 6.4g/dL (6.4-8.2) Albumin 3.0g/dL (3.4-5.0) Albumin/Globulin Ratio 0.9 (1.0-1.7) Phenytoin (Dilantin) Level 30.9mcg/mL (10.0-20.0) Phenytoin Last Dose Date 08/04/16 Phenytoin Last Dose Time 0800 Vitals/I & O Vital Sign - Last 24 Hours 08/07/16 08/07/16 08/07/16 08/07/16 11:52 14:20 19:00 20:00 Temp 98.7 98.2 97.9 98.7 98.2 97.9 Pulse 79 74 76 Resp 18 19 18 B/P 104/76 106/66 102/72 Pulse Ox 95 95 90 O2 Delivery Room Air Room Air Room Air Room Air 08/07/16 08/08/16 08/08/16 23:00 03:00 07:00 Temp 98.0 98.5 97.9 98.0 98.5 97.9 Pulse 77 72 72 Resp 18 19 B/P 91/51 107/62 110/69 Pulse Ox 98 93 93 O2 Delivery Room Air Room Air Room Air Intake and Output 08/07/16 08/07/16 08/08/16 15:00 23:00 07:00 Intake Total 480 ml Output Total 150 ml Balance 330 ml CARMEN VIVAS MD Aug 08, 2016 10:27
--- NOTE | 2016-08-08 10:36 | PDOC ---
PROGRESS NOTES Subjective Subjective No new complaints. Objective Objective Vital Signs Date Time Temp Pulse Resp B/P Pulse Ox O2 Delivery O2 Flow Rate FiO2 08/08/16 07:00 97.9 72 19 110/69 93 Room Air 97.9 Intake and Output 08/08/16 07:00 Intake Total 480 ml Output Total 150 ml Balance 330 ml Intake Oral 480 ml Output Urine Total 150 ml # Voids 4 # Bowel Movements 1 Physical Exam Physical Exam He is alert,supine in bed and he did walk for 500' with roller walker with PT yesterday. Assessment Assessment Problems Medical Problems: (1) Closed head injury Status: Acute (2) Dilantin toxicity Status: Acute (3) Laceration of left eyebrow Status: Acute (4) Subtherapeutic serum dilantin level Status: Acute Plan Plan of Care To CT when medically stable. Comment Review of Relevant I have reviewed the following items jossue (where applicable) has been applied. Labs Laboratory Tests Test 08/07/16 04:30 08/08/16 06:55 Sodium Level 139mmol/L (136-145) 140mmol/L (136-145) Potassium Level 3.6mmol/L (3.5-5.1) 3.9mmol/L (3.5-5.1) Chloride Level 104mmol/L (98-107) 105mmol/L (98-107) Carbon Dioxide Level 26mmol/L (21-32) 27mmol/L (21-32) Anion Gap 9 (6-14) 8 (6-14) Blood Urea Nitrogen 15mg/dL (8-26) 17mg/dL (8-26) Creatinine 1.0mg/dL (0.7-1.3) 0.9mg/dL (0.7-1.3) Estimated GFR (Cockcroft-Gault) 73.7 83.2 BUN/Creatinine Ratio 15 (6-20) 19 (6-20) Glucose Level 88mg/dL (70-99) 100mg/dL (70-99) Calcium Level 8.9mg/dL (8.5-10.1) 8.9mg/dL (8.5-10.1) Total Bilirubin 0.3mg/dL (0.2-1.0) 0.2mg/dL (0.2-1.0) Aspartate Amino Transf (AST/SGOT) 22U/L (15-37) 23U/L (15-37) Alanine Aminotransferase (ALT/SGPT) 19U/L (16-63) 23U/L (16-63) Alkaline Phosphatase 94U/L (46-116) 93U/L (46-116) Total Protein 6.8g/dL (6.4-8.2) 6.4g/dL (6.4-8.2) Albumin 3.0g/dL (3.4-5.0) 3.0g/dL (3.4-5.0) Albumin/Globulin Ratio 0.8 (1.0-1.7) 0.9 (1.0-1.7) Phenytoin (Dilantin) Level 33.2mcg/mL (10.0-20.0) 30.9mcg/mL (10.0-20.0) Phenytoin Last Dose Date 08/04/16 08/04/16 Phenytoin Last Dose Time 0800 0800 Laboratory Tests Test 08/08/16 06:55 Sodium Level 140mmol/L (136-145) Potassium Level 3.9mmol/L (3.5-5.1) Chloride Level 105mmol/L (98-107) Carbon Dioxide Level 27mmol/L (21-32) Anion Gap 8 (6-14) Blood Urea Nitrogen 17mg/dL (8-26) Creatinine 0.9mg/dL (0.7-1.3) Estimated GFR (Cockcroft-Gault) 83.2 BUN/Creatinine Ratio 19 (6-20) Glucose Level 100mg/dL (70-99) Calcium Level 8.9mg/dL (8.5-10.1) Total Bilirubin 0.2mg/dL (0.2-1.0) Aspartate Amino Transf (AST/SGOT) 23U/L (15-37) Alanine Aminotransferase (ALT/SGPT) 23U/L (16-63) Alkaline Phosphatase 93U/L (46-116) Total Protein 6.4g/dL (6.4-8.2) Albumin 3.0g/dL (3.4-5.0) Albumin/Globulin Ratio 0.9 (1.0-1.7) Phenytoin (Dilantin) Level 30.9mcg/mL (10.0-20.0) Phenytoin Last Dose Date 08/04/16 Phenytoin Last Dose Time 0800 Medications Current Medications Sodium Chloride (Iv Sodium Chloride 0.9% 1000ml Bag) 1,000 ml @ 1,000 mls/hr 1X ONCE IV Last administered on 08/04/16 22:28; Start 08/04/16 at 22:15; Stop 08/04/16 at 23:14; Status DC Lidocaine/ Epinephrine (Xylocaine 1%-Epi 1:100,000) 20 ml 1X ONCE INJ Last administered on 08/04/16 22:45; Start 08/04/16 at 22:45; Stop 08/04/16 at 22:46 ; Status DC Ondansetron HCl (Zofran) 4 mg PRN Q8HRS PRN IV NAUSEA/VOMITING; Start 08/04/16 at 23:45; Stop 08/05/16 at 23:44; Status DC Fentanyl Citrate (Fentanyl 2ml Vial) 50 mcg PRN Q2HR PRN IV PAIN; Start at 23:45; Stop 08/05/16 at 23:44; Status DC Acetaminophen (Tylenol) 650 mg PRN Q4HRS PRN PO FEVER; Start 08/04/16 at 23:45 ; Stop 08/05/16 at 23:44; Status DC Acetaminophen (Tylenol) 650 mg PRN Q6HRS PRN PO PAIN; Start 08/05/16 at 08:30 Albuterol Sulfate (Ventolin Neb Soln) 2.5 mg PRN Q4HRS PRN NEB SOA; Start 08/05 at 08:30 Memantine (Namenda) 5 mg DAILY PO Last administered on 08/08/16 09:18; Start 08/05/16 at 09:00 Levetiracetam 1000 mg 1,000 mg BID PO Last administered on 08/08/16 09:18; Start 08/05/16 at 09:00 Magnesium Sulfate/ Dextrose (Magnesium Sulfate PREMIX 2GM) 50 ml @ 25 mls/hr 1X ONCE IV Last administered on 08/06/16 17:07; Start 08/06/16 at 16:30; Stop 08/06/16 at 18:29; Status DC Active Scripts Active Reported Albuterol Sulfate Neb Soln (Albuterol Sulfate) 2.5 Mg/3 Ml Vial.neb 1 Vial NEB PRN Q4HRS Dilantin (Phenytoin Sodium Extended) 100 Mg Capsule 3 Cap PO BID Namenda (Memantine Hcl) 10 Mg Tablet 5 Mg PO DAILY Tylenol (Acetaminophen) 325 Mg Tablet 650 Mg PO PRN Q6HRS PRN Keppra (Levetiracetam) 1,000 Mg Tablet 1 Tab PO BID Vitals/I & O Vital Sign - Last 24 Hours 08/07/16 08/07/16 08/07/16 08/07/16 11:52 14:20 19:00 20:00 Temp 98.7 98.2 97.9 98.7 98.2 97.9 Pulse 79 74 76 Resp B/P 104/76 106/66 102/72 Pulse Ox 95 95 90 O2 Delivery Room Air Room Air Room Air Room Air 08/07/16 08/08/16 08/08/16 23:00 03:00 07:00 Temp 98.0 98.5 97.9 98.0 98.5 97.9 Pulse 77 72 72 Resp B/P 91/51 107/62 110/69 Pulse Ox 98 93 93 O2 Delivery Room Air Room Air Room Air Intake and Output 08/07/16 08/07/16 08/08/16 15:00 23:00 07:00 Intake Total 480 ml Output Total 150 ml Balance 330 ml NICOLAS HALL MD Aug 08, 2016 10:36
[2016-08-08 11:00] VITALS: BP 106/69
--- NOTE | 2016-08-08 14:03 | PDOC ---
PROGRESS NOTES Assessment Assessment Seizure. Dilantin toxicity. Metabolic encephalopathy. Toxic encephalopathy. Ataxia. Falls. Laceration of left eye brow area. Schizophrenia. RECOMMENDATIONS/PLAN: Dilantin discontinued. Continue Keppra, increased from 1000 mg daily to 2000 mg daily. Depakote if has more seizures. HCT performed, and SAH, SDH and ICH ruled out. EEG on 08/07: Diffuse encephalopathy. No epileptiform discharges or electrographic seizures seen. SUBJECTIVE: He stated he has been having seizures grand mal and petit mal about 20 a day for 2 weeks, and about 100 seizures a month before that. No seizures reported over night. He stated that he has been doing better on 08/08. OBJECTIVE: No acute focalized motor or sensory deficits. PAST MEDICAL AND SURGICAL HISTORY: Please see H&P ALLERGY: Reviewed. MEDICATIONS: Refer to [facility] REVIEW OF SYSTEMS: Constitutional: No malnutrition, weight loss, cachexia. Head: No traumatic brain or head injury. Skin: No edema, or rash. Ear: No infection, tinnitus. Eyes: No vision loss, or diplopia. Nose: No bleeding or purulent discharges. Hearing: No hearing decrease. Neck: No injury. Cardiac: No TN, arrhythmia Pulmonary: No CPOD. GI: No GI Ulcer, GI bleeding Urinary/genital: UTI. Endocrine: No cousin face, craniofacial dysmorphism, polydactyly. Skeletomuscular: Falls. Neurological: see HP. Psychiatric: Denies drug use/abuse. Otherwise, not [id number] review of systems. PHYSICAL EXAMINATION: General appearance in no acute distress. HEENT: Normocephalic and nontraumatic. Eyes, nose, ears, and throat are unremarkable.. Neck is supple. No lymphadenopathy. No bruits are heard over the carotid artery. No Crepitus. Cardiovascular: S1, S2, regular rate and rhythm. Pulmonary: Clear to auscultation bilaterally. Abdomen: Bowel sounds are positive. Abdomen is soft, nontender, and nondistended. Extremities: No rash, lesions, or edema. No restriction of range of motion NEUROLOGICAL EXAMINATION: Awake. Oriented partially to time, place and person. PERRL. EOMI. CN: no acute focal findings. Muscle tone: within normal. Muscle strength: 5- DTR: 2+ Plantar reflex: Flexor response bilaterally Gait: Able to walk with a walker but not very steady. Sensory exam: no abnormal findings. No obvious cerebellar signs elicited. F-T-N test fine, and no tremors noted. Objective Objective Vital Signs Date Time Temp Pulse Resp B/P Pulse Ox O2 Delivery O2 Flow Rate FiO2 08/08/16 11:00 98.3 68 19 106/69 92 Room Air 98.3 Intake and Output 08/08/16 07:00 Intake Total 480 ml Output Total 150 ml Balance 330 ml Intake Oral 480 ml Output Urine Total 150 ml # Voids 4 # Bowel Movements 1 Vitals Signs Vitals VS - Last 72 Hours, by Label Date Time Temp Pulse Resp B/P Pulse Ox O2 Delivery O2 Flow Rate FiO2 08/08/16 11:00 98.3 68 19 106/69 92 Room Air 98.3 08/08/16 08:00 Room Air 08/08/16 07:00 97.9 72 19 110/69 93 Room Air 97.9 08/08/16 03:00 98.5 72 20 107/62 93 Room Air 98.5 08/07/16 23:00 98.0 77 18 91/51 98 Room Air 98.0 08/07/16 20:00 Room Air 08/07/16 19:00 97.9 76 18 102/72 90 Room Air 97.9 08/07/16 14:20 98.2 74 19 106/66 95 Room Air 98.2 08/07/16 11:52 98.7 79 18 104/76 95 Room Air 98.7 08/07/16 09:01 Room Air 08/07/16 08:30 Room Air 08/07/16 07:00 98.2 71 18 110/71 93 Room Air 98.2 Laboratory Laboratory Laboratory Tests Test 08/08/16 06:55 Sodium Level 140mmol/L (136-145) Potassium Level 3.9mmol/L (3.5-5.1) Chloride Level 105mmol/L (98-107) Carbon Dioxide Level 27mmol/L (21-32) Anion Gap 8 (6-14) Blood Urea Nitrogen 17mg/dL (8-26) Creatinine 0.9mg/dL (0.7-1.3) Estimated GFR (Cockcroft-Gault) 83.2 BUN/Creatinine Ratio 19 (6-20) Glucose Level 100mg/dL (70-99) Calcium Level 8.9mg/dL (8.5-10.1) Total Bilirubin 0.2mg/dL (0.2-1.0) Aspartate Amino Transf (AST/SGOT) 23U/L (15-37) Alanine Aminotransferase (ALT/SGPT) 23U/L (16-63) Alkaline Phosphatase 93U/L (46-116) Total Protein 6.4g/dL (6.4-8.2) Albumin 3.0g/dL (3.4-5.0) Albumin/Globulin Ratio 0.9 (1.0-1.7) Phenytoin (Dilantin) Level 30.9mcg/mL (10.0-20.0) Phenytoin Last Dose Date 08/04/16 Phenytoin Last Dose Time 0800 Comment Review of Relevant I have reviewed the following items jossue (where applicable) has been applied. OSMIN VALLE MD Aug 08, 2016 14:03
[2016-08-08 15:00] VITALS: BP 118/72
[2016-08-08 19:00] VITALS: BP 110/71
[2016-08-08 23:00] VITALS: BP 108/67
[2016-08-09 03:15] VITALS: BP 112/73
[2016-08-09 04:59] LABS: BASO % 1 % (0-3); EOS % 6 % (0-3); HEMATOCRIT 41.3 % (39.0-53.0); LYMPH # 1.5 x10^3/uL (1.0-4.8); LYMPH % 21 % (24-48); MEAN CORPUSCULAR HEMOGLOBIN 30 pg (25-35); MEAN CORPUSCULAR HGB CONC 34 g/dL (31-37); MEAN CORPUSCULAR VOLUME 90 fL (79-100); MONO % 7 % (0-9); NEUT % 65 % (31-73); PLATELET COUNT 182 x10^3/uL (140-400); RED BLOOD COUNT 4.61 x10^6/uL (4.30-5.70); RED CELL DISTRIBUTION WIDTH 13.1 % (11.5-14.5); WHITE BLOOD COUNT 7.1 x10^3/uL (4.0-11.0)
[2016-08-09] MEDS ORDERED: ACETAMINOPHEN 325 MG TABLET. PO PRN (05:34)
[2016-08-09 05:42] LABS: ALBUMIN 2.8 g/dL (3.4-5.0); ALBUMIN/GLOBULIN RATIO 0.8 (1.0-1.7); CALCIUM 8.6 mg/dL (8.5-10.1); CREATININE 0.9 mg/dL (0.7-1.3); GFR 83.2; POTASSIUM 3.8 mmol/L (3.5-5.1); TOTAL BILIRUBIN 0.2 mg/dL (0.2-1.0); TOTAL PROTEIN 6.4 g/dL (6.4-8.2)
[2016-08-09 07:00] VITALS: BP 116/77
--- NOTE | 2016-08-09 10:03 | PDOC ---
PROGRESS NOTES Subjective Subjective He is comfortable. Objective Objective Vital Signs Date Time Temp Pulse Resp B/P Pulse Ox O2 Delivery O2 Flow Rate FiO2 08/09/16 07:00 98.3 78 19 116/77 92 Room Air 98.3 Intake and Output 08/09/16 07:00 Intake Total 2050 ml Output Total 1050 ml Balance 1000 ml Intake Oral 2050 ml Output Urine Total 1050 ml # Voids 2 Physical Exam Physical Exam He is supine in bed but getting up with physical therapy. Assessment Assessment Problems Medical Problems: (1) Closed head injury Status: Acute (2) Dilantin toxicity Status: Acute (3) Laceration of left eyebrow Status: Acute (4) Subtherapeutic serum dilantin level Status: Acute Plan Plan of Care To SNF when medically stable. Comment Review of Relevant I have reviewed the following items jossue (where applicable) has been applied. Labs Laboratory Tests Test 08/08/16 06:55 08/09/16 04:02 Sodium Level 140mmol/L (136-145) 140mmol/L (136-145) Potassium Level 3.9mmol/L (3.5-5.1) 3.8mmol/L (3.5-5.1) Chloride Level 105mmol/L (98-107) 103mmol/L (98-107) Carbon Dioxide Level 27mmol/L (21-32) 26mmol/L (21-32) Anion Gap 8 (6-14) 11 (6-14) Blood Urea Nitrogen 17mg/dL (8-26) 22mg/dL (8-26) Creatinine 0.9mg/dL (0.7-1.3) 0.9mg/dL (0.7-1.3) Estimated GFR (Cockcroft-Gault) 83.2 83.2 BUN/Creatinine Ratio 19 (6-20) 24 (6-20) Glucose Level 100mg/dL (70-99) 98mg/dL (70-99) Calcium Level 8.9mg/dL (8.5-10.1) 8.6mg/dL (8.5-10.1) Total Bilirubin 0.2mg/dL (0.2-1.0) 0.2mg/dL (0.2-1.0) Aspartate Amino Transf (AST/SGOT) 23U/L (15-37) 24U/L (15-37) Alanine Aminotransferase (ALT/SGPT) 23U/L (16-63) 25U/L (16-63) Alkaline Phosphatase 93U/L (46-116) 87U/L (46-116) Total Protein 6.4g/dL (6.4-8.2) 6.4g/dL (6.4-8.2) Albumin 3.0g/dL (3.4-5.0) 2.8g/dL (3.4-5.0) Albumin/Globulin Ratio 0.9 (1.0-1.7) 0.8 (1.0-1.7) Phenytoin (Dilantin) Level 30.9mcg/mL (10.0-20.0) 24.5mcg/mL (10.0-20.0) Phenytoin Last Dose Date 08/04/16 08/04/16 Phenytoin Last Dose Time 0800 0800 White Blood Count 7.1x10^3/uL (4.0-11.0) Red Blood Count 4.61x10^6/uL (4.30-5.70) Hemoglobin 14.0g/dL (13.0-17.5) Hematocrit 41.3% (39.0-53.0) Mean Corpuscular Volume 90fL (79-100) Mean Corpuscular Hemoglobin 30pg (25-35) Mean Corpuscular Hemoglobin Concent 34g/dL (31-37) Red Cell Distribution Width 13.1% (11.5-14.5) Platelet Count 182x10^3/uL (140-400) Neutrophils (%) (Auto) 65% (31-73) Lymphocytes (%) (Auto) 21% (24-48) Monocytes (%) (Auto) 7% (0-9) Eosinophils (%) (Auto) 6% (0-3) Basophils (%) (Auto) 1% (0-3) Neutrophils # (Auto) 4.6x10^3uL (1.8-7.7) Lymphocytes # (Auto) 1.5x10^3/uL (1.0-4.8) Monocytes # (Auto) 0.5x10^3/uL (0.0-1.1) Eosinophils # (Auto) 0.4x10^3/uL (0.0-0.7) Basophils # (Auto) 0.0x10^3/uL (0.0-0.2) Laboratory Tests Test 08/09/16 04:02 White Blood Count 7.1x10^3/uL (4.0-11.0) Red Blood Count 4.61x10^6/uL (4.30-5.70) Hemoglobin 14.0g/dL (13.0-17.5) Hematocrit 41.3% (39.0-53.0) Mean Corpuscular Volume 90fL (79-100) Mean Corpuscular Hemoglobin 30pg (25-35) Mean Corpuscular Hemoglobin Concent 34g/dL (31-37) Red Cell Distribution Width 13.1% (11.5-14.5) Platelet Count 182x10^3/uL (140-400) Neutrophils (%) (Auto) 65% (31-73) Lymphocytes (%) (Auto) 21% (24-48) Monocytes (%) (Auto) 7% (0-9) Eosinophils (%) (Auto) 6% (0-3) Basophils (%) (Auto) 1% (0-3) Neutrophils # (Auto) 4.6x10^3uL (1.8-7.7) Lymphocytes # (Auto) 1.5x10^3/uL (1.0-4.8) Monocytes # (Auto) 0.5x10^3/uL (0.0-1.1) Eosinophils # (Auto) 0.4x10^3/uL (0.0-0.7) Basophils # (Auto) 0.0x10^3/uL (0.0-0.2) Sodium Level 140mmol/L (136-145) Potassium Level 3.8mmol/L (3.5-5.1) Chloride Level 103mmol/L (98-107) Carbon Dioxide Level 26mmol/L (21-32) Anion Gap 11 (6-14) Blood Urea Nitrogen 22mg/dL (8-26) Creatinine 0.9mg/dL (0.7-1.3) Estimated GFR (Cockcroft-Gault) 83.2 BUN/Creatinine Ratio 24 (6-20) Glucose Level 98mg/dL (70-99) Calcium Level 8.6mg/dL (8.5-10.1) Total Bilirubin 0.2mg/dL (0.2-1.0) Aspartate Amino Transf (AST/SGOT) 24U/L (15-37) Alanine Aminotransferase (ALT/SGPT) 25U/L (16-63) Alkaline Phosphatase 87U/L (46-116) Total Protein 6.4g/dL (6.4-8.2) Albumin 2.8g/dL (3.4-5.0) Albumin/Globulin Ratio 0.8 (1.0-1.7) Phenytoin (Dilantin) Level 24.5mcg/mL (10.0-20.0) Phenytoin Last Dose Date 08/04/16 Phenytoin Last Dose Time 0800 Medications Current Medications Sodium Chloride (Iv Sodium Chloride 0.9% 1000ml Bag) 1,000 ml @ 1,000 mls/hr 1X ONCE IV Last administered on 08/04/16 22:28; Start 08/04/16 at 22:15; Stop 08/04/16 at 23:14; Status DC Lidocaine/ Epinephrine (Xylocaine 1%-Epi 1:100,000) 20 ml 1X ONCE INJ Last administered on 08/04/16 22:45; Start 08/04/16 at 22:45; Stop 08/04/16 at 22:46 ; Status DC Ondansetron HCl (Zofran) 4 mg PRN Q8HRS PRN IV NAUSEA/VOMITING; Start 08/04/16 at 23:45; Stop 08/05/16 at 23:44; Status DC Fentanyl Citrate (Fentanyl 2ml Vial) 50 mcg PRN Q2HR PRN IV PAIN; Start at 23:45; Stop 08/05/16 at 23:44; Status DC Acetaminophen (Tylenol) 650 mg PRN Q4HRS PRN PO FEVER; Start 08/04/16 at 23:45 ; Stop 08/05/16 at 23:44; Status DC Acetaminophen (Tylenol) 650 mg PRN Q6HRS PRN PO PAIN; Start 08/05/16 at 08:30; Stop 08/09/16 at 05:34; Status DC Albuterol Sulfate (Ventolin Neb Soln) 2.5 mg PRN Q4HRS PRN NEB SOA; Start 08/05 at 08:30 Memantine (Namenda) 5 mg DAILY PO Last administered on 08/08/16 09:18; Start 08/05/16 at 09:00 Levetiracetam 1000 mg 1,000 mg BID PO Last administered on 08/08/16 20:28; Start 08/05/16 at 09:00 Magnesium Sulfate/ Dextrose (Magnesium Sulfate PREMIX 2GM) 50 ml @ 25 mls/hr 1X ONCE IV Last administered on 08/06/16 17:07; Start 08/06/16 at 16:30; Stop 08/06/16 at 18:29; Status DC Acetaminophen (Tylenol) 650 mg PRN Q6HRS PRN PO PAIN; Start 08/09/16 at 05:34 Active Scripts Active Reported Albuterol Sulfate Neb Soln (Albuterol Sulfate) 2.5 Mg/3 Ml Vial.neb 1 Vial NEB PRN Q4HRS Dilantin (Phenytoin Sodium Extended) 100 Mg Capsule 3 Cap PO BID Namenda (Memantine Hcl) 10 Mg Tablet 5 Mg PO DAILY Tylenol (Acetaminophen) 325 Mg Tablet 650 Mg PO PRN Q6HRS PRN Keppra (Levetiracetam) 1,000 Mg Tablet 1 Tab PO BID Vitals/I & O Vital Sign - Last 24 Hours 08/08/16 08/08/16 08/08/16 08/08/16 11:00 15:00 19:00 20:00 Temp 98.3 98.1 98.0 98.3 98.1 98.0 Pulse 68 69 82 Resp 19 19 20 B/P 106/69 118/72 110/71 Pulse Ox 92 92 92 O2 Delivery Room Air Room Air Room Air Room Air 08/08/16 08/09/16 08/09/16 23:00 03:15 07:00 Temp 98.6 97.7 98.3 98.6 97.7 98.3 Pulse 76 71 78 Resp 20 20 19 B/P 108/67 112/73 116/77 Pulse Ox 92 91 92 O2 Delivery Room Air Room Air Room Air Intake and Output 08/08/16 08/08/16 08/09/16 15:00 23:00 07:00 Intake Total 500 ml 1050 ml 500 ml Output Total 650 ml 400 ml Balance 500 ml 400 ml 100 ml RAFAEL,SIVAKOTI R MD Aug 09, 2016 10:03
--- NOTE | 2016-08-09 10:23 | PDOC ---
PROGRESS NOTES Subjective Subjective sleepy Objective Objective Vital Signs Date Time Temp Pulse Resp B/P Pulse Ox O2 Delivery O2 Flow Rate FiO2 08/09/16 07:00 98.3 78 19 116/77 92 Room Air 98.3 Intake and Output 08/09/16 07:00 Intake Total 2050 ml Output Total 1050 ml Balance 1000 ml Intake Oral 2050 ml Output Urine Total 1050 ml # Voids 2 Physical Exam Abdomen: Normal bowel sounds, Soft Heart: Regular rate, Normal S1 Extremities: No clubbing General: No acute distress HEENT: Atraumatic Lungs: Clear to auscultation MUSCULOSKELETAL: No deformity Neck: No thyromegaly COMMENT sutures left eye brow for laceration from fall Diagnosis Problem List Problems Medical Problems: (1) Closed head injury Status: Acute (2) Dilantin toxicity Status: Acute (3) Laceration of left eyebrow Status: Acute (4) Subtherapeutic serum dilantin level Status: Acute Assessment Assessment Problems Medical Problems: (1) Closed head injury Status: Acute (2) Dilantin toxicity Status: Acute (3) Laceration of left eyebrow Status: Acute (4) Subtherapeutic serum dilantin level Status: Acute IMPRESSION: 1. Acute Dilantin toxicity. 2. Seizure disorder. 3. Recurrent falls. 4. Schizophrenia. PLAN:spoke with neurology d/c back [facility] tomorrow. MRI brain showed atrophy, no cva or masses dilantin 24 today.down holding dilantin. pt/ot rehab consult [facility] for seizures. check dilantin level daily. Problems: Plan Plan of Care Problems Medical Problems: (1) Closed head injury Status: Acute (2) Dilantin toxicity Status: Acute (3) Laceration of left eyebrow Status: Acute (4) Subtherapeutic serum dilantin level Status: Acute Comment Review of Relevant I have reviewed the following items jossue (where applicable) has been applied. Labs Laboratory Tests Test 08/09/16 04:02 White Blood Count 7.1x10^3/uL (4.0-11.0) Red Blood Count 4.61x10^6/uL (4.30-5.70) Hemoglobin 14.0g/dL (13.0-17.5) Hematocrit 41.3% (39.0-53.0) Mean Corpuscular Volume 90fL (79-100) Mean Corpuscular Hemoglobin 30pg (25-35) Mean Corpuscular Hemoglobin Concent 34g/dL (31-37) Red Cell Distribution Width 13.1% (11.5-14.5) Platelet Count 182x10^3/uL (140-400) Neutrophils (%) (Auto) 65% (31-73) Lymphocytes (%) (Auto) 21% (24-48) Monocytes (%) (Auto) 7% (0-9) Eosinophils (%) (Auto) 6% (0-3) Basophils (%) (Auto) 1% (0-3) Neutrophils # (Auto) 4.6x10^3uL (1.8-7.7) Lymphocytes # (Auto) 1.5x10^3/uL (1.0-4.8) Monocytes # (Auto) 0.5x10^3/uL (0.0-1.1) Eosinophils # (Auto) 0.4x10^3/uL (0.0-0.7) Basophils # (Auto) 0.0x10^3/uL (0.0-0.2) Sodium Level 140mmol/L (136-145) Potassium Level 3.8mmol/L (3.5-5.1) Chloride Level 103mmol/L (98-107) Carbon Dioxide Level 26mmol/L (21-32) Anion Gap 11 (6-14) Blood Urea Nitrogen 22mg/dL (8-26) Creatinine 0.9mg/dL (0.7-1.3) Estimated GFR (Cockcroft-Gault) 83.2 BUN/Creatinine Ratio 24 (6-20) Glucose Level 98mg/dL (70-99) Calcium Level 8.6mg/dL (8.5-10.1) Total Bilirubin 0.2mg/dL (0.2-1.0) Aspartate Amino Transf (AST/SGOT) 24U/L (15-37) Alanine Aminotransferase (ALT/SGPT) 25U/L (16-63) Alkaline Phosphatase 87U/L (46-116) Total Protein 6.4g/dL (6.4-8.2) Albumin 2.8g/dL (3.4-5.0) Albumin/Globulin Ratio 0.8 (1.0-1.7) Phenytoin (Dilantin) Level 24.5mcg/mL (10.0-20.0) Phenytoin Last Dose Date 08/04/16 Phenytoin Last Dose Time 0800 Medications Current Medications Acetaminophen (Tylenol) 650 mg PRN Q6HRS PRN PO PAIN; Start 08/09/16 at 05:34 Vitals/I & O Vital Sign - Last 24 Hours 08/08/16 08/08/16 08/08/16 08/08/16 11:00 15:00 19:00 20:00 Temp 98.3 98.1 98.0 98.3 98.1 98.0 Pulse 68 69 82 Resp 19 20 B/P 106/69 118/72 110/71 Pulse Ox 92 92 92 O2 Delivery Room Air Room Air Room Air Room Air 08/08/16 08/09/16 08/09/16 23:00 03:15 07:00 Temp 98.6 97.7 98.3 98.6 97.7 98.3 Pulse 76 71 78 Resp 19 B/P 108/67 112/73 116/77 Pulse Ox 92 91 92 O2 Delivery Room Air Room Air Room Air Intake and Output 08/08/16 08/08/16 08/09/16 15:00 23:00 07:00 Intake Total 500 ml 1050 ml 500 ml Output Total 650 ml 400 ml Balance 500 ml 400 ml 100 ml CARMEN VIVAS MD Aug 09, 2016 10:22
[2016-08-09 11:00] VITALS: BP 123/79
[2016-08-09] MEDS: MEMANTINE 5 MG TABLET. PO SCH (11:46)
[2016-08-09] MEDS: LEVETIRACETAM 500 MG TABLET PO SCH ×2 (11:46→20:40)
--- NOTE | 2016-08-09 13:51 | PDOC ---
PROGRESS NOTES Assessment Assessment Seizure. Dilantin toxicity. Metabolic encephalopathy. Toxic encephalopathy. Ataxia. Falls. Laceration of left eye brow area. Schizophrenia. RECOMMENDATIONS/PLAN: Dilantin discontinued. Continue Keppra, increased from 1000 mg daily to 2000 mg daily. Depakote if has more seizures. HCT performed, and SAH, SDH and ICH ruled out. EEG on 08/07: Diffuse encephalopathy. No epileptiform discharges or electrographic seizures seen. Lab: Dilantin level decreased from 43.2 to 24.5 on 08/09/16. SUBJECTIVE: He stated he has been having seizures grand mal and petit mal about 20 a day for 2 weeks, and about 100 seizures a month before that. No seizures reported since in the hospital. OBJECTIVE: No acute focalized motor or sensory deficits. PAST MEDICAL AND SURGICAL HISTORY: Please see H&P ALLERGY: Reviewed. MEDICATIONS: Refer to MAR REVIEW OF SYSTEMS: Constitutional: No malnutrition, weight loss, cachexia. Head: No traumatic brain or head injury. Skin: No edema, or rash. Ear: No infection, tinnitus. Eyes: No vision loss, or diplopia. Nose: No bleeding or purulent discharges. Hearing: No hearing decrease. Neck: No injury. Cardiac: No OK, arrhythmia Pulmonary: No CPOD. GI: No GI Ulcer, GI bleeding Urinary/genital: UTI. Endocrine: No cousin face, craniofacial dysmorphism, polydactyly. Skeletomuscular: Falls. Neurological: see HP. Psychiatric: Denies drug use/abuse. Otherwise, not [id number] review of systems. PHYSICAL EXAMINATION: General appearance in no acute distress. HEENT: Normocephalic and nontraumatic. Eyes, nose, ears, and throat are unremarkable.. Neck is supple. No lymphadenopathy. No bruits are heard over the carotid artery. No Crepitus. Cardiovascular: S1, S2, regular rate and rhythm. Pulmonary: Clear to auscultation bilaterally. Abdomen: Bowel sounds are positive. Abdomen is soft, nontender, and nondistended. Extremities: No rash, lesions, or edema. No restriction of range of motion NEUROLOGICAL EXAMINATION: Awake. Oriented partially to time, place and person. PERRL. EOMI. CN: no acute focal findings. Muscle tone: within normal. Muscle strength: 5- DTR: 2+ Plantar reflex: Flexor response bilaterally Gait: Able to walk with a walker. Ataxia improved. Sensory exam: no abnormal findings. No obvious cerebellar signs elicited. F-T-N test fine, and no tremors noted. Objective Objective Vital Signs Date Time Temp Pulse Resp B/P Pulse Ox O2 Delivery O2 Flow Rate FiO2 08/09/16 07:00 98.3 78 19 116/77 92 Room Air 98.3 Intake and Output 08/09/16 07:00 Intake Total 2050 ml Output Total 1050 ml Balance 1000 ml Intake Oral 2050 ml Output Urine Total 1050 ml # Voids 2 Vitals Signs Vitals VS - Last 72 Hours, by Label Date Time Temp Pulse Resp B/P Pulse Ox O2 Delivery O2 Flow Rate FiO2 08/09/16 07:00 98.3 78 19 116/77 92 Room Air 98.3 08/09/16 03:15 97.7 71 20 112/73 91 Room Air 97.7 08/08/16 23:00 98.6 76 20 108/67 92 Room Air 98.6 08/08/16 20:00 Room Air 08/08/16 19:00 98.0 82 20 110/71 92 Room Air 98.0 08/08/16 15:00 98.1 69 19 118/72 92 Room Air 98.1 08/08/16 11:00 98.3 68 19 106/69 92 Room Air 98.3 08/08/16 08:00 Room Air 08/08/16 07:00 97.9 72 19 110/69 93 Room Air 97.9 Laboratory Laboratory Laboratory Tests Test 08/09/16 04:02 White Blood Count 7.1x10^3/uL (4.0-11.0) Red Blood Count 4.61x10^6/uL (4.30-5.70) Hemoglobin 14.0g/dL (13.0-17.5) Hematocrit 41.3% (39.0-53.0) Mean Corpuscular Volume 90fL (79-100) Mean Corpuscular Hemoglobin 30pg (25-35) Mean Corpuscular Hemoglobin Concent 34g/dL (31-37) Red Cell Distribution Width 13.1% (11.5-14.5) Platelet Count 182x10^3/uL (140-400) Neutrophils (%) (Auto) 65% (31-73) Lymphocytes (%) (Auto) 21% (24-48) Monocytes (%) (Auto) 7% (0-9) Eosinophils (%) (Auto) 6% (0-3) Basophils (%) (Auto) 1% (0-3) Neutrophils # (Auto) 4.6x10^3uL (1.8-7.7) Lymphocytes # (Auto) 1.5x10^3/uL (1.0-4.8) Monocytes # (Auto) 0.5x10^3/uL (0.0-1.1) Eosinophils # (Auto) 0.4x10^3/uL (0.0-0.7) Basophils # (Auto) 0.0x10^3/uL (0.0-0.2) Sodium Level 140mmol/L (136-145) Potassium Level 3.8mmol/L (3.5-5.1) Chloride Level 103mmol/L (98-107) Carbon Dioxide Level 26mmol/L (21-32) Anion Gap 11 (6-14) Blood Urea Nitrogen 22mg/dL (8-26) Creatinine 0.9mg/dL (0.7-1.3) Estimated GFR (Cockcroft-Gault) 83.2 BUN/Creatinine Ratio 24 (6-20) Glucose Level 98mg/dL (70-99) Calcium Level 8.6mg/dL (8.5-10.1) Total Bilirubin 0.2mg/dL (0.2-1.0) Aspartate Amino Transf (AST/SGOT) 24U/L (15-37) Alanine Aminotransferase (ALT/SGPT) 25U/L (16-63) Alkaline Phosphatase 87U/L (46-116) Total Protein 6.4g/dL (6.4-8.2) Albumin 2.8g/dL (3.4-5.0) Albumin/Globulin Ratio 0.8 (1.0-1.7) Phenytoin (Dilantin) Level 24.5mcg/mL (10.0-20.0) Phenytoin Last Dose Date 08/04/16 Phenytoin Last Dose Time 0800 Medication Medications Current Medications Acetaminophen (Tylenol) 650 mg PRN Q6HRS PRN PO PAIN; Start 08/09/16 at 05:34 Comment Review of Relevant I have reviewed the following items jossue (where applicable) has been applied. OSMIN VALLE MD Aug 09, 2016 13:51
[2016-08-09 15:00] VITALS: BP 145/63
[2016-08-09 19:00] VITALS: BP 113/70
[2016-08-09 23:00] VITALS: BP 111/61
[2016-08-10 03:00] VITALS: BP 118/73
[2016-08-10 07:00] VITALS: BP 114/66
[2016-08-10] MEDS: MEMANTINE 5 MG TABLET. PO SCH (08:30)
[2016-08-10] MEDS: LEVETIRACETAM 500 MG TABLET PO SCH (08:30)
[2016-08-10 09:46] LABS: ALBUMIN 2.9 g/dL (3.4-5.0); ALBUMIN/GLOBULIN RATIO 0.8 (1.0-1.7); CALCIUM 8.7 mg/dL (8.5-10.1); GFR 73.7; POTASSIUM 3.7 mmol/L (3.5-5.1); TOTAL BILIRUBIN 0.2 mg/dL (0.2-1.0); TOTAL PROTEIN 6.6 g/dL (6.4-8.2)
--- NOTE | 2016-08-10 10:28 | PDOC ---
PROGRESS NOTES Subjective Subjective No new complaints. Objective Objective Vital Signs Date Time Temp Pulse Resp B/P Pulse Ox O2 Delivery O2 Flow Rate FiO2 08/10/16 07:00 97.1 70 18 114/66 92 Room Air 97.1 Intake and Output 08/10/16 07:00 Intake Total 1300 ml Output Total 700 ml Balance 600 ml Intake Oral 1300 ml Output Urine Total 700 ml # Bowel Movements 1 Physical Exam Physical Exam He is alert,supine in bed and comfortable.He continues with high level balance problems. Assessment Assessment Problems Medical Problems: (1) Closed head injury Status: Acute (2) Dilantin toxicity Status: Acute (3) Laceration of left eyebrow Status: Acute (4) Subtherapeutic serum dilantin level Status: Acute Plan Plan of Care Agree with plans for transfer to [place] but recommend him to use roller walker while up. Comment Review of Relevant I have reviewed the following items jossue (where applicable) has been applied. Labs Laboratory Tests Test 08/09/16 04:02 08/10/16 09:15 White Blood Count 7.1x10^3/uL (4.0-11.0) Red Blood Count 4.61x10^6/uL (4.30-5.70) Hemoglobin 14.0g/dL (13.0-17.5) Hematocrit 41.3% (39.0-53.0) Mean Corpuscular Volume 90fL (79-100) Mean Corpuscular Hemoglobin 30pg (25-35) Mean Corpuscular Hemoglobin Concent 34g/dL (31-37) Red Cell Distribution Width 13.1% (11.5-14.5) Platelet Count 182x10^3/uL (140-400) Neutrophils (%) (Auto) 65% (31-73) Lymphocytes (%) (Auto) 21% (24-48) Monocytes (%) (Auto) 7% (0-9) Eosinophils (%) (Auto) 6% (0-3) Basophils (%) (Auto) 1% (0-3) Neutrophils # (Auto) 4.6x10^3uL (1.8-7.7) Lymphocytes # (Auto) 1.5x10^3/uL (1.0-4.8) Monocytes # (Auto) 0.5x10^3/uL (0.0-1.1) Eosinophils # (Auto) 0.4x10^3/uL (0.0-0.7) Basophils # (Auto) 0.0x10^3/uL (0.0-0.2) Sodium Level 140mmol/L (136-145) 136mmol/L (136-145) Potassium Level 3.8mmol/L (3.5-5.1) 3.7mmol/L (3.5-5.1) Chloride Level 103mmol/L (98-107) 98mmol/L (98-107) Carbon Dioxide Level 26mmol/L (21-32) 26mmol/L (21-32) Anion Gap 11 (6-14) 12 (6-14) Blood Urea Nitrogen 22mg/dL (8-26) 18mg/dL (8-26) Creatinine 0.9mg/dL (0.7-1.3) 1.0mg/dL (0.7-1.3) Estimated GFR (Cockcroft-Gault) 83.2 73.7 BUN/Creatinine Ratio 24 (6-20) 18 (6-20) Glucose Level 98mg/dL (70-99) 167mg/dL (70-99) Calcium Level 8.6mg/dL (8.5-10.1) 8.7mg/dL (8.5-10.1) Total Bilirubin 0.2mg/dL (0.2-1.0) 0.2mg/dL (0.2-1.0) Aspartate Amino Transf (AST/SGOT) 24U/L (15-37) 22U/L (15-37) Alanine Aminotransferase (ALT/SGPT) 25U/L (16-63) 23U/L (16-63) Alkaline Phosphatase 87U/L (46-116) 88U/L (46-116) Total Protein 6.4g/dL (6.4-8.2) 6.6g/dL (6.4-8.2) Albumin 2.8g/dL (3.4-5.0) 2.9g/dL (3.4-5.0) Albumin/Globulin Ratio 0.8 (1.0-1.7) 0.8 (1.0-1.7) Phenytoin (Dilantin) Level 24.5mcg/mL (10.0-20.0) 18.1mcg/mL (10.0-20.0) Phenytoin Last Dose Date 08/04/16 08/04/16 Phenytoin Last Dose Time 0800 0800 Laboratory Tests Test 08/10/16 09:15 Sodium Level 136mmol/L (136-145) Potassium Level 3.7mmol/L (3.5-5.1) Chloride Level 98mmol/L (98-107) Carbon Dioxide Level 26mmol/L (21-32) Anion Gap 12 (6-14) Blood Urea Nitrogen 18mg/dL (8-26) Creatinine 1.0mg/dL (0.7-1.3) Estimated GFR (Cockcroft-Gault) 73.7 BUN/Creatinine Ratio 18 (6-20) Glucose Level 167mg/dL (70-99) Calcium Level 8.7mg/dL (8.5-10.1) Total Bilirubin 0.2mg/dL (0.2-1.0) Aspartate Amino Transf (AST/SGOT) 22U/L (15-37) Alanine Aminotransferase (ALT/SGPT) 23U/L (16-63) Alkaline Phosphatase 88U/L (46-116) Total Protein 6.6g/dL (6.4-8.2) Albumin 2.9g/dL (3.4-5.0) Albumin/Globulin Ratio 0.8 (1.0-1.7) Phenytoin (Dilantin) Level 18.1mcg/mL (10.0-20.0) Phenytoin Last Dose Date 08/04/16 Phenytoin Last Dose Time 0800 Medications Current Medications Sodium Chloride (Iv Sodium Chloride 0.9% 1000ml Bag) 1,000 ml @ 1,000 mls/hr 1X ONCE IV Last administered on 08/04/16 22:28; Start 08/04/16 at 22:15; Stop 08/04/16 at 23:14; Status DC Lidocaine/ Epinephrine (Xylocaine 1%-Epi 1:100,000) 20 ml 1X ONCE INJ Last administered on 08/04/16 22:45; Start 08/04/16 at 22:45; Stop 08/04/16 at 22:46 ; Status DC Ondansetron HCl (Zofran) 4 mg PRN Q8HRS PRN IV NAUSEA/VOMITING; Start 08/04/16 at 23:45; Stop 08/05/16 at 23:44; Status DC Fentanyl Citrate (Fentanyl 2ml Vial) 50 mcg PRN Q2HR PRN IV PAIN; Start at 23:45; Stop 08/05/16 at 23:44; Status DC Acetaminophen (Tylenol) 650 mg PRN Q4HRS PRN PO FEVER; Start 08/04/16 at 23:45 ; Stop 08/05/16 at 23:44; Status DC Acetaminophen (Tylenol) 650 mg PRN Q6HRS PRN PO PAIN; Start 08/05/16 at 08:30; Stop 08/09/16 at 05:34; Status DC Albuterol Sulfate (Ventolin Neb Soln) 2.5 mg PRN Q4HRS PRN NEB SOA; Start 08/05 at 08:30 Memantine (Namenda) 5 mg DAILY PO Last administered on 08/10/16 08:30; Start 08/05/16 at 09:00 Levetiracetam 1000 mg 1,000 mg BID PO Last administered on 08/10/16 08:30; Start 08/05/16 at 09:00 Magnesium Sulfate/ Dextrose (Magnesium Sulfate PREMIX 2GM) 50 ml @ 25 mls/hr 1X ONCE IV Last administered on 08/06/16 17:07; Start 08/06/16 at 16:30; Stop 08/06/16 at 18:29; Status DC Acetaminophen (Tylenol) 650 mg PRN Q6HRS PRN PO PAIN; Start 08/09/16 at 05:34 Active Scripts Active Reported Albuterol Sulfate Neb Soln (Albuterol Sulfate) 2.5 Mg/3 Ml Vial.neb 1 Vial NEB PRN Q4HRS Dilantin (Phenytoin Sodium Extended) 100 Mg Capsule 3 Cap PO BID Namenda (Memantine Hcl) 10 Mg Tablet 5 Mg PO DAILY Tylenol (Acetaminophen) 325 Mg Tablet 650 Mg PO PRN Q6HRS PRN Keppra (Levetiracetam) 1,000 Mg Tablet 1 Tab PO BID Vitals/I & O Vital Sign - Last 24 Hours 08/09/16 08/09/16 08/09/16 08/09/16 11:00 15:00 19:00 20:00 Temp 98.1 97.9 98.2 98.1 97.9 98.2 Pulse 83 76 84 Resp B/P 123/79 145/63 113/70 Pulse Ox 93 95 95 O2 Delivery Room Air Room Air Room Air Room Air 08/09/16 08/10/16 08/10/16 23:00 03:00 07:00 Temp 98.2 97.9 97.1 98.2 97.9 97.1 Pulse 68 76 70 Resp B/P 111/61 118/73 114/66 Pulse Ox 93 92 92 O2 Delivery Room Air Room Air Room Air Intake and Output 08/09/16 08/09/16 08/10/16 15:00 23:00 07:00 Intake Total 500 ml 800 ml Output Total 700 ml Balance 500 ml 100 ml NICOLAS HALL MD Aug 10, 2016 10:28
--- NOTE | 2016-08-10 15:44 | PDOC ---
PROGRESS NOTES Assessment Assessment Seizure. Dilantin toxicity. Metabolic encephalopathy. Toxic encephalopathy. Ataxia. Falls. Laceration of left eye brow area. Schizophrenia. RECOMMENDATIONS/PLAN: Dilantin discontinued. Continue Keppra, increased from 1000 mg daily to 2000 mg daily. Depakote if has more seizures. HCT performed, and SAH, SDH and ICH ruled out. FU with Dr. Munoz in [facility]. FU with PCP. EEG on 08/07: Diffuse encephalopathy. No epileptiform discharges or electrographic seizures seen. Lab: Dilantin level decreased from 43.2 to 24.5 on 08/09/16. Dilantin toxicity resolved. SUBJECTIVE: He stated he has been having seizures grand mal and petit mal about 20 a day for 2 weeks, and about 100 seizures a month before that. No seizures reported since in the hospital, but patient stated he had a brief abdominal pain for about 30 seconds on 08/10 and he thought it might be a seizure of petit mal. OBJECTIVE: No acute focalized motor or sensory deficits. PAST MEDICAL AND SURGICAL HISTORY: Please see H&P ALLERGY: Reviewed. MEDICATIONS: Refer to [facility] REVIEW OF SYSTEMS: Constitutional: No malnutrition, weight loss, cachexia. Head: No traumatic brain or head injury. Skin: No edema, or rash. Ear: No infection, tinnitus. Eyes: No vision loss, or diplopia. Nose: No bleeding or purulent discharges. Hearing: No hearing decrease. Neck: No injury. Cardiac: No MD, arrhythmia Pulmonary: No CPOD. GI: No GI Ulcer, GI bleeding Urinary/genital: UTI. Endocrine: No cousin face, craniofacial dysmorphism, polydactyly. Skeletomuscular: Falls. Neurological: see HP. Psychiatric: Denies drug use/abuse. Otherwise, not [id number] review of systems. PHYSICAL EXAMINATION: General appearance in no acute distress. HEENT: Normocephalic and nontraumatic. Eyes, nose, ears, and throat are unremarkable.. Neck is supple. No lymphadenopathy. No bruits are heard over the carotid artery. No Crepitus. Cardiovascular: S1, S2, regular rate and rhythm. Pulmonary: Clear to auscultation bilaterally. Abdomen: Bowel sounds are positive. Abdomen is soft, nontender, and nondistended. Extremities: No rash, lesions, or edema. No restriction of range of motion NEUROLOGICAL EXAMINATION: Awake. Oriented partially to time, place and person. PERRL. EOMI. CN: no acute focal findings. Muscle tone: within normal. Muscle strength: 5- DTR: 2+ Plantar reflex: Flexor response bilaterally Gait: Able to walk near baseline normal. Sensory exam: no abnormal findings. No obvious cerebellar signs elicited. F-T-N test fine, and no tremors noted. Objective Objective Vital Signs Date Time Temp Pulse Resp B/P Pulse Ox O2 Delivery O2 Flow Rate FiO2 08/10/16 07:00 97.1 70 18 114/66 92 Room Air 97.1 Intake and Output 08/10/16 07:00 Intake Total 1300 ml Output Total 700 ml Balance 600 ml Intake Oral 1300 ml Output Urine Total 700 ml # Bowel Movements 1 Vitals Signs Vitals VS - Last 72 Hours, by Label Date Time Temp Pulse Resp B/P Pulse Ox O2 Delivery O2 Flow Rate FiO2 08/10/16 07:00 97.1 70 18 114/66 92 Room Air 97.1 08/10/16 03:00 97.9 76 17 118/73 92 Room Air 97.9 08/09/16 23:00 98.2 68 17 111/61 93 Room Air 98.2 08/09/16 20:00 Room Air 08/09/16 19:00 98.2 84 18 113/70 95 Room Air 98.2 08/09/16 15:00 97.9 76 19 145/63 95 Room Air 97.9 08/09/16 11:00 98.1 83 19 123/79 93 Room Air 98.1 08/09/16 08:00 Room Air 08/09/16 07:00 98.3 78 19 116/77 92 Room Air 98.3 Laboratory Laboratory Laboratory Tests Test 08/10/16 09:15 Sodium Level 136mmol/L (136-145) Potassium Level 3.7mmol/L (3.5-5.1) Chloride Level 98mmol/L (98-107) Carbon Dioxide Level 26mmol/L (21-32) Anion Gap 12 (6-14) Blood Urea Nitrogen 18mg/dL (8-26) Creatinine 1.0mg/dL (0.7-1.3) Estimated GFR (Cockcroft-Gault) 73.7 BUN/Creatinine Ratio 18 (6-20) Glucose Level 167mg/dL (70-99) Calcium Level 8.7mg/dL (8.5-10.1) Total Bilirubin 0.2mg/dL (0.2-1.0) Aspartate Amino Transf (AST/SGOT) 22U/L (15-37) Alanine Aminotransferase (ALT/SGPT) 23U/L (16-63) Alkaline Phosphatase 88U/L (46-116) Total Protein 6.6g/dL (6.4-8.2) Albumin 2.9g/dL (3.4-5.0) Albumin/Globulin Ratio 0.8 (1.0-1.7) Phenytoin (Dilantin) Level 18.1mcg/mL (10.0-20.0) Phenytoin Last Dose Date 08/04/16 Phenytoin Last Dose Time 0800 Comment Review of Relevant I have reviewed the following items jossue (where applicable) has been applied. OSMIN VALLE MD Aug 10, 2016 15:44
--- NOTE | 2016-08-10 16:42 | PDOC ---
PROGRESS NOTES Subjective Subjective feeling good Objective Objective Vital Signs Date Time Temp Pulse Resp B/P Pulse Ox O2 Delivery O2 Flow Rate FiO2 08/10/16 07:00 97.1 70 18 114/66 92 Room Air 97.1 Intake and Output 08/10/16 07:00 Intake Total 1300 ml Output Total 700 ml Balance 600 ml Intake Oral 1300 ml Output Urine Total 700 ml # Bowel Movements 1 Physical Exam Abdomen: Normal bowel sounds, Soft Heart: Regular rate, Normal S1 Extremities: No clubbing General: No acute distress HEENT: Atraumatic Lungs: Clear to auscultation MUSCULOSKELETAL: No deformity Neck: No thyromegaly COMMENT sutures left eye brow for laceration from fall Diagnosis Problem List Problems Medical Problems: (1) Closed head injury Status: Acute (2) Dilantin toxicity Status: Acute (3) Laceration of left eyebrow Status: Acute (4) Subtherapeutic serum dilantin level Status: Acute Assessment Assessment Problems Medical Problems: (1) Closed head injury Status: Acute (2) Dilantin toxicity Status: Acute (3) Laceration of left eyebrow Status: Acute (4) Subtherapeutic serum dilantin level Status: Acute IMPRESSION: 1. Acute Dilantin toxicity. 2. Seizure disorder. 3. Recurrent falls. 4. Schizophrenia. PLAN:spoke with neurology d/c back to [place] today MRI brain showed atrophy, no cva or masses dilantin 18 today.down d/c dilantin. pt/ot rehab consult [facility] for seizures.1000mg po bid spoke with neuro Problems: Plan Plan of Care Problems Medical Problems: (1) Closed head injury Status: Acute (2) Dilantin toxicity Status: Acute (3) Laceration of left eyebrow Status: Acute (4) Subtherapeutic serum dilantin level Status: Acute Comment Review of Relevant I have reviewed the following items jossue (where applicable) has been applied. Labs Laboratory Tests Test 08/10/16 09:15 Sodium Level 136mmol/L (136-145) Potassium Level 3.7mmol/L (3.5-5.1) Chloride Level 98mmol/L (98-107) Carbon Dioxide Level 26mmol/L (21-32) Anion Gap 12 (6-14) Blood Urea Nitrogen 18mg/dL (8-26) Creatinine 1.0mg/dL (0.7-1.3) Estimated GFR (Cockcroft-Gault) 73.7 BUN/Creatinine Ratio 18 (6-20) Glucose Level 167mg/dL (70-99) Calcium Level 8.7mg/dL (8.5-10.1) Total Bilirubin 0.2mg/dL (0.2-1.0) Aspartate Amino Transf (AST/SGOT) 22U/L (15-37) Alanine Aminotransferase (ALT/SGPT) 23U/L (16-63) Alkaline Phosphatase 88U/L (46-116) Total Protein 6.6g/dL (6.4-8.2) Albumin 2.9g/dL (3.4-5.0) Albumin/Globulin Ratio 0.8 (1.0-1.7) Phenytoin (Dilantin) Level 18.1mcg/mL (10.0-20.0) Phenytoin Last Dose Date 08/04/16 Phenytoin Last Dose Time 0800 Vitals/I & O Vital Sign - Last 24 Hours 08/09/16 08/09/16 08/09/16 08/10/16 19:00 20:00 23:00 03:00 Temp 98.2 98.2 97.9 98.2 98.2 97.9 Pulse 84 68 76 Resp B/P 113/70 111/61 118/73 Pulse Ox 95 93 92 O2 Delivery Room Air Room Air Room Air Room Air 08/10/16 07:00 Temp 97.1 97.1 Pulse 70 Resp 18 B/P 114/66 Pulse Ox 92 O2 Delivery Room Air Intake and Output 08/09/16 08/09/16 08/10/16 15:00 23:00 07:00 Intake Total 500 ml 800 ml Output Total 700 ml Balance 500 ml 100 ml CARMEN VIVAS MD Aug 10, 2016 16:42
--- NOTE | 2016-08-11 12:27 | PDOC ---
Provider Note Provider Note Discharge summary dictated. #[id number] CARMEN VIVAS MD Aug 11, 2016 12:27
--- NOTE | 2016-08-11 21:20 | DS ---
DATE OF DISCHARGE: 08/10/2016 REASON FOR ADMISSION TO THE HOSPITAL: Seizure, fall at the [facility]. CONSULTATIONS: Neurology, Dr. Dumas and Purvi from Rehabilitation. PROCEDURES DONE: 1. CT head. 2. MRI of the brain. 3. EEG. COMPLICATIONS NOTED: None. HOSPITAL COURSE: The patient is a 71-year-old male. The patient was admitted to hospital last week for seizures under hospitalist care. He went back to the [facility] and he had a fall and also seizure and CT head was negative for any bleed. CT neck was negative for fracture. Dilantin level was 43 at the time of admission. The patient was seen by Neurology. Dilantin was stopped and levels of monitored, coming down nicely. Before discharge, came down to 18. He had an EEG. The patient had MRI of the brain, shows no stroke, bleeding, some cerebral atrophy, had been seen by Dr. Loja at therapy, [facility] and the patient was discharged back to the [facility]. FINAL DIAGNOSES: 1. Dilantin toxicity. 2. History of seizures. 3. Unsteady gait. 4. 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 The patient was [facility] back to the [facility] and the patient stopped on Dilantin because of toxicity, increase Keppra to 1000 mg twice daily. If the patient continues to have seizures down the road, Neurology is thinking of considering added Depakote to the regimen. CARMEN VIVAS MD DR: RAMÓN/matilda JOB#: [id number] / [id number] MARISSA
== END 2016-08-10 14:05 | DRG 93 ==
LOC: ER 21:37 → 5 NORTH 23:25
PROVIDERS: ADMIT Internal Medicine; ATTEND Internal Medicine
PROC: 0HQ1XZZ Repair Face Skin, External Approach (ICD-10-PCS; principal; 2016-08-04)
DX: G92 Toxic encephalopathy (principal); G40.909 Epilepsy, unspecified, not intractable, without status epilepticus; F20.9 Schizophrenia, unspecified; G40.409 Other generalized epilepsy and epileptic syndromes, not intractable, without status epilepticus; F41.9 Anxiety disorder, unspecified; G62.9 Polyneuropathy, unspecified; W19.XXXA Unspecified fall, initial encounter; R26.0 Ataxic gait; F03.90 Unspecified dementia, unspecified severity, without behavioral disturbance, psychotic disturbance, mood disturbance, and anxiety; R29.6 Repeated falls; S01.112A Laceration without foreign body of left eyelid and periocular area, initial encounter; S09.90XA Unspecified injury of head, initial encounter; Z91.81 History of falling; Y92.128 Other place in nursing home as the place of occurrence of the external cause; Z87.891 Personal history of nicotine dependence; Z88.8 Allergy status to other drugs, medicaments and biological substances; T42.0X5A Adverse effect of hydantoin derivatives, initial encounter
CPT/HCPCS: 12011; 36415; 70450; 70551; 71010; 72125; 80048; 80053; 80076; 80185; 82947; 83735; 85007; 85027; 87641; 93005; 94760; 95816; 96360; J3490; J7030; J7060; 97112; 97116; 97530; 97535; 99285-25

== ENCOUNTER 2016-10-19 14:37 | Emergency (ER) | payer MEDICARE ==
[~2016-10-19] VITALS: Ht 167.6 cm; Wt 72.6 kg
[~2016-10-19 14:37] MED LIST changes: +ALBU2.5V5 NEB
--- NOTE | 2016-10-19 14:43 | PHYS DOC ---
Past Medical History Past Medical History: Anxiety, Seizure, Schizophrenia Additional Past Surgical Histo: unknown Alcohol Use: None Drug Use: None Adult General Chief Complaint Chief Complaint: SEIZURE HPI HPI Patient is a 71 year old male who presents with a seizure. According to patient he does is on Keppra but can't move the other medicines on. He states currently he feels normal. He apparently was at [facility] with a caregiver when he had a 2 minute tonic-clonic seizure. He denies any fevers chills nausea or vomiting. He does have a history of schizophrenia and is talking about the other hospital that is working gets his physician to help him. Review of Systems Review of Systems Constitutional: Denies fever or chills [] Eyes: Denies change in visual acuity, redness, or eye pain [] HENT: Denies nasal congestion or sore throat [] Respiratory: Denies cough or shortness of breath [] Cardiovascular: No additional information not addressed in HPI [] GI: Denies abdominal pain, nausea, vomiting, bloody stools or diarrhea [] : Denies dysuria or hematuria [] Musculoskeletal: Denies back pain or joint pain [] Integument: Denies rash or skin lesions [] Neurologic: Denies headache, focal weakness or sensory changes [] Endocrine: Denies polyuria or polydipsia [] Current Medications Current Medications Current Medications Medications (Trade) Dose Ordered Sig/Linh Start Time Stop Time Status Last Admin Dose Admin Sodium Chloride 1,000 ml @ 1,000 mls/hr 1X ONCE 10/19/16 14:45 10/19/16 15:44 DC 10/19/16 15:05 1,000 MLS/HR Sodium Chloride (Normal Saline Flush) 10 ml QSHIFT PRN 10/19/16 14:45 10/19/16 15:05 10 ML Allergies Allergies Allergies Coded Allergies Type Severity Reaction Last Updated Verified phenobarbital Allergy Intermediate 07/26/16 Yes Physical Exam Physical Exam Constitutional: Well developed, well nourished, no acute distress, non-toxic appearance. [] HENT: Normocephalic, atraumatic, bilateral external ears normal, oropharynx moist, no oral exudates, nose normal. [] Eyes: PERRLA, EOMI, conjunctiva normal, no discharge. [] Neck: Normal range of motion, no tenderness, supple, no stridor. [] Cardiovascular:Heart rate regular rhythm, no murmur [] Lungs & Thorax: Bilateral breath sounds clear to auscultation [] Abdomen: Bowel sounds normal, soft, no tenderness, no masses, no pulsatile masses. [] Skin: Warm, dry, no erythema, no rash. [] Back: No tenderness, no CVA tenderness. [] Extremities: No tenderness, no cyanosis, no clubbing, ROM intact, no edema. [] Neurologic: Alert and oriented X 2, normal motor function, normal sensory function, no focal deficits noted. [] Current Patient Data Vital Signs Vital Signs Date Time Temp Pulse Resp B/P (MAP) Pulse Ox O2 Delivery O2 Flow Rate FiO2 10/19/16 14:43 98.3 82 20 145/75 (98) 93 Room Air 98.3 Lab Values Laboratory Tests Test 10/19/16 15:00 White Blood Count 7.1 x10^3/uL (4.0-11.0) Red Blood Count 4.91 x10^6/uL (4.30-5.70) Hemoglobin 15.0 g/dL (13.0-17.5) Hematocrit 43.4 % (39.0-53.0) Mean Corpuscular Volume 88 fL (79-100) Mean Corpuscular Hemoglobin 31 pg (25-35) Mean Corpuscular Hemoglobin Concent 35 g/dL (31-37) Red Cell Distribution Width 12.5 % (11.5-14.5) Platelet Count 147 x10^3/uL (140-400) Neutrophils (%) (Auto) 72 % (31-73) Lymphocytes (%) (Auto) 16 % (24-48) L Monocytes (%) (Auto) 8 % (0-9) Eosinophils (%) (Auto) 3 % (0-3) Basophils (%) (Auto) 1 % (0-3) Neutrophils # (Auto) 5.1 x10^3uL (1.8-7.7) Lymphocytes # (Auto) 1.1 x10^3/uL (1.0-4.8) Monocytes # (Auto) 0.6 x10^3/uL (0.0-1.1) Eosinophils # (Auto) 0.2 x10^3/uL (0.0-0.7) Basophils # (Auto) 0.0 x10^3/uL (0.0-0.2) Sodium Level 140 mmol/L (136-145) Potassium Level 4.1 mmol/L (3.5-5.1) Chloride Level 104 mmol/L (98-107) Carbon Dioxide Level 26 mmol/L (21-32) Anion Gap 10 (6-14) Blood Urea Nitrogen 20 mg/dL (8-26) Creatinine 1.2 mg/dL (0.7-1.3) Estimated GFR (Cockcroft-Gault) 59.7 BUN/Creatinine Ratio 17 (6-20) Glucose Level 102 mg/dL (70-99) H Lactic Acid Level 1.1 mmol/L (0.4-2.0) Calcium Level 8.8 mg/dL (8.5-10.1) Total Bilirubin 0.3 mg/dL (0.2-1.0) Aspartate Amino Transferase (AST) 24 U/L (15-37) Alanine Aminotransferase (ALT) 26 U/L (16-63) Alkaline Phosphatase 99 U/L (46-116) Total Protein 7.2 g/dL (6.4-8.2) Albumin 3.3 g/dL (3.4-5.0) L Albumin/Globulin Ratio 0.8 (1.0-1.7) L Phenytoin (Dilantin) Level < 10.0 mcg/mL (10.0-20.0) L Phenytoin Last Dose Date 10/19/16 Phenytoin Last Dose Time 1444 Laboratory Tests 10/19/16 15:00 Laboratory Tests 10/19/16 15:00 EKG EKG [] Radiology/Procedures Radiology/Procedures [] Impressions: seizure schizophrenia Course & Med Decision Making Course & Med Decision Making Pertinent Labs and Imaging studies reviewed. (See chart for details) Abscess show any acute abnormalities. Patient is being discharged back to his [facility] where he is a resident. He does have schizophrenia, but he is acting appropriately. I believe he is at his baseline. I do not appreciate any reasons to keep him in the hospital for further evaluation or treatment. Dragon Disclaimer Dragon Disclaimer This electronic medical record was generated, in whole or in part, using a voice recognition dictation system. Departure Departure Impression: Primary Impression: Seizure Disposition: 01 HOME, SELF-CARE Condition: STABLE Referrals: CARMEN VIVAS MD (PCP) Patient Instructions: Seizure, Adult Additional Instructions: You were seen today for your seizure disorder. Please take your medicines as directed. Please follow-up with your primary care physician. Return ER if you have additional seizures, confusion, high fevers, or other concerns. YESY THEODORE MD Oct 19, 2016 14:43
[2016-10-19] MEDS ORDERED: 0.9 % SODIUM CHLORIDE 10 ML DISP.SYRIN. IV PRN (14:45)
[2016-10-19] MEDS ORDERED: IV NORMAL SALINE 1000ML BAG 1,000 ML IV ONE (14:45)
--- NOTE | 2016-10-19 15:04 | EKG ---
[facility] [address] [place] [address] Test Date: 2016-10-19 Test Time: 14:42:10 Pat Name: MARISABEL LARA Department: Room: Gender: M [employer] Director: : 1945 Requested By: YESY THEODORE Order Number: [id number] Reading MD: Cyn Adam Measurements Intervals [place] Rate: 76 P: 31 [place]: 182 QRS: -23 QRSD: 84 T: 15 QT: 380 QTc: 432 Interpretive Statements SINUS RHYTHM LEFTWARD AXIS INCOMPLETE RIGHT BUNDLE BRANCH BLOCK Electronically Signed On 10-20-2016 19:40:17 CDT by Cyn Adam
[2016-10-19 15:13] LABS: BASO % 1 % (0-3); EOS % 3 % (0-3); HEMATOCRIT 43.4 % (39.0-53.0); LYMPH # 1.1 x10^3/uL (1.0-4.8); LYMPH % 16 % (24-48); MEAN CORPUSCULAR HEMOGLOBIN 31 pg (25-35); MEAN CORPUSCULAR HGB CONC 35 g/dL (31-37); MEAN CORPUSCULAR VOLUME 88 fL (79-100); MONO % 8 % (0-9); NEUT % 72 % (31-73); PLATELET COUNT 147 x10^3/uL (140-400); RED BLOOD COUNT 4.91 x10^6/uL (4.30-5.70); RED CELL DISTRIBUTION WIDTH 12.5 % (11.5-14.5); WHITE BLOOD COUNT 7.1 x10^3/uL (4.0-11.0)
[2016-10-19 16:00] VITALS: BP 138/75
[2016-10-19 16:07] LABS: ALBUMIN 3.3 g/dL (3.4-5.0); ALBUMIN/GLOBULIN RATIO 0.8 (1.0-1.7); CALCIUM 8.8 mg/dL (8.5-10.1); CREATININE 1.2 mg/dL (0.7-1.3); GFR 59.7; POTASSIUM 4.1 mmol/L (3.5-5.1); TOTAL BILIRUBIN 0.3 mg/dL (0.2-1.0); TOTAL PROTEIN 7.2 g/dL (6.4-8.2)
== END 2016-10-19 17:28 | disposition home or self-care (01) ==
LOC: ER 14:37
DX: R56.9 Unspecified convulsions (principal); F41.9 Anxiety disorder, unspecified; F20.9 Schizophrenia, unspecified
CPT/HCPCS: 36415; 80053; 80185; 83605; 85027; 93005; 96360; 99285; J7030; 80177

== ENCOUNTER 2020-04-13 20:04 | Inpatient (IN) | payer MEDICARE, OTHER ==
[~2020-04-13] VITALS: Ht 170.2 cm; Wt 75.9 kg
[~2020-04-13 20:04] MED LIST changes: +MIDAZOLAM HCL/PF 5 MG/5 ML VIAL. ONE
[2020-04-13 20:36] LABS: BASO % 0 % (0-3); EOS # 0.1 x10^3/uL (0.0-0.7); EOS % 1 % (0-3); HEMATOCRIT 46.5 % (39.0-53.0); HEMOGLOBIN 16.1 g/dL (13.0-17.5); LYMPH # 1.4 x10^3/uL (1.0-4.8); LYMPH % 17 % (24-48); MEAN CORPUSCULAR HEMOGLOBIN 32 pg (25-35); MEAN CORPUSCULAR HGB CONC 35 g/dL (31-37); MEAN CORPUSCULAR VOLUME 91 fL (79-100); MONO # 0.7 x10^3/uL (0.0-1.1); MONO % 8 % (0-9); NEUT # 6.2 x10^3/uL (1.8-7.7); NEUT % 73 % (31-73); PLATELET COUNT 133 x10^3/uL (140-400); RED BLOOD COUNT 5.08 x10^6/uL (4.30-5.70); RED CELL DISTRIBUTION WIDTH 12.8 % (11.5-14.5); WHITE BLOOD COUNT 8.5 x10^3/uL (4.0-11.0)
--- NOTE | 2020-04-13 20:37 | PHYS DOC ---
Past Medical History Past Medical History: Anxiety, Seizure, Schizophrenia (TENA KABA MD) Past Surgical History: No Surgical History Additional Past Surgical Histo: unknown (TENA KABA MD) Smoking Status: Never Smoker Alcohol Use: None Drug Use: None (TENA KABA MD) General Adult EDM: Chief Complaint: SEIZURE HPI: HPI: Patient is a 75 year old male who [facility] from the [facility] facility with a chief complaint of seizure. Patient was found down with a blood around his right eye following an apparent seizure. Patient is postictal and does not member the events surrounding it. Therefore history, physical review of systems are limited due to altered mental status. (TENA KABA MD) Review of Systems: Review of Systems: Review of systems is unobtainable due to altered mental status (TENA KABA MD) Heart Score: Risk Factors: Risk Factors: DM, Current or recent (<one month) smoker, HTN, HLP, family history of CAD, obesity. Risk Scores: Score 0 - 3: 2.5% MACE over next 6 weeks - Discharge Home Score 4 - 6: 20.3% MACE over next 6 weeks - Admit for Clinical Observation Score 7 - 10: 72.7% MACE over next 6 weeks - Early Invasive Strategies (TENA KABA MD) Current Medications: Current Medications Nicardipine HCl 50 mg/Sodium Chloride 250 ml @ 25 mls/hr CONT PRN IV SEE I/O RECORD; Start 04/13/20 at 22:00 Lorazepam (Ativan Inj) 2 mg 1X ONCE IVP Last administered on 04/13/20at 22:11; Start 04/13/20 at 22:00; Stop 04/13/20 at 22:01; Status DC Ondansetron HCl (Zofran) 4 mg PRN Q8HRS PRN IV NAUSEA/VOMITING; Start 04/13/20 at 22:15; Stop 04/14/20 at 22:14; Status UNV Active Scripts Active Reported Albuterol Sulfate Neb Soln (Albuterol Sulfate) 2.5 Mg/3 Ml Vial.neb 1 Vial NEB PRN Q4HRS Dilantin (Phenytoin Sodium Extended) 100 Mg Capsule 3 Cap PO BID Namenda (Memantine Hcl) 10 Mg Tablet 5 Mg PO DAILY Tylenol (Acetaminophen) 325 Mg Tablet 650 Mg PO PRN Q6HRS PRN Keppra (Levetiracetam) 1,000 Mg Tablet 1 Tab PO BID (TENA KABA MD) Allergies: Allergies: Allergies Coded Allergies Type Severity Reaction Last Updated Verified phenobarbital Allergy Intermediate 07/26/16 Yes (TENA KABA MD) Physical Exam: PE: Constitutional: Well developed, well nourished, anxious, mild distress HENT: Normocephalic, mild bruising in the right periorbital, superior region with a superficial laceration measuring about 2 and half centimeters bilateral external ears normal, no obvious oral lesions nose normal. [] Eyes: PERRLA, EOMI, conjunctiva normal, no discharge. [] Neck: No significant tenderness Cardiovascular:Heart rate regular rhythm, peripheral pulse intact cap refill is brisk Lungs & Thorax: Bilateral breath sounds clear, no respiratory distress Abdomen: soft, no tenderness, no masses, no pulsatile masses. [] Skin: Warm, dry, no erythema, no rash. [] Superficial laceration to the right lateral superior orbital region Back: No tenderness, no CVA tenderness. [] Extremities: No tenderness, no cyanosis, no clubbing, ROM intact, no edema. [] Neurologic: Alert and confused, GCS of 14 (-1 for verbal), normal motor function, normal sensory function, no focal deficits noted. [] Psychologic: Affect normal, judgement normal, mood normal. [] (TENA KABA MD) Current Patient Data: Labs: Laboratory Tests Test 04/13/20 20:17 04/13/20 20:35 White Blood Count 8.5 x10^3/uL Red Blood Count 5.08 x10^6/uL Hemoglobin 16.1 g/dL Hematocrit 46.5 % Mean Corpuscular Volume 91 fL Mean Corpuscular Hemoglobin 32 pg Mean Corpuscular Hemoglobin Concent 35 g/dL Red Cell Distribution Width 12.8 % Platelet Count 133 x10^3/uL Neutrophils (%) (Auto) 73 % Lymphocytes (%) (Auto) 17 % Monocytes (%) (Auto) 8 % Eosinophils (%) (Auto) 1 % Basophils (%) (Auto) 0 % Neutrophils # (Auto) 6.2 x10^3/uL Lymphocytes # (Auto) 1.4 x10^3/uL Monocytes # (Auto) 0.7 x10^3/uL Eosinophils # (Auto) 0.1 x10^3/uL Basophils # (Auto) 0.0 x10^3/uL Prothrombin Time 13.7 SEC Prothromb Time International Ratio 1.1 Activated Partial Thromboplast Time 32 SEC Sodium Level 141 mmol/L Potassium Level 3.9 mmol/L Chloride Level 104 mmol/L Carbon Dioxide Level 28 mmol/L Anion Gap 9 Blood Urea Nitrogen 24 mg/dL Creatinine 1.2 mg/dL Estimated GFR (Cockcroft-Gault) 59.0 BUN/Creatinine Ratio 20 Glucose Level 153 mg/dL Calcium Level 8.7 mg/dL Total Bilirubin 0.3 mg/dL Aspartate Amino Transf (AST/SGOT) 28 U/L Alanine Aminotransferase (ALT/SGPT) 23 U/L Alkaline Phosphatase 90 U/L Total Protein 7.2 g/dL Albumin 3.4 g/dL Albumin/Globulin Ratio 0.9 Valproic Acid (Depakene) Level 51 mcg/mL Valproic Acid Last Dose Date 04/13/20 Valproic Acid Last Dose Time 0900 Urine Collection Type Void Urine Color Yellow Urine Clarity Cloudy Urine pH 7.0 Urine Specific [place] 1.025 Urine Protein 30 mg/dL Urine Glucose (UA) Negative mg/dL Urine Ketones (Stick) Trace mg/dL Urine Blood Negative Urine Nitrite Negative Urine Bilirubin Negative Urine Urobilinogen Dipstick 1.0 mg/dL Urine Leukocyte Esterase Small Urine RBC Occ /HPF Urine WBC Occ /HPF Urine Squamous Epithelial Cells Few /LPF Urine Bacteria Few /HPF Urine Mucus Slight /LPF Current Medications Medications (Trade) Dose Ordered Sig/Linh Route PRN Reason Start Time Stop Time Status Last Admin Dose Admin Nicardipine HCl 50 mg/Sodium Chloride 250 ml @ 25 mls/hr CONT PRN IV SEE I/O RECORD 04/13/20 22:00 Lorazepam (Ativan Inj) 2 mg 1X ONCE IVP 04/13/20 22:00 04/13/20 22:01 DC 04/13/20 22:11 Ondansetron HCl (Zofran) 4 mg PRN Q8HRS PRN IV NAUSEA/VOMITING 04/13/20 22:15 04/14/20 22:14 UNV Vital Signs: Vital Signs Date Time Temp Pulse Resp B/P (MAP) Pulse Ox O2 Delivery O2 Flow Rate FiO2 04/13/20 20:15 98.1 88 16 166/80 (108) 97 Room Air 98.1 (TENA KABA MD) EKG: EKG: [] EKG interpreted by me normal sinus rhythm with rate 88, right bundle branch block, nonspecific ST changes, (TENA KABA MD) Radiology/Procedures: Radiology/Procedures: [][facility] [address] [place] [address] IMAGING REPORT Signed PATIENT: MARISABEL LARA GACCOUNT: [id number] : 1945 LOCATION: ER AGE: 75 SEX: M EXAM STATUS: REG ER ORD. PHYSICIAN: TENA KABA MD REASON: SEIZURE PROCEDURE: CT HEAD WO CONTRAST EXAM: Head CT without contrast. HISTORY: Seizure. TECHNIQUE: Computed tomographic images of the head were obtained without contrast. *One or more of the following individualized dose reduction techniques were utilized for this examination: 1. Automated exposure control. 2. Adjustment of the mA and/or kV according to patient size. 3. Use of iterative reconstruction technique. COMPARISON: MRI dated 08/06/2016. FINDINGS: There is acute intraparenchymal hemorrhage centered within the right temporal lobe measuring 3.6 cm. There is surrounding hypodensity due to edema. There is no mass effect. There are moderate right and small left acute subdural hematomas. These measure 1.4 cm on the right and 0.7 cm on the left. There is a thin subdural hematoma along the posterior falx and tentorium measuring 5 mm. There is suspected subarachnoid hemorrhage within the posterior left temporal lobe distribution. There is asymmetry in left greater than right ventricle or size likely due to slight ventricular effacement. There is no significant midline shift. There is encephalomalacia within the inferior frontal lobes likely due to prior trauma. There is cerebral volume loss. There are subtle areas of hypodensity within the cerebral white matter likely due to chronic small vessel disease. The orbits are unremarkable. There is opacification of the right frontal and anterior ethmoid sinus. There is an air-fluid level within the sphenoid sinus, possibly due to blood products given the presence of a nondisplaced right temporal bone fracture through the greater sphenoid wing. No additional calvarial fracture is seen. IMPRESSION: 1. 3.6 cm acute right temporal lobe intraparenchymal hemorrhage. 2. Moderate right and small left acute subdural hematomas and tiny subdural hematomas along the falx and tentorium. There is no significant midline shift. 3. Small amount of subarachnoid hemorrhage within the posterior left temporal distribution. 4. Nondisplaced right temporal bone fracture extending through the greater sphenoid wing. No convincing epidural hematoma is seen. However, this may be obscured due to the aforementioned subdural hematoma. 5. Encephalomalacia within the inferior frontal lobes likely due to chronic trauma. Findings were discussed with Rozina, the nurse caring for the patient, at 2130 hours on 04/14/2020. Electronically signed by: Alvina Crawford MD (04/13/2020 9:31 PM) [facility] DICTATED and SIGNED BY: ALVINA CRAWFORD MD DATE: 04/13/[id number] [id number] [place] [address] IMAGING REPORT Signed PATIENT: MARISABEL LARA GACCOUNT: [id number] : 1945 LOCATION: ER AGE: 75 SEX: M EXAM STATUS: REG ER ORD. PHYSICIAN: TENA KABA MD REASON: FALL PROCEDURE: PORTABLE CHEST 1V EXAM: Chest, single view. HISTORY: Fall. COMPARISON: 08/05/2016 FINDINGS: A frontal view of the chest is obtained. There is diffuse interstitial prominence likely due to atelectasis. There is no consolidation, pleural effusion or pneumothorax. There is a stable cardiac silhouette. There is stable widening of the right tracheal stripe likely due to tortuous aortic arch great vessels or enlarged thyroid. IMPRESSION: Diffuse interstitial prominence likely due to atelectasis. Electronically signed by: Alvina Crawford MD (04/13/2020 9:55 PM) [facility] DICTATED and SIGNED BY: ALVINA CRAWFORD MD DATE: 04/13/[id number] 0 X-rays reviewed by [facility] [address] [place] [address] IMAGING REPORT Signed PATIENT: MARISABEL LARA GACCOUNT: [id number] : 1945 LOCATION: ER AGE: 75 SEX: M EXAM STATUS: REG ER ORD. PHYSICIAN: TENA KABA MD REASON: FALL PROCEDURE: CT CERVICAL SPINE WO CONTRAST EXAM: Cervical spine CT without contrast. HISTORY: Fall. TECHNIQUE: Computed tomographic images of the cervical spine were obtained without contrast. Multiplanar reformatting was performed. *One or more of the following individualized dose reduction techniques were utilized for this examination: 1. Automated exposure control. 2. Adjustment of the mA and/or kV according to patient size. 3. Use of iterative reconstruction technique. COMPARISON: Head CT obtained on the same date. FINDINGS: There is minimal multilevel listhesis. The vertebral bodies are normal in height. There is multilevel endplate remodeling with disc space narrowing and osteophytic ptosis. There are multiple endplate Schmorl's nodes. There is multilevel facet arthropathy. No cervical spine fracture is seen. Is a combination of degenerative changes results in moderate right and mild left foraminal stenosis at C3-C4, severe right and moderate left foraminal stenosis at C3-4 C5, mild bilateral foraminal stenosis at C5-C6 and moderate right foraminal stenosis at C6-C7. There is partially calcified atherosclerotic plaque within the carotid bifurcations. The lung apices are unremarkable. There is partial visualization of a right temporal bone fracture with fracture line extension to the greater wing of the sphenoid. There is also partial visualization of an acute right temporal intraparenchymal hemorrhage and bilateral subdural, tentorial and falcine subdural hematomas. This is described on the head CT obtained on the same date. There is a small amount of sphenoid sinus hemorrhage. IMPRESSION: 1. No evidence of acute cervical spine trauma. There are multilevel degenerative changes, described above. 2. Right temporal lobe acute intraparenchymal hemorrhage and acute subdural hematomas along the cerebral convexities, falx and tentorium. There is also a right temporal bone fracture. These findings are described on the head CT obtained on the same date. Electronically signed by: Alvina Crawford MD (04/13/2020 10:11 PM) [facility] DICTATED and SIGNED BY: ALVINA CRAWFORD MD (TENA KABA MD) Course & Med Decision Making: Course & Med Decision Making Pertinent Labs and Imaging studies reviewed. (See chart for details) [] 75-year-old male with a history of seizures presents for evaluation following a probable seizure. Patient has a GCS of 14 and has -1 due to verbal response of confusion and trouble following commands. Due to patient's age a CT was done to rule out intracranial hemorrhage. CT showed subdural as well as intraparenchymal and a subarachnoid hemorrhage. Patient is currently protecting his airway but will need intensive monitoring in ICU. I discussed the case with Dr. Golden who suggest keeping the patient n.p.o. and every hour neuro checks. Patient will be placed on Cardene for his high blood pressure admitted up to the ICU. Consult is been placed with neurology as well. Dr. Parker will admit Critical care time was [40] minutes exclusive of procedures. Critical care time was [40] minutes which includes time at bedside, spent in discussion of patient's care with specialist and/or family members, with interpretation of laboratory and/or radiological studies and is exclusive of procedures. Critical condition: Intracranial hemorrhage, subarachnoid hemorrhage Critical interventions: Admission to ICU, Cardene infusion, neurosurgery and neurology consult., Multiple reassessments I have personally interviewed and examined patient. All charts, labs and imaging studies were reviewed. I agreed with the PA/MEDICAL LANGUAGE SPECIALIST's findings, exam and plan of care. I saw the patient primarily and did the majority of the patient care, the PA repaired the laceration on the face (TENA KABA MD) Course & Med Decision Making Laceration repair Location: right corner of eye brow, 1.5 inches in length Local anesthesia: None Interrupted sutures/Internal sutures: Tyaskin Thomas and steri strips Nerve/ligament/muscle damage: None Cleaning and irrigation: Chlorhexidine The appropriate timeout was taken. The area was prepped and draped in the usual sterile fashion. The wound was copiously irrigated with normal saline and chlorhexidine. Patient tolerated well without complication. Dressing was applied to the area follow-up education is given to observe for signs and sympt oms of infection, bleeding and to follow-up promptly if these occur. Patient can return in 48 hours for a wound recheck. Sutures to be removed in 7 to 10 days. (NABOR CHUNG APRN) Dragon Disclaimer: Dragon Disclaimer: This electronic medical record was generated, in whole or in part, using a voice recognition dictation system. (TENA KABA MD) Departure Departure Impression: Primary Impression: Traumatic subdural hematoma Additional Impressions: Traumatic subarachnoid hemorrhage Intracranial hemorrhage Seizure Facial laceration Disposition: ADMITTED INPT THIS HOSP Admitting Physician: Nahum Parker (TENA KABA MD) Condition: CRITICAL Referrals: CARMEN VIVAS MD (PCP) TENA KABA MD Apr 13, 2020 20:37 NABOR CHUNG APRN Apr 14, 2020 00:04
[2020-04-13 20:40] LABS: CALCIUM 8.7 mg/dL (8.5-10.1); CREATININE 1.2 mg/dL (0.7-1.3); POTASSIUM 3.9 mmol/L (3.5-5.1)
[2020-04-13 20:40] LABS: BILIRUBIN,URINE NEGATIVE (NEG); CLARITY,URINE CLOUDY; COLOR,URINE YELLOW; NITRITE,URINE NEGATIVE (NEG); PROTEIN,URINE 30 mg/dL (NEG-TRACE)
[2020-04-13 20:47] LABS: ALBUMIN 3.4 g/dL (3.4-5.0); ALBUMIN/GLOBULIN RATIO 0.9 (1.0-1.7); TOTAL BILIRUBIN 0.3 mg/dL (0.2-1.0); TOTAL PROTEIN 7.2 g/dL (6.4-8.2)
[2020-04-13 20:49] LABS: BACTERIA,URINE FEW /HPF (0-FEW); RBC,URINE OCC /HPF (0-2)
[2020-04-13 20:50] LABS: WBC,URINE OCC /HPF (0-4)
--- NOTE | 2020-04-13 21:34 | RAD ---
EXAM: Head CT without contrast. HISTORY: Seizure. TECHNIQUE: Computed tomographic images of the head were obtained without contrast. *One or more of the following individualized dose reduction techniques were utilized for this examination: 1. Automated exposure control. 2. Adjustment of the mA and/or kV according to patient size. 3. Use of iterative reconstruction technique. COMPARISON: MRI dated 08/06/2016. FINDINGS: There is acute intraparenchymal hemorrhage centered within the right temporal lobe measuring 3.6 cm. There is surrounding hypodensity due to edema. There is no mass effect. There are moderate right and small left acute subdural hematomas. These measure 1.4 cm on the right and 0.7 cm on the left. There is a thin subdural hematoma along the posterior falx and tentorium measuring 5 mm. There is suspected subarachnoid hemorrhage within the posterior left temporal lobe distribution. There is asymmetry in left greater than right ventricle or size likely due to slight ventricular effacement. There is no significant midline shift. There is encephalomalacia within the inferior frontal lobes likely due to prior trauma. There is cerebral volume loss. There are subtle areas of hypodensity within the cerebral white matter likely due to chronic small vessel disease. The orbits are unremarkable. There is opacification of the right frontal and anterior ethmoid sinus. There is an air-fluid level within the sphenoid sinus, possibly due to blood products given the presence of a nondisplaced right temporal bone fracture through the greater sphenoid wing. No additional calvarial fracture is seen. IMPRESSION: 1. 3.6 cm acute right temporal lobe intraparenchymal hemorrhage. 2. Moderate right and small left acute subdural hematomas and tiny subdural hematomas along the falx and tentorium. There is no significant midline shift. 3. Small amount of subarachnoid hemorrhage within the posterior left temporal distribution. 4. Nondisplaced right temporal bone fracture extending through the greater sphenoid wing. No convincing epidural hematoma is seen. However, this may be obscured due to the aforementioned subdural hematoma. 5. Encephalomalacia within the inferior frontal lobes likely due to chronic trauma. Findings were discussed with Rozina, the nurse caring for the patient, at 2130 hours on 04/14/2020. Electronically signed by: Alvina Leblanc MD (04/13/2020 9:31 PM) [facility]
--- NOTE | 2020-04-13 21:58 | RAD ---
EXAM: Chest, single view. HISTORY: Fall. COMPARISON: 08/05/2016 FINDINGS: A frontal view of the chest is obtained. There is diffuse interstitial prominence likely due to atelectasis. There is no consolidation, pleural effusion or pneumothorax. There is a stable cardiac silhouette. There is stable widening of the right tracheal stripe likely due to tortuous aortic arch great vessels or enlarged thyroid. IMPRESSION: Diffuse interstitial prominence likely due to atelectasis. Electronically signed by: Alvina Leblanc MD (04/13/2020 9:55 PM) [facility]
[2020-04-13 22:02] LABS: PROTHROMBIN TIME PATIENT 13.7 SEC (11.7-14.0)
[2020-04-13 22:07] LABS: VAL ACID 51 mcg/mL (50-100)
[2020-04-13] MEDS ORDERED: ONDANSETRON PF 4 MG/2 ML VIAL. IV PRN (22:15)
--- NOTE | 2020-04-13 22:15 | RAD ---
EXAM: Cervical spine CT without contrast. HISTORY: Fall. TECHNIQUE: Computed tomographic images of the cervical spine were obtained without contrast. Multiplanar reformatting was performed. *One or more of the following individualized dose reduction techniques were utilized for this examination: 1. Automated exposure control. 2. Adjustment of the mA and/or kV according to patient size. 3. Use of iterative reconstruction technique. COMPARISON: Head CT obtained on the same date. FINDINGS: There is minimal multilevel listhesis. The vertebral bodies are normal in height. There is multilevel endplate remodeling with disc space narrowing and osteophytic ptosis. There are multiple endplate Schmorl's nodes. There is multilevel facet arthropathy. No cervical spine fracture is seen. Is a combination of degenerative changes results in moderate right and mild left foraminal stenosis at C3-C4, severe right and moderate left foraminal stenosis at C3-4 C5, mild bilateral foraminal stenosis at C5-C6 and moderate right foraminal stenosis at C6-C7. There is partially calcified atherosclerotic plaque within the carotid bifurcations. The lung apices are unremarkable. There is partial visualization of a right temporal bone fracture with fracture line extension to the greater wing of the sphenoid. There is also partial visualization of an acute right temporal intraparenchymal hemorrhage and bilateral subdural, tentorial and falcine subdural hematomas. This is described on the head CT obtained on the same date. There is a small amount of sphenoid sinus hemorrhage. IMPRESSION: 1. No evidence of acute cervical spine trauma. There are multilevel degenerative changes, described above. 2. Right temporal lobe acute intraparenchymal hemorrhage and acute subdural hematomas along the cerebral convexities, falx and tentorium. There is also a right temporal bone fracture. These findings are described on the head CT obtained on the same date. Electronically signed by: Alvina Leblanc MD (04/13/2020 10:11 PM) [facility]
[2020-04-13 22:47] LABS: PHENY < 0.5 mcg/mL (10.0-20.0)
[2020-04-14] VITALS (27 sets, daily range): BP systolic 84–192; BP diastolic 44–98
[2020-04-14] MEDS ORDERED: LEVE500T6 PO (04:20)
[2020-04-14] MEDS ORDERED: DOCU-109 PO (04:20)
[2020-04-14] MEDS ORDERED: VALP250S3 PO (04:20)
[2020-04-14] MEDS ORDERED: MULT-766 PO (04:20)
[2020-04-14] MEDS ORDERED: CHOL500021 PO (04:20)
[2020-04-14] MEDS ORDERED: ETHO250C6 PO (04:20)
[2020-04-14] MEDS ORDERED: GUAI600T6 PO (04:20)
--- NOTE | 2020-04-14 04:21 | NUR ---
Patient admitted to room 271 via gurney accompanied by ED staff x1. Patient attached to ICU monitors. Patient tries to sit up but is easily redirected. Patient is SR on monitor, not interactive or speaking at this time, pupils PERRL and 5 mm, RA, lungs CTA, patent IV present with Cardene running at 5 mg, S1S2 heart tones heard, patient able to turn self. Patient does not seem to be in pain at this time. Patient urinating frequently--16 F flores placed to protect skin. Attempted to orient patient to unit routines, call light, bed controls, tv controls, activity (BR), and diet (NPO). VSS at this time, will continue to monitor and do hourly neuro checks. See admission assessment, admission vital signs, and other admission documentation for further information.
--- NOTE | 2020-04-14 05:11 | NUR ---
Bernardo not reassessed by ED RN, documented as "not done" by this RN.
[2020-04-14] MEDS: IV NORMAL SALINE 1000ML BAG 1,000 ML IV SCH ×2 (08:15→16:43)
--- NOTE | 2020-04-14 08:17 | PDOC ---
Provider Note Date of Service: DATE: 04/14/20 TIME: 08:16 Provider Note Pt from [facility], not our patient. Transfer to Hospitalist service. Spoke with Dr Osborn. Pt had developed chyne corral breathing ,Intubated for airway control ,Pulmanary consulted. H/O seizures ,had a fall skull fracture and intracranial bleed. Neuro surgery and neurology consulted from ER Justifications for Admission Other Justification CARMEN VIVAS MD Apr 14, 2020 08:17
--- NOTE | 2020-04-14 08:30 | NUR ---
Patient suddenly in respiratory distress, and unresponsive. He was using accessory muscles to breath and making gurgling sounds, RR was in the 40's-50's, however O2 sat was >90. Coffee ground colored emesis with deep oral suction. Resp code was then called, and patient was intubated at 0853. Will monitor
[2020-04-14] MEDS ORDERED: POLYVINYL ALCOHOL 1.4% OPHTH SOLUTION 15ML BOTTLE. OU PRN (09:00)
[2020-04-14] MEDS ORDERED: MIDAZOLAM 100mg/100ml NS BAG 100 ML IV PRN (09:00)
[2020-04-14] MEDS ORDERED: PROPOFOL 100 ML IV PRN (09:00)
--- NOTE | 2020-04-14 09:17 | PDOC ---
Date of Service: DATE: 04/14/20 TIME: 09:16 Progress Note: Intubation Performed by: Narayan Vega MD Consent: Verbal consent not obtained. The procedure was performed in an emergent situation. Required items: required blood products, implants, devices, and special equipment available Patient identity confirmed: arm band Time out: Immediately prior to procedure a "time out" was called to verify the correct patient, procedure, equipment, technical customer support specialist and site/side marked as required. Indications: respiratory failure and airway protection Intubation method: direct Patient status: paralyzed (RSI) Preoxygenation: [id number] Sedatives: None Paralytic: succinylcoline Laryngoscope size: Mac 4 Tube size: 7.5 mm Tube type: cuffed Number of attempts: 1 Cords visualized: yes Post-procedure assessment: chest rise, BS = bilaterally none over epigastrum, +CO2 detector Breath sounds: equal and absent over the epigastrium Cuff inflated: yes Tube secured with: adhesive tape Chest x-ray interpreted by me. Chest x-ray findings: endotracheal tube in appropriate position Patient tolerance: Patient tolerated the procedure well with no immediate complications. Patient's airway was coated and coffee-ground material consistent with a GI bleed. There does appear to be aspiration into the vocal cords upon visualization. This was passed on to the rod pointer Dr. Leon. We will defer all further care to the inpatient team. Justifications for Admission Other Justification NARAYAN VEGA MD Apr 14, 2020 09:17
[2020-04-14 09:37] LABS: BASE EXCESS COOX -3 mmol/L (-3-3); HCO3 COOX 19 mmol/L (21-28); METHEMOGLOBIN 0.7 % (0.0-1.9); OXYHEMOGLOBIN 98.3 %; PCO2 COOX 28 mmHg (35-46); PO2 COOX 403 mmHg (65-108); SAT O2 COOX 99 % (92-99)
[2020-04-14] MEDS ORDERED: MIDAZOLAM HCL/PF 5 MG/5 ML VIAL. IV ONE (09:45)
[2020-04-14] MEDS ORDERED: SUCCINYLCHOLINE 200 MG/10 ML VIAL. IV ONE (09:45)
--- NOTE | 2020-04-14 10:25 | RAD ---
EXAM: CHEST ONE VIEW. HISTORY: Line placement. COMPARISON: 04/13/2020. FINDINGS: A frontal view of the chest is obtained. An endotracheal tube has its tip 1 cm above the jcarlos. Recommend retraction by 2 cm. There are mild patchy airspace infiltrates. Aeration has improved. There is no pneumothorax or pleural effusion. The heart is not enlarged. There are atherosclerotic calcifications of the aorta. IMPRESSION: 1. Recommend retraction of the endotracheal tube by 2 cm. 2. Mild patchy airspace infiltrates are better aerated. Electronically signed by: Gladys Ulloa MD (04/14/2020 10:22 AM) [facility]
--- NOTE | 2020-04-14 10:27 | NUR ---
SS following for discharge planning. SS reviewed pt chart and discussed with pt RN. Pt is from home and was intubated this morning. Pt is on the vent at 50%. COVID19 negative. Pt has cranial and GI hemorrhage. SS will continue to follow for discharge planning.
[2020-04-14] MEDS ORDERED: PROCHLORPERAZINE 10 MG/2 ML VIAL. IV PRN (10:30)
[2020-04-14] MEDS ORDERED: LIDOCAINE 1% PF 2 ML VIAL. ID PRN (10:30)
[2020-04-14] MEDS ORDERED: MORPHINE SULFATE 2 MG/ML VIAL. IV PRN (10:30)
[2020-04-14] MEDS ORDERED: fentaNYL PF VIAL 100 MCG/2 ML VIAL IV PRN ×2 (10:30)
[2020-04-14] MEDS ORDERED: IV RINGERS,LACTATED 1000ML 1,000 ML IV SCH (10:30)
[2020-04-14] MEDS ORDERED: HYDROmorphone 2 MG/ML VIAL IV PRN (10:30)
[2020-04-14] MEDS ORDERED: ONDANSETRON PF 4 MG/2 ML VIAL. IV PRN (10:30)
--- NOTE | 2020-04-14 10:33 | RAD ---
EXAM: CT HEAD WITHOUT CONTRAST. HISTORY: Intracranial hemorrhage. TECHNIQUE: Computed tomography of the head was performed without intravenous contrast. One or more of the following individualized dose reduction techniques were utilized for this examination: 1. Automated exposure control. 2. Adjustment of the mA and/or kV according to patient size. 3. Use of iterative reconstruction technique. COMPARISON: 04/13/2020. FINDINGS: The right temporal intraparenchymal hematoma has increased in size to 6.8 x 4.5 cm as compared with 3.4 cm previously. There is mild surrounding vasogenic edema. Multifocal intraparenchymal hematomas have developed throughout the left temporal lobe in a region spanning 6.8 x 2.8 cm. There is mild surrounding vasogenic edema. There is a small amount of overlying sulcal subarachnoid hemorrhage. A small right temporal epidural hematoma measures 19 x 8 mm. A right hemispheric subdural hematoma measures up to 8 mm in thickness in the right frontal territory. A small left subdural hematoma measures 2 mm in thickness. There is a small amount of intraventricular hemorrhage on the left. There is extensive associated mass effect. Leftward midline shift measures 8 mm. Uncal herniation is suspected on the right. Bilateral inferior frontal encephalomalacia is consistent with remote trauma. A nondisplaced fracture is again noted along the greater sphenoid wing. There is hemorrhage within the sphenoid sinus. A fracture of the right lamina papyracea may be chronic. The right aspect of the frontal sinus is opacified. There is lesser opacification of the right ethmoid air cells. There is soft tissue swelling along the right eyebrow. There is no clear intraorbital injury. There is a small amount of fluid in the right mastoid air cells. There are atherosclerotic calcifications of the internal carotid arteries. IMPRESSION: 1. Significant progression of right temporal intraparenchymal hematomas. 8 mm leftward midline shift with evidence of right uncal herniation. 2. Small right temporal epidural hematoma measuring 19 x 8 mm. 3. The right hemispheric subdural hematoma appears smaller measuring 8 mm in thickness. Decreased, small left subdural hematoma 4. Small left sulcal subarachnoid hemorrhage. Trace intraventricular hematoma. 5. Nondisplaced right temporal bone fracture. Electronically signed by: Gladys Ulloa MD (04/14/2020 10:30 AM) [facility]
--- NOTE | 2020-04-14 10:47 | PDOC ---
PULMONARY PROGRESS NOTES DATE: 04/14/20 TIME: 10:47 Vitals Vital Signs Date Time Temp Pulse Resp B/P (MAP) Pulse Ox O2 Delivery O2 Flow Rate FiO2 04/14/20 09:38 Ventilator 04/14/20 09:02 99 04/14/20 06:00 129 30 148/73 (98) 04/14/20 03:45 98.8 98.8 Lungs: Clear, Wheezing Labs Laboratory Tests Test 04/13/20 20:17 04/13/20 20:35 04/13/20 22:15 04/14/20 09:36 White Blood Count 8.5 x10^3/uL (4.0-11.0) Red Blood Count 5.08 x10^6/uL (4.30-5.70) Hemoglobin 16.1 g/dL (13.0-17.5) Hematocrit 46.5 % (39.0-53.0) Mean Corpuscular Volume 91 fL (79-100) Mean Corpuscular Hemoglobin 32 pg (25-35) Mean Corpuscular Hemoglobin Concent 35 g/dL (31-37) Red Cell Distribution Width 12.8 % (11.5-14.5) Platelet Count 133 x10^3/uL (140-400) Neutrophils (%) (Auto) 73 % (31-73) Lymphocytes (%) (Auto) 17 % (24-48) Monocytes (%) (Auto) 8 % (0-9) Eosinophils (%) (Auto) 1 % (0-3) Basophils (%) (Auto) 0 % (0-3) Neutrophils # (Auto) 6.2 x10^3/uL (1.8-7.7) Lymphocytes # (Auto) 1.4 x10^3/uL (1.0-4.8) Monocytes # (Auto) 0.7 x10^3/uL (0.0-1.1) Eosinophils # (Auto) 0.1 x10^3/uL (0.0-0.7) Basophils # (Auto) 0.0 x10^3/uL (0.0-0.2) Prothrombin Time 13.7 SEC (11.7-14.0) Prothromb Time International Ratio 1.1 (0.8-1.1) Activated Partial Thromboplast Time 32 SEC (24-38) Sodium Level 141 mmol/L (136-145) Potassium Level 3.9 mmol/L (3.5-5.1) Chloride Level 104 mmol/L (98-107) Carbon Dioxide Level 28 mmol/L (21-32) Anion Gap 9 (6-14) Blood Urea Nitrogen 24 mg/dL (8-26) Creatinine 1.2 mg/dL (0.7-1.3) Estimated GFR (Cockcroft-Gault) 59.0 BUN/Creatinine Ratio 20 (6-20) Glucose Level 153 mg/dL (70-99) Calcium Level 8.7 mg/dL (8.5-10.1) Total Bilirubin 0.3 mg/dL (0.2-1.0) Aspartate Amino Transf (AST/SGOT) 28 U/L (15-37) Alanine Aminotransferase (ALT/SGPT) 23 U/L (16-63) Alkaline Phosphatase 90 U/L (46-116) Total Protein 7.2 g/dL (6.4-8.2) Albumin 3.4 g/dL (3.4-5.0) Albumin/Globulin Ratio 0.9 (1.0-1.7) Phenytoin (Dilantin) Level < 0.5 mcg/mL (10.0-20.0) Phenytoin Last Dose Date Phenytoin Last Dose Time Valproic Acid (Depakene) Level 51 mcg/mL (50-100) Valproic Acid Last Dose Date 04/13/20 Valproic Acid Last Dose Time 0900 Urine Collection Type Void Urine Color Yellow Urine Clarity Cloudy Urine pH 7.0 (<5.0-8.0) Urine Specific [place] 1.025 (1.000-1.030) Urine Protein 30 mg/dL (NEG-TRACE) Urine Glucose (UA) Negative mg/dL (NEG) Urine Ketones (Stick) Trace mg/dL (NEG) Urine Blood Negative (NEG) Urine Nitrite Negative (NEG) Urine Bilirubin Negative (NEG) Urine Urobilinogen Dipstick 1.0 mg/dL (0.2 mg/dL) Urine Leukocyte Esterase Small (NEG) Urine RBC Occ /HPF (0-2) Urine WBC Occ /HPF (0-4) Urine Squamous Epithelial Cells Few /LPF Urine Bacteria Few /HPF (0-FEW) Urine Mucus Slight /LPF SARS-CoV-2 Antigen (Rapid) Negative (NEGATIVE) O2 Saturation 99 % (92-99) Arterial Blood pH 7.45 (7.35-7.45) Arterial Blood pCO2 at Patient Temp 28 mmHg (35-46) Arterial Blood pO2 at Patient Temp 403 mmHg (65-108) Arterial Blood HCO3 19 mmol/L (21-28) Arterial Blood Base Excess -3 mmol/L (-3-3) Oxyhemoglobin 98.3 % Methemoglobin 0.7 % (0.0-1.9) Carbon Monoxide, Quantitative 0.3 % (0.0-1.9) FiO2 100 Laboratory Tests Test 04/13/20 20:17 04/13/20 20:35 04/13/20 22:15 04/14/20 09:36 White Blood Count 8.5 x10^3/uL (4.0-11.0) Red Blood Count 5.08 x10^6/uL (4.30-5.70) Hemoglobin 16.1 g/dL (13.0-17.5) Hematocrit 46.5 % (39.0-53.0) Mean Corpuscular Volume 91 fL (79-100) Mean Corpuscular Hemoglobin 32 pg (25-35) Mean Corpuscular Hemoglobin Concent 35 g/dL (31-37) Red Cell Distribution Width 12.8 % (11.5-14.5) Platelet Count 133 x10^3/uL (140-400) Neutrophils (%) (Auto) 73 % (31-73) Lymphocytes (%) (Auto) 17 % (24-48) Monocytes (%) (Auto) 8 % (0-9) Eosinophils (%) (Auto) 1 % (0-3) Basophils (%) (Auto) 0 % (0-3) Neutrophils # (Auto) 6.2 x10^3/uL (1.8-7.7) Lymphocytes # (Auto) 1.4 x10^3/uL (1.0-4.8) Monocytes # (Auto) 0.7 x10^3/uL (0.0-1.1) Eosinophils # (Auto) 0.1 x10^3/uL (0.0-0.7) Basophils # (Auto) 0.0 x10^3/uL (0.0-0.2) Prothrombin Time 13.7 SEC (11.7-14.0) Prothromb Time International Ratio 1.1 (0.8-1.1) Activated Partial Thromboplast Time 32 SEC (24-38) Sodium Level 141 mmol/L (136-145) Potassium Level 3.9 mmol/L (3.5-5.1) Chloride Level 104 mmol/L (98-107) Carbon Dioxide Level 28 mmol/L (21-32) Anion Gap 9 (6-14) Blood Urea Nitrogen 24 mg/dL (8-26) Creatinine 1.2 mg/dL (0.7-1.3) Estimated GFR (Cockcroft-Gault) 59.0 BUN/Creatinine Ratio 20 (6-20) Glucose Level 153 mg/dL (70-99) Calcium Level 8.7 mg/dL (8.5-10.1) Total Bilirubin 0.3 mg/dL (0.2-1.0) Aspartate Amino Transf (AST/SGOT) 28 U/L (15-37) Alanine Aminotransferase (ALT/SGPT) 23 U/L (16-63) Alkaline Phosphatase 90 U/L (46-116) Total Protein 7.2 g/dL (6.4-8.2) Albumin 3.4 g/dL (3.4-5.0) Albumin/Globulin Ratio 0.9 (1.0-1.7) Phenytoin (Dilantin) Level < 0.5 mcg/mL (10.0-20.0) Phenytoin Last Dose Date Phenytoin Last Dose Time Valproic Acid (Depakene) Level 51 mcg/mL (50-100) Valproic Acid Last Dose Date 04/13/20 Valproic Acid Last Dose Time 0900 Urine Collection Type Void Urine Color Yellow Urine Clarity Cloudy Urine pH 7.0 (<5.0-8.0) Urine Specific [place] 1.025 (1.000-1.030) Urine Protein 30 mg/dL (NEG-TRACE) Urine Glucose (UA) Negative mg/dL (NEG) Urine Ketones (Stick) Trace mg/dL (NEG) Urine Blood Negative (NEG) Urine Nitrite Negative (NEG) Urine Bilirubin Negative (NEG) Urine Urobilinogen Dipstick 1.0 mg/dL (0.2 mg/dL) Urine Leukocyte Esterase Small (NEG) Urine RBC Occ /HPF (0-2) Urine WBC Occ /HPF (0-4) Urine Squamous Epithelial Cells Few /LPF Urine Bacteria Few /HPF (0-FEW) Urine Mucus Slight /LPF SARS-CoV-2 Antigen (Rapid) Negative (NEGATIVE) O2 Saturation 99 % (92-99) Arterial Blood pH 7.45 (7.35-7.45) Arterial Blood pCO2 at Patient Temp 28 mmHg (35-46) Arterial Blood pO2 at Patient Temp 403 mmHg (65-108) Arterial Blood HCO3 19 mmol/L (21-28) Arterial Blood Base Excess -3 mmol/L (-3-3) Oxyhemoglobin 98.3 % Methemoglobin 0.7 % (0.0-1.9) Carbon Monoxide, Quantitative 0.3 % (0.0-1.9) FiO2 100 Medications Active Scripts Medications Dose Route/Sig Max Daily Dose Days Date Category D3-50 (Cholecalciferol (Vitamin D3)) 50,000 Unit Capsule 1,500 Unit PO DAILY 04/14/20 Reported Valproic Acid (Valproate Sodium) 250 Mg/5 Ml Solution 250 Mg PO TID 04/14/20 Reported Multivitamin 1 Each Tablet 1 Each PO DAILY 04/14/20 Reported Levetiracetam 500 Mg Tablet 1 Tab PO BID 04/14/20 Reported Mucus ER (Guaifenesin) 600 Mg Tab.er.12h 600 Mg PO PRN Q12HR PRN 04/14/20 Reported Ethosuximide 250 Mg Capsule 1 Cap PO BID 30 04/14/20 Reported Colace (Docusate Sodium) 100 Mg Capsule 1 Cap PO BID 30 04/14/20 Reported Tylenol (Acetaminophen) 325 Mg Tablet 650 Mg PO PRN Q6HRS PRN 07/26/16 Reported Keppra (Levetiracetam) 1,000 Mg Tablet 1 Tab PO BID 07/26/16 Reported Impression . Acute respiratory failure secondary to large CVA See orders Full note dictated LAURY FOWLER MD Apr 14, 2020 10:47
--- NOTE | 2020-04-14 10:53 | CONS ---
DATE OF CONSULTATION: 04/14/2020 ATTENDING PHYSICIAN: Rahul Spencer MD REASON FOR CONSULTATION: The patient is seen in pulmonary consultation at the request of Dr. Spencer for acute respiratory distress secondary to massive CVA. HISTORY OF PRESENT ILLNESS: The patient is a 75-year-old arrived from [facility] with chief complaints of seizure. The patient was found down with blood around his right eye. Apparently, he had a seizure and fell. He was postictal at the time of his admission to the Emergency Room. The patient was evaluated. He had a rapid negative SARS-CoV-2 testing. His hemoglobin was normal. His hematocrit was normal. His electrolytes were normal. Coags revealed normal INR. He had a CT head, which revealed a 3.6 acute right temporal lobe intraparenchymal hemorrhage, moderate right and small left acute subdural hematoma, small amount of subarachnoid hemorrhage, nondisplaced right temporal bone fracture and encephalomalacia. Earlier this morning, the patient was doing well, but then subsequently had an acute respiratory arrest. The patient was emergently intubated by the Emergency Department physician. An arterial blood gas was obtained post-intubation revealing a pH of 7.45, PaCO2 of 28, pO2 of 108. I was called to manage his vent. His chest x-ray was obtained, which revealed diffuse bilateral interstitial infiltrates. PAST MEDICAL HISTORY: By reviewing the current documentation is remarkable for seizures, schizophrenia, anxiety. ALLERGIES: PHENOBARBITAL. REVIEW OF SYSTEMS: Unobtainable secondary to the patient's condition. SOCIAL HISTORY: The patient resides at a retirement, unknown if he smokes. PHYSICAL EXAMINATION: VITAL SIGNS: Stable. O2 saturation was greater than 92%. He is currently on mechanical ventilation. Otherwise, blood pressure was noted. Stable, at times systolic was elevated. HEENT: Eyes: The sclerae were nonicteric. CHEST: Full expansion. LUNGS: Bilateral rhonchi. CARDIOVASCULAR: Regular rate and rhythm with S1, S2, no S3. ABDOMEN: Soft, nondistended. EXTREMITIES: No clubbing, cyanosis. Minimal edema. LABORATORY DATA: As indicated above. White count was normal. UA was noted. Chest x-ray as indicated above. CT head as indicated above. IMPRESSION: 1. Acute respiratory failure secondary to cerebrovascular accident. 2. Seizures secondary to cerebrovascular accident. 3. A 3.6 cm acute right temporal lobe intraparenchymal hemorrhage. 4. Moderate right and small left acute subdural hematoma. 5. Small amount of subarachnoid hemorrhage. 6. Nondisplaced right temporal bone fracture. 7. Encephalomalacia. 8. Encephalopathy secondary to above. 9. Abnormal chest x-ray. PLAN: 1. Continue current support with mechanical ventilation. 2. Neurosurgery has been consulted. 3. Repeat CT head. 4. Continue anti-seizure medication. 5. Control blood pressure. 6. P.r.n. sedation. I do appreciate the privilege in sharing in the patient's care. Total cumulative critical care time of 50 minutes from 9:40 a.m. to 10:30 a.m. LAURY FOWLER MD DR: AMALIA/matilda JOB#: [id number] / [id number]
[2020-04-14] MEDS ORDERED: GELATIN SPONGE SIZE 100. ONE ×2 (10:54→13:30)
[2020-04-14] MEDS ORDERED: SURGICEL HEMOSTAT 4X8 EACH. ONE (10:54)
[2020-04-14] MEDS ORDERED: THROMBIN TOPICAL 20,000 UNIT SPRAY.SYRN KIT TP ONE (10:55)
[2020-04-14] MEDS ORDERED: LIDOCAINE 1%/EPI 1:100,000 20 ML VIAL. ONE (10:55)
[2020-04-14] MEDS ORDERED: BACITRACIN 50,000 UNIT in IV NORMAL SALINE 1000ML BAG 1,000 ML IRR ONE (11:00)
--- NOTE | 2020-04-14 11:05 | HP ---
ADMIT DATE: 04/13/2020 CHIEF COMPLAINT: Fall with mental status change, seizure. HISTORY OF PRESENT ILLNESS: The patient is a pleasant 75-year-old male who apparently had a seizure at a residential facility. He was found down, had blood around his right eye. He is postictal, so they went ahead and called EMS. He was brought to the ER. We scanned his brain. He has massive intracranial hemorrhage. The patient has now been admitted to the ICU. He got intubated this morning, we had a brief code blue. He is now getting ready to go to surgery. PAST MEDICAL HISTORY: From the record, it appears he has seizures, anxiety, schizophrenia. ALLERGIES: PHENOBARBITAL. FAMILY HISTORY: Diabetes. SOCIAL HISTORY: He does not drink, smoke or take drugs. I believe he lives at a facility. MEDICATIONS: Reviewed, please refer to the MRAD. REVIEW OF SYSTEMS: Unable to obtain. He is sedated and on the vent. PHYSICAL EXAMINATION: VITALS: Within normal limits and are stable. GENERAL: He is sedated on the vent. HEENT: Normal cephalic atraumatic, external auditory canals are patent EYES: Extraocular muscles are intact, pupils are equally round and reactive to light and accommodation MUSCULOSKELETAL: Well developed, well nourished, good range of motion ENDOCRINE: No thyromegaly was palpated LYMPHATICS: No cervical chain or axillary nodes were noted HEMATOPOIETIC: No bruising NECK: Supple, no JVD, no thyromegaly was noted. LUNGS: Clear to auscultation. HEART: RRR, S1, S2 present. Peripheral pulses intact, no obvious murmurs were noted. ABDOMEN: Soft, nontender. Positive bowel sounds no organomegaly, normal bowel sounds. EXTREMITIES: Without any cyanosis, clubbing, or edema. Pedal pulses intact, Homans sign is negative. NEUROLOGIC: He is sedated on the ventilator. His pupils are moderately large, about 3.5 mm bilaterally and they are nonreactive. His Babinski testing was indeterminate. He does not seem to be responding to pain stimuli. PSYCHIATRIC: He is sedated. SKIN: No ulcerations or rashes, good skin turgor, no jaundice. VASCULAR: Good capillary refill, neurovascular bundle appears to be intact. LABORATORY DATA: Hematology is normal. Hemoglobin 16.1. Electrolytes are normal. INR is 1.1. ABG shows a pH of 7.45, pCO2 of 28, pO2 of 403, bicarbonate 19 with 99% sat that was on 100% FiO2. Urinalysis shows small amount of leukocyte esterase, but otherwise negative. Phenytoin level was less than 5. Valproic acid level was 51. SARS testing was negative. CT of the head shows intracranial hemorrhage. I reviewed the films myself and indeed he does have a lot of blood on the left and some on the right as well. It shows RUG TOUCH UP PAINTER hemorrhage and skull fracture ASSESSMENT AND PLAN: Seizure with fall with skull fracture and intracranial hemorrhage. The patient has been admitted to the ICU. He was intubated this morning emergently. We consulted Neurosurgery. He is going for a craniotomy here in just a few minutes. For now, we are doing ICU monitoring. Continue mechanical ventilation. Consult Pulmonary for vent management, home meds if possible. DVT prophylaxis with SCDs. Full code. We are sedating him with fentanyl and Versed, p.r.n. hydromorphone, IV fluids. Trend labs. Prognosis is extremely guarded. I am concerned he may not survive. CRITICAL CARE TIME: 31 minutes. DANNIE KELSEY DO DR: PIPPA/matilda JOB#: [id number] / [id number]
[2020-04-14] MEDS ORDERED: MANNITOL 25% 12.5 G/50 ML VIAL. ONE (11:27)
[2020-04-14 11:30] LABS: BASO # 0.1 x10^3/uL (0.0-0.2); BASO % 0 % (0-3); EOS % 0 % (0-3); HEMATOCRIT 42.3 % (39.0-53.0); HEMOGLOBIN 14.6 g/dL (13.0-17.5); LYMPH # 0.6 x10^3/uL (1.0-4.8); LYMPH % 3 % (24-48); MEAN CORPUSCULAR HEMOGLOBIN 32 pg (25-35); MEAN CORPUSCULAR HGB CONC 35 g/dL (31-37); MEAN CORPUSCULAR VOLUME 91 fL (79-100); MONO # 1.5 x10^3/uL (0.0-1.1); MONO % 7 % (0-9); NEUT # 20.4 x10^3/uL (1.8-7.7); NEUT % 90 % (31-73); PLATELET COUNT 141 x10^3/uL (140-400); RED BLOOD COUNT 4.64 x10^6/uL (4.30-5.70); RED CELL DISTRIBUTION WIDTH 12.9 % (11.5-14.5); WHITE BLOOD COUNT 22.5 x10^3/uL (4.0-11.0)
[2020-04-14 11:47] LABS: CALCIUM 8.5 mg/dL (8.5-10.1); GFR 72.8; POTASSIUM 3.9 mmol/L (3.5-5.1)
--- NOTE | 2020-04-14 11:47 | PDOC ---
Provider Note Date of Service: DATE: 04/14/20 TIME: 11:42 Provider Note patient seen and examined at 1030 consulted for ICH s/p fall nurse reports mental status change this AM- intubated and CT head obtained Exam- moves all extremities to pain, pupils [address] right sided SDH has improved but right temporal hemorrhage has enlarged significantly, now with shift worsening scan with right IPH plan for emergent craniotomy, consent obtained Justifications for Admission Other Justification MYRIAM SAHNI MD Apr 14, 2020 11:47
[2020-04-14 11:53] LABS: ALBUMIN 3.1 g/dL (3.4-5.0); ALBUMIN/GLOBULIN RATIO 0.9 (1.0-1.7); MAGNESIUM 1.7 mg/dL (1.8-2.4); TOTAL BILIRUBIN 0.5 mg/dL (0.2-1.0); TOTAL PROTEIN 6.5 g/dL (6.4-8.2)
[2020-04-14] MEDS ORDERED: ROCURONIUM 100 MG/10 ML VIAL. ONE (11:53)
[2020-04-14] MEDS ORDERED: ceFAZolin SODIUM IV Push 1 GM VIAL. IVP ONE (12:03)
[2020-04-14 12:40] LABS: % BANDS 4 % (0-9); % LYMPHS 1 % (24-48); % MONOS 7 % (0-10); % SEGS 88 % (35-66)
[2020-04-14 12:41] LABS: PLT ESTIMATE ADEQUATE (ADEQUATE)
[2020-04-14] MEDS ORDERED: SEVOFLURANE > 120 MINUTES. IH ONE (13:57)
[2020-04-14] MEDS ORDERED: fentaNYL PF VIAL 100 MCG/2 ML VIAL IVP PRN (14:30)
[2020-04-14] MEDS ORDERED: 0.9 % SODIUM CHLORIDE 10 ML DISP.SYRIN. IV PRN (14:30)
[2020-04-14] MEDS ORDERED: DEXTROSE 50% 25 GM / 50ML DISP.SYRIN. IV PRN (14:30)
--- NOTE | 2020-04-14 14:39 | PDOC2 ---
NEUROLOGY CONSULT Date of Service DOS: DATE: 04/14/20 TIME: 14:28 Reason for Consult Reason for Consult: Epilepsy, hematoma Referring Physician Referring Physician: Dr. Osbron Source Source: Chart review History of Present Illness History of Present Illness The patient is a 75-year-old right-handed male whom I have followed over 25 years regarding localization-onset epilepsy and schizophrenia. I last saw him over 2 years ago. When I last saw him he was taking levetiracetam 1500 mg twice a day. He had been doing fairly well. In the past he has had issues with Dilantin toxicity. I see that from his current residential he has been on Depakote and ethosuximide as well as levetiracetam. He is considered allergic to phenobarbital. He had a fall at the residential and has been unresponsive. This morning he required intubation. Follow-up head CT this morning is reviewed below, showing increased size right temporal intraparenchymal hematoma, multifocal intraparenchymal hematomas in the left, overlying sulcal subarachnoid hemorrhage, small right temporal epidural hematoma, right hemispheric subdural hematoma, small left subdural hematoma, intraventricular hemorrhage on the left, and nondisplaced fracture of right greater sphenoid wing. He has had a craniotomy. Past Medical History CENTRAL NERVOUS SYSTEM: Seizure (EEG has shown a left temporal focus in the past) Past Surgical History Past Surgical History: Other (Cervical) Family History Family History: No pertinent hx Social History Social History Single, retired, no alcohol or street drugs, residential resident Current Medications Current Medications Current Medications Nicardipine HCl 50 mg/Sodium Chloride 250 ml @ 25 mls/hr CONT PRN IV SEE I/O RECORD Last administered on 04/13/20at 22:21; Start 04/13/20 at 22:00 Lorazepam (Ativan Inj) 2 mg 1X ONCE IVP Last administered on 04/13/20at 22:11; Start 04/13/20 at 22:00; Stop 04/13/20 at 22:01; Status DC Ondansetron HCl (Zofran) 4 mg PRN Q8HRS PRN IV NAUSEA/VOMITING 1ST CHOICE; Start 04/13/20 at 22:15; Stop 04/14/20 at 22:14 Lorazepam (Ativan Inj) 2 mg 1X ONCE IVP Last administered on 04/13/20at 23:36; Start 04/13/20 at 23:45; Stop 04/13/20 at 23:46; Status DC Lorazepam (Ativan Inj) 2 mg PRN Q4HRS PRN IVP ANXIETY / AGITATION Last administered on 04/14/20at 05:10; Start 04/14/20 at 03:15 Sodium Chloride 1,000 ml @ 100 mls/hr Q10H IV Last administered on 04/14/20at 08:15; Start 04/14/20 at 08:15 Fentanyl Citrate 30 ml @ 0 mls/hr CONT PRN IV SEE PROTOCOL Last administered on 04/14/20at 09:38; Start 04/14/20 at 09:00 Propofol 100 ml @ 0 mls/hr CONT PRN IV SEE PROTOCOL; Start 04/14/20 at 09:00 Glycerin/ Hypromellose/ Polyethylene (Artificial Tears) 1 drop PRN Q1HR PRN OU DRY EYE; Start 04/14/20 at 09:00 Midazolam HCl 100 ml @ 0 mls/hr CONT PRN IV SEE PROTOCOL; Start 04/14/20 at 09:00 Midazolam HCl (Versed) 5 mg 1X ONCE IV Last administered on 04/14/20at 09:37; Start 04/14/20 at 09:45; Stop 04/14/20 at 09:46; Status DC Succinylcholine Chloride (Anectine) 200 mg 1X ONCE IV Last administered on 04/14/20at 09:37; Start 04/14/20 at 09:45; Stop 04/14/20 at 09:46; Status DC Ondansetron HCl (Zofran) 4 mg PRN Q6HRS PRN IV NAUSEA/VOMITING; Start 04/14/20 at 10:30; Stop 04/15/20 at 10:29 Fentanyl Citrate (Fentanyl 2ml Vial) 25 mcg PRN Q5MIN PRN IV MILD PAIN 1-3; Start 04/14/20 at 10:30; Stop 04/15/20 at 10:29 Fentanyl Citrate (Fentanyl 2ml Vial) 50 mcg PRN Q5MIN PRN IV MODERATE TO SEVERE PAIN; Start 04/14/20 at 10:30; Stop 04/15/20 at 10:29 Morphine Sulfate (Morphine Sulfate) 1 mg PRN Q10MIN PRN IV SEVERE PAIN 7-10; Start 04/14/20 at 10:30; Stop 04/15/20 at 10:29 Ringer's Solution 1,000 ml @ 30 mls/hr Q24H IV ; Start 04/14/20 at 10:30; Stop 04/14/20 at 22:29 Lidocaine HCl (Xylocaine-Mpf 1% 2ml Vial) 2 ml PRN 1X PRN ID PRIOR TO IV START; Start 04/14/20 at 10:30; Stop 04/15/20 at 10:29 Hydromorphone HCl (Dilaudid) 0.5 mg PRN Q10MIN PRN IV SEV PAIN, Second choice; Start 04/14/20 at 10:30; Stop 04/15/20 at 10:29 Prochlorperazine Edisylate (Compazine) 5 mg PACU PRN PRN IV NAUSEA, MRX1; Start 04/14/20 at 10:30; Stop 04/15/20 at 10:29 Bacitracin 14811 unit/Sodium Chloride 1,000 ml @ 1,000 mls/hr 1X ONCE IRR Last administered on 04/14/20at 12:23; Start 04/14/20 at 11:00; Stop 04/14/20 at 11:59; Status DC Gelatin (Gelfoam Size 100) 1 each STK-MED ONCE .ROUTE Last administered on 04/14/20at 12:23; Start 04/14/20 at 10:54; Stop 04/14/20 at 10:55; Status DC Cellulose (Surgicel Hemostat 4x8) 1 each STK-MED ONCE .ROUTE ; Start 04/14/20 at 10:54; Stop 04/14/20 at 10:55; Status DC Lidocaine/ Epinephrine (LIDOCAINE 1%-EPI 1:100,000 Multi-Dose) 20 ml STK-MED ONCE .ROUTE Last administered on 04/14/20at 12:23; Start 04/14/20 at 10:55; Stop 04/14/20 at 10:55; Status DC Thrombin 20,000 unit STK-MED ONCE TP Last administered on 04/14/20at 12:23; Start 04/14/20 at 10:55; Stop 04/14/20 at 10:55; Status DC Mannitol (Mannitol) 12.5 g STK-MED ONCE .ROUTE ; Start 04/14/20 at 11:27; Stop 04/14/20 at 11:27; Status DC Cefazolin Sodium/ Dextrose 50 ml @ 100 mls/hr 1X PREOP PRN IV PRIOR TO PROCEDURE Last administered on 04/14/20at 12:06; Start 04/15/20 at 06:00; Stop 04/15/20 at 18:00 Rocuronium [place] (Zemuron) 100 mg STK-MED ONCE .ROUTE ; Start 04/14/20 at 11:53; Stop 04/14/20 at 11:53; Status DC Cefazolin Sodium (Ancef) 1 gm STK-MED ONCE IVP ; Start 04/14/20 at 12:03; Stop 04/14/20 at 12:03; Status DC Gelatin (Gelfoam Size 100) 1 each STK-MED ONCE .ROUTE Last administered on 04/14/20at 13:33; Start 04/14/20 at 13:30; Stop 04/14/20 at 13:30; Status DC Sevoflurane (Ultane) 90 ml STK-MED ONCE IH ; Start 04/14/20 at 13:57; Stop 04/14/20 at 13:57; Status DC Active Scripts Active Reported D3-50 (Cholecalciferol (Vitamin D3)) 50,000 Unit Capsule 1,500 Unit PO DAILY Valproic Acid (Valproate Sodium) 250 Mg/5 Ml Solution 250 Mg PO TID Multivitamin 1 Each Tablet 1 Each PO DAILY Levetiracetam 500 Mg Tablet 1 Tab PO BID Mucus ER (Guaifenesin) 600 Mg Tab.er.12h 600 Mg PO PRN Q12HR PRN Ethosuximide 250 Mg Capsule 1 Cap PO BID 30 Days Colace (Docusate Sodium) 100 Mg Capsule 1 Cap PO BID 30 Days Tylenol (Acetaminophen) 325 Mg Tablet 650 Mg PO PRN Q6HRS PRN Keppra (Levetiracetam) 1,000 Mg Tablet 1 Tab PO BID Allergies Allergies: Coded Allergies: phenobarbital (Verified Allergy, Intermediate, 07/26/16) ROS Review of System Negative for fever, chills, weight loss, shortness of breath, chest pain, indigestion, hematochezia, melena, and dysuria. Full 14-point review of systems is negative. Physical Exam Physical Examination General: Well-developed, well-nourished white male in no acute distress HEENT: Normocephalic; various contusions; craniotomy. Temporal arteriespulsatile and nontender. Neck: Supple without bruit, no meningismus Musculoskeletal: Stability:see neurologic. Gait exam:see neurologic. Tone:see neurologic.Strength:see neurologic. Neurological: Mental Status: orientation, memory, attention span/concentration, language, fund of knowledge: sedated, on ventilator. Cranial Nerves:Right pupil larger than left, both react. There is no facial asymmetry. All other cranial related problems are negative except as mentioned before.Reflexes:2+ and symmetric with silent plantar responses. Motor:no pain response. Coordination and gait:Not cooperative. Sensory:Not cooperative. Vitals VITALS Vital Signs Date Time Temp Pulse Resp B/P (MAP) Pulse Ox O2 Delivery O2 Flow Rate FiO2 04/14/20 11:00 108 20 133/76 (95) 96 Ventilator 04/14/20 08:00 99.6 99.6 Labs Labs Laboratory Tests Test 04/13/20 20:17 04/13/20 20:35 04/13/20 22:15 04/14/20 09:36 White Blood Count 8.5 x10^3/uL (4.0-11.0) Red Blood Count 5.08 x10^6/uL (4.30-5.70) Hemoglobin 16.1 g/dL (13.0-17.5) Hematocrit 46.5 % (39.0-53.0) Mean Corpuscular Volume 91 fL (79-100) Mean Corpuscular Hemoglobin 32 pg (25-35) Mean Corpuscular Hemoglobin Concent 35 g/dL (31-37) Red Cell Distribution Width 12.8 % (11.5-14.5) Platelet Count 133 x10^3/uL (140-400) Neutrophils (%) (Auto) 73 % (31-73) Lymphocytes (%) (Auto) 17 % (24-48) Monocytes (%) (Auto) 8 % (0-9) Eosinophils (%) (Auto) 1 % (0-3) Basophils (%) (Auto) 0 % (0-3) Neutrophils # (Auto) 6.2 x10^3/uL (1.8-7.7) Lymphocytes # (Auto) 1.4 x10^3/uL (1.0-4.8) Monocytes # (Auto) 0.7 x10^3/uL (0.0-1.1) Eosinophils # (Auto) 0.1 x10^3/uL (0.0-0.7) Basophils # (Auto) 0.0 x10^3/uL (0.0-0.2) Prothrombin Time 13.7 SEC (11.7-14.0) Prothromb Time International Ratio 1.1 (0.8-1.1) Activated Partial Thromboplast Time 32 SEC (24-38) Sodium Level 141 mmol/L (136-145) Potassium Level 3.9 mmol/L (3.5-5.1) Chloride Level 104 mmol/L (98-107) Carbon Dioxide Level 28 mmol/L (21-32) Anion Gap 9 (6-14) Blood Urea Nitrogen 24 mg/dL (8-26) Creatinine 1.2 mg/dL (0.7-1.3) Estimated GFR (Cockcroft-Gault) 59.0 BUN/Creatinine Ratio 20 (6-20) Glucose Level 153 mg/dL (70-99) Calcium Level 8.7 mg/dL (8.5-10.1) Total Bilirubin 0.3 mg/dL (0.2-1.0) Aspartate Amino Transf (AST/SGOT) 28 U/L (15-37) Alanine Aminotransferase (ALT/SGPT) 23 U/L (16-63) Alkaline Phosphatase 90 U/L (46-116) Total Protein 7.2 g/dL (6.4-8.2) Albumin 3.4 g/dL (3.4-5.0) Albumin/Globulin Ratio 0.9 (1.0-1.7) Phenytoin (Dilantin) Level < 0.5 mcg/mL (10.0-20.0) Phenytoin Last Dose Date Phenytoin Last Dose Time Valproic Acid (Depakene) Level 51 mcg/mL (50-100) Valproic Acid Last Dose Date 04/13/20 Valproic Acid Last Dose Time 0900 Urine Collection Type Void Urine Color Yellow Urine Clarity Cloudy Urine pH 7.0 (<5.0-8.0) Urine Specific [place] 1.025 (1.000-1.030) Urine Protein 30 mg/dL (NEG-TRACE) Urine Glucose (UA) Negative mg/dL (NEG) Urine Ketones (Stick) Trace mg/dL (NEG) Urine Blood Negative (NEG) Urine Nitrite Negative (NEG) Urine Bilirubin Negative (NEG) Urine Urobilinogen Dipstick 1.0 mg/dL (0.2 mg/dL) Urine Leukocyte Esterase Small (NEG) Urine RBC Occ /HPF (0-2) Urine WBC Occ /HPF (0-4) Urine Squamous Epithelial Cells Few /LPF Urine Bacteria Few /HPF (0-FEW) Urine Mucus Slight /LPF SARS-CoV-2 Antigen (Rapid) Negative (NEGATIVE) O2 Saturation 99 % (92-99) Arterial Blood pH 7.45 (7.35-7.45) Arterial Blood pCO2 at Patient Temp 28 mmHg (35-46) Arterial Blood pO2 at Patient Temp 403 mmHg (65-108) Arterial Blood HCO3 19 mmol/L (21-28) Arterial Blood Base Excess -3 mmol/L (-3-3) Oxyhemoglobin 98.3 % Methemoglobin 0.7 % (0.0-1.9) Carbon Monoxide, Quantitative 0.3 % (0.0-1.9) FiO2 100 Test 04/14/20 11:15 White Blood Count 22.5 x10^3/uL (4.0-11.0) Red Blood Count 4.64 x10^6/uL (4.30-5.70) Hemoglobin 14.6 g/dL (13.0-17.5) Hematocrit 42.3 % (39.0-53.0) Mean Corpuscular Volume 91 fL (79-100) Mean Corpuscular Hemoglobin 32 pg (25-35) Mean Corpuscular Hemoglobin Concent 35 g/dL (31-37) Red Cell Distribution Width 12.9 % (11.5-14.5) Platelet Count 141 x10^3/uL (140-400) Neutrophils (%) (Auto) 90 % (31-73) Lymphocytes (%) (Auto) 3 % (24-48) Monocytes (%) (Auto) 7 % (0-9) Eosinophils (%) (Auto) 0 % (0-3) Basophils (%) (Auto) 0 % (0-3) Neutrophils # (Auto) 20.4 x10^3/uL (1.8-7.7) Lymphocytes # (Auto) 0.6 x10^3/uL (1.0-4.8) Monocytes # (Auto) 1.5 x10^3/uL (0.0-1.1) Eosinophils # (Auto) 0.0 x10^3/uL (0.0-0.7) Basophils # (Auto) 0.1 x10^3/uL (0.0-0.2) Segmented Neutrophils % 88 % (35-66) Band Neutrophils % 4 % (0-9) Lymphocytes % 1 % (24-48) Monocytes % 7 % (0-10) Platelet Estimate Adequate (ADEQUATE) Sodium Level 137 mmol/L (136-145) Potassium Level 3.9 mmol/L (3.5-5.1) Chloride Level 103 mmol/L (98-107) Carbon Dioxide Level 25 mmol/L (21-32) Anion Gap 9 (6-14) Blood Urea Nitrogen 27 mg/dL (8-26) Creatinine 1.0 mg/dL (0.7-1.3) Estimated GFR (Cockcroft-Gault) 72.8 BUN/Creatinine Ratio 27 (6-20) Glucose Level 165 mg/dL (70-99) Calcium Level 8.5 mg/dL (8.5-10.1) Magnesium Level 1.7 mg/dL (1.8-2.4) Total Bilirubin 0.5 mg/dL (0.2-1.0) Aspartate Amino Transf (AST/SGOT) 91 U/L (15-37) Alanine Aminotransferase (ALT/SGPT) 30 U/L (16-63) Alkaline Phosphatase 53 U/L (46-116) Total Protein 6.5 g/dL (6.4-8.2) Albumin 3.1 g/dL (3.4-5.0) Albumin/Globulin Ratio 0.9 (1.0-1.7) Laboratory Tests Test 04/13/20 20:17 04/13/20 20:35 04/13/20 22:15 04/14/20 09:36 White Blood Count 8.5 x10^3/uL (4.0-11.0) Red Blood Count 5.08 x10^6/uL (4.30-5.70) Hemoglobin 16.1 g/dL (13.0-17.5) Hematocrit 46.5 % (39.0-53.0) Mean Corpuscular Volume 91 fL (79-100) Mean Corpuscular Hemoglobin 32 pg (25-35) Mean Corpuscular Hemoglobin Concent 35 g/dL (31-37) Red Cell Distribution Width 12.8 % (11.5-14.5) Platelet Count 133 x10^3/uL (140-400) Neutrophils (%) (Auto) 73 % (31-73) Lymphocytes (%) (Auto) 17 % (24-48) Monocytes (%) (Auto) 8 % (0-9) Eosinophils (%) (Auto) 1 % (0-3) Basophils (%) (Auto) 0 % (0-3) Neutrophils # (Auto) 6.2 x10^3/uL (1.8-7.7) Lymphocytes # (Auto) 1.4 x10^3/uL (1.0-4.8) Monocytes # (Auto) 0.7 x10^3/uL (0.0-1.1) Eosinophils # (Auto) 0.1 x10^3/uL (0.0-0.7) Basophils # (Auto) 0.0 x10^3/uL (0.0-0.2) Prothrombin Time 13.7 SEC (11.7-14.0) Prothromb Time International Ratio 1.1 (0.8-1.1) Activated Partial Thromboplast Time 32 SEC (24-38) Sodium Level 141 mmol/L (136-145) Potassium Level 3.9 mmol/L (3.5-5.1) Chloride Level 104 mmol/L (98-107) Carbon Dioxide Level 28 mmol/L (21-32) Anion Gap 9 (6-14) Blood Urea Nitrogen 24 mg/dL (8-26) Creatinine 1.2 mg/dL (0.7-1.3) Estimated GFR (Cockcroft-Gault) 59.0 BUN/Creatinine Ratio 20 (6-20) Glucose Level 153 mg/dL (70-99) Calcium Level 8.7 mg/dL (8.5-10.1) Total Bilirubin 0.3 mg/dL (0.2-1.0) Aspartate Amino Transf (AST/SGOT) 28 U/L (15-37) Alanine Aminotransferase (ALT/SGPT) 23 U/L (16-63) Alkaline Phosphatase 90 U/L (46-116) Total Protein 7.2 g/dL (6.4-8.2) Albumin 3.4 g/dL (3.4-5.0) Albumin/Globulin Ratio 0.9 (1.0-1.7) Phenytoin (Dilantin) Level < 0.5 mcg/mL (10.0-20.0) Phenytoin Last Dose Date Phenytoin Last Dose Time Valproic Acid (Depakene) Level 51 mcg/mL (50-100) Valproic Acid Last Dose Date 04/13/20 Valproic Acid Last Dose Time 0900 Urine Collection Type Void Urine Color Yellow Urine Clarity Cloudy Urine pH 7.0 (<5.0-8.0) Urine Specific [place] 1.025 (1.000-1.030) Urine Protein 30 mg/dL (NEG-TRACE) Urine Glucose (UA) Negative mg/dL (NEG) Urine Ketones (Stick) Trace mg/dL (NEG) Urine Blood Negative (NEG) Urine Nitrite Negative (NEG) Urine Bilirubin Negative (NEG) Urine Urobilinogen Dipstick 1.0 mg/dL (0.2 mg/dL) Urine Leukocyte Esterase Small (NEG) Urine RBC Occ /HPF (0-2) Urine WBC Occ /HPF (0-4) Urine Squamous Epithelial Cells Few /LPF Urine Bacteria Few /HPF (0-FEW) Urine Mucus Slight /LPF SARS-CoV-2 Antigen (Rapid) Negative (NEGATIVE) O2 Saturation 99 % (92-99) Arterial Blood pH 7.45 (7.35-7.45) Arterial Blood pCO2 at Patient Temp 28 mmHg (35-46) Arterial Blood pO2 at Patient Temp 403 mmHg (65-108) Arterial Blood HCO3 19 mmol/L (21-28) Arterial Blood Base Excess -3 mmol/L (-3-3) Oxyhemoglobin 98.3 % Methemoglobin 0.7 % (0.0-1.9) Carbon Monoxide, Quantitative 0.3 % (0.0-1.9) FiO2 100 Test 04/14/20 11:15 White Blood Count 22.5 x10^3/uL (4.0-11.0) Red Blood Count 4.64 x10^6/uL (4.30-5.70) Hemoglobin 14.6 g/dL (13.0-17.5) Hematocrit 42.3 % (39.0-53.0) Mean Corpuscular Volume 91 fL (79-100) Mean Corpuscular Hemoglobin 32 pg (25-35) Mean Corpuscular Hemoglobin Concent 35 g/dL (31-37) Red Cell Distribution Width 12.9 % (11.5-14.5) Platelet Count 141 x10^3/uL (140-400) Neutrophils (%) (Auto) 90 % (31-73) Lymphocytes (%) (Auto) 3 % (24-48) Monocytes (%) (Auto) 7 % (0-9) Eosinophils (%) (Auto) 0 % (0-3) Basophils (%) (Auto) 0 % (0-3) Neutrophils # (Auto) 20.4 x10^3/uL (1.8-7.7) Lymphocytes # (Auto) 0.6 x10^3/uL (1.0-4.8) Monocytes # (Auto) 1.5 x10^3/uL (0.0-1.1) Eosinophils # (Auto) 0.0 x10^3/uL (0.0-0.7) Basophils # (Auto) 0.1 x10^3/uL (0.0-0.2) Segmented Neutrophils % 88 % (35-66) Band Neutrophils % 4 % (0-9) Lymphocytes % 1 % (24-48) Monocytes % 7 % (0-10) Platelet Estimate Adequate (ADEQUATE) Sodium Level 137 mmol/L (136-145) Potassium Level 3.9 mmol/L (3.5-5.1) Chloride Level 103 mmol/L (98-107) Carbon Dioxide Level 25 mmol/L (21-32) Anion Gap 9 (6-14) Blood Urea Nitrogen 27 mg/dL (8-26) Creatinine 1.0 mg/dL (0.7-1.3) Estimated GFR (Cockcroft-Gault) 72.8 BUN/Creatinine Ratio 27 (6-20) Glucose Level 165 mg/dL (70-99) Calcium Level 8.5 mg/dL (8.5-10.1) Magnesium Level 1.7 mg/dL (1.8-2.4) Total Bilirubin 0.5 mg/dL (0.2-1.0) Aspartate Amino Transf (AST/SGOT) 91 U/L (15-37) Alanine Aminotransferase (ALT/SGPT) 30 U/L (16-63) Alkaline Phosphatase 53 U/L (46-116) Total Protein 6.5 g/dL (6.4-8.2) Albumin 3.1 g/dL (3.4-5.0) Albumin/Globulin Ratio 0.9 (1.0-1.7) Images Images CT HEAD WITHOUT CONTRAST, 04/14. HISTORY: Intracranial hemorrhage. TECHNIQUE: Computed tomography of the head was performed without intravenous contrast. One or more of the following individualized dose reduction techniques were utilized for this examination: 1. Automated exposure control. 2. Adjustment of the mA and/or kV according to patient size. 3. Use of iterative reconstruction technique. COMPARISON: 04/13/2020. FINDINGS: The right temporal intraparenchymal hematoma has increased in size to 6.8 x 4.5 cm as compared with 3.4 cm previously. There is mild surrounding vasogenic edema. Multifocal intraparenchymal hematomas have developed throughout the left temporal lobe in a region spanning 6.8 x 2.8 cm. There is mild surrounding vasogenic edema. There is a small amount of overlying sulcal subarachnoid hemorrhage. A small right temporal epidural hematoma measures 19 x 8 mm. A right hemispheric subdural hematoma measures up to 8 mm in thickness in the right frontal territory. A small left subdural hematoma measures 2 mm in thickness. There is a small amount of intraventricular hemorrhage on the left. There is extensive associated mass effect. Leftward midline shift measures 8 mm. Uncal herniation is suspected on the right. Bilateral inferior frontal encephalomalacia is consistent with remote trauma. A nondisplaced fracture is again noted along the greater sphenoid wing. There is hemorrhage within the sphenoid sinus. A fracture of the right lamina papyracea may be chronic. The right aspect of the frontal sinus is opacified. There is lesser opacification of the right ethmoid air cells. There is soft tissue swelling along the right eyebrow. There is no clear intraorbital injury. There is a small amount of fluid in the right mastoid air cells. There are atherosclerotic calcifications of the internal carotid arteries. IMPRESSION: 1. Significant progression of right temporal intraparenchymal hematomas. 8 mm leftward midline shift with evidence of right uncal herniation. 2. Small right temporal epidural hematoma measuring 19 x 8 mm. 3. The right hemispheric subdural hematoma appears smaller measuring 8 mm in thickness. Decreased, small left subdural hematoma 4. Small left sulcal subarachnoid hemorrhage. Trace intraventricular hematoma. 5. Nondisplaced right temporal bone fracture. Assessment/Plan Assessment/Plan Impression: Epilepsy Extensive intracranial hemorrhages as described above and temporal bone fractures. This must of been a catastrophic fall after his seizure at the residential but no one is sure. History of schizophrenia Recommendations: I will renew his levetiracetam, but hold off on renewing the Depakote and ethosuximide. It is also unclear whether he was still on Dilantin, but he is always had trouble with that medication, I will not renew it. Otherwise as per neurosurgery. Thank you for letting me help with the patient's care. MARISABEL MADERA MD Apr 14, 2020 14:38
--- NOTE | 2020-04-14 14:40 | NUR ---
Patient back from surgery. Has 10F right frontal lobe SUSAN drain with sanguinous colored drainage. Orders to keep HOB at 10 degrees, Neuro checks Q1Hr, and keep BP < 150. BP currently a little on the low side MAP 59. 500ml bolus infusing. Will monitor.
--- NOTE | 2020-04-14 15:04 | OP ---
DATE OF SURGERY: 04/14/2020 PREOPERATIVE DIAGNOSES: 1. Enlarging right temporal intraparenchymal hematoma. 2. Right convexity subdural hematoma. POSTOPERATIVE DIAGNOSES: 1. Enlarging right temporal intraparenchymal hematoma. 2. Right convexity subdural hematoma. OPERATION PERFORMED: Right frontotemporoparietal craniotomy with evacuation of subdural hematoma and evacuation of intracerebral hemorrhage. SURGEON: Gordon Sahni M.D. STAFF COUNSELOR: CARMEN Velasquez, assisted with the surgery. She assisted with the exposure and the removal of the flap, opening of the dura, removal of the subdural, removal of the intraparenchymal hemorrhages as well as placement of drain and closure. OPERATIVE INDICATIONS: The patient is a 75-year-old who fell and was brought in with a number of abnormalities. He had a moderate right temporal hemorrhage as well as a moderate right convexity subdural hematoma. There was no significant shift. He would move all four extremities and there was some confused conversation. I decided to observe him overnight and this morning, he became more obtunded. A scan was obtained and on that study, the subdural had actually decreased in size, but the intraparenchymal hemorrhage had become very large. There is also some coalescence of hemorrhagic contused brain contralaterally. There was a right to left shift. I recommended a craniotomy to remove the residual subdural as well as intraparenchymal hemorrhage. We obtained consent. DESCRIPTION OF PROCEDURE: Following general endotracheal anesthesia, the patient was positioned with a roll under his right shoulder, his head was turned to the left. He was clipped, prepped and draped in the standard fashion. ARIELLE hose and AV impulse boots were applied for DVT prophylaxis. Microscope was draped. Fluoroscopy was draped and brought into the field. Monitoring was established. Ancef 2 grams was given less than 1 hour prior to initiation of the surgery. Using fluoroscopic guidance, a curvilinear incision/reverse question jossue incision was made based at just anterior to the right ear. I carried the skin and subcutaneous tissue as well as the temporalis muscle fascia forward and then held the flap back with a towel clip. Bur holes were placed and a craniotomy was developed. I opened the dura and flapped it anteriorly and inferiorly and I then placed dural tacking stitches. The subdural was visualized I then worked circumferentially and gradually removed the subdural collection. The brain was decompressing nicely. I then made a small cortisotomy through a thinned temporal gyrus and entered into a large intracerebral hematoma. I gently using brain ribbons entered into this area and with gentle irrigation I removed the hematoma. Once the hematoma was removed, the hemostasis in that region was excellent. I did explore within the cavity carefully and coagulated a few small vessels. I then coagulated the cortical margins. I worked and obtained excellent hemostasis. I did place a subdural drain brought out posteriorly I tacked the dura back, placed Duragen and Gelfoam over the incision. I then replaced the bone secured it with microplates. The incision was then closed in layers and with skin guanako on the skin. The surgery went very well. GORDON SAHNI MD DR: MARIO/matilda JOB#: [id number] / [id number] MARISSA
[2020-04-14] MEDS: levETIRAcetam 1,500 MG in IV DEXTROSE 5% 100ML 100 ML IV SCH (15:57)
--- NOTE | 2020-04-14 15:58 | RAD ---
INDICATION: Reason: post op crani- SDH COMPARISON: Earlier same day TECHNIQUE: Axial CT images obtained through the head. One or more of the following individualized dose reduction techniques were utilized for this examination: 1. Automated exposure control; 2. Adjustment of the mA and/or kV according to patient size; 3. Use of iterative reconstruction technique. FINDINGS: Interval postoperative changes status post right-sided craniotomy. There is effacement of the suprasellar cistern. There is approximately 1-2 mm of midline shift to left. Large amount of bilateral intracranial hemorrhage with cerebral edema. This includes parenchymal hemorrhage on the left in the temporal region measuring up to about 65 mm with surrounding edema. There is also extra-axial hemorrhage on the left again seen measuring up to approximately 3 mm in thickness. Right-sided pneumocephalus as well as drain. Portion of the right-sided subdural hemorrhage does persist including near the right vertex measuring up to about 8 mm in thickness. Right-sided parenchymal hemorrhage and air is seen within the right temporal region with the parenchymal hemorrhagic component currently measuring approximately 26 mm and was previously up to 68 mm. There is some air within the cavity from prior hemorrhage within the right temporal region. There is also some subarachnoid hemorrhage. Large amount of edema is seen within the right cerebral hemisphere and appears increased from prior. There is some mild hydrocephalus. Skull fracture again seen. IMPRESSION: * Interval postoperative changes status post right-sided craniotomy with placement of drain. There is persistent extra-axial hemorrhage on the right with some pneumocephalus now seen postoperatively. * Within the right temporal region there is right parenchymal hemorrhage identified which appears decreased from prior with some air now seen at this site. This air could be related to the patient's recent surgery. * Increasing edema is identified bilaterally. * There is again effacement of the suprasellar cistern which raises concern for herniation. There is also interval increase in size of the lateral ventricles which could be secondary to developing hydrocephalus. * Repeat demonstration of large amount of left-sided parenchymal hemorrhage as well as surrounding edema and left-sided subdural hemorrhage. Report called to the patient's floor at 3:45 PM Electronically signed by: Virgil Oliver MD (04/14/2020 3:51 PM) [id number]
[2020-04-14] MEDS ORDERED: MAGNESIUM SULFATE 2GM 50 ML IV ONE (18:30)
[2020-04-15] VITALS (54 sets, daily range): BP systolic 50–196; BP diastolic 40–108
[2020-04-15] MEDS: ceFAZolin SODIUM IV Push 1 GM VIAL. IVP SCH ×3 (01:02→12:11)
[2020-04-15] MEDS: FAMOTIDINE 20 MG/2 ML VIAL IVP SCH ×3 (01:03→21:55)
[2020-04-15] MEDS: levETIRAcetam 1,500 MG in IV DEXTROSE 5% 100ML 100 ML IV SCH ×3 (01:03→21:55)
--- NOTE | 2020-04-15 05:45 | NUR ---
Talked with Tati Lackey NP about patients increased swelling. She talked with Dr. Polk and a CT head was ordered. Will arrange with RT to assist with transport.
[2020-04-15] MEDS: IV NORMAL SALINE 1000ML BAG 1,000 ML IV SCH (06:08)
--- NOTE | 2020-04-15 06:30 | NUR ---
To CT per bed. To be read stat and results called to us.
[2020-04-15 06:33] LABS: HEMATOCRIT 31.2 % (39.0-53.0); HEMOGLOBIN 10.7 g/dL (13.0-17.5); RED BLOOD COUNT 3.4 x10^6/uL (4.30-5.70); RED CELL DISTRIBUTION WIDTH 13.1 % (11.5-14.5)
[2020-04-15 06:50] LABS: CALCIUM 6.2 mg/dL (8.5-10.1); CREATININE 0.9 mg/dL (0.7-1.3); GFR 82.3; MAGNESIUM 1.9 mg/dL (1.8-2.4); POTASSIUM 3.1 mmol/L (3.5-5.1)
--- NOTE | 2020-04-15 06:51 | RAD ---
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 Instructions: / History: Comparison: 04/14/2020. Technique: 5 mm axial tomographic images were obtained of the head without contrast. These were viewed on brain and bone windows. One or more of the following dose reduction techniques were utilized: Automated exposure control (AEC), Adjustment of mA and/or kV according to patient size, Use of iterative reconstruction technique such as ASiR, CT scan done according to ALARA and image gently/image wisely Findings: Postsurgical changes of right frontotemporal craniotomy for hematoma evacuation. Surgical drain in the underlying extra-axial space. Stable acute blood products within the operative bed. Stable large left temporal lobe intraparenchymal hemorrhages. Stable right cerebral convexity subdural blood measuring 7 mm in thickness. Stable left cerebral convexity subdural blood measuring 3 mm in thickness. Stable mild scattered subarachnoid blood products. Increased blood within the left lateral ventricle. Unchanged ventricular configuration. Extensive cerebral edema with diffuse sulcal effacement and increasing effacement of the subarachnoid cisterns. No midline shift. Paranasal sinus fluid. The visualized portions of the orbits and globes are normal. The mastoid air cells are clear. The fraud analyst topogram shows no lytic lesion or fracture. Impression: Multiple intracranial hemorrhages with extensive cerebral edema. Increasing effacement of the subarachnoid cisterns. Increasing blood within the left lateral ventricle. Hemorrhages are otherwise not significantly changed Post surgical changes of right frontotemporal craniotomy and extra-axial drain placement Electronically signed by: Dominik Pradhan MD (04/15/2020 6:48 AM) [facility]
[2020-04-15 08:13] LABS: BASE EXCESS ABG 0 mmol/L (-3-3); HCO3 ABG 22 mmol/L (21-28); PCO2 ABG 28 mmHg (35-46); PO2 ABG 89 mmHg (65-108); SAT O2 ABG 97 % (92-99)
[2020-04-15 08:18] LABS: FIO2 ABG 50% VENT
--- NOTE | 2020-04-15 08:43 | PDOC ---
PULMONARY PROGRESS NOTES DATE: 04/15/20 TIME: 08:43 Subjective PT. remains on vent at 50% Worsening CT findings no pupil response or other reflexes S/P right craini and evacuation on 04/14 No other concerns at this time Vitals Vital Signs Date Time Temp Pulse Resp B/P (MAP) Pulse Ox O2 Delivery O2 Flow Rate FiO2 04/15/20 07:52 98 Ventilator 04/15/20 06:00 112 20 103/53 (70) 04/15/20 04:00 99.8 99.8 Comments intubated HEENT: Other (Pupil do not react ) Lungs: Clear Extremities: No Edema Skin: Warm, Dry Labs Laboratory Tests Test 04/13/20 20:17 04/13/20 20:35 04/13/20 22:15 04/14/20 09:36 White Blood Count 8.5 x10^3/uL (4.0-11.0) Red Blood Count 5.08 x10^6/uL (4.30-5.70) Hemoglobin 16.1 g/dL (13.0-17.5) Hematocrit 46.5 % (39.0-53.0) Mean Corpuscular Volume 91 fL (79-100) Mean Corpuscular Hemoglobin 32 pg (25-35) Mean Corpuscular Hemoglobin Concent 35 g/dL (31-37) Red Cell Distribution Width 12.8 % (11.5-14.5) Platelet Count 133 x10^3/uL (140-400) Neutrophils (%) (Auto) 73 % (31-73) Lymphocytes (%) (Auto) 17 % (24-48) Monocytes (%) (Auto) 8 % (0-9) Eosinophils (%) (Auto) 1 % (0-3) Basophils (%) (Auto) 0 % (0-3) Neutrophils # (Auto) 6.2 x10^3/uL (1.8-7.7) Lymphocytes # (Auto) 1.4 x10^3/uL (1.0-4.8) Monocytes # (Auto) 0.7 x10^3/uL (0.0-1.1) Eosinophils # (Auto) 0.1 x10^3/uL (0.0-0.7) Basophils # (Auto) 0.0 x10^3/uL (0.0-0.2) Prothrombin Time 13.7 SEC (11.7-14.0) Prothromb Time International Ratio 1.1 (0.8-1.1) Activated Partial Thromboplast Time 32 SEC (24-38) Sodium Level 141 mmol/L (136-145) Potassium Level 3.9 mmol/L (3.5-5.1) Chloride Level 104 mmol/L (98-107) Carbon Dioxide Level 28 mmol/L (21-32) Anion Gap 9 (6-14) Blood Urea Nitrogen 24 mg/dL (8-26) Creatinine 1.2 mg/dL (0.7-1.3) Estimated GFR (Cockcroft-Gault) 59.0 BUN/Creatinine Ratio 20 (6-20) Glucose Level 153 mg/dL (70-99) Calcium Level 8.7 mg/dL (8.5-10.1) Total Bilirubin 0.3 mg/dL (0.2-1.0) Aspartate Amino Transf (AST/SGOT) 28 U/L (15-37) Alanine Aminotransferase (ALT/SGPT) 23 U/L (16-63) Alkaline Phosphatase 90 U/L (46-116) Total Protein 7.2 g/dL (6.4-8.2) Albumin 3.4 g/dL (3.4-5.0) Albumin/Globulin Ratio 0.9 (1.0-1.7) Phenytoin (Dilantin) Level < 0.5 mcg/mL (10.0-20.0) Phenytoin Last Dose Date Phenytoin Last Dose Time Valproic Acid (Depakene) Level 51 mcg/mL (50-100) Valproic Acid Last Dose Date 04/13/20 Valproic Acid Last Dose Time 0900 Urine Collection Type Void Urine Color Yellow Urine Clarity Cloudy Urine pH 7.0 (<5.0-8.0) Urine Specific [place] 1.025 (1.000-1.030) Urine Protein 30 mg/dL (NEG-TRACE) Urine Glucose (UA) Negative mg/dL (NEG) Urine Ketones (Stick) Trace mg/dL (NEG) Urine Blood Negative (NEG) Urine Nitrite Negative (NEG) Urine Bilirubin Negative (NEG) Urine Urobilinogen Dipstick 1.0 mg/dL (0.2 mg/dL) Urine Leukocyte Esterase Small (NEG) Urine RBC Occ /HPF (0-2) Urine WBC Occ /HPF (0-4) Urine Squamous Epithelial Cells Few /LPF Urine Bacteria Few /HPF (0-FEW) Urine Mucus Slight /LPF SARS-CoV-2 Antigen (Rapid) Negative (NEGATIVE) O2 Saturation 99 % (92-99) Arterial Blood pH 7.45 (7.35-7.45) Arterial Blood pCO2 at Patient Temp 28 mmHg (35-46) Arterial Blood pO2 at Patient Temp 403 mmHg (65-108) Arterial Blood HCO3 19 mmol/L (21-28) Arterial Blood Base Excess -3 mmol/L (-3-3) Oxyhemoglobin 98.3 % Methemoglobin 0.7 % (0.0-1.9) Carbon Monoxide, Quantitative 0.3 % (0.0-1.9) FiO2 100 Test 04/14/20 11:15 04/14/20 18:23 04/15/20 06:00 04/15/20 06:12 White Blood Count 22.5 x10^3/uL (4.0-11.0) 17.0 x10^3/uL (4.0-11.0) Red Blood Count 4.64 x10^6/uL (4.30-5.70) 3.40 x10^6/uL (4.30-5.70) Hemoglobin 14.6 g/dL (13.0-17.5) 10.7 g/dL (13.0-17.5) Hematocrit 42.3 % (39.0-53.0) 31.2 % (39.0-53.0) Mean Corpuscular Volume 91 fL (79-100) 92 fL (79-100) Mean Corpuscular Hemoglobin 32 pg (25-35) 31 pg (25-35) Mean Corpuscular Hemoglobin Concent 35 g/dL (31-37) 34 g/dL (31-37) Red Cell Distribution Width 12.9 % (11.5-14.5) 13.1 % (11.5-14.5) Platelet Count 141 x10^3/uL (140-400) 85 x10^3/uL (140-400) Neutrophils (%) (Auto) 90 % (31-73) Lymphocytes (%) (Auto) 3 % (24-48) Monocytes (%) (Auto) 7 % (0-9) Eosinophils (%) (Auto) 0 % (0-3) Basophils (%) (Auto) 0 % (0-3) Neutrophils # (Auto) 20.4 x10^3/uL (1.8-7.7) Lymphocytes # (Auto) 0.6 x10^3/uL (1.0-4.8) Monocytes # (Auto) 1.5 x10^3/uL (0.0-1.1) Eosinophils # (Auto) 0.0 x10^3/uL (0.0-0.7) Basophils # (Auto) 0.1 x10^3/uL (0.0-0.2) Segmented Neutrophils % 88 % (35-66) Band Neutrophils % 4 % (0-9) Lymphocytes % 1 % (24-48) Monocytes % 7 % (0-10) Platelet Estimate Adequate (ADEQUATE) Sodium Level 137 mmol/L (136-145) 148 mmol/L (136-145) Potassium Level 3.9 mmol/L (3.5-5.1) 3.1 mmol/L (3.5-5.1) Chloride Level 103 mmol/L (98-107) 119 mmol/L (98-107) Carbon Dioxide Level 25 mmol/L (21-32) 20 mmol/L (21-32) Anion Gap 9 (6-14) 9 (6-14) Blood Urea Nitrogen 27 mg/dL (8-26) 15 mg/dL (8-26) Creatinine 1.0 mg/dL (0.7-1.3) 0.9 mg/dL (0.7-1.3) Estimated GFR (Cockcroft-Gault) 72.8 82.3 BUN/Creatinine Ratio 27 (6-20) Glucose Level 165 mg/dL (70-99) 109 mg/dL (70-99) Calcium Level 8.5 mg/dL (8.5-10.1) 6.2 mg/dL (8.5-10.1) Magnesium Level 1.7 mg/dL (1.8-2.4) 1.9 mg/dL (1.8-2.4) Total Bilirubin 0.5 mg/dL (0.2-1.0) Aspartate Amino Transf (AST/SGOT) 91 U/L (15-37) Alanine Aminotransferase (ALT/SGPT) 30 U/L (16-63) Alkaline Phosphatase 53 U/L (46-116) Total Protein 6.5 g/dL (6.4-8.2) Albumin 3.1 g/dL (3.4-5.0) Albumin/Globulin Ratio 0.9 (1.0-1.7) Glucose (Fingerstick) 154 mg/dL (70-99) 97 mg/dL (70-99) Test 04/15/20 08:00 O2 Saturation 97 % (92-99) Arterial Blood pH 7.52 (7.35-7.45) Arterial Blood pCO2 at Patient Temp 28 mmHg (35-46) Arterial Blood pO2 at Patient Temp 89 mmHg (65-108) Arterial Blood HCO3 22 mmol/L (21-28) Arterial Blood Base Excess 0 mmol/L (-3-3) FiO2 50% vent Laboratory Tests Test 04/14/20 09:36 04/14/20 11:15 04/14/20 18:23 04/15/20 06:00 O2 Saturation 99 % (92-99) Arterial Blood pH 7.45 (7.35-7.45) Arterial Blood pCO2 at Patient Temp 28 mmHg (35-46) Arterial Blood pO2 at Patient Temp 403 mmHg (65-108) Arterial Blood HCO3 19 mmol/L (21-28) Arterial Blood Base Excess -3 mmol/L (-3-3) Oxyhemoglobin 98.3 % Methemoglobin 0.7 % (0.0-1.9) Carbon Monoxide, Quantitative 0.3 % (0.0-1.9) FiO2 100 White Blood Count 22.5 x10^3/uL (4.0-11.0) 17.0 x10^3/uL (4.0-11.0) Red Blood Count 4.64 x10^6/uL (4.30-5.70) 3.40 x10^6/uL (4.30-5.70) Hemoglobin 14.6 g/dL (13.0-17.5) 10.7 g/dL (13.0-17.5) Hematocrit 42.3 % (39.0-53.0) 31.2 % (39.0-53.0) Mean Corpuscular Volume 91 fL (79-100) 92 fL (79-100) Mean Corpuscular Hemoglobin 32 pg (25-35) 31 pg (25-35) Mean Corpuscular Hemoglobin Concent 35 g/dL (31-37) 34 g/dL (31-37) Red Cell Distribution Width 12.9 % (11.5-14.5) 13.1 % (11.5-14.5) Platelet Count 141 x10^3/uL (140-400) 85 x10^3/uL (140-400) Neutrophils (%) (Auto) 90 % (31-73) Lymphocytes (%) (Auto) 3 % (24-48) Monocytes (%) (Auto) 7 % (0-9) Eosinophils (%) (Auto) 0 % (0-3) Basophils (%) (Auto) 0 % (0-3) Neutrophils # (Auto) 20.4 x10^3/uL (1.8-7.7) Lymphocytes # (Auto) 0.6 x10^3/uL (1.0-4.8) Monocytes # (Auto) 1.5 x10^3/uL (0.0-1.1) Eosinophils # (Auto) 0.0 x10^3/uL (0.0-0.7) Basophils # (Auto) 0.1 x10^3/uL (0.0-0.2) Segmented Neutrophils % 88 % (35-66) Band Neutrophils % 4 % (0-9) Lymphocytes % 1 % (24-48) Monocytes % 7 % (0-10) Platelet Estimate Adequate (ADEQUATE) Sodium Level 137 mmol/L (136-145) 148 mmol/L (136-145) Potassium Level 3.9 mmol/L (3.5-5.1) 3.1 mmol/L (3.5-5.1) Chloride Level 103 mmol/L (98-107) 119 mmol/L (98-107) Carbon Dioxide Level 25 mmol/L (21-32) 20 mmol/L (21-32) Anion Gap 9 (6-14) 9 (6-14) Blood Urea Nitrogen 27 mg/dL (8-26) 15 mg/dL (8-26) Creatinine 1.0 mg/dL (0.7-1.3) 0.9 mg/dL (0.7-1.3) Estimated GFR (Cockcroft-Gault) 72.8 82.3 BUN/Creatinine Ratio 27 (6-20) Glucose Level 165 mg/dL (70-99) 109 mg/dL (70-99) Calcium Level 8.5 mg/dL (8.5-10.1) 6.2 mg/dL (8.5-10.1) Magnesium Level 1.7 mg/dL (1.8-2.4) 1.9 mg/dL (1.8-2.4) Total Bilirubin 0.5 mg/dL (0.2-1.0) Aspartate Amino Transf (AST/SGOT) 91 U/L (15-37) Alanine Aminotransferase (ALT/SGPT) 30 U/L (16-63) Alkaline Phosphatase 53 U/L (46-116) Total Protein 6.5 g/dL (6.4-8.2) Albumin 3.1 g/dL (3.4-5.0) Albumin/Globulin Ratio 0.9 (1.0-1.7) Glucose (Fingerstick) 154 mg/dL (70-99) Test 04/15/20 06:12 04/15/20 08:00 Glucose (Fingerstick) 97 mg/dL (70-99) O2 Saturation 97 % (92-99) Arterial Blood pH 7.52 (7.35-7.45) Arterial Blood pCO2 at Patient Temp 28 mmHg (35-46) Arterial Blood pO2 at Patient Temp 89 mmHg (65-108) Arterial Blood HCO3 22 mmol/L (21-28) Arterial Blood Base Excess 0 mmol/L (-3-3) FiO2 50% vent Medications Active Scripts Medications Dose Route/Sig Max Daily Dose Days Date Category D3-50 (Cholecalciferol (Vitamin D3)) 50,000 Unit Capsule 1,500 Unit PO DAILY 04/14/20 Reported Valproic Acid (Valproate Sodium) 250 Mg/5 Ml Solution 250 Mg PO TID 04/14/20 Reported Multivitamin 1 Each Tablet 1 Each PO DAILY 04/14/20 Reported Levetiracetam 500 Mg Tablet 1 Tab PO BID 04/14/20 Reported Mucus ER (Guaifenesin) 600 Mg Tab.er.12h 600 Mg PO PRN Q12HR PRN 04/14/20 Reported Ethosuximide 250 Mg Capsule 1 Cap PO BID 30 12/3/20 Reported Colace (Docusate Sodium) 100 Mg Capsule 1 Cap PO BID 30 04/14/20 Reported Tylenol (Acetaminophen) 325 Mg Tablet 650 Mg PO PRN Q6HRS PRN 07/26/16 Reported Keppra (Levetiracetam) 1,000 Mg Tablet 1 Tab PO BID 07/26/[address] head 04/15 Impression: Multiple intracranial hemorrhages with extensive cerebral edema. Increasing effacement of the subarachnoid cisterns. Increasing blood within the left lateral ventricle. Hemorrhages are otherwise not significantly changed Post surgical changes of right frontotemporal craniotomy and extra-axial drain placement Impression . IMPRESSION: 1. Acute respiratory failure secondary to cerebrovascular accident. 2. Seizures secondary to cerebrovascular accident. 3. A 3.6 cm acute right temporal lobe intraparenchymal hemorrhage. 4. Moderate right and small left acute subdural hematoma. 5. Small amount of subarachnoid hemorrhage. 6. Nondisplaced right temporal bone fracture. 7. Encephalomalacia. 8. Encephalopathy secondary to above. 9. Abnormal chest x-ray. Plan . Continue current vent support currently on 50%, Follow CXR and ABG, no changes PRN nebs Repeat CT head worsening on cefazolin ABX Follow neuro surgery recs: S/P Right frontotemporoparietal craniotomy with evacuation of subdural hematoma and evacuation of intracerebral hemorrhage on 04/14 Continue neurology recs and AEM Cardene if needed to control HTN GI PPx: pepcid D/W RN and RT Poor prognosis Pt. is FULL code Critical Care Time 1130AM -1200PM LAURY FOWLER MD Apr 15, 2020 08:43
--- NOTE | 2020-04-15 09:28 | PDOC ---
[facility] PROGRESS NOTE Date of Service DOS: DATE: 04/15/20 TIME: 09:25 Chief Complaint Chief Complaint Acute subdural hematoma status post craniotomy Respiratory failure Temporal intraparenchymal hematoma Mental status changes History of seizures Anxiety Schizophrenia History of Present Illness History of Present Illness HPI: The patient is a pleasant 75-year-old male who apparently had a seizure at a care home facility. He was found down, had blood around his right eye. He is postictal, so they went ahead and called EMS. He was brought to the ER. We scanned his brain. He has massive intracranial hemorrhage. The patient has now been admitted to the ICU. He got intubated this morning, we had a brief code blue. He is now getting ready to go to surgery. 04/15/20: Pt seen and examined in ICU POD 1 emergent craniotomy DW RN Chart reviewed Currently on ventilation AC/20/500/40% with 5 PEEP He is off sedation now but not waking up yet His pupils are quite large and not reactive He is not responding to pain stimuli He is very critically ill I am concerned he may not survive Vitals/I&O Vitals/I&O: Vital Signs Date Time Temp Pulse Resp B/P (MAP) Pulse Ox O2 Delivery O2 Flow Rate FiO2 04/15/20 08:55 97 Ventilator 04/15/20 08:00 04/15/20 06:00 112 20 04/15/20 04:00 99.8 99.8 I & O 04/14/20 04/14/20 04/15/20 15:00 23:00 07:00 Intake Total 82.47 ml 1350.9 ml 1201 ml Output Total 625 ml 1580 ml 1660 ml Balance -542.53 ml -229.1 ml -459 ml Physical Exam General: No acute distress, Other (resting comfortably, negative babinski, pupils dilated L>R non reactive to light) Heart: No murmurs, Other (tachycardic) Lungs: Other (on ventilator) Abdomen: Normal bowel sounds, No tenderness Extremities: No clubbing, No edema, Other (scds in place) Skin: No rashes, No significant lesion Labs Labs: Laboratory Tests Test 04/14/20 09:36 04/14/20 11:15 04/14/20 18:23 04/15/20 06:00 O2 Saturation 99 % (92-99) Arterial Blood pH 7.45 (7.35-7.45) Arterial Blood pCO2 at Patient Temp 28 mmHg (35-46) Arterial Blood pO2 at Patient Temp 403 mmHg (65-108) Arterial Blood HCO3 19 mmol/L (21-28) Arterial Blood Base Excess -3 mmol/L (-3-3) Oxyhemoglobin 98.3 % Methemoglobin 0.7 % (0.0-1.9) Carbon Monoxide, Quantitative 0.3 % (0.0-1.9) FiO2 100 White Blood Count 22.5 x10^3/uL (4.0-11.0) 17.0 x10^3/uL (4.0-11.0) Red Blood Count 4.64 x10^6/uL (4.30-5.70) 3.40 x10^6/uL (4.30-5.70) Hemoglobin 14.6 g/dL (13.0-17.5) 10.7 g/dL (13.0-17.5) Hematocrit 42.3 % (39.0-53.0) 31.2 % (39.0-53.0) Mean Corpuscular Volume 91 fL (79-100) 92 fL (79-100) Mean Corpuscular Hemoglobin 32 pg (25-35) 31 pg (25-35) Mean Corpuscular Hemoglobin Concent 35 g/dL (31-37) 34 g/dL (31-37) Red Cell Distribution Width 12.9 % (11.5-14.5) 13.1 % (11.5-14.5) Platelet Count 141 x10^3/uL (140-400) 85 x10^3/uL (140-400) Neutrophils (%) (Auto) 90 % (31-73) Lymphocytes (%) (Auto) 3 % (24-48) Monocytes (%) (Auto) 7 % (0-9) Eosinophils (%) (Auto) 0 % (0-3) Basophils (%) (Auto) 0 % (0-3) Neutrophils # (Auto) 20.4 x10^3/uL (1.8-7.7) Lymphocytes # (Auto) 0.6 x10^3/uL (1.0-4.8) Monocytes # (Auto) 1.5 x10^3/uL (0.0-1.1) Eosinophils # (Auto) 0.0 x10^3/uL (0.0-0.7) Basophils # (Auto) 0.1 x10^3/uL (0.0-0.2) Segmented Neutrophils % 88 % (35-66) Band Neutrophils % 4 % (0-9) Lymphocytes % 1 % (24-48) Monocytes % 7 % (0-10) Platelet Estimate Adequate (ADEQUATE) Sodium Level 137 mmol/L (136-145) 148 mmol/L (136-145) Potassium Level 3.9 mmol/L (3.5-5.1) 3.1 mmol/L (3.5-5.1) Chloride Level 103 mmol/L (98-107) 119 mmol/L (98-107) Carbon Dioxide Level 25 mmol/L (21-32) 20 mmol/L (21-32) Anion Gap 9 (6-14) 9 (6-14) Blood Urea Nitrogen 27 mg/dL (8-26) 15 mg/dL (8-26) Creatinine 1.0 mg/dL (0.7-1.3) 0.9 mg/dL (0.7-1.3) Estimated GFR (Cockcroft-Gault) 72.8 82.3 BUN/Creatinine Ratio 27 (6-20) Glucose Level 165 mg/dL (70-99) 109 mg/dL (70-99) Calcium Level 8.5 mg/dL (8.5-10.1) 6.2 mg/dL (8.5-10.1) Magnesium Level 1.7 mg/dL (1.8-2.4) 1.9 mg/dL (1.8-2.4) Total Bilirubin 0.5 mg/dL (0.2-1.0) Aspartate Amino Transf (AST/SGOT) 91 U/L (15-37) Alanine Aminotransferase (ALT/SGPT) 30 U/L (16-63) Alkaline Phosphatase 53 U/L (46-116) Total Protein 6.5 g/dL (6.4-8.2) Albumin 3.1 g/dL (3.4-5.0) Albumin/Globulin Ratio 0.9 (1.0-1.7) Glucose (Fingerstick) 154 mg/dL (70-99) Test 04/15/20 06:12 04/15/20 08:00 Glucose (Fingerstick) 97 mg/dL (70-99) O2 Saturation 97 % (92-99) Arterial Blood pH 7.52 (7.35-7.45) Arterial Blood pCO2 at Patient Temp 28 mmHg (35-46) Arterial Blood pO2 at Patient Temp 89 mmHg (65-108) Arterial Blood HCO3 22 mmol/L (21-28) Arterial Blood Base Excess 0 mmol/L (-3-3) FiO2 50% vent Assessment and Plan Assessmemt and Plan Problems Medical Problems: (1) Facial laceration Status: Acute (2) Intracranial hemorrhage Status: Acute (3) Seizure Status: Acute (4) Traumatic subarachnoid hemorrhage Status: Acute (5) Traumatic subdural hematoma Status: Acute Assessment: Acute subdural hematoma Temporal intraparenchymal hematoma Mental status changes History of seizures Anxiety Schizophrenia Plan: Cardiac monitoring Monitor art line for blood pressures (he is currently 90/60 and could need IV pressors if necessary) DVT ppx Trend labs Wound care Vent weaning (ventilation currently@ AC/20/500/40% with 5 peep) Full code Appreciate subspecialty input He is critically ill Prognosis extremely grave he might not survive CC time 32-minute Comment Review of Relevant I have reviewed the following items jossue (where applicable) has been applied. Medications: Current Medications Medications (Trade) Dose Ordered Sig/Linh Route PRN Reason Start Time Stop Time Status Last Admin Dose Admin Midazolam HCl (Versed) 5 mg 1X ONCE IV 04/14/20 09:45 04/14/20 09:46 DC 04/14/20 09:37 Succinylcholine Chloride (Anectine) 200 mg 1X ONCE IV 04/14/20 09:45 04/14/20 09:46 DC 04/14/20 09:37 Bacitracin 51512 unit/Sodium Chloride 1,000 ml @ 1,000 mls/hr 1X ONCE IRR 04/14/20 11:00 04/14/20 11:59 DC 04/14/20 12:23 Gelatin (Gelfoam Size 100) 1 each STK-MED ONCE .ROUTE 04/14/20 10:54 04/14/20 10:55 DC 04/14/20 12:23 Lidocaine/ Epinephrine (LIDOCAINE 1%-EPI 1:100,000 Multi-Dose) 20 ml STK-MED ONCE .ROUTE 04/14/20 10:55 04/14/20 10:55 DC 04/14/20 12:23 Thrombin 20,000 unit STK-MED ONCE TP 04/14/20 10:55 04/14/20 10:55 DC 04/14/20 12:23 Cefazolin Sodium/ Dextrose 50 ml @ 100 mls/hr 1X PREOP PRN IV PRIOR TO PROCEDURE 04/15/20 06:00 04/15/20 18:00 04/14/20 12:06 Gelatin (Gelfoam Size 100) 1 each STK-MED ONCE .ROUTE 04/14/20 13:30 04/14/20 13:30 DC 04/14/20 13:33 Cefazolin Sodium (Ancef) 1 gm Q8H IVP 04/14/20 20:00 04/15/20 12:01 04/15/20 06:09 Levetiracetam 1500 mg/Dextrose 115 ml @ 440 mls/hr Q12HR IV 04/14/20 15:00 04/15/20 01:03 Famotidine (Pepcid Vial) 20 mg BID IVP 04/14/20 21:00 04/15/20 01:03 Magnesium Sulfate 50 ml @ 25 mls/hr 1X ONCE IV 04/14/20 18:30 04/14/20 20:29 DC 04/14/20 18:27 Justifications for Admission Other Justification DANNIE KELSEY III DO Apr 15, 2020 09:28
--- NOTE | 2020-04-15 09:43 | NUR ---
SS following up with discharge planning. SS reviewed pt chart and discussed with pt RN. Pt is currently on the vent at 40%. COVID19 negative. Pt on IV Ancef. Pt had Craniotomy on 04/14/2020. SS will continue to follow for discharge planning.
--- NOTE | 2020-04-15 11:44 | PDOC ---
PROGRESS NOTES Date of Service DATE: 04/15/20 TIME: 11:40 Assessment Problems Medical Problems: (1) Facial laceration Status: Acute (2) Intracranial hemorrhage Status: Acute (3) Seizure Status: Acute (4) Traumatic subarachnoid hemorrhage Status: Acute (5) Traumatic subdural hematoma Status: Acute Epilepsy Extensive intracranial hemorrhages, cerebral edema, and temporal bone fractures. This must of been a catastrophic fall after his seizure at the sn[facility] but no one is sure. History of schizophrenia Plan He is not brain , but will likely soon be. His power of collections attorney would have to get a court order to make him DO NOT RESUSCITATE. Doctor Myron will reexamine tomorrow Levetiracetam, held off on renewing the Depakote and ethosuximide Otherwise as per neurosurgery. Subjective None Objective Vital Signs Date Time Temp Pulse Resp B/P (MAP) Pulse Ox O2 Delivery O2 Flow Rate FiO2 04/15/20 11:00 97.3 122 20 96/54 (68) 97 Ventilator 97.3 Intake and Output 04/15/20 07:00 Intake Total 2634.37 ml Output Total 3865 ml Balance -1230.63 ml Intake Oral 0 ml IV Total 2634.37 ml Output Urine Total 2720 ml Gastric Drainage Total 1100 ml Drainage Total 45 ml PHYSICAL EXAM Intubated, slightly sedated Craniotomy, extraaxial drain Right pupil larger than left, both react minimally No spontaneous extraocular movements CN: no focal findings. Muscle tone: normal. Muscle strength: minimal pain withdrrawal DTR: 1+ Plantar reflex: silent Gait: not examined in bed. Sensory exam: not cooperative. Cerebellar: not cooperative Review of Relevant I have reviewed the following items jossue (where applicable) has been applied. Labs Laboratory Tests Test 04/13/20 20:17 04/13/20 20:35 04/13/20 22:15 04/14/20 09:36 White Blood Count 8.5 x10^3/uL (4.0-11.0) Red Blood Count 5.08 x10^6/uL (4.30-5.70) Hemoglobin 16.1 g/dL (13.0-17.5) Hematocrit 46.5 % (39.0-53.0) Mean Corpuscular Volume 91 fL (79-100) Mean Corpuscular Hemoglobin 32 pg (25-35) Mean Corpuscular Hemoglobin Concent 35 g/dL (31-37) Red Cell Distribution Width 12.8 % (11.5-14.5) Platelet Count 133 x10^3/uL (140-400) Neutrophils (%) (Auto) 73 % (31-73) Lymphocytes (%) (Auto) 17 % (24-48) Monocytes (%) (Auto) 8 % (0-9) Eosinophils (%) (Auto) 1 % (0-3) Basophils (%) (Auto) 0 % (0-3) Neutrophils # (Auto) 6.2 x10^3/uL (1.8-7.7) Lymphocytes # (Auto) 1.4 x10^3/uL (1.0-4.8) Monocytes # (Auto) 0.7 x10^3/uL (0.0-1.1) Eosinophils # (Auto) 0.1 x10^3/uL (0.0-0.7) Basophils # (Auto) 0.0 x10^3/uL (0.0-0.2) Prothrombin Time 13.7 SEC (11.7-14.0) Prothromb Time International Ratio 1.1 (0.8-1.1) Activated Partial Thromboplast Time 32 SEC (24-38) Sodium Level 141 mmol/L (136-145) Potassium Level 3.9 mmol/L (3.5-5.1) Chloride Level 104 mmol/L (98-107) Carbon Dioxide Level 28 mmol/L (21-32) Anion Gap 9 (6-14) Blood Urea Nitrogen 24 mg/dL (8-26) Creatinine 1.2 mg/dL (0.7-1.3) Estimated GFR (Cockcroft-Gault) 59.0 BUN/Creatinine Ratio 20 (6-20) Glucose Level 153 mg/dL (70-99) Calcium Level 8.7 mg/dL (8.5-10.1) Total Bilirubin 0.3 mg/dL (0.2-1.0) Aspartate Amino Transf (AST/SGOT) 28 U/L (15-37) Alanine Aminotransferase (ALT/SGPT) 23 U/L (16-63) Alkaline Phosphatase 90 U/L (46-116) Total Protein 7.2 g/dL (6.4-8.2) Albumin 3.4 g/dL (3.4-5.0) Albumin/Globulin Ratio 0.9 (1.0-1.7) Phenytoin (Dilantin) Level < 0.5 mcg/mL (10.0-20.0) Phenytoin Last Dose Date Phenytoin Last Dose Time Valproic Acid (Depakene) Level 51 mcg/mL (50-100) Valproic Acid Last Dose Date 04/13/20 Valproic Acid Last Dose Time 0900 Urine Collection Type Void Urine Color Yellow Urine Clarity Cloudy Urine pH 7.0 (<5.0-8.0) Urine Specific [place] 1.025 (1.000-1.030) Urine Protein 30 mg/dL (NEG-TRACE) Urine Glucose (UA) Negative mg/dL (NEG) Urine Ketones (Stick) Trace mg/dL (NEG) Urine Blood Negative (NEG) Urine Nitrite Negative (NEG) Urine Bilirubin Negative (NEG) Urine Urobilinogen Dipstick 1.0 mg/dL (0.2 mg/dL) Urine Leukocyte Esterase Small (NEG) Urine RBC Occ /HPF (0-2) Urine WBC Occ /HPF (0-4) Urine Squamous Epithelial Cells Few /LPF Urine Bacteria Few /HPF (0-FEW) Urine Mucus Slight /LPF SARS-CoV-2 Antigen (Rapid) Negative (NEGATIVE) O2 Saturation 99 % (92-99) Arterial Blood pH 7.45 (7.35-7.45) Arterial Blood pCO2 at Patient Temp 28 mmHg (35-46) Arterial Blood pO2 at Patient Temp 403 mmHg (65-108) Arterial Blood HCO3 19 mmol/L (21-28) Arterial Blood Base Excess -3 mmol/L (-3-3) Oxyhemoglobin 98.3 % Methemoglobin 0.7 % (0.0-1.9) Carbon Monoxide, Quantitative 0.3 % (0.0-1.9) FiO2 100 Test 04/14/20 11:15 04/14/20 18:23 04/15/20 06:00 04/15/20 06:12 White Blood Count 22.5 x10^3/uL (4.0-11.0) 17.0 x10^3/uL (4.0-11.0) Red Blood Count 4.64 x10^6/uL (4.30-5.70) 3.40 x10^6/uL (4.30-5.70) Hemoglobin 14.6 g/dL (13.0-17.5) 10.7 g/dL (13.0-17.5) Hematocrit 42.3 % (39.0-53.0) 31.2 % (39.0-53.0) Mean Corpuscular Volume 91 fL (79-100) 92 fL (79-100) Mean Corpuscular Hemoglobin 32 pg (25-35) 31 pg (25-35) Mean Corpuscular Hemoglobin Concent 35 g/dL (31-37) 34 g/dL (31-37) Red Cell Distribution Width 12.9 % (11.5-14.5) 13.1 % (11.5-14.5) Platelet Count 141 x10^3/uL (140-400) 85 x10^3/uL (140-400) Neutrophils (%) (Auto) 90 % (31-73) Lymphocytes (%) (Auto) 3 % (24-48) Monocytes (%) (Auto) 7 % (0-9) Eosinophils (%) (Auto) 0 % (0-3) Basophils (%) (Auto) 0 % (0-3) Neutrophils # (Auto) 20.4 x10^3/uL (1.8-7.7) Lymphocytes # (Auto) 0.6 x10^3/uL (1.0-4.8) Monocytes # (Auto) 1.5 x10^3/uL (0.0-1.1) Eosinophils # (Auto) 0.0 x10^3/uL (0.0-0.7) Basophils # (Auto) 0.1 x10^3/uL (0.0-0.2) Segmented Neutrophils % 88 % (35-66) Band Neutrophils % 4 % (0-9) Lymphocytes % 1 % (24-48) Monocytes % 7 % (0-10) Platelet Estimate Adequate (ADEQUATE) Sodium Level 137 mmol/L (136-145) 148 mmol/L (136-145) Potassium Level 3.9 mmol/L (3.5-5.1) 3.1 mmol/L (3.5-5.1) Chloride Level 103 mmol/L (98-107) 119 mmol/L (98-107) Carbon Dioxide Level 25 mmol/L (21-32) 20 mmol/L (21-32) Anion Gap 9 (6-14) 9 (6-14) Blood Urea Nitrogen 27 mg/dL (8-26) 15 mg/dL (8-26) Creatinine 1.0 mg/dL (0.7-1.3) 0.9 mg/dL (0.7-1.3) Estimated GFR (Cockcroft-Gault) 72.8 82.3 BUN/Creatinine Ratio 27 (6-20) Glucose Level 165 mg/dL (70-99) 109 mg/dL (70-99) Calcium Level 8.5 mg/dL (8.5-10.1) 6.2 mg/dL (8.5-10.1) Magnesium Level 1.7 mg/dL (1.8-2.4) 1.9 mg/dL (1.8-2.4) Total Bilirubin 0.5 mg/dL (0.2-1.0) Aspartate Amino Transf (AST/SGOT) 91 U/L (15-37) Alanine Aminotransferase (ALT/SGPT) 30 U/L (16-63) Alkaline Phosphatase 53 U/L (46-116) Total Protein 6.5 g/dL (6.4-8.2) Albumin 3.1 g/dL (3.4-5.0) Albumin/Globulin Ratio 0.9 (1.0-1.7) Glucose (Fingerstick) 154 mg/dL (70-99) 97 mg/dL (70-99) Test 04/15/20 08:00 O2 Saturation 97 % (92-99) Arterial Blood pH 7.52 (7.35-7.45) Arterial Blood pCO2 at Patient Temp 28 mmHg (35-46) Arterial Blood pO2 at Patient Temp 89 mmHg (65-108) Arterial Blood HCO3 22 mmol/L (21-28) Arterial Blood Base Excess 0 mmol/L (-3-3) FiO2 50% vent Laboratory Tests Test 04/14/20 18:23 04/15/20 06:00 04/15/20 06:12 04/15/20 08:00 Glucose (Fingerstick) 154 mg/dL (70-99) 97 mg/dL (70-99) White Blood Count 17.0 x10^3/uL (4.0-11.0) Red Blood Count 3.40 x10^6/uL (4.30-5.70) Hemoglobin 10.7 g/dL (13.0-17.5) Hematocrit 31.2 % (39.0-53.0) Mean Corpuscular Volume 92 fL (79-100) Mean Corpuscular Hemoglobin 31 pg (25-35) Mean Corpuscular Hemoglobin Concent 34 g/dL (31-37) Red Cell Distribution Width 13.1 % (11.5-14.5) Platelet Count 85 x10^3/uL (140-400) Sodium Level 148 mmol/L (136-145) Potassium Level 3.1 mmol/L (3.5-5.1) Chloride Level 119 mmol/L (98-107) Carbon Dioxide Level 20 mmol/L (21-32) Anion Gap 9 (6-14) Blood Urea Nitrogen 15 mg/dL (8-26) Creatinine 0.9 mg/dL (0.7-1.3) Estimated GFR (Cockcroft-Gault) 82.3 Glucose Level 109 mg/dL (70-99) Calcium Level 6.2 mg/dL (8.5-10.1) Magnesium Level 1.9 mg/dL (1.8-2.4) O2 Saturation 97 % (92-99) Arterial Blood pH 7.52 (7.35-7.45) Arterial Blood pCO2 at Patient Temp 28 mmHg (35-46) Arterial Blood pO2 at Patient Temp 89 mmHg (65-108) Arterial Blood HCO3 22 mmol/L (21-28) Arterial Blood Base Excess 0 mmol/L (-3-3) FiO2 50% vent Microbiology 04/13/20 Urine Culture - Final, Complete Medications Current Medications Nicardipine HCl 50 mg/Sodium Chloride 250 ml @ 25 mls/hr CONT PRN IV SEE I/O RECORD Last administered on 04/13/20at 22:21; Start 04/13/20 at 22:00; Stop 04/14/20 at 14:33; Status DC Lorazepam (Ativan Inj) 2 mg 1X ONCE IVP Last administered on 04/13/20at 22:11; Start 04/13/20 at 22:00; Stop 04/13/20 at 22:01; Status DC Ondansetron HCl (Zofran) 4 mg PRN Q8HRS PRN IV NAUSEA/VOMITING 1ST CHOICE; Start 04/13/20 at 22:15; Stop 04/14/20 at 22:14; Status DC Lorazepam (Ativan Inj) 2 mg 1X ONCE IVP Last administered on 04/13/20at 23:36; Start 04/13/20 at 23:45; Stop 04/13/20 at 23:46; Status DC Lorazepam (Ativan Inj) 2 mg PRN Q4HRS PRN IVP ANXIETY / AGITATION Last administered on 04/14/20at 05:10; Start 04/14/20 at 03:15 Sodium Chloride 1,000 ml @ 100 mls/hr Q10H IV Last administered on 04/15/20at 06:08; Start 04/14/20 at 08:15 Fentanyl Citrate 30 ml @ 0 mls/hr CONT PRN IV SEE PROTOCOL Last administered on 04/15/20at 00:41; Start 04/14/20 at 09:00 Propofol 100 ml @ 0 mls/hr CONT PRN IV SEE PROTOCOL; Start 04/14/20 at 09:00 Glycerin/ Hypromellose/ Polyethylene (Artificial Tears) 1 drop PRN Q1HR PRN OU DRY EYE; Start 04/14/20 at 09:00 Midazolam HCl 100 ml @ 0 mls/hr CONT PRN IV SEE PROTOCOL Last administered on 04/15/20at 00:37; Start 04/14/20 at 09:00 Midazolam HCl (Versed) 5 mg 1X ONCE IV Last administered on 04/14/20at 09:37; Start 04/14/20 at 09:45; Stop 04/14/20 at 09:46; Status DC Succinylcholine Chloride (Anectine) 200 mg 1X ONCE IV Last administered on at 09:37; Start 04/14/20 at 09:45; Stop 04/14/20 at 09:46; Status DC Ondansetron HCl (Zofran) 4 mg PRN Q6HRS PRN IV NAUSEA/VOMITING; Start 04/14/20 at 10:30; Stop 04/15/20 at 10:29; Status DC Fentanyl Citrate (Fentanyl 2ml Vial) 25 mcg PRN Q5MIN PRN IV MILD PAIN 1-3; Start 04/14/20 at 10:30; Stop 04/15/20 at 10:29; Status DC Fentanyl Citrate (Fentanyl 2ml Vial) 50 mcg PRN Q5MIN PRN IV MODERATE TO SEVERE PAIN; Start 04/14/20 at 10:30; Stop 04/15/20 at 10:29; Status DC Morphine Sulfate (Morphine Sulfate) 1 mg PRN Q10MIN PRN IV SEVERE PAIN 7-10; Start 04/14/20 at 10:30; Stop 04/15/20 at 10:29; Status DC Ringer's Solution 1,000 ml @ 30 mls/hr Q24H IV ; Start 04/14/20 at 10:30; Stop 04/14/20 at 22:29; Status DC Lidocaine HCl (Xylocaine-Mpf 1% 2ml Vial) 2 ml PRN 1X PRN ID PRIOR TO IV START; Start 04/14/20 at 10:30; Stop 04/15/20 at 10:29; Status DC Hydromorphone HCl (Dilaudid) 0.5 mg PRN Q10MIN PRN IV SEV PAIN, Second choice; Start 04/14/20 at 10:30; Stop 04/15/20 at 10:29; Status DC Prochlorperazine Edisylate (Compazine) 5 mg PACU PRN PRN IV NAUSEA, MRX1; Start 04/14/20 at 10:30; Stop 04/15/20 at 10:29; Status DC Bacitracin 66143 unit/Sodium Chloride 1,000 ml @ 1,000 mls/hr 1X ONCE IRR Last administered on 04/14/20at 12:23; Start 04/14/20 at 11:00; Stop 04/14/20 at 11:59; Status DC Gelatin (Gelfoam Size 100) 1 each STK-MED ONCE .ROUTE Last administered on 04/14/20at 12:23; Start 04/14/20 at 10:54; Stop 04/14/20 at 10:55; Status DC Cellulose (Surgicel Hemostat 4x8) 1 each STK-MED ONCE .ROUTE ; Start 04/14/20 at 10:54; Stop 04/14/20 at 10:55; Status DC Lidocaine/ Epinephrine (LIDOCAINE 1%-EPI 1:100,000 Multi-Dose) 20 ml STK-MED ONCE .ROUTE Last administered on 04/14/20at 12:23; Start 04/14/20 at 10:55; Stop 04/14/20 at 10:55; Status DC Thrombin 20,000 unit STK-MED ONCE TP Last administered on 04/14/20at 12:23; Start 04/14/20 at 10:55; Stop 04/14/20 at 10:55; Status DC Mannitol (Mannitol) 12.5 g STK-MED ONCE .ROUTE ; Start 04/14/20 at 11:27; Stop 04/14/20 at 11:27; Status DC Cefazolin Sodium/ Dextrose 50 ml @ 100 mls/hr 1X PREOP PRN IV PRIOR TO PROCEDURE Last administered on 04/14/20at 12:06; Start 04/15/20 at 06:00; Stop 04/15/20 at 18:00 Rocuronium [place] (Zemuron) 100 mg STK-MED ONCE .ROUTE ; Start 04/14/20 at 11:53; Stop 04/14/20 at 11:53; Status DC Cefazolin Sodium (Ancef) 1 gm STK-MED ONCE IVP ; Start 04/14/20 at 12:03; Stop 04/14/20 at 12:03; Status DC Gelatin (Gelfoam Size 100) 1 each STK-MED ONCE .ROUTE Last administered on 04/14/20at 13:33; Start 04/14/20 at 13:30; Stop 04/14/20 at 13:30; Status DC Sevoflurane (Ultane) 90 ml STK-MED ONCE IH ; Start 04/14/20 at 13:57; Stop 04/14/20 at 13:57; Status DC Nicardipine HCl 50 mg/Sodium Chloride 250 ml @ 25 mls/hr TITRATE PRN IV PER PROTOCOL; Start 04/14/20 at 14:30 Sodium Chloride (Normal Saline Flush) 3 ml QSHIFT PRN IV AFTER MEDS AND BLOOD DRAWS; Start 04/14/20 at 14:30 Dextrose (Dextrose 50%-Water Syringe) 12.5 gm PRN Q15MIN PRN IV SEE COMMENTS; Start 04/14/20 at 14:30 Cefazolin Sodium (Ancef) 1 gm Q8H IVP Last administered on 04/15/20at 06:09; Start 04/14/20 at 20:00; Stop 04/15/20 at 12:01 Fentanyl Citrate (Fentanyl 2ml Vial) 50 mcg PRN Q2HR PRN IVP PAIN; Start 04/14/20 at 14:30 Levetiracetam 1500 mg/Dextrose 115 ml @ 440 mls/hr Q12HR IV Last administered on 04/15/20at 09:29; Start 04/14/20 at 15:00 Midazolam HCl (Versed) 5 mg STK-MED ONCE .ROUTE ; Start 04/13/20 at 12:00; Stop 04/14/20 at 16:21; Status DC Famotidine (Pepcid Vial) 20 mg BID IVP Last administered on 04/15/20at 09:29; Start 04/14/20 at 21:00 Magnesium Sulfate 50 ml @ 25 mls/hr 1X ONCE IV Last administered on 04/14/20at 18:27; Start 04/14/20 at 18:30; Stop 04/14/20 at 20:29; Status DC Potassium Chloride/Water 100 ml @ 50 mls/hr Q2H IV ; Start 04/15/20 at 12:00; Stop 04/15/20 at 15:59 Active Scripts Active Reported Valproic Acid (Valproate Sodium) 250 Mg/5 Ml Solution 250 Mg PO TID Levetiracetam 500 Mg Tablet 1 Tab PO BID Keppra (Levetiracetam) 1,000 Mg Tablet 1 Tab PO BID Vitals/I & O Vital Sign - Last 24 Hours 04/14/20 04/14/20 04/14/20 04/14/20 12:00 13:00 14:00 14:40 Pulse 102 102 108 Resp 20 20 20 B/P (MAP) 145/72 (96) 86/50 (62) 120/60 (80) Pulse Ox 98 98 98 O2 Delivery Ventilator Ventilator Ventilator Mechanical Ventilator 04/14/20 04/14/20 04/14/20 04/14/20 14:40 15:00 15:15 15:30 Pulse 100 100 102 Resp 20 B/P (MAP) 84/44 (57) 112/50 (70) 104/48 (66) Pulse Ox 99 O2 Delivery Ventilator 04/14/20 04/14/20 04/14/20 04/14/20 15:39 15:45 16:00 16:00 Temp 99.3 99.3 Pulse 100 94 Resp 20 B/P (MAP) 118/60 (79) 124/58 (80) Pulse Ox 97 99 O2 Delivery Ventilator Ventilator 04/14/20 04/14/20 04/14/20 04/14/20 16:00 17:00 18:00 19:00 Pulse 89 90 86 Resp 20 20 20 B/P (MAP) 114/57 (76) 118/57 (77) 112/56 (74) Pulse Ox 99 99 99 O2 Delivery Mechanical Ventilator Ventilator Ventilator Ventilator 04/14/20 04/14/20 04/14/20 04/14/20 20:00 20:00 20:00 20:15 Temp 97.8 97.8 Pulse 86 Resp 20 B/P (MAP) 110/56 (74) Pulse Ox 99 99 O2 Delivery Mechanical Ventilator Ventilator Ventilator 04/14/20 04/14/20 04/14/20 04/15/20 21:00 22:00 23:00 00:00 Temp 99.2 99.2 Pulse 86 84 86 86 Resp 20 20 20 20 B/P (MAP) 116/56 (76) 126/58 (80) 126/58 (80) 132/60 (84) Pulse Ox 99 99 99 99 O2 Delivery Ventilator Ventilator Ventilator Ventilator 04/15/20 04/15/20 04/15/20 04/15/20 00:00 00:00 00:20 01:00 Pulse 88 Resp 20 B/P (MAP) 132/60 (84) Pulse Ox 99 99 O2 Delivery Mechanical Ventilator Ventilator Ventilator 04/15/20 04/15/20 04/15/20 04/15/20 02:00 03:00 04:00 04:00 Temp 99.8 99.8 Pulse 86 84 84 Resp 20 20 20 B/P (MAP) 142/64 (90) 140/62 (88) 134/60 (84) Pulse Ox 100 100 100 O2 Delivery Ventilator Ventilator Ventilator Mechanical Ventilator 04/15/20 04/15/20 04/15/20 04/15/20 04:00 05:00 05:17 06:00 Pulse 88 112 Resp 20 20 B/P (MAP) 124/58 (80) 103/53 (70) Pulse Ox 100 100 99 O2 Delivery Ventilator Ventilator Ventilator 04/15/20 04/15/20 04/15/20 04/15/20 07:00 07:52 08:00 08:00 Pulse 112 120 Resp 20 20 B/P (MAP) 104/54 (71) 106/56 (73) Pulse Ox 98 98 99 O2 Delivery Ventilator Ventilator Ventilator 04/15/20 04/15/20 04/15/20 04/15/20 08:55 09:00 10:00 11:00 Temp 97.7 97.3 97.7 97.3 Pulse 119 116 122 Resp 20 B/P (MAP) 94/51 (65) 100/52 (68) 96/54 (68) Pulse Ox 97 97 98 97 O2 Delivery Ventilator Ventilator Ventilator Ventilator Intake and Output 04/14/20 04/14/20 04/15/20 15:00 23:00 07:00 Intake Total 82.47 ml 1350.9 ml 1201 ml Output Total 625 ml 1580 ml 1660 ml Balance -542.53 ml -229.1 ml -[address] HEAD WO CONTRAST Date: 04/15/2020 5:45 AM Clinical Indication: Reason: Swelling right side of head;FLOOR WAITING ON RT / Spl. Instructions: / History: Comparison: 04/14/2020. Technique: 5 mm axial tomographic images were obtained of the head without contrast. These were viewed on brain and bone windows. One or more of the following dose reduction techniques were utilized: Automated exposure control (AEC), Adjustment of mA and/or kV according to patient size, Use of iterative reconstruction technique such as ASiR, CT scan done according to ALARA and image gently/image wisely Findings: Postsurgical changes of right frontotemporal craniotomy for hematoma evacuation. Surgical drain in the underlying extra-axial space. Stable acute blood products within the operative bed. Stable large left temporal lobe intraparenchymal hemorrhages. Stable right cerebral convexity subdural blood measuring 7 mm in thickness. Stable left cerebral convexity subdural blood measuring 3 mm in thickness. Stable mild scattered subarachnoid blood products. Increased blood within the left lateral ventricle. Unchanged ventricular configuration. Extensive cerebral edema with diffuse sulcal effacement and increasing effacement of the subarachnoid cisterns. No midline shift. Paranasal sinus fluid. The visualized portions of the orbits and globes are normal. The mastoid air cells are clear. The light technician topogram shows no lytic lesion or fracture. Impression: Multiple intracranial hemorrhages with extensive cerebral edema. Increasing effacement of the subarachnoid cisterns. Increasing blood within the left lateral ventricle. Hemorrhages are otherwise not significantly changed Post surgical changes of right frontotemporal craniotomy and extra-axial drain placement Justicifation of Admission Dx: Justifications for Admission: Justification of Admission Dx: N/A MARISABEL MADERA MD Apr 15, 2020 11:44
[2020-04-15] MEDS: POTASSIUM CHLORIDE 20MEQ 100 ML IV SCH ×2 (12:11→14:48)
--- NOTE | 2020-04-15 12:44 | PDOC ---
PROGRESS NOTES Date of Service DATE: 04/15/20 TIME: 12:01 Subjective Subjective POD #1 S/P craniotomy with evacuation of SDH and IPH sedation on hold since this morning Objective Objective Vital Signs Date Time Temp Pulse Resp B/P (MAP) Pulse Ox O2 Delivery O2 Flow Rate FiO2 04/15/20 11:00 97.3 122 20 96/54 (68) 97 Ventilator 97.3 Intake and Output 04/15/20 07:00 Intake Total 2634.37 ml Output Total 3865 ml Balance -1230.63 ml Intake Oral 0 ml IV Total 2634.37 ml Output Urine Total 2720 ml Gastric Drainage Total 1100 ml Drainage Total 45 ml Physical Exam Neuro: Other Skin: Other (dressing dry and intact, drain in place) COMMENT Right pupil larger than left, both react minimally No spontaneous extraocular movements, minimal pain withdrawal Assessment Assessment Problems Medical Problems: (1) Facial laceration Status: Acute (2) Intracranial hemorrhage Status: Acute (3) Seizure Status: Acute (4) Traumatic subarachnoid hemorrhage Status: Acute (5) Traumatic subdural hematoma Status: Acute Plan Plan of Care 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 He is not brain , but will likely soon be. will continue to follow with neurology. Comment Review of Relevant I have reviewed the following items jossue (where applicable) has been applied. Labs Laboratory Tests Test 04/13/20 20:17 04/13/20 20:35 04/13/20 22:15 04/14/20 09:36 White Blood Count 8.5 x10^3/uL (4.0-11.0) Red Blood Count 5.08 x10^6/uL (4.30-5.70) Hemoglobin 16.1 g/dL (13.0-17.5) Hematocrit 46.5 % (39.0-53.0) Mean Corpuscular Volume 91 fL (79-100) Mean Corpuscular Hemoglobin 32 pg (25-35) Mean Corpuscular Hemoglobin Concent 35 g/dL (31-37) Red Cell Distribution Width 12.8 % (11.5-14.5) Platelet Count 133 x10^3/uL (140-400) Neutrophils (%) (Auto) 73 % (31-73) Lymphocytes (%) (Auto) 17 % (24-48) Monocytes (%) (Auto) 8 % (0-9) Eosinophils (%) (Auto) 1 % (0-3) Basophils (%) (Auto) 0 % (0-3) Neutrophils # (Auto) 6.2 x10^3/uL (1.8-7.7) Lymphocytes # (Auto) 1.4 x10^3/uL (1.0-4.8) Monocytes # (Auto) 0.7 x10^3/uL (0.0-1.1) Eosinophils # (Auto) 0.1 x10^3/uL (0.0-0.7) Basophils # (Auto) 0.0 x10^3/uL (0.0-0.2) Prothrombin Time 13.7 SEC (11.7-14.0) Prothromb Time International Ratio 1.1 (0.8-1.1) Activated Partial Thromboplast Time 32 SEC (24-38) Sodium Level 141 mmol/L (136-145) Potassium Level 3.9 mmol/L (3.5-5.1) Chloride Level 104 mmol/L (98-107) Carbon Dioxide Level 28 mmol/L (21-32) Anion Gap 9 (6-14) Blood Urea Nitrogen 24 mg/dL (8-26) Creatinine 1.2 mg/dL (0.7-1.3) Estimated GFR (Cockcroft-Gault) 59.0 BUN/Creatinine Ratio 20 (6-20) Glucose Level 153 mg/dL (70-99) Calcium Level 8.7 mg/dL (8.5-10.1) Total Bilirubin 0.3 mg/dL (0.2-1.0) Aspartate Amino Transf (AST/SGOT) 28 U/L (15-37) Alanine Aminotransferase (ALT/SGPT) 23 U/L (16-63) Alkaline Phosphatase 90 U/L (46-116) Total Protein 7.2 g/dL (6.4-8.2) Albumin 3.4 g/dL (3.4-5.0) Albumin/Globulin Ratio 0.9 (1.0-1.7) Phenytoin (Dilantin) Level < 0.5 mcg/mL (10.0-20.0) Phenytoin Last Dose Date Phenytoin Last Dose Time Valproic Acid (Depakene) Level 51 mcg/mL (50-100) Valproic Acid Last Dose Date 04/13/20 Valproic Acid Last Dose Time 0900 Urine Collection Type Void Urine Color Yellow Urine Clarity Cloudy Urine pH 7.0 (<5.0-8.0) Urine Specific [place] 1.025 (1.000-1.030) Urine Protein 30 mg/dL (NEG-TRACE) Urine Glucose (UA) Negative mg/dL (NEG) Urine Ketones (Stick) Trace mg/dL (NEG) Urine Blood Negative (NEG) Urine Nitrite Negative (NEG) Urine Bilirubin Negative (NEG) Urine Urobilinogen Dipstick 1.0 mg/dL (0.2 mg/dL) Urine Leukocyte Esterase Small (NEG) Urine RBC Occ /HPF (0-2) Urine WBC Occ /HPF (0-4) Urine Squamous Epithelial Cells Few /LPF Urine Bacteria Few /HPF (0-FEW) Urine Mucus Slight /LPF SARS-CoV-2 Antigen (Rapid) Negative (NEGATIVE) O2 Saturation 99 % (92-99) Arterial Blood pH 7.45 (7.35-7.45) Arterial Blood pCO2 at Patient Temp 28 mmHg (35-46) Arterial Blood pO2 at Patient Temp 403 mmHg (65-108) Arterial Blood HCO3 19 mmol/L (21-28) Arterial Blood Base Excess -3 mmol/L (-3-3) Oxyhemoglobin 98.3 % Methemoglobin 0.7 % (0.0-1.9) Carbon Monoxide, Quantitative 0.3 % (0.0-1.9) FiO2 100 Test 04/14/20 11:15 04/14/20 18:23 04/15/20 06:00 04/15/20 06:12 White Blood Count 22.5 x10^3/uL (4.0-11.0) 17.0 x10^3/uL (4.0-11.0) Red Blood Count 4.64 x10^6/uL (4.30-5.70) 3.40 x10^6/uL (4.30-5.70) Hemoglobin 14.6 g/dL (13.0-17.5) 10.7 g/dL (13.0-17.5) Hematocrit 42.3 % (39.0-53.0) 31.2 % (39.0-53.0) Mean Corpuscular Volume 91 fL (79-100) 92 fL (79-100) Mean Corpuscular Hemoglobin 32 pg (25-35) 31 pg (25-35) Mean Corpuscular Hemoglobin Concent 35 g/dL (31-37) 34 g/dL (31-37) Red Cell Distribution Width 12.9 % (11.5-14.5) 13.1 % (11.5-14.5) Platelet Count 141 x10^3/uL (140-400) 85 x10^3/uL (140-400) Neutrophils (%) (Auto) 90 % (31-73) Lymphocytes (%) (Auto) 3 % (24-48) Monocytes (%) (Auto) 7 % (0-9) Eosinophils (%) (Auto) 0 % (0-3) Basophils (%) (Auto) 0 % (0-3) Neutrophils # (Auto) 20.4 x10^3/uL (1.8-7.7) Lymphocytes # (Auto) 0.6 x10^3/uL (1.0-4.8) Monocytes # (Auto) 1.5 x10^3/uL (0.0-1.1) Eosinophils # (Auto) 0.0 x10^3/uL (0.0-0.7) Basophils # (Auto) 0.1 x10^3/uL (0.0-0.2) Segmented Neutrophils % 88 % (35-66) Band Neutrophils % 4 % (0-9) Lymphocytes % 1 % (24-48) Monocytes % 7 % (0-10) Platelet Estimate Adequate (ADEQUATE) Sodium Level 137 mmol/L (136-145) 148 mmol/L (136-145) Potassium Level 3.9 mmol/L (3.5-5.1) 3.1 mmol/L (3.5-5.1) Chloride Level 103 mmol/L (98-107) 119 mmol/L (98-107) Carbon Dioxide Level 25 mmol/L (21-32) 20 mmol/L (21-32) Anion Gap 9 (6-14) 9 (6-14) Blood Urea Nitrogen 27 mg/dL (8-26) 15 mg/dL (8-26) Creatinine 1.0 mg/dL (0.7-1.3) 0.9 mg/dL (0.7-1.3) Estimated GFR (Cockcroft-Gault) 72.8 82.3 BUN/Creatinine Ratio 27 (6-20) Glucose Level 165 mg/dL (70-99) 109 mg/dL (70-99) Calcium Level 8.5 mg/dL (8.5-10.1) 6.2 mg/dL (8.5-10.1) Magnesium Level 1.7 mg/dL (1.8-2.4) 1.9 mg/dL (1.8-2.4) Total Bilirubin 0.5 mg/dL (0.2-1.0) Aspartate Amino Transf (AST/SGOT) 91 U/L (15-37) Alanine Aminotransferase (ALT/SGPT) 30 U/L (16-63) Alkaline Phosphatase 53 U/L (46-116) Total Protein 6.5 g/dL (6.4-8.2) Albumin 3.1 g/dL (3.4-5.0) Albumin/Globulin Ratio 0.9 (1.0-1.7) Glucose (Fingerstick) 154 mg/dL (70-99) 97 mg/dL (70-99) Test 04/15/20 08:00 O2 Saturation 97 % (92-99) Arterial Blood pH 7.52 (7.35-7.45) Arterial Blood pCO2 at Patient Temp 28 mmHg (35-46) Arterial Blood pO2 at Patient Temp 89 mmHg (65-108) Arterial Blood HCO3 22 mmol/L (21-28) Arterial Blood Base Excess 0 mmol/L (-3-3) FiO2 50% vent Laboratory Tests Test 04/14/20 18:23 04/15/20 06:00 04/15/20 06:12 04/15/20 08:00 Glucose (Fingerstick) 154 mg/dL (70-99) 97 mg/dL (70-99) White Blood Count 17.0 x10^3/uL (4.0-11.0) Red Blood Count 3.40 x10^6/uL (4.30-5.70) Hemoglobin 10.7 g/dL (13.0-17.5) Hematocrit 31.2 % (39.0-53.0) Mean Corpuscular Volume 92 fL (79-100) Mean Corpuscular Hemoglobin 31 pg (25-35) Mean Corpuscular Hemoglobin Concent 34 g/dL (31-37) Red Cell Distribution Width 13.1 % (11.5-14.5) Platelet Count 85 x10^3/uL (140-400) Sodium Level 148 mmol/L (136-145) Potassium Level 3.1 mmol/L (3.5-5.1) Chloride Level 119 mmol/L (98-107) Carbon Dioxide Level 20 mmol/L (21-32) Anion Gap 9 (6-14) Blood Urea Nitrogen 15 mg/dL (8-26) Creatinine 0.9 mg/dL (0.7-1.3) Estimated GFR (Cockcroft-Gault) 82.3 Glucose Level 109 mg/dL (70-99) Calcium Level 6.2 mg/dL (8.5-10.1) Magnesium Level 1.9 mg/dL (1.8-2.4) O2 Saturation 97 % (92-99) Arterial Blood pH 7.52 (7.35-7.45) Arterial Blood pCO2 at Patient Temp 28 mmHg (35-46) Arterial Blood pO2 at Patient Temp 89 mmHg (65-108) Arterial Blood HCO3 22 mmol/L (21-28) Arterial Blood Base Excess 0 mmol/L (-3-3) FiO2 50% vent Microbiology 04/13/20 Urine Culture - Final, Complete Medications Current Medications Nicardipine HCl 50 mg/Sodium Chloride 250 ml @ 25 mls/hr CONT PRN IV SEE I/O RECORD Last administered on 04/13/20at 22:21; Start 04/13/20 at 22:00; Stop 04/14/20 at 14:33; Status DC Lorazepam (Ativan Inj) 2 mg 1X ONCE IVP Last administered on 04/13/20at 22:11; Start 04/13/20 at 22:00; Stop 04/13/20 at 22:01; Status DC Ondansetron HCl (Zofran) 4 mg PRN Q8HRS PRN IV NAUSEA/VOMITING 1ST CHOICE; Start 04/13/20 at 22:15; Stop 04/14/20 at 22:14; Status DC Lorazepam (Ativan Inj) 2 mg 1X ONCE IVP Last administered on 04/13/20at 23:36; Start 04/13/20 at 23:45; Stop 04/13/20 at 23:46; Status DC Lorazepam (Ativan Inj) 2 mg PRN Q4HRS PRN IVP ANXIETY / AGITATION Last administered on 04/14/20at 05:10; Start 04/14/20 at 03:15 Sodium Chloride 1,000 ml @ 100 mls/hr Q10H IV Last administered on 04/15/20at 06:08; Start 04/14/20 at 08:15 Fentanyl Citrate 30 ml @ 0 mls/hr CONT PRN IV SEE PROTOCOL Last administered on 04/15/20at 00:41; Start 04/14/20 at 09:00 Propofol 100 ml @ 0 mls/hr CONT PRN IV SEE PROTOCOL; Start 04/14/20 at 09:00 Glycerin/ Hypromellose/ Polyethylene (Artificial Tears) 1 drop PRN Q1HR PRN OU DRY EYE; Start 04/14/20 at 09:00 Midazolam HCl 100 ml @ 0 mls/hr CONT PRN IV SEE PROTOCOL Last administered on 04/15/20at 00:37; Start 04/14/20 at 09:00 Midazolam HCl (Versed) 5 mg 1X ONCE IV Last administered on 04/14/20at 09:37; Start 04/14/20 at 09:45; Stop 04/14/20 at 09:46; Status DC Succinylcholine Chloride (Anectine) 200 mg 1X ONCE IV Last administered on 04/14/20at 09:37; Start 04/14/20 at 09:45; Stop 04/14/20 at 09:46; Status DC Ondansetron HCl (Zofran) 4 mg PRN Q6HRS PRN IV NAUSEA/VOMITING; Start 04/14/20 at 10:30; Stop 04/15/20 at 10:29; Status DC Fentanyl Citrate (Fentanyl 2ml Vial) 25 mcg PRN Q5MIN PRN IV MILD PAIN 1-3; Start 04/14/20 at 10:30; Stop 04/15/20 at 10:29; Status DC Fentanyl Citrate (Fentanyl 2ml Vial) 50 mcg PRN Q5MIN PRN IV MODERATE TO SEVERE PAIN; Start 04/14/20 at 10:30; Stop 04/15/20 at 10:29; Status DC Morphine Sulfate (Morphine Sulfate) 1 mg PRN Q10MIN PRN IV SEVERE PAIN 7-10; Start 04/14/20 at 10:30; Stop 04/15/20 at 10:29; Status DC Ringer's Solution 1,000 ml @ 30 mls/hr Q24H IV ; Start 04/14/20 at 10:30; Stop 04/14/20 at 22:29; Status DC Lidocaine HCl (Xylocaine-Mpf 1% 2ml Vial) 2 ml PRN 1X PRN ID PRIOR TO IV START; Start 04/14/20 at 10:30; Stop 04/15/20 at 10:29; Status DC Hydromorphone HCl (Dilaudid) 0.5 mg PRN Q10MIN PRN IV SEV PAIN, Second choice; Start 04/14/20 at 10:30; Stop 04/15/20 at 10:29; Status DC Prochlorperazine Edisylate (Compazine) 5 mg PACU PRN PRN IV NAUSEA, MRX1; Start 04/14/20 at 10:30; Stop 04/15/20 at 10:29; Status DC Bacitracin 12384 unit/Sodium Chloride 1,000 ml @ 1,000 mls/hr 1X ONCE IRR Last administered on 04/14/20at 12:23; Start 04/14/20 at 11:00; Stop 04/14/20 at 11:59; Status DC Gelatin (Gelfoam Size 100) 1 each STK-MED ONCE .ROUTE Last administered on 04/14/20at 12:23; Start 04/14/20 at 10:54; Stop 04/14/20 at 10:55; Status DC Cellulose (Surgicel Hemostat 4x8) 1 each STK-MED ONCE .ROUTE ; Start 04/14/20 at 10:54; Stop 04/14/20 at 10:55; Status DC Lidocaine/ Epinephrine (LIDOCAINE 1%-EPI 1:100,000 Multi-Dose) 20 ml STK-MED ONCE .ROUTE Last administered on 04/14/20at 12:23; Start 04/14/20 at 10:55; Stop 04/14/20 at 10:55; Status DC Thrombin 20,000 unit STK-MED ONCE TP Last administered on 04/14/20at 12:23; Start 04/14/20 at 10:55; Stop 04/14/20 at 10:55; Status DC Mannitol (Mannitol) 12.5 g STK-MED ONCE .ROUTE ; Start 04/14/20 at 11:27; Stop 04/14/20 at 11:27; Status DC Cefazolin Sodium/ Dextrose 50 ml @ 100 mls/hr 1X PREOP PRN IV PRIOR TO PROCEDURE Last administered on 04/14/20at 12:06; Start 04/15/20 at 06:00; Stop 04/15/20 at 18:00 Rocuronium [place] (Zemuron) 100 mg STK-MED ONCE .ROUTE ; Start 04/14/20 at 11:53; Stop 04/14/20 at 11:53; Status DC Cefazolin Sodium (Ancef) 1 gm STK-MED ONCE IVP ; Start 04/14/20 at 12:03; Stop 04/14/20 at 12:03; Status DC Gelatin (Gelfoam Size 100) 1 each STK-MED ONCE .ROUTE Last administered on 04/14/20at 13:33; Start 04/14/20 at 13:30; Stop 04/14/20 at 13:30; Status DC Sevoflurane (Ultane) 90 ml STK-MED ONCE IH ; Start 04/14/20 at 13:57; Stop 04/14/20 at 13:57; Status DC Nicardipine HCl 50 mg/Sodium Chloride 250 ml @ 25 mls/hr TITRATE PRN IV PER PROTOCOL; Start 04/14/20 at 14:30 Sodium Chloride (Normal Saline Flush) 3 ml QSHIFT PRN IV AFTER MEDS AND BLOOD DRAWS; Start 04/14/20 at 14:30 Dextrose (Dextrose 50%-Water Syringe) 12.5 gm PRN Q15MIN PRN IV SEE COMMENTS; Start 04/14/20 at 14:30 Cefazolin Sodium (Ancef) 1 gm Q8H IVP Last administered on 04/15/20at 06:09; Start 04/14/20 at 20:00; Stop 04/15/20 at 12:01 Fentanyl Citrate (Fentanyl 2ml Vial) 50 mcg PRN Q2HR PRN IVP PAIN; Start 04/14/20 at 14:30 Levetiracetam 1500 mg/Dextrose 115 ml @ 440 mls/hr Q12HR IV Last administered on 04/15/20at 09:29; Start 04/14/20 at 15:00 Midazolam HCl (Versed) 5 mg STK-MED ONCE .ROUTE ; Start 04/13/20 at 12:00; Stop 04/14/20 at 16:21; Status DC Famotidine (Pepcid Vial) 20 mg BID IVP Last administered on 04/15/20at 09:29; Start 04/14/20 at 21:00 Magnesium Sulfate 50 ml @ 25 mls/hr 1X ONCE IV Last administered on 04/14/20at 18:27; Start 04/14/20 at 18:30; Stop 04/14/20 at 20:29; Status DC Potassium Chloride/Water 100 ml @ 50 mls/hr Q2H IV ; Start 04/15/20 at 12:00; Stop 04/15/20 at 15:59 Active Scripts Active Reported Valproic Acid (Valproate Sodium) 250 Mg/5 Ml Solution 250 Mg PO TID Levetiracetam 500 Mg Tablet 1 Tab PO BID Keppra (Levetiracetam) 1,000 Mg Tablet 1 Tab PO BID Vitals/I & O Vital Sign - Last 24 Hours 04/14/20 04/14/20 04/14/20 04/14/20 13:00 14:00 14:40 14:40 Pulse 102 108 Resp 20 20 B/P (MAP) 86/50 (62) 120/60 (80) Pulse Ox 98 98 O2 Delivery Ventilator Ventilator Mechanical Ventilator 04/14/20 04/14/20 04/14/20 04/14/20 15:00 15:15 15:30 15:39 Pulse 100 100 102 Resp 20 B/P (MAP) 84/44 (57) 112/50 (70) 104/48 (66) Pulse Ox 99 97 O2 Delivery Ventilator Ventilator 04/14/20 04/14/20 04/14/20 04/14/20 15:45 16:00 16:00 16:00 Temp 99.3 99.3 Pulse 100 94 Resp 20 B/P (MAP) 118/60 (79) 124/58 (80) Pulse Ox 99 O2 Delivery Ventilator Mechanical Ventilator 04/14/20 04/14/20 04/14/20 04/14/20 17:00 18:00 19:00 20:00 Pulse 89 90 86 Resp 20 20 20 B/P (MAP) 114/57 (76) 118/57 (77) 112/56 (74) Pulse Ox 99 99 99 O2 Delivery Ventilator Ventilator Ventilator Mechanical Ventilator 04/14/20 04/14/20 04/14/20 04/14/20 20:00 20:00 20:15 21:00 Temp 97.8 97.8 Pulse 86 86 Resp 20 20 B/P (MAP) 110/56 (74) 116/56 (76) Pulse Ox 99 99 99 O2 Delivery Ventilator Ventilator Ventilator 04/14/20 04/14/20 04/15/20 04/15/20 22:00 23:00 00:00 00:00 Temp 99.2 99.2 Pulse 84 86 86 Resp 20 20 20 B/P (MAP) 126/58 (80) 126/58 (80) 132/60 (84) Pulse Ox 99 99 99 O2 Delivery Ventilator Ventilator Ventilator Mechanical Ventilator 04/15/20 04/15/20 04/15/20 04/15/20 00:00 00:20 01:00 02:00 Pulse 88 86 Resp 20 20 B/P (MAP) 132/60 (84) 142/64 (90) Pulse Ox 99 99 100 O2 Delivery Ventilator Ventilator Ventilator 04/15/20 04/15/20 04/15/20 04/15/20 03:00 04:00 04:00 04:00 Temp 99.8 99.8 Pulse 84 84 Resp 20 20 B/P (MAP) 140/62 (88) 134/60 (84) Pulse Ox 100 100 O2 Delivery Ventilator Ventilator Mechanical Ventilator 04/15/20 04/15/20 04/15/20 04/15/20 05:00 05:17 06:00 07:00 Pulse 88 112 112 Resp 20 20 20 B/P (MAP) 124/58 (80) 103/53 (70) 104/54 (71) Pulse Ox 100 100 99 98 O2 Delivery Ventilator Ventilator Ventilator Ventilator 04/15/20 04/15/20 04/15/20 04/15/20 07:52 08:00 08:00 08:00 Pulse 120 Resp 20 B/P (MAP) 106/56 (73) Pulse Ox 98 99 O2 Delivery Ventilator Ventilator Mechanical Ventilator 04/15/20 04/15/20 04/15/20 04/15/20 08:55 09:00 10:00 11:00 Temp 97.7 97.3 97.7 97.3 Pulse 119 116 122 Resp 20 20 20 B/P (MAP) 94/51 (65) 100/52 (68) 96/54 (68) Pulse Ox 97 97 98 97 O2 Delivery Ventilator Ventilator Ventilator Ventilator Intake and Output 04/14/20 04/14/20 04/15/20 15:00 23:00 07:00 Intake Total 82.47 ml 1350.9 ml 1201 ml Output Total 625 ml 1580 ml 1660 ml Balance -542.53 ml -229.1 ml -459 ml Justifications for Admission Other Justification MYRIAM SAHNI MD Apr 15, 2020 12:44
[2020-04-15] MEDS: NOREPINEPHRINE VIAL 8 MG in IV DEXTROSE 5% 250 ML IV PRN ×3 (13:58→21:56)
--- NOTE | 2020-04-15 14:11 | NUR ---
pt blood pressure dropped to 60s/40s, pageagus Duffy from Neurosurgery to make sure no contraindications for any vasopressors, she denied. Paged Dr Osborn and got order for Levophed gtt. Levophed initiated and pt blood pressure immediately responded. Addendum: 04/15/20 at 1516 by BETTE ARELLANO RN PT BLOOD PRESSURE VERY LAIBILE, HAVE HAD TO GO UP ON LEVOPHED MULTIPLE TIMES ALREADY, PT BLOOD PRESSURE WILL BE WITHIN DESIRED RANGE FOR A FEW MINUTES THEN DROP OR RAISE. Addendum: 04/15/20 at 1516 by BETTE ARELLANO RN SPOKE WITH DR MADERA, HE STATES DR HILLS WILL BE IN TOMORROW TO EVALUATE FOR BRAIN
[2020-04-15] MEDS ORDERED: IV NORMAL SALINE 1000ML BAG 1,000 ML IV ONE (15:45)
[2020-04-15 17:39] LABS: CALCIUM 8.6 mg/dL (8.5-10.1); CREATININE 1.3 mg/dL (0.7-1.3); GFR 53.8; POTASSIUM 4.5 mmol/L (3.5-5.1)
[2020-04-15 17:45] LABS: ALBUMIN 2.2 g/dL (3.4-5.0); ALBUMIN/GLOBULIN RATIO 0.7 (1.0-1.7); TOTAL BILIRUBIN 0.5 mg/dL (0.2-1.0); TOTAL PROTEIN 5.3 g/dL (6.4-8.2)
[2020-04-15] MEDS: VASOPRESSIN 20 UNIT in IV DEXTROSE 5% 100ML 100 ML IV PRN (17:51)
[2020-04-15] MEDS: IV RINGERS,LACTATED 1000ML 1,000 ML IV SCH ×2 (18:00→18:24)
[2020-04-15] MEDS: IV DEXTROSE 5% 1,000 ML IV SCH (18:30)
--- NOTE | 2020-04-15 18:47 | NUR ---
Pt blood pressure very labile since 1400. SBP one minute low 60s, then 140s. Pt now on levophed and vasopressin. IVF changed d/t sodium level.
[2020-04-16] VITALS (25 sets, daily range): BP systolic 65–170; BP diastolic 47–88
[2020-04-16] MEDS: VASOPRESSIN 20 UNIT in IV DEXTROSE 5% 100ML 100 ML IV PRN ×3 (00:36→18:32)
[2020-04-16] MEDS: IV DEXTROSE 5% 1,000 ML IV SCH ×2 (04:22→14:42)
[2020-04-16] MEDS: NOREPINEPHRINE VIAL 8 MG in IV DEXTROSE 5% 250 ML IV PRN ×3 (04:31→18:33)
[2020-04-16 06:35] LABS: ALBUMIN 1.8 g/dL (3.4-5.0); ALBUMIN/GLOBULIN RATIO 0.5 (1.0-1.7); CALCIUM 8.3 mg/dL (8.5-10.1); GFR 72.8; MAGNESIUM 1.5 mg/dL (1.8-2.4); POTASSIUM 3.3 mmol/L (3.5-5.1); TOTAL BILIRUBIN 0.4 mg/dL (0.2-1.0); TOTAL PROTEIN 5.1 g/dL (6.4-8.2)
[2020-04-16 06:39] LABS: BASO # 0.1 x10^3/uL (0.0-0.2); BASO % 0 % (0-3); EOS # 0.2 x10^3/uL (0.0-0.7); EOS % 1 % (0-3); HEMOGLOBIN 10.7 g/dL (13.0-17.5); LYMPH # 0.8 x10^3/uL (1.0-4.8); LYMPH % 4 % (24-48); MEAN CORPUSCULAR HEMOGLOBIN 32 pg (25-35); MEAN CORPUSCULAR HGB CONC 35 g/dL (31-37); MEAN CORPUSCULAR VOLUME 92 fL (79-100); MONO # 1.3 x10^3/uL (0.0-1.1); MONO % 7 % (0-9); NEUT % 88 % (31-73); PLATELET COUNT 91 x10^3/uL (140-400); RED BLOOD COUNT 3.38 x10^6/uL (4.30-5.70); WHITE BLOOD COUNT 20.5 x10^3/uL (4.0-11.0)
--- NOTE | 2020-04-16 07:07 | PDOC ---
PULMONARY PROGRESS NOTES DATE: 04/16/20 TIME: 07:06 Subjective PT. remains on vent at 40% peep 5 no sedation no response Worsening CT findings no pupil response or other reflexes S/P right craniotomy and evacuation on 04/14 No other concerns at this time Vitals Vital Signs Date Time Temp Pulse Resp B/P (MAP) Pulse Ox O2 Delivery O2 Flow Rate FiO2 04/16/20 06:00 99 20 128/74 (92) 100 Ventilator 04/16/20 04:00 98.0 98.0 Comments ros unable to obtain intubated no response HEENT: Other (Pupil do not react s/p crani orally intubated nose clear neck no lad no thyromegaly) Lungs: Crackles Cardiovascular: S1, S2 Abdomen: Soft, Non-tender, Other (no mass) Extremities: No Edema Skin: Warm, Dry Labs Laboratory Tests Test 04/14/20 09:36 04/14/20 11:15 04/14/20 18:23 04/15/20 06:00 O2 Saturation 99 % (92-99) Arterial Blood pH 7.45 (7.35-7.45) Arterial Blood pCO2 at Patient Temp 28 mmHg (35-46) Arterial Blood pO2 at Patient Temp 403 mmHg (65-108) Arterial Blood HCO3 19 mmol/L (21-28) Arterial Blood Base Excess -3 mmol/L (-3-3) Oxyhemoglobin 98.3 % Methemoglobin 0.7 % (0.0-1.9) Carbon Monoxide, Quantitative 0.3 % (0.0-1.9) FiO2 100 White Blood Count 22.5 x10^3/uL (4.0-11.0) 17.0 x10^3/uL (4.0-11.0) Red Blood Count 4.64 x10^6/uL (4.30-5.70) 3.40 x10^6/uL (4.30-5.70) Hemoglobin 14.6 g/dL (13.0-17.5) 10.7 g/dL (13.0-17.5) Hematocrit 42.3 % (39.0-53.0) 31.2 % (39.0-53.0) Mean Corpuscular Volume 91 fL (79-100) 92 fL (79-100) Mean Corpuscular Hemoglobin 32 pg (25-35) 31 pg (25-35) Mean Corpuscular Hemoglobin Concent 35 g/dL (31-37) 34 g/dL (31-37) Red Cell Distribution Width 12.9 % (11.5-14.5) 13.1 % (11.5-14.5) Platelet Count 141 x10^3/uL (140-400) 85 x10^3/uL (140-400) Neutrophils (%) (Auto) 90 % (31-73) Lymphocytes (%) (Auto) 3 % (24-48) Monocytes (%) (Auto) 7 % (0-9) Eosinophils (%) (Auto) 0 % (0-3) Basophils (%) (Auto) 0 % (0-3) Neutrophils # (Auto) 20.4 x10^3/uL (1.8-7.7) Lymphocytes # (Auto) 0.6 x10^3/uL (1.0-4.8) Monocytes # (Auto) 1.5 x10^3/uL (0.0-1.1) Eosinophils # (Auto) 0.0 x10^3/uL (0.0-0.7) Basophils # (Auto) 0.1 x10^3/uL (0.0-0.2) Segmented Neutrophils % 88 % (35-66) Band Neutrophils % 4 % (0-9) Lymphocytes % 1 % (24-48) Monocytes % 7 % (0-10) Platelet Estimate Adequate (ADEQUATE) Sodium Level 137 mmol/L (136-145) 148 mmol/L (136-145) Potassium Level 3.9 mmol/L (3.5-5.1) 3.1 mmol/L (3.5-5.1) Chloride Level 103 mmol/L (98-107) 119 mmol/L (98-107) Carbon Dioxide Level 25 mmol/L (21-32) 20 mmol/L (21-32) Anion Gap 9 (6-14) 9 (6-14) Blood Urea Nitrogen 27 mg/dL (8-26) 15 mg/dL (8-26) Creatinine 1.0 mg/dL (0.7-1.3) 0.9 mg/dL (0.7-1.3) Estimated GFR (Cockcroft-Gault) 72.8 82.3 BUN/Creatinine Ratio 27 (6-20) Glucose Level 165 mg/dL (70-99) 109 mg/dL (70-99) Calcium Level 8.5 mg/dL (8.5-10.1) 6.2 mg/dL (8.5-10.1) Magnesium Level 1.7 mg/dL (1.8-2.4) 1.9 mg/dL (1.8-2.4) Total Bilirubin 0.5 mg/dL (0.2-1.0) Aspartate Amino Transf (AST/SGOT) 91 U/L (15-37) Alanine Aminotransferase (ALT/SGPT) 30 U/L (16-63) Alkaline Phosphatase 53 U/L (46-116) Total Protein 6.5 g/dL (6.4-8.2) Albumin 3.1 g/dL (3.4-5.0) Albumin/Globulin Ratio 0.9 (1.0-1.7) Glucose (Fingerstick) 154 mg/dL (70-99) Test 04/15/20 06:12 04/15/20 08:00 04/15/20 17:12 04/16/20 06:00 Glucose (Fingerstick) 97 mg/dL (70-99) O2 Saturation 97 % (92-99) Arterial Blood pH 7.52 (7.35-7.45) Arterial Blood pCO2 at Patient Temp 28 mmHg (35-46) Arterial Blood pO2 at Patient Temp 89 mmHg (65-108) Arterial Blood HCO3 22 mmol/L (21-28) Arterial Blood Base Excess 0 mmol/L (-3-3) FiO2 50% vent Sodium Level 154 mmol/L (136-145) 143 mmol/L (136-145) Potassium Level 4.5 mmol/L (3.5-5.1) 3.3 mmol/L (3.5-5.1) Chloride Level 122 mmol/L (98-107) 112 mmol/L (98-107) Carbon Dioxide Level 20 mmol/L (21-32) 21 mmol/L (21-32) Anion Gap 12 (6-14) 10 (6-14) Blood Urea Nitrogen 15 mg/dL (8-26) 12 mg/dL (8-26) Creatinine 1.3 mg/dL (0.7-1.3) 1.0 mg/dL (0.7-1.3) Estimated GFR (Cockcroft-Gault) 53.8 72.8 BUN/Creatinine Ratio 12 (6-20) 12 (6-20) Glucose Level 156 mg/dL (70-99) 246 mg/dL (70-99) Calcium Level 8.6 mg/dL (8.5-10.1) 8.3 mg/dL (8.5-10.1) Total Bilirubin 0.5 mg/dL (0.2-1.0) 0.4 mg/dL (0.2-1.0) Aspartate Amino Transf (AST/SGOT) 102 U/L (15-37) 72 U/L (15-37) Alanine Aminotransferase (ALT/SGPT) 23 U/L (16-63) 21 U/L (16-63) Alkaline Phosphatase 52 U/L (46-116) 58 U/L (46-116) Total Protein 5.3 g/dL (6.4-8.2) 5.1 g/dL (6.4-8.2) Albumin 2.2 g/dL (3.4-5.0) 1.8 g/dL (3.4-5.0) Albumin/Globulin Ratio 0.7 (1.0-1.7) 0.5 (1.0-1.7) White Blood Count 20.5 x10^3/uL (4.0-11.0) Red Blood Count 3.38 x10^6/uL (4.30-5.70) Hemoglobin 10.7 g/dL (13.0-17.5) Hematocrit 31.0 % (39.0-53.0) Mean Corpuscular Volume 92 fL (79-100) Mean Corpuscular Hemoglobin 32 pg (25-35) Mean Corpuscular Hemoglobin Concent 35 g/dL (31-37) Red Cell Distribution Width 13.0 % (11.5-14.5) Platelet Count 91 x10^3/uL (140-400) Neutrophils (%) (Auto) 88 % (31-73) Lymphocytes (%) (Auto) 4 % (24-48) Monocytes (%) (Auto) 7 % (0-9) Eosinophils (%) (Auto) 1 % (0-3) Basophils (%) (Auto) 0 % (0-3) Neutrophils # (Auto) 18.0 x10^3/uL (1.8-7.7) Lymphocytes # (Auto) 0.8 x10^3/uL (1.0-4.8) Monocytes # (Auto) 1.3 x10^3/uL (0.0-1.1) Eosinophils # (Auto) 0.2 x10^3/uL (0.0-0.7) Basophils # (Auto) 0.1 x10^3/uL (0.0-0.2) Magnesium Level 1.5 mg/dL (1.8-2.4) Laboratory Tests Test 04/15/20 08:00 04/15/20 17:12 04/16/20 06:00 O2 Saturation 97 % (92-99) Arterial Blood pH 7.52 (7.35-7.45) Arterial Blood pCO2 at Patient Temp 28 mmHg (35-46) Arterial Blood pO2 at Patient Temp 89 mmHg (65-108) Arterial Blood HCO3 22 mmol/L (21-28) Arterial Blood Base Excess 0 mmol/L (-3-3) FiO2 50% vent Sodium Level 154 mmol/L (136-145) 143 mmol/L (136-145) Potassium Level 4.5 mmol/L (3.5-5.1) 3.3 mmol/L (3.5-5.1) Chloride Level 122 mmol/L (98-107) 112 mmol/L (98-107) Carbon Dioxide Level 20 mmol/L (21-32) 21 mmol/L (21-32) Anion Gap 12 (6-14) 10 (6-14) Blood Urea Nitrogen 15 mg/dL (8-26) 12 mg/dL (8-26) Creatinine 1.3 mg/dL (0.7-1.3) 1.0 mg/dL (0.7-1.3) Estimated GFR (Cockcroft-Gault) 53.8 72.8 BUN/Creatinine Ratio 12 (6-20) 12 (6-20) Glucose Level 156 mg/dL (70-99) 246 mg/dL (70-99) Calcium Level 8.6 mg/dL (8.5-10.1) 8.3 mg/dL (8.5-10.1) Total Bilirubin 0.5 mg/dL (0.2-1.0) 0.4 mg/dL (0.2-1.0) Aspartate Amino Transf (AST/SGOT) 102 U/L (15-37) 72 U/L (15-37) Alanine Aminotransferase (ALT/SGPT) 23 U/L (16-63) 21 U/L (16-63) Alkaline Phosphatase 52 U/L (46-116) 58 U/L (46-116) Total Protein 5.3 g/dL (6.4-8.2) 5.1 g/dL (6.4-8.2) Albumin 2.2 g/dL (3.4-5.0) 1.8 g/dL (3.4-5.0) Albumin/Globulin Ratio 0.7 (1.0-1.7) 0.5 (1.0-1.7) White Blood Count 20.5 x10^3/uL (4.0-11.0) Red Blood Count 3.38 x10^6/uL (4.30-5.70) Hemoglobin 10.7 g/dL (13.0-17.5) Hematocrit 31.0 % (39.0-53.0) Mean Corpuscular Volume 92 fL (79-100) Mean Corpuscular Hemoglobin 32 pg (25-35) Mean Corpuscular Hemoglobin Concent 35 g/dL (31-37) Red Cell Distribution Width 13.0 % (11.5-14.5) Platelet Count 91 x10^3/uL (140-400) Neutrophils (%) (Auto) 88 % (31-73) Lymphocytes (%) (Auto) 4 % (24-48) Monocytes (%) (Auto) 7 % (0-9) Eosinophils (%) (Auto) 1 % (0-3) Basophils (%) (Auto) 0 % (0-3) Neutrophils # (Auto) 18.0 x10^3/uL (1.8-7.7) Lymphocytes # (Auto) 0.8 x10^3/uL (1.0-4.8) Monocytes # (Auto) 1.3 x10^3/uL (0.0-1.1) Eosinophils # (Auto) 0.2 x10^3/uL (0.0-0.7) Basophils # (Auto) 0.1 x10^3/uL (0.0-0.2) Magnesium Level 1.5 mg/dL (1.8-2.4) Medications Active Scripts Medications Dose Route/Sig Max Daily Dose Days Date Category D3-50 (Cholecalciferol (Vitamin D3)) 50,000 Unit Capsule 1,500 Unit PO DAILY 04/14/20 Reported Valproic Acid (Valproate Sodium) 250 Mg/5 Ml Solution 250 Mg PO TID 04/14/20 Reported Multivitamin 1 Each Tablet 1 Each PO DAILY 04/14/20 Reported Levetiracetam 500 Mg Tablet 1 Tab PO BID 04/14/20 Reported Mucus ER (Guaifenesin) 600 Mg Tab.er.12h 600 Mg PO PRN Q12HR PRN 04/14/20 Reported Ethosuximide 250 Mg Capsule 1 Cap PO BID 30 04/14/20 Reported Colace (Docusate Sodium) 100 Mg Capsule 1 Cap PO BID 30 04/14/20 Reported Tylenol (Acetaminophen) 325 Mg Tablet 650 Mg PO PRN Q6HRS PRN 07/26/16 Reported Keppra (Levetiracetam) 1,000 Mg Tablet 1 Tab PO BID 07/26/[address] head 04/15 reviewed Multiple intracranial hemorrhages with extensive cerebral edema. Increasing effacement of the subarachnoid cisterns. Increasing blood within the left lateral ventricle. Hemorrhages are otherwise not significantly changed Post surgical changes of right frontotemporal craniotomy and extra-axial drain placement Impression . IMPRESSION: 1. Acute respiratory failure secondary to cerebrovascular accident. 2. Seizures secondary to cerebrovascular accident. 3. A 3.6 cm acute right temporal lobe intraparenchymal hemorrhage. 4. Moderate right and small left acute subdural hematoma. 5. Small amount of subarachnoid hemorrhage. 6. Nondisplaced right temporal bone fracture. 7. Encephalomalacia. 8. Encephalopathy secondary to above. 9. Abnormal chest x-ray. Plan . Continue current vent support currently on 40%, reviewed CXR and ABG, PRN nebs Repeat CT head worsening on cefazolin ABX Follow neuro surgery recs: S/P Right frontotemporoparietal craniotomy with evacuation of subdural hematoma and evacuation of intracerebral hemorrhage on 04/14 Continue neurology recs and AEM Cardene if needed to control HTN GI PPx: pepcid D/W RN and RT Poor prognosis Pt. is FULL code TRICIA POSEY MD Apr 16, 2020 07:07
[2020-04-16 07:53] LABS: BASE EXCESS ABG -4 mmol/L (-3-3); HCO3 ABG 19 mmol/L (21-28); PCO2 ABG 28 mmHg (35-46); PO2 ABG 141 mmHg (65-108); SAT O2 ABG 98 % (92-99)
[2020-04-16 08:33] LABS: FIO2 ABG 40%+5
[2020-04-16] MEDS: FAMOTIDINE 20 MG/2 ML VIAL IVP SCH ×2 (09:57→21:08)
[2020-04-16] MEDS: levETIRAcetam 1,500 MG in IV DEXTROSE 5% 100ML 100 ML IV SCH ×2 (09:57→21:08)
--- NOTE | 2020-04-16 11:10 | PDOC ---
[facility] PROGRESS NOTE Date of Service DOS: DATE: 04/16/20 TIME: 11:03 Chief Complaint Chief Complaint Acute subdural hematoma status post craniotomy Respiratory failure Temporal intraparenchymal hematoma Mental status changes History of seizures Anxiety Schizophrenia History of Present Illness History of Present Illness HPI: The patient is a pleasant 75-year-old male who apparently had a seizure at a assisted facility. He was found down, had blood around his right eye. He is postictal, so they went ahead and called EMS. He was brought to the ER. We scanned his brain. He has massive intracranial hemorrhage. The patient has now been admitted to the ICU. He got intubated this morning, we had a brief code blue. He is now getting ready to go to surgery. 04/15/20: Pt seen and examined in ICU POD 1 emergent craniotomy PK RN Chart reviewed Currently on ventilation AC/20/500/40% with 5 PEEP He is off sedation now but not waking up yet His pupils are quite large and not reactive He is not responding to pain stimuli He is very critically ill I am concerned he may not survive 04/16/20 Pt seen and examined in the ICU. PK RN. Discussed possibility of organ donation with transplant signs sales representative. Pt's chart and imaging reviewed. His pupils continue to be quite large and not reactive. He continues to not respond to pain stimuli. Currently on ventilation AC/20/500/40% with 5 PEEP. He is extremely critically ill Vitals/I&O Vitals/I&O: Vital Signs Date Time Temp Pulse Resp B/P (MAP) Pulse Ox O2 Delivery O2 Flow Rate FiO2 04/16/20 09:29 100 Ventilator 04/16/20 06:00 99 20 128/74 (92) 04/16/20 04:00 98.0 98.0 I & O 04/15/20 04/15/20 04/16/20 15:00 23:00 07:00 Intake Total 215 ml 2215 ml 2005.5 ml Output Total 1400 ml 1100 ml 825 ml Balance -1185 ml 1115 ml 1180.5 ml Physical Exam General: No acute distress, Other (resting comfortably, negative babinski, pupils dilated L>R non reactive to light) Heart: No murmurs, Other (tachycardic) Lungs: Crackles Abdomen: Normal bowel sounds, No tenderness Extremities: No clubbing, No edema, Other (scds in place) Skin: Other (dressing dry and intact, drain in place on R. frontotemporoparietal region of head ) Labs Labs: Laboratory Tests Test 04/15/20 17:12 04/16/20 06:00 04/16/20 08:00 Sodium Level 154 mmol/L (136-145) 143 mmol/L (136-145) Potassium Level 4.5 mmol/L (3.5-5.1) 3.3 mmol/L (3.5-5.1) Chloride Level 122 mmol/L (98-107) 112 mmol/L (98-107) Carbon Dioxide Level 20 mmol/L (21-32) 21 mmol/L (21-32) Anion Gap 12 (6-14) 10 (6-14) Blood Urea Nitrogen 15 mg/dL (8-26) 12 mg/dL (8-26) Creatinine 1.3 mg/dL (0.7-1.3) 1.0 mg/dL (0.7-1.3) Estimated GFR (Cockcroft-Gault) 53.8 72.8 BUN/Creatinine Ratio 12 (6-20) 12 (6-20) Glucose Level 156 mg/dL (70-99) 246 mg/dL (70-99) Calcium Level 8.6 mg/dL (8.5-10.1) 8.3 mg/dL (8.5-10.1) Total Bilirubin 0.5 mg/dL (0.2-1.0) 0.4 mg/dL (0.2-1.0) Aspartate Amino Transf (AST/SGOT) 102 U/L (15-37) 72 U/L (15-37) Alanine Aminotransferase (ALT/SGPT) 23 U/L (16-63) 21 U/L (16-63) Alkaline Phosphatase 52 U/L (46-116) 58 U/L (46-116) Total Protein 5.3 g/dL (6.4-8.2) 5.1 g/dL (6.4-8.2) Albumin 2.2 g/dL (3.4-5.0) 1.8 g/dL (3.4-5.0) Albumin/Globulin Ratio 0.7 (1.0-1.7) 0.5 (1.0-1.7) White Blood Count 20.5 x10^3/uL (4.0-11.0) Red Blood Count 3.38 x10^6/uL (4.30-5.70) Hemoglobin 10.7 g/dL (13.0-17.5) Hematocrit 31.0 % (39.0-53.0) Mean Corpuscular Volume 92 fL (79-100) Mean Corpuscular Hemoglobin 32 pg (25-35) Mean Corpuscular Hemoglobin Concent 35 g/dL (31-37) Red Cell Distribution Width 13.0 % (11.5-14.5) Platelet Count 91 x10^3/uL (140-400) Neutrophils (%) (Auto) 88 % (31-73) Lymphocytes (%) (Auto) 4 % (24-48) Monocytes (%) (Auto) 7 % (0-9) Eosinophils (%) (Auto) 1 % (0-3) Basophils (%) (Auto) 0 % (0-3) Neutrophils # (Auto) 18.0 x10^3/uL (1.8-7.7) Lymphocytes # (Auto) 0.8 x10^3/uL (1.0-4.8) Monocytes # (Auto) 1.3 x10^3/uL (0.0-1.1) Eosinophils # (Auto) 0.2 x10^3/uL (0.0-0.7) Basophils # (Auto) 0.1 x10^3/uL (0.0-0.2) Magnesium Level 1.5 mg/dL (1.8-2.4) O2 Saturation 98 % (92-99) Arterial Blood pH 7.45 (7.35-7.45) Arterial Blood pCO2 at Patient Temp 28 mmHg (35-46) Arterial Blood pO2 at Patient Temp 141 mmHg (65-108) Arterial Blood HCO3 19 mmol/L (21-28) Arterial Blood Base Excess -4 mmol/L (-3-3) FiO2 40%+5 Review of Systems Review of Systems: Unable to obtain as pt is not able to communicate. Assessment and Plan Assessmemt and Plan Assessment: Acute subdural hematoma Temporal intraparenchymal hematoma Mental status changes History of seizures Anxiety Schizophrenia Plan: Cardiac monitoring Monitor art line for blood pressures- he is currently 128/74. DVT ppx Trend labs Wound care Vent weaning (ventilation currently@ AC/20/500/40% with 5 peep) Full code Pulm and Neuro consulted and follwoing. Appreciate subspecialty input He is critically ill Prognosis extremely grave he might not survive- Power of personal injury attorney has to get court order to make DNR. CC time 31 minutes Comment Review of Relevant I have reviewed the following items jossue (where applicable) has been applied. Medications: Current Medications Medications (Trade) Dose Ordered Sig/Linh Route PRN Reason Start Time Stop Time Status Last Admin Dose Admin Potassium Chloride/Water 100 ml @ 50 mls/hr Q2H IV 04/15/20 12:00 04/15/20 15:59 DC 04/15/20 14:48 Norepinephrine Bitartrate 8 mg/ Dextrose 258 ml @ 12.558 mls/ hr CONT PRN IV PER PROTOCOL 04/15/20 14:00 04/16/20 04:31 Sodium Chloride 1,000 ml @ 1,000 mls/hr 1X ONCE IV 04/15/20 15:45 04/15/20 16:44 DC 04/15/20 15:40 Vasopressin 20 unit/Dextrose 101 ml @ 12 mls/hr CONT PRN IV SEE I/O RECORD 04/15/20 17:15 04/16/20 09:57 Dextrose 1,000 ml @ 100 mls/hr Q10H IV 04/15/20 18:15 04/16/20 04:22 Ringer's Solution 1,000 ml @ 1,000 mls/hr Q1H IV 04/15/20 18:15 04/15/20 19:57 DC 04/15/20 18:00 Justifications for Admission Other Justification DANNIE KELSEY III DO Apr 16, 2020 11:10
[2020-04-16 13:04] LABS: BASE EXCESS COOX -4 mmol/L (-3-3); HCO3 COOX 26 mmol/L (21-28); METHEMOGLOBIN 0.5 % (0.0-1.9); OXYHEMOGLOBIN 97.6 %; PO2 COOX 167 mmHg (65-108); SAT O2 COOX 98 % (92-99)
[2020-04-16 13:06] LABS: PCO2 COOX 75 mmHg (35-46)
--- NOTE | 2020-04-16 13:07 | NUR ---
[facility] TEST POSITIVE [facility] [employer]
--- NOTE | 2020-04-16 13:09 | PDOC ---
PROGRESS NOTES Date of Service DATE: 04/16/20 TIME: 13:03 Assessment Problems Medical Problems: (1) Facial laceration Status: Acute (2) Intracranial hemorrhage Status: Acute (3) Seizure Status: Acute (4) Traumatic subarachnoid hemorrhage Status: Acute (5) Traumatic subdural hematoma Status: Acute 6. Cerebral brain Complete testing performed to evaluate for brainstem reflex. No brainstem reflex was present. There was no drive to breathe. Apnea test was performed without any respiratory effort. Plan 1. Patient is brain from his injuries. He is currently maintained on life support. As there is no hope for recovery, the power of city attorney will need to go to court in order to achieve a DO NOT RESUSCITATE status to discontinue supportive care. Subjective Intubated, ventilated, not sedated Objective Vital Signs Date Time Temp Pulse Resp B/P (MAP) Pulse Ox O2 Delivery O2 Flow Rate FiO2 04/16/20 11:18 100 Ventilator 04/16/20 06:00 99 20 128/74 (92) 04/16/20 04:00 98.0 98.0 Intake and Output 04/16/20 07:00 Intake Total 4435.5 ml Output Total 3325 ml Balance 1110.5 ml IV Total 4435.5 ml Output Urine Total 3325 ml PHYSICAL EXAM He was intubated and ventilated. His temperature was 98.5 F. There was no spontaneous movement. The eyes were closed without opening. Sternal rub did not provoke any alerting. When the eyes were held open they were disconjugate. Pupils were irregular and nonreactive. He did not respond to visual threat or loud clap. He did not look up to command or follow any commands. Corneal reflex was absent. Oculocephalic reflex was absent. Ice water calorics was negative. There was no gag reflex to pharyngeal stimulation. He did not cough to deep suctioning. Tone was flaccid in the extremities. Nailbed pressure did not provoke a response. Toes were mute. An apnea test was performed. The ventilator was disconnected and 15 L oxygen was placed down the endotracheal tube with a nasal cannula tubing. An arterial blood gas was performed after 11 minutes. During this 11 minutes there was absolutely no respiratory drive. The arterial blood gas revealed a PCO2 of 74.5, PO2 of 166.6. Patient was declared brain at 1300 on April 16, 2020. Review of Relevant I have reviewed the following items jossue (where applicable) has been applied. Labs Laboratory Tests Test 04/14/20 18:23 04/15/20 06:00 04/15/20 06:12 04/15/20 08:00 Glucose (Fingerstick) 154 mg/dL (70-99) 97 mg/dL (70-99) White Blood Count 17.0 x10^3/uL (4.0-11.0) Red Blood Count 3.40 x10^6/uL (4.30-5.70) Hemoglobin 10.7 g/dL (13.0-17.5) Hematocrit 31.2 % (39.0-53.0) Mean Corpuscular Volume 92 fL (79-100) Mean Corpuscular Hemoglobin 31 pg (25-35) Mean Corpuscular Hemoglobin Concent 34 g/dL (31-37) Red Cell Distribution Width 13.1 % (11.5-14.5) Platelet Count 85 x10^3/uL (140-400) Sodium Level 148 mmol/L (136-145) Potassium Level 3.1 mmol/L (3.5-5.1) Chloride Level 119 mmol/L (98-107) Carbon Dioxide Level 20 mmol/L (21-32) Anion Gap 9 (6-14) Blood Urea Nitrogen 15 mg/dL (8-26) Creatinine 0.9 mg/dL (0.7-1.3) Estimated GFR (Cockcroft-Gault) 82.3 Glucose Level 109 mg/dL (70-99) Calcium Level 6.2 mg/dL (8.5-10.1) Magnesium Level 1.9 mg/dL (1.8-2.4) O2 Saturation 97 % (92-99) Arterial Blood pH 7.52 (7.35-7.45) Arterial Blood pCO2 at Patient Temp 28 mmHg (35-46) Arterial Blood pO2 at Patient Temp 89 mmHg (65-108) Arterial Blood HCO3 22 mmol/L (21-28) Arterial Blood Base Excess 0 mmol/L (-3-3) FiO2 50% vent Test 04/15/20 17:12 04/16/20 06:00 04/16/20 08:00 Sodium Level 154 mmol/L (136-145) 143 mmol/L (136-145) Potassium Level 4.5 mmol/L (3.5-5.1) 3.3 mmol/L (3.5-5.1) Chloride Level 122 mmol/L (98-107) 112 mmol/L (98-107) Carbon Dioxide Level 20 mmol/L (21-32) 21 mmol/L (21-32) Anion Gap 12 (6-14) 10 (6-14) Blood Urea Nitrogen 15 mg/dL (8-26) 12 mg/dL (8-26) Creatinine 1.3 mg/dL (0.7-1.3) 1.0 mg/dL (0.7-1.3) Estimated GFR (Cockcroft-Gault) 53.8 72.8 BUN/Creatinine Ratio 12 (6-20) 12 (6-20) Glucose Level 156 mg/dL (70-99) 246 mg/dL (70-99) Calcium Level 8.6 mg/dL (8.5-10.1) 8.3 mg/dL (8.5-10.1) Total Bilirubin 0.5 mg/dL (0.2-1.0) 0.4 mg/dL (0.2-1.0) Aspartate Amino Transf (AST/SGOT) 102 U/L (15-37) 72 U/L (15-37) Alanine Aminotransferase (ALT/SGPT) 23 U/L (16-63) 21 U/L (16-63) Alkaline Phosphatase 52 U/L (46-116) 58 U/L (46-116) Total Protein 5.3 g/dL (6.4-8.2) 5.1 g/dL (6.4-8.2) Albumin 2.2 g/dL (3.4-5.0) 1.8 g/dL (3.4-5.0) Albumin/Globulin Ratio 0.7 (1.0-1.7) 0.5 (1.0-1.7) White Blood Count 20.5 x10^3/uL (4.0-11.0) Red Blood Count 3.38 x10^6/uL (4.30-5.70) Hemoglobin 10.7 g/dL (13.0-17.5) Hematocrit 31.0 % (39.0-53.0) Mean Corpuscular Volume 92 fL (79-100) Mean Corpuscular Hemoglobin 32 pg (25-35) Mean Corpuscular Hemoglobin Concent 35 g/dL (31-37) Red Cell Distribution Width 13.0 % (11.5-14.5) Platelet Count 91 x10^3/uL (140-400) Neutrophils (%) (Auto) 88 % (31-73) Lymphocytes (%) (Auto) 4 % (24-48) Monocytes (%) (Auto) 7 % (0-9) Eosinophils (%) (Auto) 1 % (0-3) Basophils (%) (Auto) 0 % (0-3) Neutrophils # (Auto) 18.0 x10^3/uL (1.8-7.7) Lymphocytes # (Auto) 0.8 x10^3/uL (1.0-4.8) Monocytes # (Auto) 1.3 x10^3/uL (0.0-1.1) Eosinophils # (Auto) 0.2 x10^3/uL (0.0-0.7) Basophils # (Auto) 0.1 x10^3/uL (0.0-0.2) Magnesium Level 1.5 mg/dL (1.8-2.4) O2 Saturation 98 % (92-99) Arterial Blood pH 7.45 (7.35-7.45) Arterial Blood pCO2 at Patient Temp 28 mmHg (35-46) Arterial Blood pO2 at Patient Temp 141 mmHg (65-108) Arterial Blood HCO3 19 mmol/L (21-28) Arterial Blood Base Excess -4 mmol/L (-3-3) FiO2 40%+5 Laboratory Tests Test 04/15/20 17:12 04/16/20 06:00 04/16/20 08:00 Sodium Level 154 mmol/L (136-145) 143 mmol/L (136-145) Potassium Level 4.5 mmol/L (3.5-5.1) 3.3 mmol/L (3.5-5.1) Chloride Level 122 mmol/L (98-107) 112 mmol/L (98-107) Carbon Dioxide Level 20 mmol/L (21-32) 21 mmol/L (21-32) Anion Gap 12 (6-14) 10 (6-14) Blood Urea Nitrogen 15 mg/dL (8-26) 12 mg/dL (8-26) Creatinine 1.3 mg/dL (0.7-1.3) 1.0 mg/dL (0.7-1.3) Estimated GFR (Cockcroft-Gault) 53.8 72.8 BUN/Creatinine Ratio 12 (6-20) 12 (6-20) Glucose Level 156 mg/dL (70-99) 246 mg/dL (70-99) Calcium Level 8.6 mg/dL (8.5-10.1) 8.3 mg/dL (8.5-10.1) Total Bilirubin 0.5 mg/dL (0.2-1.0) 0.4 mg/dL (0.2-1.0) Aspartate Amino Transf (AST/SGOT) 102 U/L (15-37) 72 U/L (15-37) Alanine Aminotransferase (ALT/SGPT) 23 U/L (16-63) 21 U/L (16-63) Alkaline Phosphatase 52 U/L (46-116) 58 U/L (46-116) Total Protein 5.3 g/dL (6.4-8.2) 5.1 g/dL (6.4-8.2) Albumin 2.2 g/dL (3.4-5.0) 1.8 g/dL (3.4-5.0) Albumin/Globulin Ratio 0.7 (1.0-1.7) 0.5 (1.0-1.7) White Blood Count 20.5 x10^3/uL (4.0-11.0) Red Blood Count 3.38 x10^6/uL (4.30-5.70) Hemoglobin 10.7 g/dL (13.0-17.5) Hematocrit 31.0 % (39.0-53.0) Mean Corpuscular Volume 92 fL (79-100) Mean Corpuscular Hemoglobin 32 pg (25-35) Mean Corpuscular Hemoglobin Concent 35 g/dL (31-37) Red Cell Distribution Width 13.0 % (11.5-14.5) Platelet Count 91 x10^3/uL (140-400) Neutrophils (%) (Auto) 88 % (31-73) Lymphocytes (%) (Auto) 4 % (24-48) Monocytes (%) (Auto) 7 % (0-9) Eosinophils (%) (Auto) 1 % (0-3) Basophils (%) (Auto) 0 % (0-3) Neutrophils # (Auto) 18.0 x10^3/uL (1.8-7.7) Lymphocytes # (Auto) 0.8 x10^3/uL (1.0-4.8) Monocytes # (Auto) 1.3 x10^3/uL (0.0-1.1) Eosinophils # (Auto) 0.2 x10^3/uL (0.0-0.7) Basophils # (Auto) 0.1 x10^3/uL (0.0-0.2) Magnesium Level 1.5 mg/dL (1.8-2.4) O2 Saturation 98 % (92-99) Arterial Blood pH 7.45 (7.35-7.45) Arterial Blood pCO2 at Patient Temp 28 mmHg (35-46) Arterial Blood pO2 at Patient Temp 141 mmHg (65-108) Arterial Blood HCO3 19 mmol/L (21-28) Arterial Blood Base Excess -4 mmol/L (-3-3) FiO2 40%+5 Microbiology 04/13/20 Urine Culture - Final, Complete Medications Current Medications Nicardipine HCl 50 mg/Sodium Chloride 250 ml @ 25 mls/hr CONT PRN IV SEE I/O RECORD Last administered on 04/13/20at 22:21; Start 04/13/20 at 22:00; Stop 04/14/20 at 14:33; Status DC Lorazepam (Ativan Inj) 2 mg 1X ONCE IVP Last administered on 04/13/20at 22:11; Start 04/13/20 at 22:00; Stop 04/13/20 at 22:01; Status DC Ondansetron HCl (Zofran) 4 mg PRN Q8HRS PRN IV NAUSEA/VOMITING 1ST CHOICE; Start 04/13/20 at 22:15; Stop 04/14/20 at 22:14; Status DC Lorazepam (Ativan Inj) 2 mg 1X ONCE IVP Last administered on 04/13/20at 23:36; Start 04/13/20 at 23:45; Stop 04/13/20 at 23:46; Status DC Lorazepam (Ativan Inj) 2 mg PRN Q4HRS PRN IVP ANXIETY / AGITATION Last administered on 04/14/20at 05:10; Start 04/14/20 at 03:15 Sodium Chloride 1,000 ml @ 100 mls/hr Q10H IV Last administered on 04/15/20at 06:08; Start 04/14/20 at 08:15; Stop 04/15/20 at 18:11; Status DC Fentanyl Citrate 30 ml @ 0 mls/hr CONT PRN IV SEE PROTOCOL Last administered on 04/15/20at 00:41; Start 04/14/20 at 09:00 Propofol 100 ml @ 0 mls/hr CONT PRN IV SEE PROTOCOL; Start 04/14/20 at 09:00 Glycerin/ Hypromellose/ Polyethylene (Artificial Tears) 1 drop PRN Q1HR PRN OU DRY EYE; Start 04/14/20 at 09:00 Midazolam HCl 100 ml @ 0 mls/hr CONT PRN IV SEE PROTOCOL Last administered on 04/15/20at 00:37; Start 04/14/20 at 09:00 Midazolam HCl (Versed) 5 mg 1X ONCE IV Last administered on 04/14/20at 09:37; Start 04/14/20 at 09:45; Stop 04/14/20 at 09:46; Status DC Succinylcholine Chloride (Anectine) 200 mg 1X ONCE IV Last administered on 04/14/20at 09:37; Start 04/14/20 at 09:45; Stop 04/14/20 at 09:46; Status DC Ondansetron HCl (Zofran) 4 mg PRN Q6HRS PRN IV NAUSEA/VOMITING; Start 04/14/20 at 10:30; Stop 04/15/20 at 10:29; Status DC Fentanyl Citrate (Fentanyl 2ml Vial) 25 mcg PRN Q5MIN PRN IV MILD PAIN 1-3; Start 04/14/20 at 10:30; Stop 04/15/20 at 10:29; Status DC Fentanyl Citrate (Fentanyl 2ml Vial) 50 mcg PRN Q5MIN PRN IV MODERATE TO SEVERE PAIN; Start 04/14/20 at 10:30; Stop 04/15/20 at 10:29; Status DC Morphine Sulfate (Morphine Sulfate) 1 mg PRN Q10MIN PRN IV SEVERE PAIN 7-10; Start 04/14/20 at 10:30; Stop 04/15/20 at 10:29; Status DC Ringer's Solution 1,000 ml @ 30 mls/hr Q24H IV ; Start 04/14/20 at 10:30; Stop 04/14/20 at 22:29; Status DC Lidocaine HCl (Xylocaine-Mpf 1% 2ml Vial) 2 ml PRN 1X PRN ID PRIOR TO IV START; Start 04/14/20 at 10:30; Stop 04/15/20 at 10:29; Status DC Hydromorphone HCl (Dilaudid) 0.5 mg PRN Q10MIN PRN IV SEV PAIN, Second choice; Start 04/14/20 at 10:30; Stop 04/15/20 at 10:29; Status DC Prochlorperazine Edisylate (Compazine) 5 mg PACU PRN PRN IV NAUSEA, MRX1; S tart 04/14/20 at 10:30; Stop 04/15/20 at 10:29; Status DC Bacitracin 83429 unit/Sodium Chloride 1,000 ml @ 1,000 mls/hr 1X ONCE IRR Last administered on 04/14/20at 12:23; Start 04/14/20 at 11:00; Stop 04/14/20 at 11:59; Status DC Gelatin (Gelfoam Size 100) 1 each STK-MED ONCE .ROUTE Last administered on 04/14/20at 12:23; Start 04/14/20 at 10:54; Stop 04/14/20 at 10:55; Status DC Cellulose (Surgicel Hemostat 4x8) 1 each STK-MED ONCE .ROUTE ; Start 04/14/20 at 10:54; Stop 04/14/20 at 10:55; Status DC Lidocaine/ Epinephrine (LIDOCAINE 1%-EPI 1:100,000 Multi-Dose) 20 ml STK-MED ONCE .ROUTE Last administered on 04/14/20at 12:23; Start 04/14/20 at 10:55; Stop 04/14/20 at 10:55; Status DC Thrombin 20,000 unit STK-MED ONCE TP Last administered on 04/14/20at 12:23; Start 04/14/20 at 10:55; Stop 04/14/20 at 10:55; Status DC Mannitol (Mannitol) 12.5 g STK-MED ONCE .ROUTE ; Start 04/14/20 at 11:27; Stop 04/14/20 at 11:27; Status DC Cefazolin Sodium/ Dextrose 50 ml @ 100 mls/hr 1X PREOP PRN IV PRIOR TO PROCEDURE Last administered on 04/14/20at 12:06; Start 04/15/20 at 06:00; Stop 04/15/20 at 18:00; Status DC Rocuronium [place] (Zemuron) 100 mg STK-MED ONCE .ROUTE ; Start 04/14/20 at 11:53; Stop 04/14/20 at 11:53; Status DC Cefazolin Sodium (Ancef) 1 gm STK-MED ONCE IVP ; Start 04/14/20 at 12:03; Stop 04/14/20 at 12:03; Status DC Gelatin (Gelfoam Size 100) 1 each STK-MED ONCE .ROUTE Last administered on 04/14/20at 13:33; Start 04/14/20 at 13:30; Stop 04/14/20 at 13:30; Status DC Sevoflurane (Ultane) 90 ml STK-MED ONCE IH ; Start 04/14/20 at 13:57; Stop 04/14/20 at 13:57; Status DC Nicardipine HCl 50 mg/Sodium Chloride 250 ml @ 25 mls/hr TITRATE PRN IV PER PROTOCOL; Start 04/14/20 at 14:30 Sodium Chloride (Normal Saline Flush) 3 ml QSHIFT PRN IV AFTER MEDS AND BLOOD DRAWS; Start 04/14/20 at 14:30 Dextrose (Dextrose 50%-Water Syringe) 12.5 gm PRN Q15MIN PRN IV SEE COMMENTS; Start 04/14/20 at 14:30 Cefazolin Sodium (Ancef) 1 gm Q8H IVP Last administered on 04/15/20at 12:11; Start 04/14/20 at 20:00; Stop 04/15/20 at 12:01; Status DC Fentanyl Citrate (Fentanyl 2ml Vial) 50 mcg PRN Q2HR PRN IVP PAIN; Start 04/14/20 at 14:30 Levetiracetam 1500 mg/Dextrose 115 ml @ 440 mls/hr Q12HR IV Last administered on 04/16/20at 09:57; Start 04/14/20 at 15:00 Midazolam HCl (Versed) 5 mg STK-MED ONCE .ROUTE ; Start 04/13/20 at 12:00; Stop 04/14/20 at 16:21; Status DC Famotidine (Pepcid Vial) 20 mg BID IVP Last administered on 04/16/20at 09:57; Start 04/14/20 at 21:00 Magnesium Sulfate 50 ml @ 25 mls/hr 1X ONCE IV Last administered on 04/14/20at 18:27; Start 04/14/20 at 18:30; Stop 04/14/20 at 20:29; Status DC Potassium Chloride/Water 100 ml @ 50 mls/hr Q2H IV Last administered on 04/15/20at 14:48; Start 04/15/20 at 12:00; Stop 04/15/20 at 15:59; Status DC Norepinephrine Bitartrate 8 mg/ Dextrose 258 ml @ 12.558 mls/ hr CONT PRN IV PER PROTOCOL Last administered on 04/16/20at 12:08; Start 04/15/20 at 14:00 Sodium Chloride 1,000 ml @ 1,000 mls/hr 1X ONCE IV Last administered on 04/15/20at 15:40; Start 04/15/20 at 15:45; Stop 04/15/20 at 16:44; Status DC Vasopressin 20 unit/Dextrose 101 ml @ 12 mls/hr CONT PRN IV SEE I/O RECORD Last administered on 04/16/20at 09:57; Start 04/15/20 at 17:15 Dextrose 1,000 ml @ 100 mls/hr Q10H IV Last administered on 04/16/20at 04:22; Start 04/15/20 at 18:15 Ringer's Solution 1,000 ml @ 1,000 mls/hr Q1H IV Last administered on 04/15/20at 18:00; Start 04/15/20 at 18:15; Stop 04/15/20 at 19:57; Status DC Active Scripts Active Reported Valproic Acid (Valproate Sodium) 250 Mg/5 Ml Solution 250 Mg PO TID Levetiracetam 500 Mg Tablet 1 Tab PO BID Keppra (Levetiracetam) 1,000 Mg Tablet 1 Tab PO BID Vitals/I & O Vital Sign - Last 24 Hours 04/15/20 04/15/20 04/15/20 04/15/20 13:05 13:10 13:15 13:20 Pulse 130 130 130 130 Resp 20 20 20 20 B/P (MAP) 92/56 (68) 90/54 (66) 74/48 (57) 76/50 (59) Pulse Ox 96 96 96 96 O2 Delivery Ventilator Ventilator Ventilator Ventilator 04/15/20 04/15/20 04/15/20 04/15/20 13:25 13:30 13:45 14:00 Pulse 130 130 126 124 Resp 20 20 20 20 B/P (MAP) 82/52 (62) 84/54 (64) 68/46 (53) 72/48 (56) Pulse Ox 96 96 96 96 O2 Delivery Ventilator Ventilator Ventilator Ventilator 04/15/20 04/15/20 04/15/20 04/15/20 14:05 14:15 14:20 14:25 Pulse 128 130 128 128 Resp 20 20 20 20 B/P (MAP) 154/82 (106) 112/64 (80) 76/50 (59) 60/44 (49) Pulse Ox 96 96 96 96 O2 Delivery Ventilator Ventilator Ventilator Ventilator 04/15/20 04/15/20 04/15/20 04/15/20 14:30 14:35 14:40 14:45 Pulse 158 152 144 134 Resp 20 20 20 20 B/P (MAP) 196/108 (137) 110/68 (82) 60/46 (51) 50/40 (43) 68/41 (50) Pulse Ox 96 96 96 96 O2 Delivery Ventilator Ventilator Ventilator Ventilator 04/15/20 04/15/20 04/15/20 04/15/20 14:50 15:00 15:05 15:10 Pulse 130 130 132 134 Resp 20 20 20 20 B/P (MAP) 74/52 (59) 124/70 (88) 72/50 (57) 52/42 (45) Pulse Ox 96 96 96 96 O2 Delivery Ventilator Ventilator Ventilator Ventilator 04/15/20 04/15/20 04/15/20 04/15/20 15:15 15:17 15:20 15:25 Pulse 136 136 134 Resp 20 20 20 B/P (MAP) 88/60 (69) 90/60 (70) 60/46 (51) Pulse Ox 96 96 96 96 O2 Delivery Ventilator Ventilator Ventilator Ventilator 04/15/20 04/15/20 04/15/20 04/15/20 15:35 15:55 16:00 16:00 Pulse 140 144 Resp 20 20 B/P (MAP) 112/70 (84) 152/86 (108) Pulse Ox 96 96 O2 Delivery Ventilator Ventilator Mechanical Ventilator 04/15/20 04/15/20 04/15/20 04/15/20 16:00 16:15 16:30 16:45 Temp 98.0 98.0 Pulse 144 140 136 134 Resp 20 20 20 20 B/P (MAP) 126/74 (91) 108/66 (80) 118/68 (85) 120/66 (84) Pulse Ox 96 96 96 96 O2 Delivery Ventilator Ventilator Ventilator Ventilator 04/15/20 04/15/20 04/15/20 04/15/20 17:00 17:24 17:30 18:00 Pulse 134 134 132 Resp 20 20 20 B/P (MAP) 102/62 (75) 100/62 (75) 158/86 (110) Pulse Ox 96 97 96 98 O2 Delivery Ventilator Ventilator Ventilator Ventilator 04/15/20 04/15/20 04/15/20 04/15/20 19:00 20:00 20:00 20:00 Temp 98.8 98.8 Pulse 126 126 Resp 20 20 B/P (MAP) 154/84 (107) 140/80 (100) Pulse Ox 98 99 99 O2 Delivery Ventilator Ventilator Ventilator 04/15/20 04/15/20 04/15/20 04/15/20 20:00 21:00 22:00 23:00 Pulse 122 122 108 Resp 20 20 20 B/P (MAP) 142/82 (102) 142/76 (98) 142/80 (100) Pulse Ox 99 100 100 O2 Delivery Mechanical Ventilator Ventilator Ventilator Ventilator 04/16/20 04/16/20 04/16/20 04/16/20 00:00 00:00 00:00 00:26 Temp 97.2 97.2 Pulse 108 108 Resp 20 B/P (MAP) 138/80 (99) 138/80 (99) Pulse Ox 98 100 O2 Delivery Mechanical Ventilator Ventilator Ventilator 04/16/20 04/16/20 04/16/20 04/16/20 01:00 02:00 03:00 04:00 Pulse 106 104 104 101 Resp 20 20 20 B/P (MAP) 144/82 (102) 150/84 (106) 150/88 (108) 145/83 (103) Pulse Ox 97 100 100 O2 Delivery Ventilator Ventilator Ventilator 04/16/20 04/16/20 04/16/20 04/16/20 04:00 04:00 04:15 05:00 Temp 98.0 98.0 Pulse 101 101 Resp 20 20 B/P (MAP) 145/83 (103) 152/86 (108) Pulse Ox 100 100 100 O2 Delivery Mechanical Ventilator Ventilator Ventilator Ventilator 04/16/20 04/16/20 04/16/20 04/16/20 05:46 06:00 07:36 09:29 Pulse 99 Resp 20 B/P (MAP) 65/47 (53) 128/74 (92) Pulse Ox 100 100 100 O2 Delivery Ventilator Ventilator Ventilator 04/16/20 11:18 Pulse Ox 100 O2 Delivery Ventilator Intake and Output 04/15/20 04/15/20 04/16/20 15:00 23:00 07:00 Intake Total 215 ml 2215 ml 2005.5 ml Output Total 1400 ml 1100 ml 825 ml Balance -1185 ml 1115 ml 1180.5 ml Justicifation of Admission Dx: Justifications for Admission: Justification of Admission Dx: N/A JOSE MARTIN CLARK MD Apr 16, 2020 13:09
--- NOTE | 2020-04-16 13:17 | NUR ---
This RN, Dr Sanches and RT Brigid conducted apnea testing at bedside. Dr Sanches declared pt brain at 1300 on 04/16/20. Not[address] Dr Osborn. Attempted to call Jacques Buck JR, pt legal guardian, he did not answer. Message left asking him to call back.
--- NOTE | 2020-04-16 19:00 | NUR ---
Dr Osborn called and DNR order obtained in light of pronouncement of brain by neurology today at 1300. Witnessed by Jessica HDZ
[2020-04-17] VITALS (24 sets, daily range): BP systolic 97–177; BP diastolic 54–90
[2020-04-17] MEDS: IV DEXTROSE 5% 1,000 ML IV SCH (01:17)
[2020-04-17] MEDS: NOREPINEPHRINE VIAL 8 MG in IV DEXTROSE 5% 250 ML IV PRN ×2 (03:44→14:38)
[2020-04-17] MEDS: VASOPRESSIN 20 UNIT in IV DEXTROSE 5% 100ML 100 ML IV PRN ×3 (03:44→21:17)
[2020-04-17 05:05] LABS: BASO # 0.1 x10^3/uL (0.0-0.2); BASO % 0 % (0-3); EOS # 0.3 x10^3/uL (0.0-0.7); EOS % 2 % (0-3); HEMATOCRIT 25.6 % (39.0-53.0); LYMPH # 0.7 x10^3/uL (1.0-4.8); LYMPH % 5 % (24-48); MEAN CORPUSCULAR HEMOGLOBIN 32 pg (25-35); MEAN CORPUSCULAR HGB CONC 35 g/dL (31-37); MEAN CORPUSCULAR VOLUME 90 fL (79-100); MONO # 1.1 x10^3/uL (0.0-1.1); MONO % 7 % (0-9); NEUT # 13.4 x10^3/uL (1.8-7.7); NEUT % 86 % (31-73); PLATELET COUNT 79 x10^3/uL (140-400); RED BLOOD COUNT 2.85 x10^6/uL (4.30-5.70); RED CELL DISTRIBUTION WIDTH 13.2 % (11.5-14.5); WHITE BLOOD COUNT 15.6 x10^3/uL (4.0-11.0)
[2020-04-17 05:14] LABS: CALCIUM 7.8 mg/dL (8.5-10.1); GFR 72.8; POTASSIUM 3.3 mmol/L (3.5-5.1)
--- NOTE | 2020-04-17 07:34 | PDOC ---
PULMONARY PROGRESS NOTES DATE: 04/17/20 TIME: 07:33 Subjective PT. remains on vent at 40% peep 5 no sedation no response Worsening CT findings no pupil response or other reflexes S/P right craniotomy and evacuation on 04/14 No other concerns at this time Vitals Vital Signs Date Time Temp Pulse Resp B/P (MAP) Pulse Ox O2 Delivery O2 Flow Rate FiO2 04/17/20 07:26 100 Ventilator 04/17/20 06:00 87 12 120/64 (82) 04/17/20 04:00 97.7 97.7 Comments ros unable to obtain intubated no response HEENT: Other (Pupil do not react s/p crani orally intubated nose clear neck no lad no thyromegaly) Lungs: Crackles Cardiovascular: S1, S2 Abdomen: Soft, Non-tender, Other (no mass) Extremities: No Edema Skin: Warm, Dry Labs Laboratory Tests Test 04/15/20 08:00 04/15/20 17:12 04/16/20 06:00 04/16/20 08:00 O2 Saturation 97 % (92-99) 98 % (92-99) Arterial Blood pH 7.52 (7.35-7.45) 7.45 (7.35-7.45) Arterial Blood pCO2 at Patient Temp 28 mmHg (35-46) 28 mmHg (35-46) Arterial Blood pO2 at Patient Temp 89 mmHg (65-108) 141 mmHg (65-108) Arterial Blood HCO3 22 mmol/L (21-28) 19 mmol/L (21-28) Arterial Blood Base Excess 0 mmol/L (-3-3) -4 mmol/L (-3-3) FiO2 50% vent 40%+5 Sodium Level 154 mmol/L (136-145) 143 mmol/L (136-145) Potassium Level 4.5 mmol/L (3.5-5.1) 3.3 mmol/L (3.5-5.1) Chloride Level 122 mmol/L (98-107) 112 mmol/L (98-107) Carbon Dioxide Level 20 mmol/L (21-32) 21 mmol/L (21-32) Anion Gap 12 (6-14) 10 (6-14) Blood Urea Nitrogen 15 mg/dL (8-26) 12 mg/dL (8-26) Creatinine 1.3 mg/dL (0.7-1.3) 1.0 mg/dL (0.7-1.3) Estimated GFR (Cockcroft-Gault) 53.8 72.8 BUN/Creatinine Ratio 12 (6-20) 12 (6-20) Glucose Level 156 mg/dL (70-99) 246 mg/dL (70-99) Calcium Level 8.6 mg/dL (8.5-10.1) 8.3 mg/dL (8.5-10.1) Total Bilirubin 0.5 mg/dL (0.2-1.0) 0.4 mg/dL (0.2-1.0) Aspartate Amino Transf (AST/SGOT) 102 U/L (15-37) 72 U/L (15-37) Alanine Aminotransferase (ALT/SGPT) 23 U/L (16-63) 21 U/L (16-63) Alkaline Phosphatase 52 U/L (46-116) 58 U/L (46-116) Total Protein 5.3 g/dL (6.4-8.2) 5.1 g/dL (6.4-8.2) Albumin 2.2 g/dL (3.4-5.0) 1.8 g/dL (3.4-5.0) Albumin/Globulin Ratio 0.7 (1.0-1.7) 0.5 (1.0-1.7) White Blood Count 20.5 x10^3/uL (4.0-11.0) Red Blood Count 3.38 x10^6/uL (4.30-5.70) Hemoglobin 10.7 g/dL (13.0-17.5) Hematocrit 31.0 % (39.0-53.0) Mean Corpuscular Volume 92 fL (79-100) Mean Corpuscular Hemoglobin 32 pg (25-35) Mean Corpuscular Hemoglobin Concent 35 g/dL (31-37) Red Cell Distribution Width 13.0 % (11.5-14.5) Platelet Count 91 x10^3/uL (140-400) Neutrophils (%) (Auto) 88 % (31-73) Lymphocytes (%) (Auto) 4 % (24-48) Monocytes (%) (Auto) 7 % (0-9) Eosinophils (%) (Auto) 1 % (0-3) Basophils (%) (Auto) 0 % (0-3) Neutrophils # (Auto) 18.0 x10^3/uL (1.8-7.7) Lymphocytes # (Auto) 0.8 x10^3/uL (1.0-4.8) Monocytes # (Auto) 1.3 x10^3/uL (0.0-1.1) Eosinophils # (Auto) 0.2 x10^3/uL (0.0-0.7) Basophils # (Auto) 0.1 x10^3/uL (0.0-0.2) Magnesium Level 1.5 mg/dL (1.8-2.4) Test 04/16/20 12:44 04/17/20 00:33 04/17/20 04:55 04/17/20 06:13 O2 Saturation 98 % (92-99) Arterial Blood pH 7.16 (7.35-7.45) Arterial Blood pCO2 at Patient Temp 75 mmHg (35-46) Arterial Blood pO2 at Patient Temp 167 mmHg (65-108) Arterial Blood HCO3 26 mmol/L (21-28) Arterial Blood Base Excess -4 mmol/L (-3-3) Oxyhemoglobin 97.6 % Methemoglobin 0.5 % (0.0-1.9) Carbon Monoxide, Quantitative 0.2 % (0.0-1.9) FiO2 15 l nc Glucose (Fingerstick) 208 mg/dL (70-99) 182 mg/dL (70-99) White Blood Count 15.6 x10^3/uL (4.0-11.0) Red Blood Count 2.85 x10^6/uL (4.30-5.70) Hemoglobin 9.0 g/dL (13.0-17.5) Hematocrit 25.6 % (39.0-53.0) Mean Corpuscular Volume 90 fL (79-100) Mean Corpuscular Hemoglobin 32 pg (25-35) Mean Corpuscular Hemoglobin Concent 35 g/dL (31-37) Red Cell Distribution Width 13.2 % (11.5-14.5) Platelet Count 79 x10^3/uL (140-400) Neutrophils (%) (Auto) 86 % (31-73) Lymphocytes (%) (Auto) 5 % (24-48) Monocytes (%) (Auto) 7 % (0-9) Eosinophils (%) (Auto) 2 % (0-3) Basophils (%) (Auto) 0 % (0-3) Neutrophils # (Auto) 13.4 x10^3/uL (1.8-7.7) Lymphocytes # (Auto) 0.7 x10^3/uL (1.0-4.8) Monocytes # (Auto) 1.1 x10^3/uL (0.0-1.1) Eosinophils # (Auto) 0.3 x10^3/uL (0.0-0.7) Basophils # (Auto) 0.1 x10^3/uL (0.0-0.2) Sodium Level 127 mmol/L (136-145) Potassium Level 3.3 mmol/L (3.5-5.1) Chloride Level 97 mmol/L (98-107) Carbon Dioxide Level 23 mmol/L (21-32) Anion Gap 7 (6-14) Blood Urea Nitrogen 9 mg/dL (8-26) Creatinine 1.0 mg/dL (0.7-1.3) Estimated GFR (Cockcroft-Gault) 72.8 Glucose Level 201 mg/dL (70-99) Calcium Level 7.8 mg/dL (8.5-10.1) Laboratory Tests Test 04/16/20 08:00 04/16/20 12:44 04/17/20 00:33 04/17/20 04:55 O2 Saturation 98 % (92-99) 98 % (92-99) Arterial Blood pH 7.45 (7.35-7.45) 7.16 (7.35-7.45) Arterial Blood pCO2 at Patient Temp 28 mmHg (35-46) 75 mmHg (35-46) Arterial Blood pO2 at Patient Temp 141 mmHg (65-108) 167 mmHg (65-108) Arterial Blood HCO3 19 mmol/L (21-28) 26 mmol/L (21-28) Arterial Blood Base Excess -4 mmol/L (-3-3) -4 mmol/L (-3-3) FiO2 40%+5 15 l nc Oxyhemoglobin 97.6 % Methemoglobin 0.5 % (0.0-1.9) Carbon Monoxide, Quantitative 0.2 % (0.0-1.9) Glucose (Fingerstick) 208 mg/dL (70-99) White Blood Count 15.6 x10^3/uL (4.0-11.0) Red Blood Count 2.85 x10^6/uL (4.30-5.70) Hemoglobin 9.0 g/dL (13.0-17.5) Hematocrit 25.6 % (39.0-53.0) Mean Corpuscular Volume 90 fL (79-100) Mean Corpuscular Hemoglobin 32 pg (25-35) Mean Corpuscular Hemoglobin Concent 35 g/dL (31-37) Red Cell Distribution Width 13.2 % (11.5-14.5) Platelet Count 79 x10^3/uL (140-400) Neutrophils (%) (Auto) 86 % (31-73) Lymphocytes (%) (Auto) 5 % (24-48) Monocytes (%) (Auto) 7 % (0-9) Eosinophils (%) (Auto) 2 % (0-3) Basophils (%) (Auto) 0 % (0-3) Neutrophils # (Auto) 13.4 x10^3/uL (1.8-7.7) Lymphocytes # (Auto) 0.7 x10^3/uL (1.0-4.8) Monocytes # (Auto) 1.1 x10^3/uL (0.0-1.1) Eosinophils # (Auto) 0.3 x10^3/uL (0.0-0.7) Basophils # (Auto) 0.1 x10^3/uL (0.0-0.2) Sodium Level 127 mmol/L (136-145) Potassium Level 3.3 mmol/L (3.5-5.1) Chloride Level 97 mmol/L (98-107) Carbon Dioxide Level 23 mmol/L (21-32) Anion Gap 7 (6-14) Blood Urea Nitrogen 9 mg/dL (8-26) Creatinine 1.0 mg/dL (0.7-1.3) Estimated GFR (Cockcroft-Gault) 72.8 Glucose Level 201 mg/dL (70-99) Calcium Level 7.8 mg/dL (8.5-10.1) Test 04/17/20 06:13 Glucose (Fingerstick) 182 mg/dL (70-99) Medications Active Scripts Medications Dose Route/Sig Max Daily Dose Days Date Category D3-50 (Cholecalciferol (Vitamin D3)) 50,000 Unit Capsule 1,500 Unit PO DAILY 04/14/20 Reported Valproic Acid (Valproate Sodium) 250 Mg/5 Ml Solution 250 Mg PO TID 04/14/20 Reported Multivitamin 1 Each Tablet 1 Each PO DAILY 04/14/20 Reported Levetiracetam 500 Mg Tablet 1 Tab PO BID 04/14/20 Reported Mucus ER (Guaifenesin) 600 Mg Tab.er.12h 600 Mg PO PRN Q12HR PRN 04/14/20 Reported Ethosuximide 250 Mg Capsule 1 Cap PO BID 30 04/14/20 Reported Colace (Docusate Sodium) 100 Mg Capsule 1 Cap PO BID 30 04/14/20 Reported Tylenol (Acetaminophen) 325 Mg Tablet 650 Mg PO PRN Q6HRS PRN 07/26/16 Reported Keppra (Levetiracetam) 1,000 Mg Tablet 1 Tab PO BID 07/26/[address] head 04/15 reviewed Multiple intracranial hemorrhages with extensive cerebral edema. Increasing effacement of the subarachnoid cisterns. Increasing blood within the left lateral ventricle. Hemorrhages are otherwise not significantly changed Post surgical changes of right frontotemporal craniotomy and extra-axial drain placement Impression . IMPRESSION: 1. Acute respiratory failure secondary to cerebrovascular accident. 2. Seizures secondary to cerebrovascular accident. 3. A 3.6 cm acute right temporal lobe intraparenchymal hemorrhage. 4. Moderate right and small left acute subdural hematoma. 5. Small amount of subarachnoid hemorrhage. 6. Nondisplaced right temporal bone fracture. 7. Encephalomalacia. 8. Encephalopathy secondary to above. 9. Abnormal chest x-ray. Plan . Continue current vent support currently on 40%, reviewed CXR and ABG, per neuro: Patient is brain from his injuries. He is currently maintained on life support. As there is no hope for recovery, the power of environmental attorney will need to go to court in order to achieve a DO NOT RESUSCITATE status to discontinue supportive care. PRN nebs Repeat CT head worsening on cefazolin ABX Follow neuro surgery recs: S/P Right frontotemporoparietal craniotomy with evacuation of subdural hematoma and evacuation of intracerebral hemorrhage on 04/14 Continue neurology recs and AEM Cardene if needed to control HTN GI PPx: pepcid D/W RN and RT Poor prognosis DNR TRICIA POSEY MD Apr 17, 2020 07:34
[2020-04-17] MEDS: levETIRAcetam 1,500 MG in IV DEXTROSE 5% 100ML 100 ML IV SCH ×2 (08:20→21:12)
[2020-04-17] MEDS: FAMOTIDINE 20 MG/2 ML VIAL IVP SCH ×2 (09:19→21:12)
--- NOTE | 2020-04-17 11:07 | PDOC ---
[facility] PROGRESS NOTE Date of Service DOS: DATE: 04/17/20 TIME: 11:07 Chief Complaint Chief Complaint Acute subdural hematoma status post craniotomy Respiratory failure Temporal intraparenchymal hematoma Mental status changes History of seizures Anxiety Schizophrenia History of Present Illness History of Present Illness HPI: The patient is a pleasant 75-year-old male who apparently had a seizure at a retirement facility. He was found down, had blood around his right eye. He is postictal, so they went ahead and called EMS. He was brought to the ER. We scanned his brain. He has massive intracranial hemorrhage. The patient has now been admitted to the ICU. He got intubated this morning, we had a brief code blue. He is now getting ready to go to surgery. 04/15/20: Pt seen and examined in ICU POD 1 emergent craniotomy PK RN Chart reviewed Currently on ventilation AC/20/500/40% with 5 PEEP He is off sedation now but not waking up yet His pupils are quite large and not reactive He is not responding to pain stimuli He is very critically ill I am concerned he may not survive 04/16/20 Pt seen and examined in the ICU. PK RN. Discussed possibility of organ donation with transplant packaging sales representative. Pt's chart and imaging reviewed. His pupils continue to be quite large and not reactive. He continues to not respond to pain stimuli. Currently on ventilation AC/20/500/40% with 5 PEEP. He is extremely critically ill 04/17/20 Pt seen and examined in the ICU. PK RN. Pt's chart and imaging reviewed. His pupils remain large and not reactive. He continues to not respond to pain stimuli. Currently on ventilation AC/12/500/60% with 5 PEEP. He is critically ill with poor prognosis. Declared brain yesterday Vitals/I&O Vitals/I&O: Vital Signs Date Time Temp Pulse Resp B/P (MAP) Pulse Ox O2 Delivery O2 Flow Rate FiO2 04/17/20 10:00 86 12 124/70 (88) 100 Ventilator 04/17/20 07:00 97.4 97.4 I & O 04/16/20 04/16/20 04/17/20 15:00 23:00 07:00 Intake Total 1852 ml 1891.7 ml Output Total 500 ml 320 ml 675 ml Balance -500 ml 1532 ml 1216.7 ml Physical Exam General: No acute distress, Other (resting comfortably, negative babinski, pupils dilated L>R non reactive to light) Heart: No murmurs, Other (tachycardic) Lungs: Crackles Abdomen: Normal bowel sounds, No tenderness Extremities: No clubbing, No edema, Other (scds in place) Skin: Other (dressing dry and intact, drain in place on R. frontotemporoparietal region of head ) Labs Labs: Laboratory Tests Test 04/16/20 12:44 04/17/20 00:33 04/17/20 04:55 04/17/20 06:13 O2 Saturation 98 % (92-99) Arterial Blood pH 7.16 (7.35-7.45) Arterial Blood pCO2 at Patient Temp 75 mmHg (35-46) Arterial Blood pO2 at Patient Temp 167 mmHg (65-108) Arterial Blood HCO3 26 mmol/L (21-28) Arterial Blood Base Excess -4 mmol/L (-3-3) Oxyhemoglobin 97.6 % Methemoglobin 0.5 % (0.0-1.9) Carbon Monoxide, Quantitative 0.2 % (0.0-1.9) FiO2 15 l nc Glucose (Fingerstick) 208 mg/dL (70-99) 182 mg/dL (70-99) White Blood Count 15.6 x10^3/uL (4.0-11.0) Red Blood Count 2.85 x10^6/uL (4.30-5.70) Hemoglobin 9.0 g/dL (13.0-17.5) Hematocrit 25.6 % (39.0-53.0) Mean Corpuscular Volume 90 fL (79-100) Mean Corpuscular Hemoglobin 32 pg (25-35) Mean Corpuscular Hemoglobin Concent 35 g/dL (31-37) Red Cell Distribution Width 13.2 % (11.5-14.5) Platelet Count 79 x10^3/uL (140-400) Neutrophils (%) (Auto) 86 % (31-73) Lymphocytes (%) (Auto) 5 % (24-48) Monocytes (%) (Auto) 7 % (0-9) Eosinophils (%) (Auto) 2 % (0-3) Basophils (%) (Auto) 0 % (0-3) Neutrophils # (Auto) 13.4 x10^3/uL (1.8-7.7) Lymphocytes # (Auto) 0.7 x10^3/uL (1.0-4.8) Monocytes # (Auto) 1.1 x10^3/uL (0.0-1.1) Eosinophils # (Auto) 0.3 x10^3/uL (0.0-0.7) Basophils # (Auto) 0.1 x10^3/uL (0.0-0.2) Sodium Level 127 mmol/L (136-145) Potassium Level 3.3 mmol/L (3.5-5.1) Chloride Level 97 mmol/L (98-107) Carbon Dioxide Level 23 mmol/L (21-32) Anion Gap 7 (6-14) Blood Urea Nitrogen 9 mg/dL (8-26) Creatinine 1.0 mg/dL (0.7-1.3) Estimated GFR (Cockcroft-Gault) 72.8 Glucose Level 201 mg/dL (70-99) Calcium Level 7.8 mg/dL (8.5-10.1) Review of Systems Review of Systems: Unable to obtain as pt is not able to communicate. Assessment and Plan Assessmemt and Plan Assessment: Acute subdural hematoma Temporal intraparenchymal hematoma Mental status changes History of seizures Anxiety Schizophrenia Brain as of yesterday Plan: Cardiac monitoring DVT ppx Trend labs Wound care Vent weaning (ventilation currently@ AC/12/500/60% with 5 peep) Full code- Prognosis extremely grave he might not survive- Power of tier and detonator has to get court order to make DNR. Pulm and Neuro consulted and following. Appreciate subspecialty input. He is critically ill. Awaiting organ donation status. CC time 32 minutes Comment Review of Relevant I have reviewed the following items jossue (where applicable) has been applied. Justifications for Admission Other Justification DANNIE KELSEY III DO Apr 17, 2020 11:07
[2020-04-17] MEDS: IV NORMAL SALINE 1000ML BAG 1,000 ML IV SCH ×2 (12:09→21:12)
[2020-04-18] VITALS (16 sets, daily range): BP systolic 62–148; BP diastolic 42–92
[2020-04-18 06:12] LABS: BASO % 0 % (0-3); EOS # 0.2 x10^3/uL (0.0-0.7); EOS % 2 % (0-3); HEMATOCRIT 24.2 % (39.0-53.0); HEMOGLOBIN 8.6 g/dL (13.0-17.5); LYMPH # 0.6 x10^3/uL (1.0-4.8); LYMPH % 5 % (24-48); MEAN CORPUSCULAR HEMOGLOBIN 32 pg (25-35); MEAN CORPUSCULAR HGB CONC 36 g/dL (31-37); MEAN CORPUSCULAR VOLUME 89 fL (79-100); MONO % 9 % (0-9); NEUT # 10.2 x10^3/uL (1.8-7.7); NEUT % 85 % (31-73); PLATELET COUNT 83 x10^3/uL (140-400); RED BLOOD COUNT 2.73 x10^6/uL (4.30-5.70); RED CELL DISTRIBUTION WIDTH 12.8 % (11.5-14.5); WHITE BLOOD COUNT 12.1 x10^3/uL (4.0-11.0)
[2020-04-18] MEDS: VASOPRESSIN 20 UNIT in IV DEXTROSE 5% 100ML 100 ML IV PRN (06:40)
[2020-04-18] MEDS: NOREPINEPHRINE VIAL 8 MG in IV DEXTROSE 5% 250 ML IV PRN (06:40)
[2020-04-18 08:46] LABS: ALBUMIN 1.4 g/dL (3.4-5.0); ALBUMIN/GLOBULIN RATIO 0.4 (1.0-1.7); CALCIUM 7.7 mg/dL (8.5-10.1); CREATININE 0.6 mg/dL (0.7-1.3); GFR 131.3; POTASSIUM 3.1 mmol/L (3.5-5.1); TOTAL BILIRUBIN 0.5 mg/dL (0.2-1.0); TOTAL PROTEIN 4.8 g/dL (6.4-8.2)
[2020-04-18] MEDS: IV NORMAL SALINE 1000ML BAG 1,000 ML IV SCH (09:08)
[2020-04-18 09:20] LABS: BASE EXCESS ABG -3 mmol/L (-3-3); HCO3 ABG 22 mmol/L (21-28); PCO2 ABG 36 mmHg (35-46); PO2 ABG 139 mmHg (65-108); SAT O2 ABG 98 % (92-99)
[2020-04-18 09:22] LABS: FIO2 ABG 60
[2020-04-18] MEDS: FAMOTIDINE 20 MG/2 ML VIAL IVP SCH (10:00)
[2020-04-18] MEDS: levETIRAcetam 1,500 MG in IV DEXTROSE 5% 100ML 100 ML IV SCH (10:00)
--- NOTE | 2020-04-18 10:10 | PDOC ---
PROGRESS NOTES Date of Service DATE: 04/18/20 TIME: 10:08 Assessment Problems Medical Problems: (1) Facial laceration Status: Acute (2) Intracranial hemorrhage Status: Acute (3) Seizure Status: Acute (4) Traumatic subarachnoid hemorrhage Status: Acute (5) Traumatic subdural hematoma Status: Acute Brain , confirmed on my examination today, there is no need to repeat the apnea test Epilepsy Extensive intracranial hemorrhages, cerebral edema, and temporal bone fractures. This must of been a catastrophic [facility] but no one is sure. History of schizophrenia Plan Awaiting court order Subjective None Objective Vital Signs Date Time Temp Pulse Resp B/P (MAP) Pulse Ox O2 Delivery O2 Flow Rate FiO2 04/18/20 09:02 100 Ventilator 04/18/20 08:00 04/18/20 06:00 93 12 04/18/20 04:00 98.0 98.0 Intake and Output 04/18/20 07:00 Intake Total 3364.1 ml Output Total 1060 ml Balance 2304.1 ml IV Total 3364.1 ml Output Urine Total 810 ml Gastric Drainage Total 250 ml PHYSICAL EXAM Pupils nonreactive to bright light. Corneal reflex absent. Oculocephalic reflex absent (tested only if C-spineintegrity ensured). Oculovestibular reflex absent. No facial movement to noxious stimuli at supraorbital nerve, temporomandibular joint. Gag reflex absent. Cough reflex absent to tracheal suctioning. Absence of motor response to noxious stimuli in all four limbs (spinally mediated reflexes are permissible) Review of Relevant I have reviewed the following items jossue (where applicable) has been applied. Labs Laboratory Tests Test 04/16/20 12:44 04/17/20 00:33 04/17/20 04:55 04/17/20 06:13 O2 Saturation 98 % (92-99) Arterial Blood pH 7.16 (7.35-7.45) Arterial Blood pCO2 at Patient Temp 75 mmHg (35-46) Arterial Blood pO2 at Patient Temp 167 mmHg (65-108) Arterial Blood HCO3 26 mmol/L (21-28) Arterial Blood Base Excess -4 mmol/L (-3-3) Oxyhemoglobin 97.6 % Methemoglobin 0.5 % (0.0-1.9) Carbon Monoxide, Quantitative 0.2 % (0.0-1.9) FiO2 15 l nc Glucose (Fingerstick) 208 mg/dL (70-99) 182 mg/dL (70-99) White Blood Count 15.6 x10^3/uL (4.0-11.0) Red Blood Count 2.85 x10^6/uL (4.30-5.70) Hemoglobin 9.0 g/dL (13.0-17.5) Hematocrit 25.6 % (39.0-53.0) Mean Corpuscular Volume 90 fL (79-100) Mean Corpuscular Hemoglobin 32 pg (25-35) Mean Corpuscular Hemoglobin Concent 35 g/dL (31-37) Red Cell Distribution Width 13.2 % (11.5-14.5) Platelet Count 79 x10^3/uL (140-400) Neutrophils (%) (Auto) 86 % (31-73) Lymphocytes (%) (Auto) 5 % (24-48) Monocytes (%) (Auto) 7 % (0-9) Eosinophils (%) (Auto) 2 % (0-3) Basophils (%) (Auto) 0 % (0-3) Neutrophils # (Auto) 13.4 x10^3/uL (1.8-7.7) Lymphocytes # (Auto) 0.7 x10^3/uL (1.0-4.8) Monocytes # (Auto) 1.1 x10^3/uL (0.0-1.1) Eosinophils # (Auto) 0.3 x10^3/uL (0.0-0.7) Basophils # (Auto) 0.1 x10^3/uL (0.0-0.2) Sodium Level 127 mmol/L (136-145) Potassium Level 3.3 mmol/L (3.5-5.1) Chloride Level 97 mmol/L (98-107) Carbon Dioxide Level 23 mmol/L (21-32) Anion Gap 7 (6-14) Blood Urea Nitrogen 9 mg/dL (8-26) Creatinine 1.0 mg/dL (0.7-1.3) Estimated GFR (Cockcroft-Gault) 72.8 Glucose Level 201 mg/dL (70-99) Calcium Level 7.8 mg/dL (8.5-10.1) Test 04/17/20 11:44 04/17/20 18:02 04/18/20 00:32 04/18/20 06:00 Glucose (Fingerstick) 165 mg/dL (70-99) 162 mg/dL (70-99) 168 mg/dL (70-99) White Blood Count 12.1 x10^3/uL (4.0-11.0) Red Blood Count 2.73 x10^6/uL (4.30-5.70) Hemoglobin 8.6 g/dL (13.0-17.5) Hematocrit 24.2 % (39.0-53.0) Mean Corpuscular Volume 89 fL (79-100) Mean Corpuscular Hemoglobin 32 pg (25-35) Mean Corpuscular Hemoglobin Concent 36 g/dL (31-37) Red Cell Distribution Width 12.8 % (11.5-14.5) Platelet Count 83 x10^3/uL (140-400) Neutrophils (%) (Auto) 85 % (31-73) Lymphocytes (%) (Auto) 5 % (24-48) Monocytes (%) (Auto) 9 % (0-9) Eosinophils (%) (Auto) 2 % (0-3) Basophils (%) (Auto) 0 % (0-3) Neutrophils # (Auto) 10.2 x10^3/uL (1.8-7.7) Lymphocytes # (Auto) 0.6 x10^3/uL (1.0-4.8) Monocytes # (Auto) 1.0 x10^3/uL (0.0-1.1) Eosinophils # (Auto) 0.2 x10^3/uL (0.0-0.7) Basophils # (Auto) 0.0 x10^3/uL (0.0-0.2) Sodium Level 125 mmol/L (136-145) Potassium Level 3.1 mmol/L (3.5-5.1) Chloride Level 92 mmol/L (98-107) Carbon Dioxide Level 22 mmol/L (21-32) Anion Gap 11 (6-14) Blood Urea Nitrogen 9 mg/dL (8-26) Creatinine 0.6 mg/dL (0.7-1.3) Estimated GFR (Cockcroft-Gault) 131.3 BUN/Creatinine Ratio 15 (6-20) Glucose Level 170 mg/dL (70-99) Calcium Level 7.7 mg/dL (8.5-10.1) Total Bilirubin 0.5 mg/dL (0.2-1.0) Aspartate Amino Transf (AST/SGOT) 126 U/L (15-37) Alanine Aminotransferase (ALT/SGPT) 26 U/L (16-63) Alkaline Phosphatase 73 U/L (46-116) Total Protein 4.8 g/dL (6.4-8.2) Albumin 1.4 g/dL (3.4-5.0) Albumin/Globulin Ratio 0.4 (1.0-1.7) Test 04/18/20 09:15 O2 Saturation 98 % (92-99) Arterial Blood pH 7.40 (7.35-7.45) Arterial Blood pCO2 at Patient Temp 36 mmHg (35-46) Arterial Blood pO2 at Patient Temp 139 mmHg (65-108) Arterial Blood HCO3 22 mmol/L (21-28) Arterial Blood Base Excess -3 mmol/L (-3-3) FiO2 60 Laboratory Tests Test 04/17/20 11:44 04/17/20 18:02 04/18/20 00:32 04/18/20 06:00 Glucose (Fingerstick) 165 mg/dL (70-99) 162 mg/dL (70-99) 168 mg/dL (70-99) White Blood Count 12.1 x10^3/uL (4.0-11.0) Red Blood Count 2.73 x10^6/uL (4.30-5.70) Hemoglobin 8.6 g/dL (13.0-17.5) Hematocrit 24.2 % (39.0-53.0) Mean Corpuscular Volume 89 fL (79-100) Mean Corpuscular Hemoglobin 32 pg (25-35) Mean Corpuscular Hemoglobin Concent 36 g/dL (31-37) Red Cell Distribution Width 12.8 % (11.5-14.5) Platelet Count 83 x10^3/uL (140-400) Neutrophils (%) (Auto) 85 % (31-73) Lymphocytes (%) (Auto) 5 % (24-48) Monocytes (%) (Auto) 9 % (0-9) Eosinophils (%) (Auto) 2 % (0-3) Basophils (%) (Auto) 0 % (0-3) Neutrophils # (Auto) 10.2 x10^3/uL (1.8-7.7) Lymphocytes # (Auto) 0.6 x10^3/uL (1.0-4.8) Monocytes # (Auto) 1.0 x10^3/uL (0.0-1.1) Eosinophils # (Auto) 0.2 x10^3/uL (0.0-0.7) Basophils # (Auto) 0.0 x10^3/uL (0.0-0.2) Sodium Level 125 mmol/L (136-145) Potassium Level 3.1 mmol/L (3.5-5.1) Chloride Level 92 mmol/L (98-107) Carbon Dioxide Level 22 mmol/L (21-32) Anion Gap 11 (6-14) Blood Urea Nitrogen 9 mg/dL (8-26) Creatinine 0.6 mg/dL (0.7-1.3) Estimated GFR (Cockcroft-Gault) 131.3 BUN/Creatinine Ratio 15 (6-20) Glucose Level 170 mg/dL (70-99) Calcium Level 7.7 mg/dL (8.5-10.1) Total Bilirubin 0.5 mg/dL (0.2-1.0) Aspartate Amino Transf (AST/SGOT) 126 U/L (15-37) Alanine Aminotransferase (ALT/SGPT) 26 U/L (16-63) Alkaline Phosphatase 73 U/L (46-116) Total Protein 4.8 g/dL (6.4-8.2) Albumin 1.4 g/dL (3.4-5.0) Albumin/Globulin Ratio 0.4 (1.0-1.7) Test 04/18/20 09:15 O2 Saturation 98 % (92-99) Arterial Blood pH 7.40 (7.35-7.45) Arterial Blood pCO2 at Patient Temp 36 mmHg (35-46) Arterial Blood pO2 at Patient Temp 139 mmHg (65-108) Arterial Blood HCO3 22 mmol/L (21-28) Arterial Blood Base Excess -3 mmol/L (-3-3) FiO2 60 Microbiology 04/13/20 Urine Culture - Final, Complete Medications Current Medications Nicardipine HCl 50 mg/Sodium Chloride 250 ml @ 25 mls/hr CONT PRN IV SEE I/O RECORD Last administered on 04/13/20at 22:21; Start 04/13/20 at 22:00; Stop 04/14/20 at 14:33; Status DC Lorazepam (Ativan Inj) 2 mg 1X ONCE IVP Last administered on 04/13/20at 22:11; Start 04/13/20 at 22:00; Stop 04/13/20 at 22:01; Status DC Ondansetron HCl (Zofran) 4 mg PRN Q8HRS PRN IV NAUSEA/VOMITING 1ST CHOICE; Start 04/13/20 at 22:15; Stop 04/14/20 at 22:14; Status DC Lorazepam (Ativan Inj) 2 mg 1X ONCE IVP Last administered on 04/13/20at 23:36; Start 04/13/20 at 23:45; Stop 04/13/20 at 23:46; Status DC Lorazepam (Ativan Inj) 2 mg PRN Q4HRS PRN IVP ANXIETY / AGITATION Last administ ered on 04/14/20at 05:10; Start 04/14/20 at 03:15 Sodium Chloride 1,000 ml @ 100 mls/hr Q10H IV Last administered on 04/15/20at 06:08; Start 04/14/20 at 08:15; Stop 04/15/20 at 18:11; Status DC Fentanyl Citrate 30 ml @ 0 mls/hr CONT PRN IV SEE PROTOCOL Last administered on 04/15/20at 00:41; Start 04/14/20 at 09:00 Propofol 100 ml @ 0 mls/hr CONT PRN IV SEE PROTOCOL; Start 04/14/20 at 09:00 Glycerin/ Hypromellose/ Polyethylene (Artificial Tears) 1 drop PRN Q1HR PRN OU DRY EYE; Start 04/14/20 at 09:00 Midazolam HCl 100 ml @ 0 mls/hr CONT PRN IV SEE PROTOCOL Last administered on 04/15/20at 00:37; Start 04/14/20 at 09:00 Midazolam HCl (Versed) 5 mg 1X ONCE IV Last administered on 04/14/20at 09:37; Start 04/14/20 at 09:45; Stop 04/14/20 at 09:46; Status DC Succinylcholine Chloride (Anectine) 200 mg 1X ONCE IV Last administered on 04/14/20at 09:37; Start 04/14/20 at 09:45; Stop 04/14/20 at 09:46; Status DC Ondansetron HCl (Zofran) 4 mg PRN Q6HRS PRN IV NAUSEA/VOMITING; Start 04/14/20 at 10:30; Stop 04/15/20 at 10:29; Status DC Fentanyl Citrate (Fentanyl 2ml Vial) 25 mcg PRN Q5MIN PRN IV MILD PAIN 1-3; Start 04/14/20 at 10:30; Stop 04/15/20 at 10:29; Status DC Fentanyl Citrate (Fentanyl 2ml Vial) 50 mcg PRN Q5MIN PRN IV MODERATE TO SEVERE PAIN; Start 04/14/20 at 10:30; Stop 04/15/20 at 10:29; Status DC Morphine Sulfate (Morphine Sulfate) 1 mg PRN Q10MIN PRN IV SEVERE PAIN 7-10; Start 04/14/20 at 10:30; Stop 04/15/20 at 10:29; Status DC Ringer's Solution 1,000 ml @ 30 mls/hr Q24H IV ; Start 04/14/20 at 10:30; Stop 04/14/20 at 22:29; Status DC Lidocaine HCl (Xylocaine-Mpf 1% 2ml Vial) 2 ml PRN 1X PRN ID PRIOR TO IV START; Start 04/14/20 at 10:30; Stop 04/15/20 at 10:29; Status DC Hydromorphone HCl (Dilaudid) 0.5 mg PRN Q10MIN PRN IV SEV PAIN, Second choice; Start 04/14/20 at 10:30; Stop 04/15/20 at 10:29; Status DC Prochlorperazine Edisylate (Compazine) 5 mg PACU PRN PRN IV NAUSEA, MRX1; Start 04/14/20 at 10:30; Stop 04/15/20 at 10:29; Status DC Bacitracin 12156 unit/Sodium Chloride 1,000 ml @ 1,000 mls/hr 1X ONCE IRR Last administered on 04/14/20at 12:23; Start 04/14/20 at 11:00; Stop 04/14/20 at 11:59; Status DC Gelatin (Gelfoam Size 100) 1 each STK-MED ONCE .ROUTE Last administered on 04/14/20at 12:23; Start 04/14/20 at 10:54; Stop 04/14/20 at 10:55; Status DC Cellulose (Surgicel Hemostat 4x8) 1 each STK-MED ONCE .ROUTE ; Start 04/14/20 at 10:54; Stop 04/14/20 at 10:55; Status DC Lidocaine/ Epinephrine (LIDOCAINE 1%-EPI 1:100,000 Multi-Dose) 20 ml STK-MED ONCE .ROUTE Last administered on 04/14/20at 12:23; Start 04/14/20 at 10:55; Stop 04/14/20 at 10:55; Status DC Thrombin 20,000 unit STK-MED ONCE TP Last administered on 04/14/20at 12:23; Start 04/14/20 at 10:55; Stop 04/14/20 at 10:55; Status DC Mannitol (Mannitol) 12.5 g STK-MED ONCE .ROUTE ; Start 04/14/20 at 11:27; Stop 04/14/20 at 11:27; Status DC Cefazolin Sodium/ Dextrose 50 ml @ 100 mls/hr 1X PREOP PRN IV PRIOR TO PROCEDURE Last administered on 04/14/20at 12:06; Start 04/15/20 at 06:00; Stop 04/15/20 at 18:00; Status DC Rocuronium [place] (Zemuron) 100 mg STK-MED ONCE .ROUTE ; Start 04/14/20 at 11:53; Stop 04/14/20 at 11:53; Status DC Cefazolin Sodium (Ancef) 1 gm STK-MED ONCE IVP ; Start 04/14/20 at 12:03; Stop 04/14/20 at 12:03; Status DC Gelatin (Gelfoam Size 100) 1 each STK-MED ONCE .ROUTE Last administered on 04/14/20at 13:33; Start 04/14/20 at 13:30; Stop 04/14/20 at 13:30; Status DC Sevoflurane (Ultane) 90 ml STK-MED ONCE IH ; Start 04/14/20 at 13:57; Stop 04/14/20 at 13:57; Status DC Nicardipine HCl 50 mg/Sodium Chloride 250 ml @ 25 mls/hr TITRATE PRN IV PER PROTOCOL; Start 04/14/20 at 14:30 Sodium Chloride (Normal Saline Flush) 3 ml QSHIFT PRN IV AFTER MEDS AND BLOOD DRAWS; Start 04/14/20 at 14:30 Dextrose (Dextrose 50%-Water Syringe) 12.5 gm PRN Q15MIN PRN IV SEE COMMENTS; Start 04/14/20 at 14:30 Cefazolin Sodium (Ancef) 1 gm Q8H IVP Last administered on 04/15/20at 12:11; Start 04/14/20 at 20:00; Stop 04/15/20 at 12:01; Status DC Fentanyl Citrate (Fentanyl 2ml Vial) 50 mcg PRN Q2HR PRN IVP PAIN; Start 04/14/20 at 14:30 Levetiracetam 1500 mg/Dextrose 115 ml @ 440 mls/hr Q12HR IV Last administered on 04/17/20at 21:12; Start 04/14/20 at 15:00 Midazolam HCl (Versed) 5 mg STK-MED ONCE .ROUTE ; Start 04/13/20 at 12:00; Stop 04/14/20 at 16:21; Status DC Famotidine (Pepcid Vial) 20 mg BID IVP Last administered on 04/17/20at 21:12; Start 04/14/20 at 21:00 Magnesium Sulfate 50 ml @ 25 mls/hr 1X ONCE IV Last administered on 04/14/20at 18:27; Start 04/14/20 at 18:30; Stop 04/14/20 at 20:29; Status DC Potassium Chloride/Water 100 ml @ 50 mls/hr Q2H IV Last administered on 04/15/20at 14:48; Start 04/15/20 at 12:00; Stop 04/15/20 at 15:59; Status DC Norepinephrine Bitartrate 8 mg/ Dextrose 258 ml @ 12.558 mls/ hr CONT PRN IV PER PROTOCOL Last administered on 04/18/20at 06:40; Start 04/15/20 at 14:00 Sodium Chloride 1,000 ml @ 1,000 mls/hr 1X ONCE IV Last administered on 04/15/20at 15:40; Start 04/15/20 at 15:45; Stop 04/15/20 at 16:44; Status DC Vasopressin 20 unit/Dextrose 101 ml @ 12 mls/hr CONT PRN IV SEE I/O RECORD Las t administered on 04/18/20at 06:40; Start 04/15/20 at 17:15 Dextrose 1,000 ml @ 100 mls/hr Q10H IV Last administered on 04/17/20at 01:17; Start 04/15/20 at 18:15; Stop 04/17/20 at 11:45; Status DC Ringer's Solution 1,000 ml @ 1,000 mls/hr Q1H IV Last administered on 04/15/20at 18:00; Start 04/15/20 at 18:15; Stop 04/15/20 at 19:57; Status DC Sodium Chloride 1,000 ml @ 100 mls/hr Q10H IV Last administered on 04/18/20at 09:08; Start 04/17/20 at 11:45 Active Scripts Active Reported Valproic Acid (Valproate Sodium) 250 Mg/5 Ml Solution 250 Mg PO TID Levetiracetam 500 Mg Tablet 1 Tab PO BID Keppra (Levetiracetam) 1,000 Mg Tablet 1 Tab PO BID Vitals/I & O Vital Sign - Last 24 Hours 04/17/20 04/17/20 04/17/20 04/17/20 11:12 11:13 12:00 12:00 Temp 97.5 97.5 Pulse 88 Resp 12 B/P (MAP) 122/71 (88) Pulse Ox 100 100 O2 Delivery Ventilator Ventilator Mechanical Ventilator 04/17/20 04/17/20 04/17/20 04/17/20 12:00 13:26 14:00 14:57 Pulse 86 88 89 Resp 11 11 12 B/P (MAP) 98/56 (70) 116/64 (81) 117/65 (82) Pulse Ox 100 100 100 100 O2 Delivery Ventilator Ventilator Ventilator Ventilator 04/17/20 04/17/20 04/17/20 04/17/20 15:09 16:00 16:00 16:01 Temp 97.6 97.6 Pulse 89 89 Resp 12 12 B/P (MAP) 123/69 (87) 103/60 (74) Pulse Ox 100 100 O2 Delivery Ventilator Mechanical Ventilator Ventilator 04/17/20 04/17/20 04/17/20 04/17/20 17:00 18:00 19:00 20:00 Pulse 91 92 90 Resp 12 12 12 B/P (MAP) 149/77 (101) 118/65 (82) 110/62 (78) Pulse Ox 100 100 100 O2 Delivery Ventilator Ventilator Ventilator Mechanical Ventilator 04/17/20 04/17/20 04/17/20 04/17/20 20:00 20:00 20:20 21:00 Temp 97.4 97.4 Pulse 92 106 94 Resp 12 B/P (MAP) 128/68 (88) 128/64 (85) 130/68 (88) Pulse Ox 100 100 100 O2 Delivery Ventilator Ventilator Ventilator 04/17/20 04/17/20 04/18/20 04/18/20 22:00 23:00 00:00 00:00 Temp 97.8 97.8 Pulse 95 97 95 Resp 04 23 12 B/P (MAP) 141/72 (95) 136/70 (92) 142/70 (94) Pulse Ox 100 100 100 O2 Delivery Ventilator Ventilator Mechanical Ventilator Ventilator 04/18/20 04/18/20 04/18/20 04/18/20 00:00 00:55 01:00 02:00 Resp 12 B/P (MAP) 142/70 (94) 136/70 (92) 146/72 (96) Pulse Ox 100 100 100 O2 Delivery Ventilator Ventilator Ventilator 04/18/20 04/18/20 04/18/20 04/18/20 03:00 04:00 04:00 04:00 Temp 98.0 98.0 Pulse 94 Resp 04 23 B/P (MAP) 142/70 (94) 148/74 (98) 148/74 (98) Pulse Ox 100 100 O2 Delivery Ventilator Ventilator Mechanical Ventilator 04/18/20 04/18/20 04/18/20 04/18/20 05:00 06:00 08:00 08:00 Pulse 96 93 Resp 04 23 B/P (MAP) 142/69 (93) 137/73 (94) Pulse Ox 100 100 O2 Delivery Ventilator Ventilator Mechanical Ventilator 04/18/20 09:02 Pulse Ox 100 O2 Delivery Ventilator Intake and Output 04/17/20 04/17/20 04/18/20 15:00 23:00 07:00 Intake Total 640 ml 795 ml 1929.1 ml Output Total 210 ml 360 ml 490 ml Balance 430 ml 435 ml 1439.1 ml Justicifation of Admission Dx: Justifications for Admission: Justification of Admission Dx: N/A MARISABEL MADERA MD Apr 18, 2020 10:10
--- NOTE | 2020-04-18 11:05 | PDOC ---
[facility] PROGRESS NOTE Date of Service DOS: DATE: 04/18/20 TIME: 11:03 Chief Complaint Chief Complaint Acute subdural hematoma status post craniotomy Brain awaiting possible organ donation? Respiratory failure Temporal intraparenchymal hematoma Mental status changes History of seizures Anxiety Schizophrenia History of Present Illness History of Present Illness 04/18/2022 Patient seen and examined in the ICU He remains on the vent AC/12/500/60 percent with 5 of PEEP [facility] [facility] is here they are talking to his DPOA who is an tax attorney as well Chart reviewed Discussed with RN HPI: The patient is a pleasant 75-year-old male who [facility] He was found down, had blood around his right eye. He is postictal, so they went ahead and called EMS. He was brought to the ER. We scanned his brain. He has massive intracranial hemorrhage. The patient has now been admitted to the ICU. He got intubated this morning, we had a brief code blue. He is now getting ready to go to surgery. 04/15/20: Pt seen and examined in ICU POD 1 emergent craniotomy PK HDZ Chart reviewed Currently on ventilation AC/20/500/40% with 5 PEEP He is off sedation now but not waking up yet His pupils are quite large and not reactive He is not responding to pain stimuli He is very critically ill I am concerned he may not survive 04/16/20 Pt seen and examined in the ICU. PK HDZ. Discussed possibility of organ donation with transplant career representative. Pt's chart and imaging reviewed. His pupils continue to be quite large and not reactive. He continues to not respond to pain stimuli. Currently on ventilation AC/20/500/40% with 5 PEEP. He is extremely critically ill 04/17/20 Pt seen and examined in the ICU. PK HDZ. Pt's chart and imaging reviewed. His pupils remain large and not reactive. He continues to not respond to pain stimuli. Currently on ventilation AC/12/500/60% with 5 PEEP. He is critically ill with poor prognosis. Declared brain yesterday Vitals/I&O Vitals/I&O: Vital Signs Date Time Temp Pulse Resp B/P (MAP) Pulse Ox O2 Delivery O2 Flow Rate FiO2 04/18/20 09:02 100 Ventilator 04/18/20 08:00 04/18/20 06:00 93 12 04/18/20 04:00 98.0 98.0 I & O 04/17/20 04/17/20 04/18/20 15:00 23:00 07:00 Intake Total 640 ml 795 ml 1929.1 ml Output Total 210 ml 360 ml 490 ml Balance 430 ml 435 ml 1439.1 ml Physical Exam General: No acute distress, Other (resting comfortably, negative babinski, pupils dilated L>R non reactive to light) Heart: No murmurs, Other (tachycardic) Lungs: Crackles Abdomen: Normal bowel sounds, No tenderness Extremities: No clubbing, No edema, Other (scds in place) Skin: Other (dressing dry and intact, drain in place on R. frontotemporoparietal region of head ) Labs Labs: Laboratory Tests Test 04/17/20 11:44 04/17/20 18:02 04/18/20 00:32 04/18/20 06:00 Glucose (Fingerstick) 165 mg/dL (70-99) 162 mg/dL (70-99) 168 mg/dL (70-99) White Blood Count 12.1 x10^3/uL (4.0-11.0) Red Blood Count 2.73 x10^6/uL (4.30-5.70) Hemoglobin 8.6 g/dL (13.0-17.5) Hematocrit 24.2 % (39.0-53.0) Mean Corpuscular Volume 89 fL (79-100) Mean Corpuscular Hemoglobin 32 pg (25-35) Mean Corpuscular Hemoglobin Concent 36 g/dL (31-37) Red Cell Distribution Width 12.8 % (11.5-14.5) Platelet Count 83 x10^3/uL (140-400) Neutrophils (%) (Auto) 85 % (31-73) Lymphocytes (%) (Auto) 5 % (24-48) Monocytes (%) (Auto) 9 % (0-9) Eosinophils (%) (Auto) 2 % (0-3) Basophils (%) (Auto) 0 % (0-3) Neutrophils # (Auto) 10.2 x10^3/uL (1.8-7.7) Lymphocytes # (Auto) 0.6 x10^3/uL (1.0-4.8) Monocytes # (Auto) 1.0 x10^3/uL (0.0-1.1) Eosinophils # (Auto) 0.2 x10^3/uL (0.0-0.7) Basophils # (Auto) 0.0 x10^3/uL (0.0-0.2) Sodium Level 125 mmol/L (136-145) Potassium Level 3.1 mmol/L (3.5-5.1) Chloride Level 92 mmol/L (98-107) Carbon Dioxide Level 22 mmol/L (21-32) Anion Gap 11 (6-14) Blood Urea Nitrogen 9 mg/dL (8-26) Creatinine 0.6 mg/dL (0.7-1.3) Estimated GFR (Cockcroft-Gault) 131.3 BUN/Creatinine Ratio 15 (6-20) Glucose Level 170 mg/dL (70-99) Calcium Level 7.7 mg/dL (8.5-10.1) Total Bilirubin 0.5 mg/dL (0.2-1.0) Aspartate Amino Transf (AST/SGOT) 126 U/L (15-37) Alanine Aminotransferase (ALT/SGPT) 26 U/L (16-63) Alkaline Phosphatase 73 U/L (46-116) Total Protein 4.8 g/dL (6.4-8.2) Albumin 1.4 g/dL (3.4-5.0) Albumin/Globulin Ratio 0.4 (1.0-1.7) Test 04/18/20 09:15 O2 Saturation 98 % (92-99) Arterial Blood pH 7.40 (7.35-7.45) Arterial Blood pCO2 at Patient Temp 36 mmHg (35-46) Arterial Blood pO2 at Patient Temp 139 mmHg (65-108) Arterial Blood HCO3 22 mmol/L (21-28) Arterial Blood Base Excess -3 mmol/L (-3-3) FiO2 60 Assessment and Plan Assessmemt and Plan Problems Medical Problems: (1) Facial laceration Status: Acute (2) Intracranial hemorrhage Status: Acute (3) Seizure Status: Acute (4) Traumatic subarachnoid hemorrhage Status: Acute (5) Traumatic subdural hematoma Status: Acute Acute subdural hematoma Temporal intraparenchymal hematoma Mental status changes History of seizures Anxiety Schizophrenia Brain as of yesterday Plan: ICU monitoring for now We are awaiting his DPOA/tax attorney to confirm whether or not he is going to be a organ donor Cardiac monitoring Trying to wean off the vent Trying to wean off IV pressors DVT ppx Trend labs Wound care DNR Pulm and Neuro following He is critically ill. Awaiting organ donation status. CC time 32 minutes Comment Review of Relevant I have reviewed the following items jossue (where applicable) has been applied. Medications: Current Medications Medications (Trade) Dose Ordered Sig/Linh Route PRN Reason Start Time Stop Time Status Last Admin Dose Admin Sodium Chloride 1,000 ml @ 100 mls/hr Q10H IV 04/17/20 11:45 04/18/20 09:08 Justifications for Admission Other Justification DANNIE KELSEY III DO Apr 18, 2020 11:05
--- NOTE | 2020-04-18 12:20 | PDOC ---
PULMONARY PROGRESS NOTES DATE: 04/18/20 TIME: 12:17 Subjective PT. remains on vent at 40% peep 5 no sedation no response Worsening CT findings no pupil response or other reflexes S/P right craniotomy and evacuation on 04/14 brain per neuro Vitals Vital Signs Date Time Temp Pulse Resp B/P (MAP) Pulse Ox O2 Delivery O2 Flow Rate FiO2 04/18/20 11:48 100 Ventilator 04/18/20 08:00 04/18/20 06:00 93 12 04/18/20 04:00 98.0 98.0 Comments ros unable to obtain intubated no response HEENT: Other (Pupil do not react s/p crani orally intubated nose clear neck no lad no thyromegaly) Lungs: Crackles Cardiovascular: S1, S2 Abdomen: Soft, Non-tender, Other (no mass) Extremities: No Edema Skin: Warm, Dry Labs Laboratory Tests Test 04/16/20 12:44 04/17/20 00:33 04/17/20 04:55 04/17/20 06:13 O2 Saturation 98 % (92-99) Arterial Blood pH 7.16 (7.35-7.45) Arterial Blood pCO2 at Patient Temp 75 mmHg (35-46) Arterial Blood pO2 at Patient Temp 167 mmHg (65-108) Arterial Blood HCO3 26 mmol/L (21-28) Arterial Blood Base Excess -4 mmol/L (-3-3) Oxyhemoglobin 97.6 % Methemoglobin 0.5 % (0.0-1.9) Carbon Monoxide, Quantitative 0.2 % (0.0-1.9) FiO2 15 l nc Glucose (Fingerstick) 208 mg/dL (70-99) 182 mg/dL (70-99) White Blood Count 15.6 x10^3/uL (4.0-11.0) Red Blood Count 2.85 x10^6/uL (4.30-5.70) Hemoglobin 9.0 g/dL (13.0-17.5) Hematocrit 25.6 % (39.0-53.0) Mean Corpuscular Volume 90 fL (79-100) Mean Corpuscular Hemoglobin 32 pg (25-35) Mean Corpuscular Hemoglobin Concent 35 g/dL (31-37) Red Cell Distribution Width 13.2 % (11.5-14.5) Platelet Count 79 x10^3/uL (140-400) Neutrophils (%) (Auto) 86 % (31-73) Lymphocytes (%) (Auto) 5 % (24-48) Monocytes (%) (Auto) 7 % (0-9) Eosinophils (%) (Auto) 2 % (0-3) Basophils (%) (Auto) 0 % (0-3) Neutrophils # (Auto) 13.4 x10^3/uL (1.8-7.7) Lymphocytes # (Auto) 0.7 x10^3/uL (1.0-4.8) Monocytes # (Auto) 1.1 x10^3/uL (0.0-1.1) Eosinophils # (Auto) 0.3 x10^3/uL (0.0-0.7) Basophils # (Auto) 0.1 x10^3/uL (0.0-0.2) Sodium Level 127 mmol/L (136-145) Potassium Level 3.3 mmol/L (3.5-5.1) Chloride Level 97 mmol/L (98-107) Carbon Dioxide Level 23 mmol/L (21-32) Anion Gap 7 (6-14) Blood Urea Nitrogen 9 mg/dL (8-26) Creatinine 1.0 mg/dL (0.7-1.3) Estimated GFR (Cockcroft-Gault) 72.8 Glucose Level 201 mg/dL (70-99) Calcium Level 7.8 mg/dL (8.5-10.1) Test 04/17/20 11:44 04/17/20 18:02 04/18/20 00:32 04/18/20 06:00 Glucose (Fingerstick) 165 mg/dL (70-99) 162 mg/dL (70-99) 168 mg/dL (70-99) White Blood Count 12.1 x10^3/uL (4.0-11.0) Red Blood Count 2.73 x10^6/uL (4.30-5.70) Hemoglobin 8.6 g/dL (13.0-17.5) Hematocrit 24.2 % (39.0-53.0) Mean Corpuscular Volume 89 fL (79-100) Mean Corpuscular Hemoglobin 32 pg (25-35) Mean Corpuscular Hemoglobin Concent 36 g/dL (31-37) Red Cell Distribution Width 12.8 % (11.5-14.5) Platelet Count 83 x10^3/uL (140-400) Neutrophils (%) (Auto) 85 % (31-73) Lymphocytes (%) (Auto) 5 % (24-48) Monocytes (%) (Auto) 9 % (0-9) Eosinophils (%) (Auto) 2 % (0-3) Basophils (%) (Auto) 0 % (0-3) Neutrophils # (Auto) 10.2 x10^3/uL (1.8-7.7) Lymphocytes # (Auto) 0.6 x10^3/uL (1.0-4.8) Monocytes # (Auto) 1.0 x10^3/uL (0.0-1.1) Eosinophils # (Auto) 0.2 x10^3/uL (0.0-0.7) Basophils # (Auto) 0.0 x10^3/uL (0.0-0.2) Sodium Level 125 mmol/L (136-145) Potassium Level 3.1 mmol/L (3.5-5.1) Chloride Level 92 mmol/L (98-107) Carbon Dioxide Level 22 mmol/L (21-32) Anion Gap 11 (6-14) Blood Urea Nitrogen 9 mg/dL (8-26) Creatinine 0.6 mg/dL (0.7-1.3) Estimated GFR (Cockcroft-Gault) 131.3 BUN/Creatinine Ratio 15 (6-20) Glucose Level 170 mg/dL (70-99) Calcium Level 7.7 mg/dL (8.5-10.1) Total Bilirubin 0.5 mg/dL (0.2-1.0) Aspartate Amino Transf (AST/SGOT) 126 U/L (15-37) Alanine Aminotransferase (ALT/SGPT) 26 U/L (16-63) Alkaline Phosphatase 73 U/L (46-116) Total Protein 4.8 g/dL (6.4-8.2) Albumin 1.4 g/dL (3.4-5.0) Albumin/Globulin Ratio 0.4 (1.0-1.7) Test 04/18/20 09:15 O2 Saturation 98 % (92-99) Arterial Blood pH 7.40 (7.35-7.45) Arterial Blood pCO2 at Patient Temp 36 mmHg (35-46) Arterial Blood pO2 at Patient Temp 139 mmHg (65-108) Arterial Blood HCO3 22 mmol/L (21-28) Arterial Blood Base Excess -3 mmol/L (-3-3) FiO2 60 Laboratory Tests Test 04/17/20 18:02 04/18/20 00:32 04/18/20 06:00 04/18/20 09:15 Glucose (Fingerstick) 162 mg/dL (70-99) 168 mg/dL (70-99) White Blood Count 12.1 x10^3/uL (4.0-11.0) Red Blood Count 2.73 x10^6/uL (4.30-5.70) Hemoglobin 8.6 g/dL (13.0-17.5) Hematocrit 24.2 % (39.0-53.0) Mean Corpuscular Volume 89 fL (79-100) Mean Corpuscular Hemoglobin 32 pg (25-35) Mean Corpuscular Hemoglobin Concent 36 g/dL (31-37) Red Cell Distribution Width 12.8 % (11.5-14.5) Platelet Count 83 x10^3/uL (140-400) Neutrophils (%) (Auto) 85 % (31-73) Lymphocytes (%) (Auto) 5 % (24-48) Monocytes (%) (Auto) 9 % (0-9) Eosinophils (%) (Auto) 2 % (0-3) Basophils (%) (Auto) 0 % (0-3) Neutrophils # (Auto) 10.2 x10^3/uL (1.8-7.7) Lymphocytes # (Auto) 0.6 x10^3/uL (1.0-4.8) Monocytes # (Auto) 1.0 x10^3/uL (0.0-1.1) Eosinophils # (Auto) 0.2 x10^3/uL (0.0-0.7) Basophils # (Auto) 0.0 x10^3/uL (0.0-0.2) Sodium Level 125 mmol/L (136-145) Potassium Level 3.1 mmol/L (3.5-5.1) Chloride Level 92 mmol/L (98-107) Carbon Dioxide Level 22 mmol/L (21-32) Anion Gap 11 (6-14) Blood Urea Nitrogen 9 mg/dL (8-26) Creatinine 0.6 mg/dL (0.7-1.3) Estimated GFR (Cockcroft-Gault) 131.3 BUN/Creatinine Ratio 15 (6-20) Glucose Level 170 mg/dL (70-99) Calcium Level 7.7 mg/dL (8.5-10.1) Total Bilirubin 0.5 mg/dL (0.2-1.0) Aspartate Amino Transf (AST/SGOT) 126 U/L (15-37) Alanine Aminotransferase (ALT/SGPT) 26 U/L (16-63) Alkaline Phosphatase 73 U/L (46-116) Total Protein 4.8 g/dL (6.4-8.2) Albumin 1.4 g/dL (3.4-5.0) Albumin/Globulin Ratio 0.4 (1.0-1.7) O2 Saturation 98 % (92-99) Arterial Blood pH 7.40 (7.35-7.45) Arterial Blood pCO2 at Patient Temp 36 mmHg (35-46) Arterial Blood pO2 at Patient Temp 139 mmHg (65-108) Arterial Blood HCO3 22 mmol/L (21-28) Arterial Blood Base Excess -3 mmol/L (-3-3) FiO2 60 Medications Active Scripts Medications Dose Route/Sig Max Daily Dose Days Date Category D3-50 (Cholecalciferol (Vitamin D3)) 50,000 Unit Capsule 1,500 Unit PO DAILY 04/14/20 Reported Valproic Acid (Valproate Sodium) 250 Mg/5 Ml Solution 250 Mg PO TID 04/14/20 Reported Multivitamin 1 Each Tablet 1 Each PO DAILY 04/14/20 Reported Levetiracetam 500 Mg Tablet 1 Tab PO BID 04/14/20 Reported Mucus ER (Guaifenesin) 600 Mg Tab.er.12h 600 Mg PO PRN Q12HR PRN 04/14/20 Reported Ethosuximide 250 Mg Capsule 1 Cap PO BID 30 04/14/20 Reported Colace (Docusate Sodium) 100 Mg Capsule 1 Cap PO BID 30 04/14/20 Reported Tylenol (Acetaminophen) 325 Mg Tablet 650 Mg PO PRN Q6HRS PRN 07/26/16 Reported Keppra (Levetiracetam) 1,000 Mg Tablet 1 Tab PO BID 07/26/[address] head 04/15 reviewed Multiple intracranial hemorrhages with extensive cerebral edema. Increasing effacement of the subarachnoid cisterns. Increasing blood within the left lateral ventricle. Hemorrhages are otherwise not significantly changed Post surgical changes of right frontotemporal craniotomy and extra-axial drain placement Impression . IMPRESSION: 1. Acute respiratory failure secondary to cerebrovascular accident. 2. Seizures secondary to cerebrovascular accident. 3. A 3.6 cm acute right temporal lobe intraparenchymal hemorrhage. 4. Moderate right and small left acute subdural hematoma. 5. Small amount of subarachnoid hemorrhage. 6. Nondisplaced right temporal bone fracture. 7. Encephalomalacia. 8. Encephalopathy secondary to above. 9. Abnormal chest x-ray. 10. Brain per neuro Plan . Continue current vent support currently on 40%, per neuro: Patient is brain from his injuries. He is currently maintained on life support. Awaiting transplant team for any organ donation PRN nebs Repeat CT head worsening on cefazolin ABX Follow neuro surgery recs: S/P Right frontotemporoparietal craniotomy with evacuation of subdural hematoma and evacuation of intracerebral hemorrhage on 04/14 Brain no further input D/W RN and RT DARLING SOMMER MD Apr 18, 2020 12:20
--- NOTE | 2020-04-18 12:37 | NUR ---
Carlos A, pt study assistant guardian was reached this morning, he was informed of pt brain but said he would need to get documents sent over to be able to withdraw care or donate organs. He was then reached again and explained brain to him again. He stated that that changed things, he passed on information for pt siblings. Calls being made to them now. Addendum: 04/18/20 at 1340 by BETTE ARELLANO RN [place] spoke with family, got the ok for organ donation. Notified Dr Osborn Spoke with sister, Keara, sisterDayami and BrotherSalvatore Addendum: 04/18/20 at 1345 by BETTE ARELLANO RN They also gave permission to allow us to give information out to pt Lula rose Addendum: 04/18/20 at 1428 by BETTE ARELLANO RN Consents for donation admission obtained by [facility] [place], [place] to change pt donation admission at [phone]
[2020-04-18 23:52] LABS: BASE EXCESS ABG -5 mmol/L (-3-3); HCO3 ABG 21 mmol/L (21-28); PCO2 ABG 40 mmHg (35-46); PO2 ABG 209 mmHg (65-108); SAT O2 ABG 99 % (92-99)
[2020-04-18 23:53] LABS: FIO2 ABG 100
--- NOTE | 2020-04-19 18:06 | PATHOLOGY ---
[facility] Accession Number: [id number] . 01 Material submitted: . head - SUBDURAL HEMATOMA . 01 Clinical history: . SUBDURAL HEMATOMA, SEIZURES, SKULL FRACTURE, INTRACRANIAL HEMORRHAGE . 02 Diagnosis: Right frontal temporal subdermal hematoma, excision: - Organizing clot. - Negative for malignancy. (MLK:pit; 04/19/2020) P 04/19/2020 1713 Local . 02 Electronically signed: . Leesa Bazzi MD, Pathologist NPI- [id number] . 01 Gross description: . The specimen is received in formalin, labeled "Patrick Lamontaine, subdural hematoma". Received is a moderate amount of blood coagulum measuring 5.3 x 2.5 x 1.3 cm in aggregate dimensions. Soft tissue is not grossly identified. The specimen is submitted representatively in cassette A1. ([facility]; 04/18/2020) QA/[facility] 04/18/2020 1133 Local . 02 Pathologist provided ICD-10: S06.5X0A, R56.9 . 02 CPT . 545140 Specimen Comment: A courtesy copy of this report has been sent to [phone], [phone] Specimen Comment: [phone], Specimen Comment: Report sent to ,DR VIVAS / DR KELSEY Performed at: 01 [facility] [address], [place] [id number] MD Bob Vázquez MD Phone: [phone] Performed at: 02 [facility] [address], [place] [id number] MD Patrick Guo MD Phone: [phone]
== END 2020-04-16 13:00 | DRG 23 ==
LOC: ER 20:04 → ED HOLD 22:00 → CVICU 04-14 03:16
PROVIDERS: ADMIT Internal Medicine; ATTEND Internal Medicine
PROC: 5A1955Z Respiratory Ventilation, Greater than 96 Consecutive Hours (ICD-10-PCS; 2020-04-13)
PROC: 0BH17EZ Insertion of Endotracheal Airway into Trachea, Via Natural or Artificial Opening (ICD-10-PCS; 2020-04-13)
PROC: 009C0ZZ Drainage of Cerebellum, Open Approach (ICD-10-PCS; 2020-04-14)
PROC: 00C40ZZ Extirpation of Matter from Intracranial Subdural Space, Open Approach (ICD-10-PCS; principal; 2020-04-14 11:00)
DX: S06.6X9A Traumatic subarachnoid hemorrhage with loss of consciousness of unspecified duration, initial encounter (principal); J96.00 Acute respiratory failure, unspecified whether with hypoxia or hypercapnia; J98.11 Atelectasis; G93.40 Encephalopathy, unspecified; K92.2 Gastrointestinal hemorrhage, unspecified; S06.1X9A Traumatic cerebral edema with loss of consciousness of unspecified duration, initial encounter; S06.4X9A Epidural hemorrhage with loss of consciousness of unspecified duration, initial encounter; S06.5X9A Traumatic subdural hemorrhage with loss of consciousness of unspecified duration, initial encounter; S02.19XA Other fracture of base of skull, initial encounter for closed fracture; S01.81XA Laceration without foreign body of other part of head, initial encounter; F41.9 Anxiety disorder, unspecified; F20.9 Schizophrenia, unspecified; Z20.828 Contact with and (suspected) exposure to other viral communicable diseases; Z88.8 Allergy status to other drugs, medicaments and biological substances; G40.909 Epilepsy, unspecified, not intractable, without status epilepticus; G93.89 Other specified disorders of brain; Z83.3 Family history of diabetes mellitus
CPT/HCPCS: 12013; 36415; 36600; 70450; 71045; 72125; 80048; 80053; 80164; 80185; 81001; 82805; 82962; 83735; 85007; 85025; 85027; 85610; 85730; 86850; 86900; 86901; 87086; 87426; 88305; 94002; 94003; C1713; J0330; J0690; J1953; J2060; J2150; J2250; J3010; J3475; J3480; J3490; J7030; J7050; J7060; J7120; U0003; 99291-25; G0378